=== PATIENT | male | born 1955 | race Hispanic/Latino ===

== ENCOUNTER 2019-02-17 18:29 | Inpatient (IN) | payer MEDICARE ==
--- NOTE | 2019-02-17 19:03 | Emergency Department Report ---
Blank Doc - Documentation Documentation: 63 y o male presents for fall at [facility], pt appears jaundiced, states he didnr want to come to ED poor historian
[2019-02-17 19:53] LABS: Basophils # (Auto) 0.1 K/mm3 (0.0-0.1); Basophils % (Auto) 0.7 % (0.0-1.8); Eosinophils % (Auto) 0.2 % (0.0-4.3); Hematocrit 32.5 % (35.5-45.6); Hemoglobin 11.6 gm/dl (11.8-15.2); Lymphocytes % (Auto) 6.4 % (13.4-35.0); Mean Corpuscular HGB Conc 36 % (32-34); Mean Corpuscular Volume 100 fl (84-94); Monocytes # (Auto) 0.9 K/mm3 (0.0-0.8); Monocytes % (Auto) 5.8 % (0.0-7.3); Platelet Count 295 K/mm3 (140-440); Red Blood Count 3.24 M/mm3 (3.65-5.03); Red Cell Distribution Width 14.3 % (13.2-15.2)
[2019-02-17 20:18] LABS: Alanine Aminotransferase 21 units/L (7-56); Albumin 2.5 g/dL (3.9-5); BUN/Creatinine Ratio 25; Bilirubin,Direct 4.1 mg/dL (0-0.2); Blood Urea Nitrogen 10 mg/dL (9-20); Calcium 8.3 mg/dL (8.4-10.2); Hemolysis Index 14
[2019-02-17] MEDS ORDERED: NACL 0.9% 1000 ML 1,000 ML IV ONE (21:14)
[2019-02-17] MEDS ORDERED: ROCEPHIN/NS 2 GM/100 ML 2 GM/100 ML BAG IV ONE (21:23)
--- NOTE | 2019-02-17 21:24 | Emergency Department Report ---
- General Chief complaint: Weakness Stated complaint: FALL Time Seen by Provider: 02/17/19 18:34 Source: patient Mode of arrival: Wheelchair Limitations: No Limitations - History of Present Illness Initial comments: 63-year-old male presents to the ED with generalized weakness, jaundice, not feeling well for the past 3 days. Patient lives in a longterm, and he states that his roommate has noticed that his skin color has changed. He states that a few years ago he had colon surgery at [place] but does not remember what was done. -: Gradual Location: generalized Severity: severe - Related Data Previous Rx's Medication Instructions Recorded Last Taken Type Ketorolac [Toradol] 10 mg PO Q6H PRN #10 tablet 06/07/18 Unknown Rx Allergies Allergy/AdvReac Type Severity Reaction Status Date / Time Sulfa (Sulfonamide Allergy Unknown Verified 06/07/18 19:07 Antibiotics) ED Review of Systems ROS: Stated complaint: FALL Other details as noted in HPI Comment: All other systems reviewed and negative Constitutional: no symptoms reported Cardiovascular: denies: palpitations Gastrointestinal: nausea, vomiting ED Past Medical Hx - Past Medical History Previous Medical History?: Yes Hx Hypertension: Yes Hx Psychiatric Treatment: Yes (alcohol abuse,last used over year, depression) Hx Asthma: Yes Additional medical history: Colon Ca - Surgical History Past Surgical History?: Yes Additional Surgical History: resection of Colon, 3hernia repairs - Social History Smoking Status: Current Every Day Smoker Substance Use Type: Alcohol - Medications Home Medications: Home Medications Medication Instructions Recorded Confirmed Last Taken Type Ketorolac [Toradol] 10 mg PO Q6H PRN #10 tablet 06/07/18 Unknown Rx ED Physical Exam - General Limitations: No Limitations, Language Barrier General appearance: lethargic - Eye Eye exam: Present: scleral icterus - ENT ENT exam: Present: normal exam, normal orophraynx - Neck Neck exam: Present: normal inspection - Respiratory Respiratory exam: Present: normal lung sounds bilaterally - Cardiovascular Cardiovascular Exam: Present: regular rate, normal rhythm - GI/Abdominal GI/Abdominal exam: Present: soft, normal bowel sounds - Extremities Exam Extremities exam: Present: normal inspection, full ROM - Back Exam Back exam: Present: normal inspection - Neurological Exam Neurological exam: Present: alert, oriented X3 ED Course Vital Signs 02/17/19 18:34 Temperature 98.0 F Pulse Rate 92 H Respiratory 18 Rate Blood Pressure 103/63 O2 Sat by Pulse 92 Oximetry ED Medical Decision Making - Lab Data Result diagrams: 02/17/19 19:40 02/17/19 19:40 Critical care attestation.: If time is entered above; I have spent that time in minutes in the direct care of this critically ill patient, excluding procedure time. ED Disposition Clinical Impression: Jaundice, hepatocellular Disposition: DC-01 TO HOME OR SELFCARE Is pt being admited?: Yes Does the pt Need Aspirin: No Condition: Stable
--- NOTE | 2019-02-17 22:15 | Cat Scan Report ---
PROCEDURE: CT abdomen and pelvis without contrast. TECHNIQUE: Computerized axial tomography of the abdomen and pelvis was performed without intravenous contrast. This study is performed without intravascular contrast material and its sensitivity for ab dominal and pelvic pathology, including neoplasms, inflammation, abscess, free fluid, thrombosis, art erial dissection and infarction, is reduced compared with a contrast enhanced study. CT DOSE LENGTH PRODUCT: 701.4 mGycm HISTORY: Jaundice. COMPARISONS: None. FINDINGS: There are multiple pulmonary nodules located in the lung bases. These are not calcified. One of the l argest nodules is in the right lower lobe measuring 1.9 cm. These findings are worrisome for metastat ic disease. Clinical correlation is recommended. There are no pleural effusions. The heart size is no rmal. There are some vague areas of inhomogeneous attenuation within the liver. There are some calcif ications in the left lobe. Metastatic disease is possible. Again clinical correlation is recommended. The gallbladder is present. There is no biliary dilatation. The pancreas and spleen are grossly norm al. The adrenal glands are not enlarged. There is probably a cyst in the upper pole of the right kidn ey. The abdominal aorta has a normal caliber. There is atherosclerotic calcification in the abdominal aorta and common iliac arteries. There is no retroperitoneal adenopathy. The unopacified gastrointes tinal tract is unremarkable. There is a moderate amount of ascites in the abdomen and pelvis. The fawn dder is distended. The seminal vesicles and prostate appear normal. The regional skeleton appears int act. There are old fractures of left ribs 7 and 8 and right rib 6. IMPRESSION: Multiple pulmonary nodules worrisome for metastatic disease. Abnormal appearing liver which may also have metastatic disease. Moderate amount of ascites. Atherosclerosis. This document is electronically signed by Eugene Velez MD., February 17 2019 10:13:48 PM ET
--- NOTE | 2019-02-17 23:13 | History and Physical Report ---
History of Present Illness Date of examination: 02/17/19 History of present illness: 63-year-old male with a history of colon cancer, depressioncomes to the emergency room for evaluation. Lives in a alf, his friend told him that his eyes were yellow and should get evaluated. Complains of generalized weakness Review of systems Constitutional: no weight loss, chills, fever Ears, eyes, nose, mouth and throat: no nasal congestion, no nasal discharge, no sinus pressure, no vision change, no red eye. Neck: No neck pain or rigidity. Cardiovascular: no palpitations, chest pain Respiratory: no cough, shortness of breath Gastrointestinal: no hematochezia, abdominal pain Genitourinary : no frequency , no hematuria Musculoskeletal: no joint swelling or muscle ache Integumentary: no rash, no pruritis Neurological: no parathesias, no focal weakness Endocrine: no cold or heat intolerance, no polyuria or polydipsia Hematologic/Lymphatic: no easy bruising, no easy bleeding, no gland swelling Allergic/Immunologic: no urticaria, no angioedema. PAST MEDICAL HISTORY:colon cancer, depression PAST SURGICAL HISTORY: Colon resection SOCIAL HISTORY:Drink 3 beers a day, drugs, smokes half pack a day FAMILY HISTORY: Hypertension Medications and Allergies Allergies Allergy/AdvReac Type Severity Reaction Status Date / Time Sulfa (Sulfonamide Allergy Unknown Verified 06/07/18 19:07 Antibiotics) Home Medications Medication Instructions Recorded Confirmed Last Taken Type Ketorolac [Toradol] 10 mg PO Q6H PRN #10 tablet 06/07/18 02/18/19 Unknown Rx Active Meds: Active Medications Sodium Chloride (Nacl 0.9% 1000 Ml) 1,000 mls @ 125 mls/hr IV ONCE ONE Stop: 02/18/19 05:13 Exam - Physical Exam Narrative exam: General Apperance: The patient lying in bed, breathing comfortable HEENT: Normocephalic, atraumatic. Pupils equally round and reactive to light, EOMI, +sclericterus, no JVD or thyromegaly or nodule. , no carotid bruit, mucous membranes moist, no exudate or erythema Heart: S1-S2, regular is rhythm Lungs: Clear to auscultation bilaterally, breathing comfortable Abdomen: Positive bowel sounds, soft, nontender, nondistended, no organomegaly Extremities: + edema no cyanosis clubbing Skin: Sacral decubitus, + extremities wounds , no rash, nodule, warm and dry Neuro: cranial nerves 2-12 intact, speech is fluent, motor/sensory intact - Constitutional Vitals: Temp Pulse Resp BP Pulse Ox 98.0 F 92 H 18 103/63 92 02/17/19 18:34 02/17/19 18:34 02/17/19 18:34 02/17/19 18:34 02/17/19 18:34 Results - Labs CBC & Chem 7: 02/22/19 06:40 02/24/19 19:52 Labs: Abnormal lab results 02/17/19 02/17/19 Range/Units 19:40 19:40 WBC 16.2 H (4.5-11.0) K/mm3 RBC 3.24 L (3.65-5.03) M/mm3 Hgb 11.6 L (11.8-15.2) gm/dl Hct 32.5 L (35.5-45.6) % MCV 100 H (84-94) fl MCH 36 H (28-32) pg MCHC 36 H (32-34) % Lymph % (Auto) 6.4 L (13.4-35.0) % Lymph # 1.0 L (1.2-5.4) K/mm3 [place] # 0.9 H (0.0-0.8) K/mm3 Seg Neutrophils % 86.9 H (40.0-70.0) % Seg Neutrophils # 14.1 H (1.8-7.7) K/mm3 Sodium 111 L* (137-145) mmol/L Chloride 71.2 L (98-107) mmol/L Creatinine 0.4 L (0.8-1.5) mg/dL Glucose 70 L (75-100) mg/dL Calcium 8.3 L (8.4-10.2) mg/dL Total Bilirubin 5.80 H (0.1-1.2) mg/dL Direct Bilirubin 4.1 H (0-0.2) mg/dL AST 54 H (5-40) units/L Alkaline Phosphatase 414 H (35-129) units/L Albumin 2.5 L (3.9-5) g/dL - Imaging and Cardiology CT scan - abdomen: report reviewed CT scan - pelvis: report reviewed Assessment and Plan Assessment Severe hyponatremia, rule out SIADH SIRS Metastatic colon cancer, liver and lungs Depression Plan Admit to medicine Fluid restriction, check serial chemistries, urine electrolytes consult renal, case discussed with Dr. Holland ngo,follow cultures, consult oncology Check CT head, DVT prophylaxis
[2019-02-17 23:26] LABS: Amorphous Crystals,Urine Few; Bilirubin,Urine SM (Negative); Blood,Urine SM (Negative); Color,Urine Amber (Yellow); Protein,Urine <15 mg/dL mg/dL (Negative)
[2019-02-17 23:32] LABS: Ictotest,Urine Positive (Negative)
[2019-02-17] MEDS ORDERED: NACL 0.9% 1000 ML 1,000 ML IV SCH (23:45)
[2019-02-17] MEDS ORDERED: NACL 0.9% 1000 ML 1,000 ML ONE (23:58)
[2019-02-18] LABS: BUN/Creatinine Ratio 28; Blood Urea Nitrogen 11 mg/dL (9-20); Calcium 8.1 mg/dL (8.4-10.2); Hemolysis Index 2
[2019-02-18 00:03] LABS: Creatinine,Urine 74.5 mg/dL (0.1-20.0)
[2019-02-18] MEDS ORDERED: SODIUM CHLORIDE FLUSH SYRINGE 10 ML IV PRN (00:16)
[2019-02-18] MEDS ORDERED: ZOFRAN IV PRN (00:16)
--- NOTE | 2019-02-18 01:34 | XRay Report ---
PROCEDURE: Chest. TECHNIQUE: AP and lateral chest radiographs were obtained. HISTORY: leukocytosis COMPARISONS: None. FINDINGS: The heart size is normal. There is moderate tortuosity of the thoracic aorta. The lungs are mildly hy perinflated. There are some vague nodular opacities located laterally in the right midlung. These are indeterminant but could represent metastatic disease. Further evaluation with a contrast enhanced CT scan of the chest is recommended. There may be a small very faint nodule in the left costophrenic an gle. The left lung is otherwise clear. There are no pleural effusions. There is a right-sided chest p ort. The thoracic spine is osteopenic. There are wedge compression deformities of 2 mid thoracic vert ebral bodies. IMPRESSION: COPD. Possible metastatic nodules. Further evaluation recommended. Osteoporosis. Deborah gautam fractures in the midthoracic spine. This document is electronically signed by Eugene Velez MD., February 18 2019 01:32:30 AM ET
[2019-02-18 02:59] LABS: BUN/Creatinine Ratio 25; Blood Urea Nitrogen 10 mg/dL (9-20); Hemolysis Index 0
[2019-02-18 07:08] LABS: BUN/Creatinine Ratio 25; Blood Urea Nitrogen 10 mg/dL (9-20); Calcium 7.7 mg/dL (8.4-10.2); Hemolysis Index 0
[2019-02-18] MEDS: SODIUM CHLORIDE FLUSH SYRINGE 10 ML IV SCH ×2 (09:51→21:26)
[2019-02-18] MEDS: LOVENOX SUB-Q SCH (09:51)
[2019-02-18] MEDS ORDERED: LOVENOX SUB-Q SCH (10:00)
[2019-02-18] MEDS ORDERED: ROCEPHIN/NS 1 GM/50 ML 1 GM/50 ML BAG IV SCH (10:00)
[2019-02-18 10:38] LABS: BUN/Creatinine Ratio 25; Blood Urea Nitrogen 10 mg/dL (9-20); Calcium 8.2 mg/dL (8.4-10.2); Hemolysis Index 0
--- NOTE | 2019-02-18 12:04 | Consultation ---
History of Present Illness - Reason for Consult Consult date: 02/18/19 hyponatremia - History of Present Illness the patient is a 63 year old male with h/o coln cancer presented to the ER yesterday due to worsening weakness and jaundice, in the ED he was found to have severe hyponatremia and CT was significant for metastatic disease of the lungs, on admission he was started on NS and Na level increased from 111 to 115 this AM, renal consult was requested for hyponatremia management Past History Past Medical History: other (colon cancer) Medications and Allergies Allergies Allergy/AdvReac Type Severity Reaction Status Date / Time Sulfa (Sulfonamide Allergy Unknown Verified 06/07/18 19:07 Antibiotics) Home Medications Medication Instructions Recorded Confirmed Last Taken Type Ketorolac [Toradol] 10 mg PO Q6H PRN #10 tablet 06/07/18 02/18/19 Unknown Rx Active Meds: Active Medications Acetaminophen (Tylenol) 650 mg PO Q4H PRN PRN Reason: Pain MILD(1-3)/Fever >100.5/POLANCO Enoxaparin Sodium (Lovenox) 40 mg SUB-Q QDAY@1000 [facility] Last Admin: 02/18/19 09:51 Dose: 40 mg Documented by: Furosemide (Lasix) 20 mg PO QDAY [facility] Ceftriaxone Sodium (Rocephin/Ns 1 Gm/50 Ml) 1 gm in 50 mls @ 100 mls/hr IV Q24HR [facility]; Protocol Last Admin: 02/18/19 09:51 Dose: 100 mls/hr Documented by: Ondansetron HCl (Zofran) 4 mg IV Q8H PRN PRN Reason: Nausea And Vomiting Sodium Chloride (Sodium Chloride Flush Syringe 10 Ml) 10 ml IV BID [facility] Last Admin: 02/18/19 09:51 Dose: 10 ml Documented by: Sodium Chloride (Sodium Chloride Flush Syringe 10 Ml) 10 ml IV PRN PRN PRN Reason: LINE FLUSH Sodium Chloride (Sodium Chloride) 1 gm PO TID [facility] Review of Systems All systems: negative (weakness, nausea) Exam - Vital Signs Vital signs: Vital Signs Temp Pulse Resp BP Pulse Ox 98.0 F 92 H 18 103/63 92 02/17/19 18:34 02/17/19 18:34 02/17/19 18:34 02/17/19 18:34 02/17/19 18:34 - General Appearance General appearance: well-developed, well-nourished EENT: ATNC, PERRL, mucous membranes moist Neck: Present: neck supple Respiratory: Clear to Ascultation Heart: regular, S1S2 Gastrointestinal: Present: normoactive bowel sounds, distended Integumentary: no rash, warm and dry Neurologic: no focal deficit, no asterixis, alert and oriented x3, other Musculoskeletal: Present: other (trace pitting edema in BLE) Psychiatric: mood/affect appropriate, cooperative Results - Lab Results 02/17/19 19:40 02/18/19 10:07 Most recent lab results Calcium 8.2 mg/dL (8.4-10.2) L 02/18/19 10:07 74.5 mg/dL (0.1-20.0) H 02/17/19 22:00 10 mmol/L 02/17/19 22:00 Assessment and Plan Severe hyponatremia, possible SIADH due to active malignancy with mets to the lungs and liver SIRS Metastatic colon cancer, liver and lungs Depression - Na Q4H with neurochecks, avoid Na correction more than 8 mmol/l in 24 hours - off NS, will start NaCl tab 1 grams TID with lasix 20 mg qday and fluid restriction 1000 cc/h - will check urine and serum osm, urine Cr and sodium - strict I&O - daily weight Gui Leal MD [phone]
--- NOTE | 2019-02-18 12:21 | Cat Scan Report ---
CT HEAD WITHOUT CONTRAST: HISTORY: Evaluate for metastases. TECHNIQUE: Sequential CT images without contrast. FINDINGS: Images obtained show bilateral prominence of the sulci and ventricles. There are no abnormal intra- or extra-axial blood or fluid collections. There are no focal masses or evidence of mass effect. The henry white matter differentiation appears within normal limits. Regions of periventricular decreased attenuation are consistent with microangiopathic ischemic disease. The posterior fossa structures including the fourth ventricle, cerebellum, and brainstem appear normal. IMPRESSION: Evidence of atrophy and microangiopathic ischemic disease. No acute intracranial process noted.
[2019-02-18] MEDS: LASIX PO SCH (12:39)
[2019-02-18 14:14] LABS: BUN/Creatinine Ratio 23; Blood Urea Nitrogen 9 mg/dL (9-20); Calcium 7.9 mg/dL (8.4-10.2); Hemolysis Index 9
[2019-02-18] MEDS: SODIUM CHLORIDE PO SCH ×2 (15:40→21:26)
--- NOTE | 2019-02-18 18:29 | Progress Note ---
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 Nephrology following Sodium chloride 1 g 3 times a day along with Lasix Fluid restriction --Metastatic colon cancer; Patient reports he had colon cancer many years ago Oncology evaluation --Metastatic lesions lungs/liver; Supportive care, management per oncology --SIRS : Supportive care, blood cultures positive for gram-positive clusters Empiric antibiotics, follow culture sensitivities --History of depression; denies suicidal thoughts or ideation Antidepression medications, psych evaluation if needed --DVT prophylaxis; SCDs -- Full CODE STATUS Monitor closely and adjust management as needed History Interval history: 63-year-old male patient with significant past medical history of colon cancer many years ago was admitted through emergency room with generalized weakness and yellowish discoloration of sclerae Initial evaluation patient was noted to have severe hyponatremia CT abdomen and pelvis: multiple pulmonary nodules worrisome for metastatic disease Abnormal liver possible metastatic lesions, moderate amount of ascites and atherosclerosis Patient looks chronically ill, cachectic, confused at times Unable to give proper history Not in acute distress Vital signs noted; Hospitalist Physical - Constitutional Vitals: Temp Pulse Resp BP Pulse Ox 97.9 F 73 18 104/70 96 02/18/19 15:49 02/18/19 15:49 02/18/19 15:49 02/18/19 15:49 02/18/19 15:49 General appearance: Present: mild distress, cachectic, disheveled - EENT Eyes: Present: PERRL, EOM intact, scleral icterus - Neck Neck: Present: supple, normal ROM - Respiratory Respiratory effort: normal Respiratory: bilateral: diminished, rales, negative: rhonchi, wheezing - Cardiovascular Rhythm: regular Heart Sounds: Present: S1 & S2 - Extremities Extremities: no ischemia, No edema - Abdominal General gastrointestinal: soft, non-tender, non-distended, normal bowel sounds - Integumentary Integumentary: Present: clear, warm - Psychiatric Psychiatric: appropriate mood/affect, cooperative - Neurologic Neurologic: CNII-XII intact, moves all extremities Results - Labs CBC & Chem 7: 02/19/19 05:20 02/19/19 08:06 Labs: Laboratory Last Values WBC 16.2 K/mm3 (4.5-11.0) H 02/17/19 19:40 RBC 3.24 M/mm3 (3.65-5.03) L 02/17/19 19:40 Hgb 11.6 gm/dl (11.8-15.2) L 02/17/19 19:40 Hct 32.5 % (35.5-45.6) L 02/17/19 19:40 MCV 100 fl (84-94) H 02/17/19 19:40 MCH 36 pg (28-32) H 02/17/19 19:40 MCHC 36 % (32-34) H 02/17/19 19:40 RDW 14.3 % (13.2-15.2) 02/17/19 19:40 Plt Count 295 K/mm3 (140-440) 02/17/19 19:40 Lymph % (Auto) 6.4 % (13.4-35.0) L 02/17/19 19:40 [place] % (Auto) 5.8 % (0.0-7.3) 02/17/19 19:40 Eos % (Auto) 0.2 % (0.0-4.3) 02/17/19 19:40 Baso % (Auto) 0.7 % (0.0-1.8) 02/17/19 19:40 Lymph # 1.0 K/mm3 (1.2-5.4) L 02/17/19 19:40 [place] # 0.9 K/mm3 (0.0-0.8) H 02/17/19 19:40 Eos # 0.0 K/mm3 (0.0-0.4) 02/17/19 19:40 Baso # 0.1 K/mm3 (0.0-0.1) 02/17/19 19:40 Seg Neutrophils % 86.9 % (40.0-70.0) H 02/17/19 19:40 Seg Neutrophils # 14.1 K/mm3 (1.8-7.7) H 02/17/19 19:40 Sodium 115 mmol/L (137-145) L* 02/18/19 15:24 Potassium 4.3 mmol/L (3.6-5.0) 02/18/19 13:26 Chloride 77.1 mmol/L (98-107) L 02/18/19 13:26 Carbon Dioxide 27 mmol/L (22-30) 02/18/19 13:26 15 mmol/L 02/18/19 13:26 BUN 9 mg/dL (9-20) 02/18/19 13:26 0.4 mg/dL (0.8-1.5) L 02/18/19 13:26 Estimated GFR > 60 ml/min 02/18/19 13:26 23 % 02/18/19 13:26 Glucose 110 mg/dL (75-100) H 02/18/19 13:26 245 Mosm/kg 02/18/19 13:26 Calcium 7.9 mg/dL (8.4-10.2) L 02/18/19 13:26 5.80 mg/dL (0.1-1.2) H 02/17/19 19:40 4.1 mg/dL (0-0.2) H 02/17/19 19:40 1.7 mg/dL 02/17/19 19:40 AST 54 units/L (5-40) H 02/17/19 19:40 ALT 21 units/L (7-56) 02/17/19 19:40 414 units/L (35-129) H 02/17/19 19:40 6.4 g/dL (6.3-8.2) 02/17/19 19:40 2.5 g/dL (3.9-5) L 02/17/19 19:40 0.6 % 02/17/19 19:40 31 units/L (13-60) 02/17/19 19:40 Melina (Yellow) 02/17/19 22:00 Clear (Clear) 02/17/19 22:00 6.0 (5.0-7.0) 02/17/19 22:00 Ur Specific [place] 1.012 (1.003-1.030) 02/17/19 22:00 <15 mg/dl mg/dL (Negative) 02/17/19 22:00 Neg mg/dL (Negative) 02/17/19 22:00 Tr mg/dL (Negative) 02/17/19 22:00 Sm (Negative) 02/17/19 22:00 Neg (Negative) 02/17/19 22:00 Sm (Negative) 02/17/19 22:00 Positive (Negative) 02/17/19 22:00 4.0 mg/dL (<2.0) 02/17/19 22:00 Ur Leukocyte Esterase Neg (Negative) 02/17/19 22:00 5.0 /HPF (0.0-6.0) 02/17/19 22:00 9.0 /HPF (0.0-6.0) 02/17/19 22:00 U Epithel Cells (Auto) < 1.0 /HPF (0-13.0) 02/17/19 22:00 Amorphous Crystals Few 02/17/19 22:00 330 Mosm/kg 02/17/19 22:00 74.5 mg/dL (0.1-20.0) H 02/17/19 22:00 10 mmol/L 02/17/19 22:00 Active Medications - Current Medications Current Medications: Generic Name Dose Route Start Last Admin Trade Name Freq PRN Reason Stop Dose Admin Acetaminophen 650 mg 02/18/19 00:16 Tylenol PO Q4H PRN Pain MILD(1-3)/Fever >100.5/POLANCO Enoxaparin Sodium 40 mg 02/18/19 10:00 02/18/19 09:51 Lovenox SUB-Q 40 mg QDAY@1000 [facility] Administration Furosemide 20 mg 02/18/19 12:00 02/18/19 12:39 Lasix PO 20 mg QDAY [facility] Administration Ceftriaxone Sodium 1 gm in 50 mls @ 100 mls/hr 02/18/19 10:00 02/18/19 09:51 Rocephin/Ns 1 Gm/50 Ml IV 100 mls/hr Q24HR [facility] Administration Protocol Ondansetron HCl 4 mg 02/18/19 00:16 Zofran IV Q8H PRN Nausea And Vomiting Sodium Chloride 10 ml 02/18/19 10:00 02/18/19 09:51 Sodium Chloride Flush Syringe 10 Ml IV 10 ml BID [facility] Administration Sodium Chloride 10 ml 02/18/19 00:16 Sodium Chloride Flush Syringe 10 Ml IV PRN PRN LINE FLUSH Sodium Chloride 1 gm 02/18/19 14:00 02/18/19 15:40 Sodium Chloride PO 1 gm TID [facility] Administration Nutrition/Malnutrition Assess - Dietary Evaluation Nutrition/Malnutrition Findings: Nutrition Notes Start: 02/18/19 15:10 Freq: Status: Active Protocol: Document 02/18/19 15:10 RM (Rec: 02/18/19 15:19 RM [id number]) Nutrition Notes Need for Assessment generated from: vending technician,MST Initial or Follow up Assessment Other Pertinent Diagnosis Sacral PU, Depression, SIRS, metastatic colon CA Current Diet Cardiac w/1.5 L fluid restriction Labs/Tests Reviewed Pertinent Medications Lasix Height 5 ft 7 in Weight 63.503 kg Usual Body Weight 68.18 kg [place] Body Weight (kg) 67.27 BMI 21.9 Subjective/Other Information Screened for skin risk and malnutrition. Sameer 14 points. Noted sign on wall stating 1.5 L fluid restriction. Pt and pt nurse in room at time of visit. 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 Stated that his appetite is okay now however nurse stated that pt is eating bites of meals here. Pt stated UBW is 150 lbs but could not recall how long ago he weighed that. Noted slight temporal wasting. 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 No Is Patient Ambulatory and/or Out of Bed No REE-([place]-St. Jeor-confined to bed) [phone] Calculation Used for Recommendations [place] Jeor Additional Notes Protein Needs: (1.2-1.5g/kg) Fluid Needs: 1.5 L Nutrition Intervention Change Diet Order: Continue current Add Supplement/Snack (indicate name/kcal Ensure Enlive Chocolate 1 /protein ) daily Provides kCal: 350 Provides Protein (gm) 20 Goal #1 Meet at least 75% of calorie and protein needs via PO and ONS intakes Anticipated Discharge Needs: Cardiac diet Follow-Up By: 02/22/19 Additional Comments Follow for PO and ONS intakes
--- NOTE | 2019-02-18 21:49 | Event Note ---
Date: 02/18/19 [id number]
[2019-02-18 23:15] LABS: BUN/Creatinine Ratio 23; Blood Urea Nitrogen 9 mg/dL (9-20); Calcium 7.8 mg/dL (8.4-10.2); Hemolysis Index 7
[2019-02-18] MEDS: MAXIPIME/NS 1 GM/100 ML 1 GM/100 ML BAG IV SCH (23:15)
[2019-02-19] MEDS: MAXIPIME/NS 1 GM/100 ML 1 GM/100 ML BAG IV SCH ×3 (05:16→21:18)
[2019-02-19 06:06] LABS: Basophils % (Auto) 0.4 % (0.0-1.8); Eosinophils # (Auto) 0.1 K/mm3 (0.0-0.4); Eosinophils % (Auto) 1.1 % (0.0-4.3); Hematocrit 31.2 % (35.5-45.6); Lymphocytes # (Auto) 0.8 K/mm3 (1.2-5.4); Lymphocytes % (Auto) 8.2 % (13.4-35.0); Mean Corpuscular HGB Conc 35 % (32-34); Mean Corpuscular Volume 102 fl (84-94); Monocytes # (Auto) 0.8 K/mm3 (0.0-0.8); Monocytes % (Auto) 7.9 % (0.0-7.3); Platelet Count 195 K/mm3 (140-440); Red Blood Count 3.05 M/mm3 (3.65-5.03); Red Cell Distribution Width 14.6 % (13.2-15.2)
[2019-02-19 06:36] LABS: BUN/Creatinine Ratio 18; Blood Urea Nitrogen 7 mg/dL (9-20); Calcium 7.9 mg/dL (8.4-10.2); Hemolysis Index 15
--- NOTE | 2019-02-19 08:13 | Hem/Onc Progress Note ---
Assessment and Plan 1. History of colon cancer with elevated bilirubin, likely liver and lung met. CEA. 2. IR consult for biopsy. 3. The patient has a Port-A-Cath, says got 2 chemo and then stopped - this was at [facility]. patient does not know the name of his oncologist. 4. History of ascites. 5. MCV elevated, likely secondary to alcohol usage. 6. The patient would need a biopsy. It is not clear if liver biopsy would help. We will do ultrasound abdomen and follow. Lung lesions IR consulted for BX - Patient Problems (1) Lesion of lung Current Visit: Yes Status: Acute Subjective Date of service: 02/19/19 Principal diagnosis: high bili - possible colon mets Interval history: no vomitings Objective - Exam Narrative Exam: pain none General appearance no acute distress Performance status - limited self care Eyes icterus ENT no thrush LNs cervical not palpable Neck no mass Respiratory Normal Breath sounds - CTA CVS S1 S2 + Extremities normal temperature General GI Soft non tender distended Rectal deferred Male - deferred Skin warm Musculoskeletal no weakness Neurologically AAOx3 - Constitutional Vitals: Last Vital Signs Temp 98.3 F 02/18/19 23:25 Pulse 79 02/19/19 06:00 Resp 18 02/18/19 23:25 BP 98/66 02/18/19 23:25 Pulse Ox 93 02/19/19 08:10 - Labs Lab Results: Laboratory Results - last 24 hr 02/18/19 02/18/19 02/18/19 10:07 13:26 13:26 WBC RBC Hgb Hct MCV MCH MCHC RDW Plt Count Lymph % (Auto) [place] % (Auto) Eos % (Auto) Baso % (Auto) Lymph # [place] # Eos # Baso # Seg Neutrophils % Seg Neutrophils # Sodium 115 L* 115 L* Potassium 4.2 4.3 Chloride 76.0 L 77.1 L Carbon Dioxide 27 27 Anion Gap 16 15 BUN 10 9 Creatinine 0.4 L 0.4 L Estimated GFR > 60 > 60 BUN/Creatinine Ratio 25 23 Glucose 118 H 110 H POC Glucose Osmolality 245 Calcium 8.2 L 7.9 L Urine Osmolality Urine Creatinine Urine Sodium 02/18/19 02/18/19 02/18/19 15:24 19:49 20:42 WBC RBC Hgb Hct MCV MCH MCHC RDW Plt Count Lymph % (Auto) [place] % (Auto) Eos % (Auto) Baso % (Auto) Lymph # [place] # Eos # Baso # Seg Neutrophils % Seg Neutrophils # Sodium 115 L* 115 L* Potassium Chloride Carbon Dioxide Anion Gap BUN Creatinine Estimated GFR BUN/Creatinine Ratio Glucose POC Glucose 125 H Osmolality Calcium Urine Osmolality Urine Creatinine Urine Sodium 02/18/19 02/18/19 02/19/19 22:32 Unknown 01:05 WBC RBC Hgb Hct MCV MCH MCHC RDW Plt Count Lymph % (Auto) [place] % (Auto) Eos % (Auto) Baso % (Auto) Lymph # [place] # Eos # Baso # Seg Neutrophils % Seg Neutrophils # Sodium 114 L* 117 L* Potassium 3.8 Chloride 75.9 L Carbon Dioxide 28 Anion Gap 14 BUN 9 Creatinine 0.4 L Estimated GFR > 60 BUN/Creatinine Ratio 23 Glucose 109 H POC Glucose Osmolality Calcium 7.8 L Urine Osmolality 428 Urine Creatinine 96.0 H Urine Sodium 10 02/19/19 02/19/19 05:20 05:20 WBC 10.0 RBC 3.05 L Hgb 11.0 L Hct 31.2 L MCV 102 H MCH 36 H MCHC 35 H RDW 14.6 Plt Count 195 Lymph % (Auto) 8.2 L [place] % (Auto) 7.9 H Eos % (Auto) 1.1 Baso % (Auto) 0.4 Lymph # 0.8 L [place] # 0.8 Eos # 0.1 Baso # 0.0 Seg Neutrophils % 82.4 H Seg Neutrophils # 8.2 H Sodium 118 L* Potassium 4.1 Chloride 81.4 L Carbon Dioxide 25 Anion Gap 16 BUN 7 L Creatinine 0.4 L Estimated GFR > 60 BUN/Creatinine Ratio 18 Glucose 100 POC Glucose Osmolality Calcium 7.9 L Urine Osmolality Urine Creatinine Urine Sodium Medications & Allergies - Medications Allergies/Adverse Reactions: Allergies Sulfa (Sulfonamide Antibiotics) Allergy (Verified 06/07/18 19:07) Unknown Home Medications: Home Medications Medication Instructions Recorded Confirmed Last Taken Type Ketorolac [Toradol] 10 mg PO Q6H PRN #10 tablet 06/07/18 02/18/19 Unknown Rx Active Medications: Generic Name Dose Route Start Last Admin Trade Name Freq PRN Reason Stop Dose Admin Acetaminophen 650 mg 02/18/19 00:16 Tylenol PO Q4H PRN Pain MILD(1-3)/Fever >100.5/POLANCO Enoxaparin Sodium 40 mg 02/18/19 10:00 02/18/19 09:51 Lovenox SUB-Q 40 mg QDAY@1000 [facility] Administration Furosemide 20 mg 02/18/19 12:00 02/18/19 12:39 Lasix PO 20 mg QDAY [facility] Administration Cefepime HCl 1 gm in 100 mls @ 200 mls/hr 02/19/19 00:00 02/19/19 05:16 Maxipime/Ns 1 Gm/100 Ml IV 200 mls/hr Q6HR [facility] Administration Protocol Ondansetron HCl 4 mg 02/18/19 00:16 Zofran IV Q8H PRN Nausea And Vomiting Sodium Chloride 10 ml 02/18/19 10:00 02/18/19 21:26 Sodium Chloride Flush Syringe 10 Ml IV 10 ml BID [facility] Administration Sodium Chloride 10 ml 02/18/19 00:16 Sodium Chloride Flush Syringe 10 Ml IV PRN PRN LINE FLUSH Sodium Chloride 1 gm 02/18/19 14:00 02/18/19 21:26 Sodium Chloride PO 1 gm TID [facility] Administration
[2019-02-19] MEDS: SODIUM CHLORIDE PO SCH ×3 (08:49→21:18)
[2019-02-19] MEDS: LOVENOX SUB-Q SCH (10:13)
[2019-02-19] MEDS: LASIX PO SCH (10:13)
[2019-02-19] MEDS: SODIUM CHLORIDE FLUSH SYRINGE 10 ML IV SCH ×2 (10:14→21:18)
--- NOTE | 2019-02-19 10:32 | Event Note ---
Date: 02/19/19 Reviewed chart for biopsy. Incomplete workup for biopsy. Patient requires complete imaging of the chest, abdomen and pelvis with contrast. Patient will also need an MRI of the liver with and without contrast, possibly with MRCP imaging. Patient will need a hepatitis panel, and AFP. Even after workup, biopsy may not be possible due to ascites surrounding the liver. Ascites is a contraindication for percutaneous biopsy due to risk of bleeding into the fluid without ability to tamponade.
--- NOTE | 2019-02-19 12:31 | Progress Note ---
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 Nephrology following Sodium chloride 1 g 3 times a day along with Lasix Fluid restriction --Metastatic colon cancer; Patient reports he had colon cancer many years ago Oncology evaluation --Metastatic lesions lungs/liver; Supportive care, management per oncology --SIRS : Supportive care, blood cultures positive for gram-positive clusters Empiric antibiotics, follow culture sensitivities --History of depression; denies suicidal thoughts or ideation Antidepression medications, psych evaluation if needed --DVT prophylaxis; SCDs -- Full CODE STATUS Monitor closely and adjust management as needed Plan of care discussed with the patient and his friend at the bedside History Interval history: Patient seen and examined medical records reviewed Patient feels better no new complaints Signs noted Alert awake and oriented 3 Not in acute distress Hospitalist Physical - Constitutional Vitals: Temp Pulse Resp BP Pulse Ox 98.3 F 79 18 98/66 93 02/18/19 23:25 02/19/19 06:00 02/18/19 23:25 02/18/19 23:25 02/19/19 08:10 General appearance: Present: mild distress, cachectic, disheveled - EENT Eyes: Present: PERRL, EOM intact - Neck Neck: Present: supple, normal ROM - Respiratory Respiratory effort: normal Respiratory: bilateral: diminished, negative: rales, rhonchi, wheezing - Cardiovascular Rhythm: regular Heart Sounds: Present: S1 & S2 - Extremities Extremities: no ischemia, No edema - Abdominal General gastrointestinal: soft, non-tender, non-distended, normal bowel sounds - Integumentary Integumentary: Present: clear, warm - Psychiatric Psychiatric: appropriate mood/affect, cooperative - Neurologic Neurologic: CNII-XII intact, moves all extremities Results - Labs CBC & Chem 7: 02/19/19 05:20 02/20/19 05:11 Labs: Laboratory Last Values WBC 10.0 K/mm3 (4.5-11.0) 02/19/19 05:20 RBC 3.05 M/mm3 (3.65-5.03) L 02/19/19 05:20 Hgb 11.0 gm/dl (11.8-15.2) L 02/19/19 05:20 Hct 31.2 % (35.5-45.6) L 02/19/19 05:20 MCV 102 fl (84-94) H 02/19/19 05:20 MCH 36 pg (28-32) H 02/19/19 05:20 MCHC 35 % (32-34) H 02/19/19 05:20 RDW 14.6 % (13.2-15.2) 02/19/19 05:20 Plt Count 195 K/mm3 (140-440) 02/19/19 05:20 Lymph % (Auto) 8.2 % (13.4-35.0) L 02/19/19 05:20 [place] % (Auto) 7.9 % (0.0-7.3) H 02/19/19 05:20 Eos % (Auto) 1.1 % (0.0-4.3) 02/19/19 05:20 Baso % (Auto) 0.4 % (0.0-1.8) 02/19/19 05:20 Lymph # 0.8 K/mm3 (1.2-5.4) L 02/19/19 05:20 [place] # 0.8 K/mm3 (0.0-0.8) 02/19/19 05:20 Eos # 0.1 K/mm3 (0.0-0.4) 02/19/19 05:20 Baso # 0.0 K/mm3 (0.0-0.1) 02/19/19 05:20 Seg Neutrophils % 82.4 % (40.0-70.0) H 02/19/19 05:20 Seg Neutrophils # 8.2 K/mm3 (1.8-7.7) H 02/19/19 05:20 Sodium 115 mmol/L (137-145) L* 02/19/19 08:06 Potassium 4.1 mmol/L (3.6-5.0) 02/19/19 05:20 Chloride 81.4 mmol/L (98-107) L 02/19/19 05:20 Carbon Dioxide 25 mmol/L (22-30) 02/19/19 05:20 16 mmol/L 02/19/19 05:20 BUN 7 mg/dL (9-20) L 02/19/19 05:20 0.4 mg/dL (0.8-1.5) L 02/19/19 05:20 Estimated GFR > 60 ml/min 02/19/19 05:20 18 % 02/19/19 05:20 Glucose 100 mg/dL (75-100) 02/19/19 05:20 POC Glucose 125 (70-105) H 02/18/19 20:42 245 Mosm/kg 02/18/19 13:26 Calcium 7.9 mg/dL (8.4-10.2) L 02/19/19 05:20 5.80 mg/dL (0.1-1.2) H 02/17/19 19:40 4.1 mg/dL (0-0.2) H 02/17/19 19:40 1.7 mg/dL 02/17/19 19:40 AST 54 units/L (5-40) H 02/17/19 19:40 ALT 21 units/L (7-56) 02/17/19 19:40 414 units/L (35-129) H 02/17/19 19:40 6.4 g/dL (6.3-8.2) 02/17/19 19:40 2.5 g/dL (3.9-5) L 02/17/19 19:40 0.6 % 02/17/19 19:40 31 units/L (13-60) 02/17/19 19:40 Melina (Yellow) 02/17/19 22:00 Clear (Clear) 02/17/19 22:00 6.0 (5.0-7.0) 02/17/19 22:00 Ur Specific [place] 1.012 (1.003-1.030) 02/17/19 22:00 <15 mg/dl mg/dL (Negative) 02/17/19 22:00 Neg mg/dL (Negative) 02/17/19 22:00 Tr mg/dL (Negative) 02/17/19 22:00 Sm (Negative) 02/17/19 22:00 Neg (Negative) 02/17/19 22:00 Sm (Negative) 02/17/19 22:00 Positive (Negative) 02/17/19 22:00 4.0 mg/dL (<2.0) 02/17/19 22:00 Ur Leukocyte Esterase Neg (Negative) 02/17/19 22:00 5.0 /HPF (0.0-6.0) 02/17/19 22:00 9.0 /HPF (0.0-6.0) 02/17/19 22:00 U Epithel Cells (Auto) < 1.0 /HPF (0-13.0) 02/17/19 22:00 Amorphous Crystals Few 02/17/19 22:00 428 Mosm/kg 02/18/19 Unknown 96.0 mg/dL (0.1-20.0) H 02/18/19 Unknown 10 mmol/L 02/18/19 Unknown Active Medications - Current Medications Current Medications: Generic Name Dose Route Start Last Admin Trade Name Freq PRN Reason Stop Dose Admin Acetaminophen 650 mg 02/18/19 00:16 Tylenol PO Q4H PRN Pain MILD(1-3)/Fever >100.5/POLANCO Enoxaparin Sodium 40 mg 02/18/19 10:00 02/19/19 10:13 Lovenox SUB-Q 40 mg QDAY@1000 [facility] Administration Furosemide 20 mg 02/18/19 12:00 02/19/19 10:13 Lasix PO 20 mg QDAY [facility] Administration Cefepime HCl 1 gm in 100 mls @ 200 mls/hr 02/19/19 14:00 Maxipime/Ns 1 Gm/100 Ml IV Q8HR [facility] Protocol Ondansetron HCl 4 mg 02/18/19 00:16 Zofran IV Q8H PRN Nausea And Vomiting Sodium Chloride 10 ml 02/18/19 10:00 02/19/19 10:14 Sodium Chloride Flush Syringe 10 Ml IV 10 ml BID [facility] Administration Sodium Chloride 10 ml 02/18/19 00:16 Sodium Chloride Flush Syringe 10 Ml IV PRN PRN LINE FLUSH Sodium Chloride 1 gm 02/18/19 14:00 02/19/19 08:49 Sodium Chloride PO 1 gm TID [facility] Administration Nutrition/Malnutrition Assess - Dietary Evaluation Nutrition/Malnutrition Findings: Nutrition Notes Start: 02/18/19 15:10 Freq: Status: Active Protocol: Document 02/18/19 15:10 RM (Rec: 02/18/19 15:19 RM [id number]) Nutrition Notes Need for Assessment generated from: youth services specialist,MST Initial or Follow up Assessment Other Pertinent Diagnosis Sacral PU, Depression, SIRS, metastatic colon CA Current Diet Cardiac w/1.5 L fluid restriction Labs/Tests Reviewed Pertinent Medications Lasix Height 5 ft 7 in Weight 63.503 kg Usual Body Weight 68.18 kg [place] Body Weight (kg) 67.27 BMI 21.9 Subjective/Other Information Screened for skin risk and malnutrition. Sameer 14 points. Noted sign on wall stating 1.5 L fluid restriction. Pt and pt nurse in room at time of visit. 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 Stated that his appetite is okay now however nurse stated that pt is eating bites of meals here. Pt stated UBW is 150 lbs but could not recall how long ago he weighed that. Noted slight temporal wasting. 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 No Is Patient Ambulatory and/or Out of Bed No REE-([facility]-confined to bed) 1348.963 Calculation Used for Recommendations [facility] Additional Notes Protein Needs: (1.2-1.5g/kg) Fluid Needs: 1.5 L Nutrition Intervention Change Diet Order: Continue current Add Supplement/Snack (indicate name/kcal Ensure Enlive Chocolate 1 /protein ) daily Provides kCal: 350 Provides Protein (gm) 20 Goal #1 Meet at least 75% of calorie and protein needs via PO and ONS intakes Anticipated Discharge Needs: Cardiac diet Follow-Up By: 02/22/19 Additional Comments Follow for PO and ONS intakes
--- NOTE | 2019-02-19 15:01 | Progress Note ---
Assessment and Plan Severe hyponatremia, possible SIADH due to active malignancy with mets to the lungs and liver - Serum sodium level was 118 at 1210 today, yesterday's serum sodium level was 115 - On admission (02/17/19), serum sodium level was 111 at 1940 - Checking serum sodium level Q4hrs for now with neurochecks, goal sodium correction < 8 mmol/l in 24 hours to minimize risk of ODS - On sodium chloride tablets 1 g TID - Continue lasix 20 mg po daily and fluid restriction of 1 liter per day - Will follow up next serial sodium checks, may need to make additional adjustments salt tablets and lasix - Strict I&O - Renal plan d/w Dr Thomas Metastatic Colon Cancer, liver, and lungs: - As per Oncology SIRS: - Follow cultures - On Abx Depression: - As per Primary Subjective Date of service: 02/19/19 Interval history: Pt seen in bed, states he feels ok, has some shortness of breath on exertion, no acute distress. No family at bedside Objective - Vital Signs Vital signs: Vital Signs - 12hr 02/19/19 02/19/19 06:00 08:10 Pulse Rate 79 O2 Sat by Pulse 93 Oximetry - General Appearance General appearance: well-developed EENT: ATNC Neck: no JVD Respiratory: Present: Decreased Breath Sounds Cardiology: regular, S1S2 Gastrointestinal: normoactive bowel sounds Integumentary: warm and dry Neurologic: other (awake, oriented to person, place, but not time, follows simple commands) Musculoskeletal: other (1+ edema to BLE) Psychiatric: cooperative - Lab 02/19/19 05:20 02/19/19 12:10 Most recent lab results Calcium 7.9 mg/dL (8.4-10.2) L 02/19/19 05:20 96.0 mg/dL (0.1-20.0) H 02/18/19 Unknown 10 mmol/L 02/18/19 Unknown Medications & Allergies - Medications Allergies/Adverse Reactions: Allergies Sulfa (Sulfonamide Antibiotics) Allergy (Verified 06/07/18 19:07) Unknown Home Medications: Home Medications Medication Instructions Recorded Confirmed Last Taken Type Ketorolac [Toradol] 10 mg PO Q6H PRN #10 tablet 06/07/18 02/18/19 Unknown Rx Active Medications: Generic Name Dose Route Start Last Admin Trade Name Freq PRN Reason Stop Dose Admin Acetaminophen 650 mg 02/18/19 00:16 Tylenol PO Q4H PRN Pain MILD(1-3)/Fever >100.5/POLANCO Enoxaparin Sodium 40 mg 02/18/19 10:00 02/19/19 10:13 Lovenox SUB-Q 40 mg QDAY@1000 [facility] Administration Furosemide 20 mg 02/18/19 12:00 02/19/19 10:13 Lasix PO 20 mg QDAY [facility] Administration Cefepime HCl 1 gm in 100 mls @ 200 mls/hr 02/19/19 14:00 Maxipime/Ns 1 Gm/100 Ml IV Q8HR [facility] Protocol Ondansetron HCl 4 mg 02/18/19 00:16 Zofran IV Q8H PRN Nausea And Vomiting Sodium Chloride 10 ml 02/18/19 10:00 02/19/19 10:14 Sodium Chloride Flush Syringe 10 Ml IV 10 ml BID [facility] Administration Sodium Chloride 10 ml 02/18/19 00:16 Sodium Chloride Flush Syringe 10 Ml IV PRN PRN LINE FLUSH Sodium Chloride 1 gm 02/18/19 14:00 02/19/19 08:49 Sodium Chloride PO 1 gm TID [facility] Administration
--- NOTE | 2019-02-19 19:42 | Consultation ---
HISTORY OF PRESENT ILLNESS: I saw the patient, a 63-year-old male in the medical floor. The patient has a history of colon cancer. The patient says he has had the surgery done a few years ago, but after surgery, he had 2 chemo and then did not follow up. The patient states he has not been following with the oncologist. The patient lives in a prison, has a history of depression, and also his friend told him that his eyes were yellow and he should get evaluated. He came to the hospital. During this admission, the patient underwent CT abdomen and pelvis, which showed lung nodules and abnormal appearing liver, which may be metastatic and moderate ascites. I have been asked to evaluate the patient for same. REVIEW OF SYSTEMS: No fever or chills. The patient says that his abdomen has been distending. ENT: No nasal congestion. No vision changes. No chest pain, no palpitation, no cough, no hemoptysis, no vomiting, no diarrhea, no hematuria. No focal weakness. No bruising. PAST MEDICAL HISTORY: Colon cancer, depression. PAST SURGICAL HISTORY: Colon surgery. SOCIAL HISTORY: History of beer usage present. Mention of smoking and drug usage present. FAMILY HISTORY: Hypertension. ALLERGIES: SULFA. MEDICATIONS: Lasix and Lovenox. PHYSICAL EXAMINATION: VITAL SIGNS: Temperature 98, pulse 90, respirations 18, BP 98/66. HEENT: No pallor, icterus present. NECK: No neck lymph nodes. HEART: S1, S2. Port present. LUNGS: Clear to auscultation. ABDOMEN: Soft, slightly distended. EXTREMITIES: No calf tenderness. NEUROLOGIC: Alert, awake. LABORATORY DATA: White cell 10, hemoglobin 11, MCV 102, platelets 195. Potassium 4.1, creatinine 0.4, bilirubin 5.8. RADIOLOGY: CT head, atrophy. CT abdomen and pelvis, lung nodules and liver abnormal appearing. ASSESSMENT AND PLAN: 1. History of colon cancer with elevated bilirubin, likely liver and lung mets. We have done CEA. 2. The patient would need biopsy. 3. The patient has a Port-A-Cath, s/p 2 chemo and then did not follow [facility]. The patient does not know the name of his oncologist. 4. History of ascites. 5. MCV elevated, likely secondary to alcohol usage. 6. The patient would need a biopsy. It is not clear if liver biopsy would help. We will do ultrasound abdomen and follow. JOB# [id number] VANESSA/SUYAPA VILLA
[2019-02-20] MEDS: MAXIPIME/NS 1 GM/100 ML 1 GM/100 ML BAG IV SCH ×3 (05:25→21:34)
[2019-02-20 06:00] LABS: BUN/Creatinine Ratio 23; Blood Urea Nitrogen 7 mg/dL (9-20); Calcium 8.1 mg/dL (8.4-10.2); Hemolysis Index 4
[2019-02-20] MEDS: SODIUM CHLORIDE PO SCH ×3 (08:35→21:35)
--- NOTE | 2019-02-20 08:58 | Progress Note ---
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 In the setting of metastatic lesions along and liver Patient's sodium levels gradually improving today 123 Continue current management, nephrology following Sodium chloride 1 g 3 times a day along with Lasix Fluid restriction --Metastatic colon cancer; Patient reports he had colon cancer many years ago Oncology evaluation --Metastatic lesions lungs/liver; possible MRCP Supportive care, management per oncology --SIRS : Supportive care, blood cultures positive for gram-positive clusters Empiric antibiotics, follow culture sensitivities --History of depression; denies suicidal thoughts or ideation Antidepression medications, psych evaluation if needed --DVT prophylaxis; SCDs -- Full CODE STATUS Monitor closely and adjust management as needed History Interval history: Patient seen and examined medical records reviewed Mild improvement in sodium levels, concerned about his biopsy Alert oriented 3 Vital signs noted Hospitalist Physical - Constitutional Vitals: Temp Pulse Resp BP Pulse Ox 97.8 F 74 16 104/71 94 02/20/19 07:30 02/20/19 07:30 02/20/19 07:30 02/20/19 07:30 02/20/19 07:30 General appearance: Present: mild distress, cachectic, disheveled - EENT Eyes: Present: PERRL, EOM intact - Neck Neck: Present: supple, normal ROM - Respiratory Respiratory effort: normal Respiratory: bilateral: diminished, rales, negative: rhonchi, wheezing - Cardiovascular Rhythm: regular Heart Sounds: Present: S1 & S2 - Extremities Extremities: no ischemia Extremity abnormal: edema - Abdominal General gastrointestinal: soft, non-tender, distended, normal bowel sounds, other (ascites) - Integumentary Integumentary: Present: clear, warm - Psychiatric Psychiatric: appropriate mood/affect, cooperative - Neurologic Neurologic: CNII-XII intact, moves all extremities Results - Labs CBC & Chem 7: 02/19/19 05:20 02/20/19 05:11 Labs: Laboratory Last Values WBC 10.0 K/mm3 (4.5-11.0) 02/19/19 05:20 RBC 3.05 M/mm3 (3.65-5.03) L 02/19/19 05:20 Hgb 11.0 gm/dl (11.8-15.2) L 02/19/19 05:20 Hct 31.2 % (35.5-45.6) L 02/19/19 05:20 MCV 102 fl (84-94) H 02/19/19 05:20 MCH 36 pg (28-32) H 02/19/19 05:20 MCHC 35 % (32-34) H 02/19/19 05:20 RDW 14.6 % (13.2-15.2) 02/19/19 05:20 Plt Count 195 K/mm3 (140-440) 02/19/19 05:20 Lymph % (Auto) 8.2 % (13.4-35.0) L 02/19/19 05:20 [place] % (Auto) 7.9 % (0.0-7.3) H 02/19/19 05:20 Eos % (Auto) 1.1 % (0.0-4.3) 02/19/19 05:20 Baso % (Auto) 0.4 % (0.0-1.8) 02/19/19 05:20 Lymph # 0.8 K/mm3 (1.2-5.4) L 02/19/19 05:20 [place] # 0.8 K/mm3 (0.0-0.8) 02/19/19 05:20 Eos # 0.1 K/mm3 (0.0-0.4) 02/19/19 05:20 Baso # 0.0 K/mm3 (0.0-0.1) 02/19/19 05:20 Seg Neutrophils % 82.4 % (40.0-70.0) H 02/19/19 05:20 Seg Neutrophils # 8.2 K/mm3 (1.8-7.7) H 02/19/19 05:20 Sodium 123 mmol/L (137-145) L 02/20/19 05:11 Potassium 4.1 mmol/L (3.6-5.0) 02/20/19 05:11 Chloride 83.5 mmol/L (98-107) L 02/20/19 05:11 Carbon Dioxide 32 mmol/L (22-30) H D 02/20/19 05:11 12 mmol/L 02/20/19 05:11 BUN 7 mg/dL (9-20) L 02/20/19 05:11 0.3 mg/dL (0.8-1.5) L 02/20/19 05:11 Estimated GFR > 60 ml/min 02/20/19 05:11 23 % 02/20/19 05:11 Glucose 86 mg/dL (75-100) 02/20/19 05:11 POC Glucose 125 (70-105) H 02/18/19 20:42 245 Mosm/kg 02/18/19 13:26 Calcium 8.1 mg/dL (8.4-10.2) L 02/20/19 05:11 5.80 mg/dL (0.1-1.2) H 02/17/19 19:40 4.1 mg/dL (0-0.2) H 02/17/19 19:40 1.7 mg/dL 02/17/19 19:40 AST 54 units/L (5-40) H 02/17/19 19:40 ALT 21 units/L (7-56) 02/17/19 19:40 414 units/L (35-129) H 02/17/19 19:40 6.4 g/dL (6.3-8.2) 02/17/19 19:40 2.5 g/dL (3.9-5) L 02/17/19 19:40 0.6 % 02/17/19 19:40 31 units/L (13-60) 02/17/19 19:40 [place] (Yellow) 02/17/19 22:00 Clear (Clear) 02/17/19 22:00 6.0 (5.0-7.0) 02/17/19 22:00 Ur Specific [place] 1.012 (1.003-1.030) 02/17/19 22:00 <15 mg/dl mg/dL (Negative) 02/17/19 22:00 Neg mg/dL (Negative) 02/17/19 22:00 Tr mg/dL (Negative) 02/17/19 22:00 Sm (Negative) 02/17/19 22:00 Neg (Negative) 02/17/19 22:00 Sm (Negative) 02/17/19 22:00 Positive (Negative) 02/17/19 22:00 4.0 mg/dL (<2.0) 02/17/19 22:00 Ur Leukocyte Esterase Neg (Negative) 02/17/19 22:00 5.0 /HPF (0.0-6.0) 02/17/19 22:00 9.0 /HPF (0.0-6.0) 02/17/19 22:00 U Epithel Cells (Auto) < 1.0 /HPF (0-13.0) 02/17/19 22:00 Amorphous Crystals Few 02/17/19 22:00 428 Mosm/kg 02/18/19 Unknown 96.0 mg/dL (0.1-20.0) H 02/18/19 Unknown 10 mmol/L 02/18/19 Unknown Active Medications - Current Medications Current Medications: Generic Name Dose Route Start Last Admin Trade Name Freq PRN Reason Stop Dose Admin Acetaminophen 650 mg 02/18/19 00:16 Tylenol PO Q4H PRN Pain MILD(1-3)/Fever >100.5/POLANCO Enoxaparin Sodium 40 mg 02/18/19 10:00 02/19/19 10:13 Lovenox SUB-Q 40 mg QDAY@1000 [facility] Administration Furosemide 20 mg 02/18/19 12:00 02/19/19 10:13 Lasix PO 20 mg QDAY [facility] Administration Cefepime HCl 1 gm in 100 mls @ 200 mls/hr 02/19/19 14:00 02/20/19 05:25 Maxipime/Ns 1 Gm/100 Ml IV 200 mls/hr Q8HR [facility] Administration Protocol Ondansetron HCl 4 mg 02/18/19 00:16 Zofran IV Q8H PRN Nausea And Vomiting Sodium Chloride 10 ml 02/18/19 10:00 02/19/19 21:18 Sodium Chloride Flush Syringe 10 Ml IV 10 ml BID [facility] Administration Sodium Chloride 10 ml 02/18/19 00:16 Sodium Chloride Flush Syringe 10 Ml IV PRN PRN LINE FLUSH Sodium Chloride 1 gm 02/18/19 14:00 02/20/19 08:35 Sodium Chloride PO 1 gm TID [facility] Administration Nutrition/Malnutrition Assess - Dietary Evaluation Nutrition/Malnutrition Findings: Nutrition Notes Start: 02/18/19 15:10 Freq: Status: Active Protocol: Document 02/18/19 15:10 RM (Rec: 02/18/19 15:19 RM [id number]) Nutrition Notes 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 Sameer 14 points. Noted sign on wall stating 1.5 L fluid restriction. Pt and pt nurse in room at time of visit. 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 Stated that his appetite is okay now however nurse stated that pt is eating bites of meals here. Pt stated UBW is 150 lbs but could not recall how long ago he weighed that. Noted slight temporal wasting. Percent of energy/protein needs met: 0%/0% Burn Absent Trauma Absent Minimum of two criteria Yes Energy Intake (non-severe) <75% Estimated Energy Requirement >7 days Muscle Mass Mild Depletion (non-severe) #1 Nutrition Diagnosis Malnutrition Etiology decreased appetite, colon CA As Evidenced by Signs and Symptoms pt statement that [employer]OR [employer] he did not eat X 1 1/2 weeks, temporal wasting Is patient on ventilator? No Is Patient Ambulatory and/or Out of Bed No REE-([facility]-confined to bed) [phone] Calculation Used for Recommendations [facility] Additional Notes Protein Needs: (1.2-1.5g/kg) Fluid Needs: 1.5 L Nutrition Intervention Change Diet Order: Continue current Add Supplement/Snack (indicate name/kcal Ensure Enlive Chocolate 1 /protein ) daily Provides kCal: 350 Provides Protein (gm) 20 Goal #1 Meet at least 75% of calorie and protein needs via PO and ONS intakes Anticipated Discharge Needs: Cardiac diet Follow-Up By: 02/22/19 Additional Comments Follow for PO and ONS intakes
[2019-02-20] MEDS: LOVENOX SUB-Q SCH (10:01)
[2019-02-20] MEDS: LASIX PO SCH (10:01)
[2019-02-20] MEDS: SODIUM CHLORIDE FLUSH SYRINGE 10 ML IV SCH ×2 (10:07→21:36)
--- NOTE | 2019-02-20 10:26 | Progress Note ---
Assessment and Plan Severe hyponatremia, possible SIADH due to active malignancy with mets to the lungs and liver - Serum sodium level improving slowly. - On admission (02/17/19), serum sodium level was 111 at 1940 - Checking serum sodium level Q4hrs for now with neurochecks, goal sodium correction < 8 mmol/l in 24 hours to minimize risk of ODS - On sodium chloride tablets 1 g TID - Continue lasix 20 mg po daily and fluid restriction of 1 liter per day - Will follow up next serial sodium checks, may need to make additional adjustments salt tablets and lasix - Strict I&O Metastatic Colon Cancer, liver, and lungs: - As per Oncology SIRS: - Follow cultures - On Abx Depression: - As per Primary Subjective Date of service: 02/20/19 Interval history: Making urine. Objective - Exam Narrative Exam: General appearance: well-developed EENT: ATNC Neck: no JVD Respiratory: Present: Decreased Breath Sounds Cardiology: regular, S1S2 Gastrointestinal: normoactive bowel sounds Integumentary: warm and dry Neurologic: other (awake, oriented to person, place, but not time, follows simple commands) Musculoskeletal: other (1+ edema to BLE) Psychiatric: cooperative - Vital Signs Vital signs: Vital Signs - 12hr 02/19/19 02/20/19 02/20/19 23:28 04:47 07:30 Temperature 98.0 F 98.0 F 97.8 F Pulse Rate 86 89 74 Respiratory 18 18 16 Rate Blood Pressure 97/58 93/68 104/71 O2 Sat by Pulse 95 90 94 Oximetry 02/20/19 10:00 Temperature Pulse Rate 82 Respiratory Rate Blood Pressure O2 Sat by Pulse Oximetry - Lab 02/19/19 05:20 02/20/19 05:11 Most recent lab results Calcium 8.1 mg/dL (8.4-10.2) L 02/20/19 05:11 96.0 mg/dL (0.1-20.0) H 02/18/19 Unknown 10 mmol/L 02/18/19 Unknown Medications & Allergies - Medications Allergies/Adverse Reactions: Allergies Sulfa (Sulfonamide Antibiotics) Allergy (Verified 06/07/18 19:07) Unknown Home Medications: Home Medications Medication Instructions Recorded Confirmed Last Taken Type Ketorolac [Toradol] 10 mg PO Q6H PRN #10 tablet 06/07/18 02/18/19 Unknown Rx Active Medications: Generic Name Dose Route Start Last Admin Trade Name Freq PRN Reason Stop Dose Admin Acetaminophen 650 mg 02/18/19 00:16 Tylenol PO Q4H PRN Pain MILD(1-3)/Fever >100.5/POLANCO Enoxaparin Sodium 40 mg 02/18/19 10:00 02/20/19 10:01 Lovenox SUB-Q 40 mg QDAY@1000 [facility] Administration Furosemide 20 mg 02/18/19 12:00 02/20/19 10:01 Lasix PO 20 mg QDAY [facility] Administration Cefepime HCl 1 gm in 100 mls @ 200 mls/hr 02/19/19 14:00 02/20/19 05:25 Maxipime/Ns 1 Gm/100 Ml IV 200 mls/hr Q8HR [facility] Administration Protocol Nicotine 21 mg 02/21/19 10:00 Habitrol TD QDAY [facility] Ondansetron HCl 4 mg 02/18/19 00:16 Zofran IV Q8H PRN Nausea And Vomiting Sodium Chloride 10 ml 02/18/19 10:00 02/20/19 10:07 Sodium Chloride Flush Syringe 10 Ml IV 10 ml BID [facility] Administration Sodium Chloride 10 ml 02/18/19 00:16 Sodium Chloride Flush Syringe 10 Ml IV PRN PRN LINE FLUSH Sodium Chloride 1 gm 02/18/19 14:00 02/20/19 08:35 Sodium Chloride PO 1 gm TID [facility] Administration
[2019-02-20] MEDS: HABITROL TD SCH (14:48)
[2019-02-21] MEDS: MAXIPIME/NS 1 GM/100 ML 1 GM/100 ML BAG IV SCH ×2 (05:40→15:17)
[2019-02-21] MEDS: TYLENOL PO PRN (07:53)
[2019-02-21 09:01] LABS: BUN/Creatinine Ratio 20; Blood Urea Nitrogen 6 mg/dL (9-20); Calcium 7.6 mg/dL (8.4-10.2); Hemolysis Index 1
[2019-02-21] MEDS: LASIX PO SCH (10:14)
[2019-02-21] MEDS: LOVENOX SUB-Q SCH (10:14)
[2019-02-21] MEDS: SODIUM CHLORIDE FLUSH SYRINGE 10 ML IV SCH ×2 (10:16→22:10)
[2019-02-21] MEDS: SODIUM CHLORIDE PO SCH ×5 (10:19→23:37)
[2019-02-21] MEDS: HABITROL TD SCH (10:19)
--- NOTE | 2019-02-21 10:22 | Progress Note ---
Assessment and Plan Severe hyponatremia, possible SIADH due to active malignancy with mets to the lungs and liver - Serum sodium level improving slowly. - On admission (02/17/19), serum sodium level was 111 at 1940 - Checking serum sodium level Q4hrs for now with neurochecks, goal sodium correction < 8 mmol/l in 24 hours to minimize risk of ODS - On sodium chloride tablets 1 g TID, will increase to QID. - Continue lasix 20 mg po daily and fluid restriction of 1 liter per day - Will follow up next serial sodium checks, may need to make additional adjustments salt tablets and lasix - Strict I&O Metastatic Colon Cancer, liver, and lungs: - As per Oncology SIRS: - Follow cultures - On Abx Depression: - As per Primary Subjective Date of service: 02/21/19 Principal diagnosis: high bili - possible colon mets Interval history: Making urine. Objective - Exam Narrative Exam: General appearance: well-developed EENT: ATNC Neck: no JVD Respiratory: Present: Decreased Breath Sounds Cardiology: regular, S1S2 Gastrointestinal: normoactive bowel sounds Integumentary: warm and dry Neurologic: confused Musculoskeletal: other (1+ edema to BLE) Psychiatric: confused - Vital Signs Vital signs: Vital Signs - 12hr 02/21/19 02/21/19 02/21/19 00:00 04:00 07:49 Temperature 98.3 F 97.6 F 97.3 F L Pulse Rate 86 71 84 Respiratory 18 18 20 Rate Blood Pressure 96/73 Blood Pressure 103/67 102/74 [Right] O2 Sat by Pulse 92 98 94 Oximetry - Lab 02/19/19 05:20 02/21/19 06:59 Most recent lab results Calcium 7.6 mg/dL (8.4-10.2) L 02/21/19 06:59 96.0 mg/dL (0.1-20.0) H 02/18/19 Unknown 10 mmol/L 02/18/19 Unknown Medications & Allergies - Medications Allergies/Adverse Reactions: Allergies Sulfa (Sulfonamide Antibiotics) Allergy (Verified 06/07/18 19:07) Unknown Home Medications: Home Medications Medication Instructions Recorded Confirmed Last Taken Type Ketorolac [Toradol] 10 mg PO Q6H PRN #10 tablet 06/07/18 02/18/19 Unknown Rx Active Medications: Generic Name Dose Route Start Last Admin Trade Name Freq PRN Reason Stop Dose Admin Acetaminophen 650 mg 02/18/19 00:16 02/21/19 07:53 Tylenol PO 650 mg Q4H PRN Administration Pain MILD(1-3)/Fever >100.5/POLANCO Enoxaparin Sodium 40 mg 02/18/19 10:00 02/21/19 10:14 Lovenox SUB-Q 40 mg QDAY@1000 [facility] Administration Furosemide 20 mg 02/18/19 12:00 02/21/19 10:14 Lasix PO 20 mg QDAY [facility] Administration Cefepime HCl 1 gm in 100 mls @ 200 mls/hr 02/19/19 14:00 02/21/19 05:40 Maxipime/Ns 1 Gm/100 Ml IV 200 mls/hr Q8HR [facility] Administration Protocol Nicotine 21 mg 02/20/19 14:00 02/21/19 10:19 Habitrol TD 21 mg QDAY [facility] Administration Ondansetron HCl 4 mg 02/18/19 00:16 Zofran IV Q8H PRN Nausea And Vomiting Sodium Chloride 10 ml 02/18/19 10:00 02/21/19 10:16 Sodium Chloride Flush Syringe 10 Ml IV 10 ml BID [facility] Administration Sodium Chloride 10 ml 02/18/19 00:16 02/21/19 07:56 Sodium Chloride Flush Syringe 10 Ml IV 10 ml PRN PRN Administration LINE FLUSH Sodium Chloride 1 gm 02/21/19 14:00 Sodium Chloride PO QID [facility]
--- NOTE | 2019-02-21 13:28 | Hem/Onc Progress Note ---
Assessment and Plan 1. History of colon cancer with elevated bilirubin, likely liver and lung met. CEA. 2. IR consult for biopsy. 3. The patient has a Port-A-Cath, says got 2 chemo and then stopped - this was at [place]. patient does not know the name of his oncologist. 4. History of ascites. 5. MCV elevated, likely secondary to alcohol usage. 6. The patient would need a biopsy. It is not clear if liver biopsy would help. ultrasound abdomen and follow. Lung lesions IR consulted for BX they want MRI abdo US abdo done - result pending ascites - paracentesis an option CT chest - as adv by IR - Patient Problems (1) Lesion of lung Current Visit: Yes Status: Acute Subjective Date of service: 02/21/19 Principal diagnosis: h/o colon can - high bili Interval history: abdo distension Objective - Exam Narrative Exam: pain none General appearance no acute distress Performance status - limited self care Eyes icterus ENT no thrush LNs cervical not palpable Neck no mass Respiratory Normal Breath sounds - CTA CVS S1 S2 + Extremities normal temperature General GI Soft non tender - distended Rectal deferred Male - deferred Skin warm Musculoskeletal no weakness Neurologically AAOx3 - Constitutional Vitals: Last Vital Signs Temp 97.8 F 02/21/19 11:11 Pulse 78 02/21/19 11:11 Resp 18 02/21/19 11:11 BP 99/68 02/21/19 11:11 Pulse Ox 100 02/21/19 12:45 - Labs Lab Results: Laboratory Results - last 24 hr 02/21/19 06:59 Sodium 123 L Potassium 3.7 Chloride 85.5 L Carbon Dioxide 28 Anion Gap 13 BUN 6 L Creatinine 0.3 L Estimated GFR > 60 BUN/Creatinine Ratio 20 Glucose 81 Calcium 7.6 L Medications & Allergies - Medications Allergies/Adverse Reactions: Allergies Sulfa (Sulfonamide Antibiotics) Allergy (Verified 06/07/18 19:07) Unknown Home Medications: Home Medications Medication Instructions Recorded Confirmed Last Taken Type Ketorolac [Toradol] 10 mg PO Q6H PRN #10 tablet 06/07/18 02/18/19 Unknown Rx Active Medications: Generic Name Dose Route Start Last Admin Trade Name Freq PRN Reason Stop Dose Admin Acetaminophen 650 mg 02/18/19 00:16 02/21/19 07:53 Tylenol PO 650 mg Q4H PRN Administration Pain MILD(1-3)/Fever >100.5/[place]AN[place] Enoxaparin Sodium 40 mg 02/18/19 10:00 02/21/19 10:14 Lovenox SUB-Q 40 mg QDAY@1000 [facility] Administration Furosemide 20 mg 02/18/19 12:00 02/21/19 10:14 Lasix PO 20 mg QDAY [facility] Administration Cefepime HCl 1 gm in 100 mls @ 200 mls/hr 02/19/19 14:00 02/21/19 05:40 Maxipime/Ns 1 Gm/100 Ml IV 200 mls/hr Q8HR [facility] Administration Protocol Nicotine 21 mg 02/20/19 14:00 02/21/19 10:19 Habitrol TD 21 mg QDAY [facility] Administration Ondansetron HCl 4 mg 02/18/19 00:16 Zofran IV Q8H PRN Nausea And Vomiting Sodium Chloride 10 ml 02/18/19 10:00 02/21/19 10:16 Sodium Chloride Flush Syringe 10 Ml IV 10 ml BID [facility] Administration Sodium Chloride 10 ml 02/18/19 00:16 02/21/19 07:56 Sodium Chloride Flush Syringe 10 Ml IV 10 ml PRN PRN Administration LINE FLUSH Sodium Chloride 1 gm 02/21/19 14:00 Sodium Chloride PO QID [facility]
[2019-02-21 14:20] LABS: BUN/Creatinine Ratio 23; Blood Urea Nitrogen 7 mg/dL (9-20); Calcium 7.6 mg/dL (8.4-10.2); Hemolysis Index 0
--- NOTE | 2019-02-21 15:56 | Progress Note ---
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 In the setting of metastatic lesions along and liver Patient's sodium levels gradually improving today 123 Continue current management, nephrology following Sodium chloride 1 g 3 times a day along with Lasix Fluid restriction --Metastatic colon cancer; Patient reports he had colon cancer many years ago Oncology evaluation,IR evaluated the patient for possible biopsy However ascites surrounding the liver contraindication for percutaneous biopsy due to risk of bleeding, Recommend additional testing, MRCP --Metastatic lesions lungs/liver; possible MRCP Supportive care, management per oncology --SIRS : Supportive care, blood cultures positive for gram-positive clusters Empiric antibiotics, follow culture sensitivities --History of depression; denies suicidal thoughts or ideation Antidepression medications, psych evaluation if needed --DVT prophylaxis; SCDs -- Full CODE STATUS Monitor closely and adjust management as needed History Interval history: Patient seen and examined. Medical records reviewed Clinically no change, awaiting liver biopsy Vital signs noted Hospitalist Physical - Constitutional Vitals: Temp Pulse Resp BP Pulse Ox 97.8 F 78 18 99/68 100 02/21/19 11:11 02/21/19 11:11 02/21/19 11:11 02/21/19 11:11 02/21/19 12:45 General appearance: Present: mild distress, cachectic, disheveled - EENT Eyes: Present: PERRL, EOM intact - Neck Neck: Present: supple, normal ROM - Respiratory Respiratory effort: normal Respiratory: bilateral: diminished, negative: rales, rhonchi, wheezing - Cardiovascular Rhythm: regular Heart Sounds: Present: S1 & S2 - Extremities Extremities: no ischemia, No edema - Abdominal General gastrointestinal: soft, non-tender, distended, normal bowel sounds - Integumentary Integumentary: Present: clear, warm - Psychiatric Psychiatric: appropriate mood/affect, cooperative - Neurologic Neurologic: CNII-XII intact, moves all extremities Results - Labs CBC & Chem 7: 02/19/19 05:20 02/21/19 13:30 Labs: Laboratory Last Values WBC 10.0 K/mm3 (4.5-11.0) 02/19/19 05:20 RBC 3.05 M/mm3 (3.65-5.03) L 02/19/19 05:20 Hgb 11.0 gm/dl (11.8-15.2) L 02/19/19 05:20 Hct 31.2 % (35.5-45.6) L 02/19/19 05:20 MCV 102 fl (84-94) H 02/19/19 05:20 MCH 36 pg (28-32) H 02/19/19 05:20 MCHC 35 % (32-34) H 02/19/19 05:20 RDW 14.6 % (13.2-15.2) 02/19/19 05:20 Plt Count 195 K/mm3 (140-440) 02/19/19 05:20 Lymph % (Auto) 8.2 % (13.4-35.0) L 02/19/19 05:20 [place] % (Auto) 7.9 % (0.0-7.3) H 02/19/19 05:20 Eos % (Auto) 1.1 % (0.0-4.3) 02/19/19 05:20 Baso % (Auto) 0.4 % (0.0-1.8) 02/19/19 05:20 Lymph # 0.8 K/mm3 (1.2-5.4) L 02/19/19 05:20 [place] # 0.8 K/mm3 (0.0-0.8) 02/19/19 05:20 Eos # 0.1 K/mm3 (0.0-0.4) 02/19/19 05:20 Baso # 0.0 K/mm3 (0.0-0.1) 02/19/19 05:20 Seg Neutrophils % 82.4 % (40.0-70.0) H 02/19/19 05:20 Seg Neutrophils # 8.2 K/mm3 (1.8-7.7) H 02/19/19 05:20 Sodium 121 mmol/L (137-145) L 02/21/19 13:30 Potassium 3.8 mmol/L (3.6-5.0) 02/21/19 13:30 Chloride 83.1 mmol/L (98-107) L 02/21/19 13:30 Carbon Dioxide 31 mmol/L (22-30) H 02/21/19 13:30 11 mmol/L 02/21/19 13:30 BUN 7 mg/dL (9-20) L 02/21/19 13:30 0.3 mg/dL (0.8-1.5) L 02/21/19 13:30 Estimated GFR > 60 ml/min 02/21/19 13:30 23 % 02/21/19 13:30 Glucose 129 mg/dL (75-100) H 02/21/19 13:30 POC Glucose 125 (70-105) H 02/18/19 20:42 245 Mosm/kg 02/18/19 13:26 Calcium 7.6 mg/dL (8.4-10.2) L 02/21/19 13:30 5.80 mg/dL (0.1-1.2) H 02/17/19 19:40 4.1 mg/dL (0-0.2) H 02/17/19 19:40 1.7 mg/dL 02/17/19 19:40 AST 54 units/L (5-40) H 02/17/19 19:40 ALT 21 units/L (7-56) 02/17/19 19:40 414 units/L (35-129) H 02/17/19 19:40 6.4 g/dL (6.3-8.2) 02/17/19 19:40 2.5 g/dL (3.9-5) L 02/17/19 19:40 0.6 % 02/17/19 19:40 31 units/L (13-60) 02/17/19 19:40 Melina (Yellow) 02/17/19 22:00 Clear (Clear) 02/17/19 22:00 6.0 (5.0-7.0) 02/17/19 22:00 Ur Specific [place] 1.012 (1.003-1.030) 02/17/19 22:00 <15 mg/dl mg/dL (Negative) 02/17/19 22:00 Neg mg/dL (Negative) 02/17/19 22:00 Tr mg/dL (Negative) 02/17/19 22:00 Sm (Negative) 02/17/19 22:00 Neg (Negative) 02/17/19 22:00 Sm (Negative) 02/17/19 22:00 Positive (Negative) 02/17/19 22:00 4.0 mg/dL (<2.0) 02/17/19 22:00 Ur Leukocyte Esterase Neg (Negative) 02/17/19 22:00 5.0 /HPF (0.0-6.0) 02/17/19 22:00 9.0 /HPF (0.0-6.0) 02/17/19 22:00 U Epithel Cells (Auto) < 1.0 /HPF (0-13.0) 02/17/19 22:00 Amorphous Crystals Few 02/17/19 22:00 428 Mosm/kg 02/18/19 Unknown 96.0 mg/dL (0.1-20.0) H 02/18/19 Unknown 10 mmol/L 02/18/19 Unknown Active Medications - Current Medications Current Medications: Generic Name Dose Route Start Last Admin Trade Name Freq PRN Reason Stop Dose Admin Acetaminophen 650 mg 02/18/19 00:16 02/21/19 07:53 Tylenol PO 650 mg Q4H PRN Administration Pain MILD(1-3)/Fever >100.5/POLANCO Enoxaparin Sodium 40 mg 02/18/19 10:00 02/21/19 10:14 Lovenox SUB-Q 40 mg QDAY@1000 [facility] Administration Furosemide 20 mg 02/18/19 12:00 02/21/19 10:14 Lasix PO 20 mg QDAY [facility] Administration Cefepime HCl 1 gm in 100 mls @ 200 mls/hr 02/19/19 14:00 02/21/19 15:17 Maxipime/Ns 1 Gm/100 Ml IV 200 mls/hr Q8HR [facility] Administration Protocol Nicotine 21 mg 02/20/19 14:00 02/21/19 10:19 Habitrol TD 21 mg QDAY [facility] Administration Ondansetron HCl 4 mg 02/18/19 00:16 Zofran IV Q8H PRN Nausea And Vomiting Sodium Chloride 10 ml 02/18/19 10:00 02/21/19 10:16 Sodium Chloride Flush Syringe 10 Ml IV 10 ml BID [facility] Administration Sodium Chloride 10 ml 02/18/19 00:16 02/21/19 07:56 Sodium Chloride Flush Syringe 10 Ml IV 10 ml PRN PRN Administration LINE FLUSH Sodium Chloride 1 gm 02/21/19 14:00 02/21/19 15:17 Sodium Chloride PO 1 gm QID [facility] Administration Nutrition/Malnutrition Assess - Dietary Evaluation Nutrition/Malnutrition Findings: Nutrition Notes Start: 02/18/19 15:10 Freq: Status: Active Protocol: Document 02/18/19 15:10 RM (Rec: 02/18/19 15:19 RM [id number]) Nutrition Notes 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 Sameer 14 points. Noted sign on wall stating 1.5 L fluid restriction. Pt and pt nurse in room at time of visit. Pt stated that RN RECOVERY his appetite was poor and that he did not eat X 1 1/2 weeks. Stated that his appetite is okay now however nurse stated that pt is eating bites of meals here. Pt stated UBW is 150 lbs but could not recall how long ago he weighed that. Noted slight temporal wasting. Percent of energy/protein needs met: 0%/0% Burn Absent Trauma Absent Minimum of two criteria Yes Energy Intake (non-severe) <75% Estimated Energy Requirement >7 days Muscle Mass Mild Depletion (non-severe) #1 Nutrition Diagnosis Malnutrition Etiology decreased appetite, colon CA As Evidenced by Signs and Symptoms pt statement that RN RECOVERY he did not eat X 1 1/2 weeks, temporal wasting Is patient on ventilator? No Is Patient Ambulatory and/or Out of Bed No REE-([facility]-confined to bed) [phone] Calculation Used for Recommendations [facility] Additional Notes Protein Needs: (1.2-1.5g/kg) Fluid Needs: 1.5 L Nutrition Intervention Change Diet Order: Continue current Add Supplement/Snack (indicate name/kcal Ensure Enlive Chocolate 1 /protein ) daily Provides kCal: 350 Provides Protein (gm) 20 Goal #1 Meet at least 75% of calorie and protein needs via PO and ONS intakes Anticipated Discharge Needs: Cardiac diet Follow-Up By: 02/22/19 Additional Comments Follow for PO and ONS intakes
--- NOTE | 2019-02-21 16:37 | Ultrasound Report ---
PROCEDURE: US ABDOMEN COMPLETE TECHNIQUE: Ultrasound abdomen HISTORY: liver mets? COMPARISONS: Correlated with CT of February 17, 2019 FINDINGS: There is moderate ascites present. Liver has coarsened echotexture with some nodularity present likel y reflecting underlying cirrhosis. There is a somewhat nodular appearance to the liver which may indicate diffuse metastatic disease how ever somewhat nonspecific in appearance. Common bile duct is 0.34 cm No shadowing echogenic foci are present within the lumen of the gallbladder. Gallbladder wall is thic kened 0.53 cm which could be secondary to evidence of ascites or hypoalbuminemia. Right kidney 10.8 x 3.9 x 5.5 cm with cortical thickness of 1.4 cm Left kidney is 11.7 x 5.5 x 5.4 cm cortical thickness of 1.5 cm No evidence for hydronephrosis bilaterally Findings borderline enlarged measuring 11.9 cm Visualized portions of the pancreas are unremarkable Proximal aorta 2.26 cm IMPRESSION: Findings likely reflecting underlying cirrhosis with ascites Heterogeneous somewhat nodular appearance within the liver. Metastatic disease cannot be excluded. Co nsider follow-up MRI with liver protocol to include intravenous contrast for further evaluation This document is electronically signed by Supa Alcocer MD., February 21 2019 04:34:43 PM ET
[2019-02-22] MEDS: MAXIPIME/NS 1 GM/100 ML 1 GM/100 ML BAG IV SCH ×4 (00:49→21:39)
--- NOTE | 2019-02-22 01:35 | Cat Scan Report ---
PROCEDURE: CT chest with contrast. TECHNIQUE: Computerized axial tomography of the chest was performed during the IV injection of iodin ated nonionic contrast. CT DOSE LENGTH PRODUCT: Not provided mGycm HISTORY: Lung and liver lesions, history of colon cancer. COMPARISONS: None. FINDINGS: The trachea and central bronchi appear normal. There are numerous small cystic changes in both lungs consistent with emphysema. There are also numerous bilateral pulmonary nodules of various sizes. 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 These nodules are not calcified and are worrisome for metastatic disease. There are no si gns of pneumonia. There are no pleural effusions. The thoracic aorta has a normal caliber without bell dence of dissection. The pulmonary arteries enhance normally. There is no evidence of pulmonary embol ism. There are a few small nonspecific mediastinal lymph nodes. The largest lymph node is located adj acent to the left side of the distal trachea measuring 1.5 cm x 1.0 cm in cross-section. The heart si ze is normal. The adrenal glands are not enlarged. There is ascites in the upper abdomen. There are n umerous focal areas of diminished attenuation in the liver consistent with metastatic disease. The th oracic skeleton appears intact. A right-sided chest port is noted. IMPRESSION: Numerous pulmonary and hepatic metastases. Emphysema. Abdominal ascites. This document is electronically signed by Eugene Velez MD., February 22 2019 01:33:33 AM ET
[2019-02-22 06:22] LABS: Alanine Aminotransferase 59 units/L (7-56); Albumin 2.2 g/dL (3.9-5); BUN/Creatinine Ratio 23; Blood Urea Nitrogen 7 mg/dL (9-20); Calcium 7.9 mg/dL (8.4-10.2); Hemolysis Index 0
[2019-02-22 07:39] LABS: Basophils # (Auto) 0.1 K/mm3 (0.0-0.1); Basophils % (Auto) 0.8 % (0.0-1.8); Eosinophils # (Auto) 0.1 K/mm3 (0.0-0.4); Eosinophils % (Auto) 1.5 % (0.0-4.3); Hematocrit 31.2 % (35.5-45.6); Hemoglobin 10.8 gm/dl (11.8-15.2); Lymphocytes # (Auto) 0.6 K/mm3 (1.2-5.4); Lymphocytes % (Auto) 6.7 % (13.4-35.0); Mean Corpuscular HGB Conc 35 % (32-34); Mean Corpuscular Volume 104 fl (84-94); Monocytes # (Auto) 1.1 K/mm3 (0.0-0.8); Monocytes % (Auto) 11.6 % (0.0-7.3); Platelet Count 162 K/mm3 (140-440); Red Cell Distribution Width 15.1 % (13.2-15.2)
--- NOTE | 2019-02-22 07:59 | Hem/Onc Progress Note ---
Assessment and Plan 1. History of colon cancer with elevated bilirubin, likely liver and lung met. CEA. 2. IR consult for biopsy. 3. The patient has a Port-A-Cath, says got 2 chemo and then stopped - this was at [facility]. patient does not know the name of his oncologist. 4. History of ascites. 5. MCV elevated, likely secondary to alcohol usage. 6. The patient would need a biopsy. It is not clear if liver biopsy would help. Lung lesions IR consulted for BX they want MRI abdo US abdo done - ? cirrhosis and ascites ascites - paracentesis an option CT chest - liver and lung mets high bili - CT says mets - US says cirrhosis - will await tissues diagnosis - Patient Problems (1) Lesion of lung Current Visit: Yes Status: Acute Subjective Date of service: 02/22/19 Principal diagnosis: liver and lung lesions Interval history: abdo distension Objective - Exam Narrative Exam: pain none General appearance no acute distress Performance status - limited self care Eyes icterus ENT no thrush LNs cervical not palpable Neck no mass Respiratory Normal Breath sounds - CTA CVS S1 S2 + Extremities normal temperature General GI Soft non tender - distended Rectal deferred Male - deferred Skin warm Musculoskeletal no weakness Neurologically AAOx3 - Constitutional Vitals: Last Vital Signs Temp 97.5 F L 02/22/19 03:28 Pulse 82 02/22/19 03:28 Resp 20 02/22/19 03:28 BP 94/68 02/22/19 03:28 Pulse Ox 99 02/22/19 03:28 - Labs Lab Results: Laboratory Results - last 24 hr 02/19/19 02/21/19 02/21/19 05:20 06:59 13:30 WBC RBC Hgb Hct MCV MCH MCHC RDW Plt Count Lymph % (Auto) [place] % (Auto) Eos % (Auto) Baso % (Auto) Lymph # [place] # Eos # Baso # Seg Neutrophils % Seg Neutrophils # Sodium 123 L 121 L Potassium 3.7 3.8 Chloride 85.5 L 83.1 L Carbon Dioxide 28 31 H Anion Gap 13 11 BUN 6 L 7 L Creatinine 0.3 L 0.3 L Estimated GFR > 60 > 60 BUN/Creatinine Ratio 20 23 Glucose 81 129 H Calcium 7.6 L 7.6 L Total Bilirubin AST ALT Alkaline Phosphatase Total Protein Albumin Albumin/Globulin Ratio Carcinoembryonic Ag 2331.7 H 02/22/19 02/22/19 05:27 06:40 WBC 9.5 RBC 3.00 L Hgb 10.8 L Hct 31.2 L MCV 104 H MCH 36 H MCHC 35 H RDW 15.1 Plt Count 162 Lymph % (Auto) 6.[address] [place] % (Auto) 11.6 H Eos % (Auto) 1.5 Baso % (Auto) 0.8 Lymph # 0.[address] [place] # 1.1 H Eos # 0.1 Baso # 0.1 Seg Neutrophils % 79.4 H Seg Neutrophils # 7.5 Sodium 123 L Potassium 3.8 Chloride 86.0 L Carbon Dioxide 30 Anion Gap 11 BUN 7 L Creatinine 0.3 L Estimated GFR > 60 BUN/Creatinine Ratio 23 Glucose 99 Calcium 7.9 L Total Bilirubin 3.70 H AST 128 H ALT 59 H Alkaline Phosphatase 391 H Total Protein 5.5 L Albumin 2.2 L Albumin/Globulin Ratio 0.7 Carcinoembryonic Ag Medications & Allergies - Medications Allergies/Adverse Reactions: Allergies Sulfa (Sulfonamide Antibiotics) Allergy (Verified 06/07/18 19:07) Unknown Home Medications: Home Medications Medication Instructions Recorded Confirmed Last Taken Type Ketorolac [Toradol] 10 mg PO Q6H PRN #10 tablet 06/07/18 02/18/19 Unknown Rx Active Medications: Generic Name Dose Route Start Last Admin Trade Name Freq PRN Reason Stop Dose Admin Acetaminophen 650 mg 02/18/19 00:16 02/21/19 07:53 Tylenol PO 650 mg Q4H PRN Administration Pain MILD(1-3)/Fever >100.5/POLANCO Enoxaparin Sodium 40 mg 02/18/19 10:00 02/21/19 10:14 Lovenox SUB-Q 40 mg QDAY@1000 [place] Administration Furosemide 20 mg 02/18/19 12:00 02/21/19 10:14 Lasix PO 20 mg QDAY [place] Administration Cefepime HCl 1 gm in 100 mls @ 200 mls/hr 02/19/19 14:00 02/22/19 06:54 Maxipime/Ns 1 Gm/100 Ml IV 200 mls/hr Q8HR [place] Administration Protocol Nicotine 21 mg 02/20/19 14:00 02/21/19 10:19 Habitrol TD 21 mg QDAY [place] Administration Ondansetron HCl 4 mg 02/18/19 00:16 Zofran IV Q8H PRN Nausea And Vomiting Sodium Chloride 10 ml 02/18/19 10:00 02/21/19 22:10 Sodium Chloride Flush Syringe 10 Ml IV 10 ml BID [place] Administration Sodium Chloride 10 ml 02/18/19 00:16 02/21/19 07:56 Sodium Chloride Flush Syringe 10 Ml IV 10 ml PRN PRN Administration LINE FLUSH Sodium Chloride 1 gm 02/21/19 14:00 02/21/19 23:37 Sodium Chloride PO 1 gm QID [facility]UM[place] Administration
[2019-02-22 08:01] LABS: Alanine Aminotransferase 58 units/L (7-56); BUN/Creatinine Ratio 23; Blood Urea Nitrogen 7 mg/dL (9-20); Calcium 7.5 mg/dL (8.4-10.2); Hemolysis Index 7
[2019-02-22] MEDS: HABITROL TD SCH (09:00)
[2019-02-22] MEDS: LASIX PO SCH ×2 (09:00→17:42)
[2019-02-22] MEDS: SODIUM CHLORIDE FLUSH SYRINGE 10 ML IV SCH ×2 (09:02→21:39)
[2019-02-22] MEDS: LOVENOX SUB-Q SCH (09:02)
[2019-02-22] MEDS: SODIUM CHLORIDE PO SCH ×4 (09:04→21:38)
--- NOTE | 2019-02-22 10:18 | Progress Note ---
Assessment and Plan Severe hyponatremia, possible SIADH due to active malignancy with mets to the lungs and liver - Checking serum sodium level Q4hrs for now with neurochecks, goal sodium correction < 8 mmol/l in 24 hours to minimize risk of ODS - will increase sodium chloride to 2 gram TQID and lasix to 20 mg BID - Continue fluid restriction of 1 liter per day - Will follow up next serial sodium checks, may need to make additional adjustments salt tablets and lasix - Strict I&O Metastatic Colon Cancer, liver, and lungs: - As per Oncology SIRS: - Follow cultures - On Abx Depression: - As per Primary Subjective Date of service: 02/22/19 Principal diagnosis: liver and lung lesions Interval history: cont to feel weak Objective - Vital Signs Vital signs: Vital Signs - 12hr 02/22/19 02/22/19 02/22/19 03:28 08:18 08:51 Temperature 97.5 F L 97.7 F Pulse Rate 82 80 Pulse Rate [ From Monitor] Respiratory 20 18 Rate Blood Pressure 94/68 100/71 O2 Sat by Pulse 99 100 100 Oximetry 02/22/19 09:00 Temperature Pulse Rate Pulse Rate [ 82 From Monitor] Respiratory 18 Rate Blood Pressure O2 Sat by Pulse 100 Oximetry - General Appearance General appearance: well-developed, cachectic EENT: ATNC, mucous membranes moist Neck: no JVD, no carotid bruit Respiratory: Present: Clear to Ascultation. Absent: Rales, Ronchi Cardiology: regular, S1S2 Gastrointestinal: distended Integumentary: no rash, warm and dry Neurologic: no focal deficit, no asterixis Musculoskeletal: other (trace pitting edema in BLE) Psychiatric: cooperative - Lab 02/22/19 06:40 02/22/19 06:40 Most recent lab results Calcium 7.5 mg/dL (8.4-10.2) L 02/22/19 06:40 96.0 mg/dL (0.1-20.0) H 02/18/19 Unknown 10 mmol/L 02/18/19 Unknown Medications & Allergies - Medications Allergies/Adverse Reactions: Allergies Sulfa (Sulfonamide Antibiotics) Allergy (Verified 06/07/18 19:07) Unknown Home Medications: Home Medications Medication Instructions Recorded Confirmed Last Taken Type Ketorolac [Toradol] 10 mg PO Q6H PRN #10 tablet 06/07/18 02/18/19 Unknown Rx Active Medications: Generic Name Dose Route Start Last Admin Trade Name Freq PRN Reason Stop Dose Admin Acetaminophen 650 mg 02/18/19 00:16 02/21/19 07:53 Tylenol PO 650 mg Q4H PRN Administration Pain MILD(1-3)/Fever >100.5/POLANCO Enoxaparin Sodium 40 mg 02/18/19 10:00 02/22/19 09:02 Lovenox SUB-Q Not Given QDAY@1000 [place] Furosemide 20 mg 02/18/19 12:00 02/22/19 09:00 Lasix PO 20 mg QDAY [facility] Administration Cefepime HCl 1 gm in 100 mls @ 200 mls/hr 02/19/19 14:00 02/22/19 06:54 Maxipime/Ns 1 Gm/100 Ml IV 200 mls/hr Q8HR [facility] Administration Protocol Nicotine 21 mg 02/20/19 14:00 02/22/19 09:00 Habitrol TD 21 mg QDAY [facility] Administration Ondansetron HCl 4 mg 02/18/19 00:16 Zofran IV Q8H PRN Nausea And Vomiting Sodium Chloride 10 ml 02/18/19 10:00 02/22/19 09:02 Sodium Chloride Flush Syringe 10 Ml IV 10 ml BID [facility] Administration Sodium Chloride 10 ml 02/18/19 00:16 02/21/19 07:56 Sodium Chloride Flush Syringe 10 Ml IV 10 ml PRN PRN Administration LINE FLUSH Sodium Chloride 1 gm 02/21/19 14:00 02/22/19 09:04 Sodium Chloride PO 1 gm QID [facility] Administration
[2019-02-22 11:22] LABS: INR 1.14 (0.87-1.13)
--- NOTE | 2019-02-22 12:11 | Magnetic Resonance Report ---
MRI abdomen with and without contrast HISTORY: high bili - dr skaggs advised MR jessio. TECHNIQUE: 20 mL of MultiHance was given intravenously. COMPARISON: CT abdomen/pelvis from 02/17/2019 FINDINGS: There is considerable motion artifact. There are pulmonary nodules the largest is seen in the right lower lobe measuring 1.8 cm. No pleural effusion. Degenerative changes are present in the spine with a rounded enhancing bone lesion at T11 w hich is best seen on the postcontrast series. ABDOMEN: Abdomen is cirrhotic in configuration and there are sequelae of portal venous hypertension i ncluding varices and moderate volume ascites. There are multiple hepatic lesions suggesting metastati c disease. No significant intrahepatic or extrahepatic biliary ductal dilatation is present. The kidneys, pancreas, and visualized GI tract appear unremarkable. There is mild left adrenal thicke shelia. IMPRESSION: Cirrhotic configuration of the liver with multiple hepatic lesions, pulmonary nodules, a nd a bone lesion all suggestive of metastatic disease. There is also sequelae of portal venous hypert ension including moderate volume ascites and varices. Signer Name: Mart Baltazar MD Signed: 02/22/2019 12:07 PM Workstation Name: [id number]
--- NOTE | 2019-02-22 14:35 | Progress Note ---
Assessment and Plan Assessment and plan: 63-year-old male patient with significant past medical history of colon cancer many years ago was admitted through emergency room with generalized weakness and yellowish discoloration of sclerae, Initial evaluation patient was noted to have severe hyponatremia CT abdomen and pelvis: multiple pulmonary nodules worrisome for metastatic disease Abnormal liver possible metastatic lesions, moderate amount of ascites and atherosclerosis; CT head without contrast; atrophy and microangiopathic ischemic disease no acute abnormality noted Abdominal ultrasound; findings reflecting underlying cirrhosis with ascites Nodular appearance with the liver, Metastatic disease cannot be excluded Assessment and plan: --Severe hyponatremia; mild improvement 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 Patient's sodium levels gradually improving Continue current management, nephrology following --Metastatic colon cancer; Patient reports he had colon cancer many years ago Oncology ,IR following --Ascites: Ultrasound-guided abdominal paracentesis, fluid sent for analysis --Metastatic lesions lungs/liver; Supportive care, management per oncology --Sepsis:blood cultures positive for gram-positive clusters Empiric antibiotics, follow culture sensitivities, ID if needed -- Severe malnutrition: Present on admission nutrition supplements,supportive care --History of depression; denies suicidal thoughts or ideation Antidepression medications, psych evaluation if needed --DVT prophylaxis; SCDs -- Full CODE STATUS Follow-up peritoneal fluid analysis Plan of care is reviewed with the patient and his nurse Monitor closely and adjust management as needed History Interval history: Patient seen and evaluated this morning medical records reviewed No overnight events reported by nursing staff Scheduled for ultrasound-guided paracentesis today Patient feels clinically better, complains of mild shortness of Vital signs reviewed Hospitalist Physical - Constitutional Vitals: Temp Pulse Resp BP Pulse Ox 97.7 F 82 18 100/71 100 02/22/19 08:18 02/22/19 09:00 02/22/19 09:00 02/22/19 08:18 02/22/19 09:00 General appearance: Present: mild distress, cachectic, disheveled - EENT Eyes: Present: PERRL, EOM intact - Neck Neck: Present: supple, normal ROM - Respiratory Respiratory effort: normal - Cardiovascular Rhythm: regular Heart Sounds: Present: S1 & S2 - Extremities Extremities: no ischemia, No edema - Abdominal General gastrointestinal: soft, non-tender, non-distended, normal bowel sounds - Integumentary Integumentary: Present: clear, warm - Psychiatric Psychiatric: appropriate mood/affect, cooperative - Neurologic Neurologic: CNII-XII intact, moves all extremities Results - Labs CBC & Chem 7: 02/22/19 06:40 02/22/19 06:40 Labs: Laboratory Last Values WBC 9.5 K/mm3 (4.5-11.0) 02/22/19 06:40 RBC 3.00 M/mm3 (3.65-5.03) L 02/22/19 06:40 Hgb 10.8 gm/dl (11.8-15.2) L 02/22/19 06:40 Hct 31.2 % (35.5-45.6) L 02/22/19 06:40 MCV 104 fl (84-94) H 02/22/19 06:40 MCH 36 pg (28-32) H 02/22/19 06:40 MCHC 35 % (32-34) H 02/22/19 06:40 RDW 15.1 % (13.2-15.2) 02/22/19 06:40 Plt Count 162 K/mm3 (140-440) 02/22/19 06:40 Lymph % (Auto) 6.7 % (13.4-35.0) L 02/22/19 06:40 [place] % (Auto) 11.6 % (0.0-7.3) H 02/22/19 06:40 Eos % (Auto) 1.5 % (0.0-4.3) 02/22/19 06:40 Baso % (Auto) 0.8 % (0.0-1.8) 02/22/19 06:40 Lymph # 0.6 K/mm3 (1.2-5.4) L 02/22/19 06:40 [place] # 1.1 K/mm3 (0.0-0.8) H 02/22/19 06:40 Eos # 0.1 K/mm3 (0.0-0.4) 02/22/19 06:40 Baso # 0.1 K/mm3 (0.0-0.1) 02/22/19 06:40 Seg Neutrophils % 79.4 % (40.0-70.0) H 02/22/19 06:40 Seg Neutrophils # 7.5 K/mm3 (1.8-7.7) 02/22/19 06:40 PT 14.3 Sec. (12.2-14.9) 02/22/19 10:31 INR 1.14 (0.87-1.13) H 02/22/19 10:31 Sodium 122 mmol/L (137-145) L 02/22/19 06:40 Potassium 4.1 mmol/L (3.6-5.0) 02/22/19 06:40 Chloride 86.9 mmol/L (98-107) L 02/22/19 06:40 Carbon Dioxide 27 mmol/L (22-30) 02/22/19 06:40 12 mmol/L 02/22/19 06:40 BUN 7 mg/dL (9-20) L 02/22/19 06:40 0.3 mg/dL (0.8-1.5) L 02/22/19 06:40 Estimated GFR > 60 ml/min 02/22/19 06:40 23 % 02/22/19 06:40 Glucose 87 mg/dL (75-100) 02/22/19 06:40 POC Glucose 125 (70-105) H 02/18/19 20:42 245 Mosm/kg 02/18/19 13:26 Calcium 7.5 mg/dL (8.4-10.2) L 02/22/19 06:40 3.70 mg/dL (0.1-1.2) H 02/22/19 06:40 4.1 mg/dL (0-0.2) H 02/17/19 19:40 1.7 mg/dL 02/17/19 19:40 AST 124 units/L (5-40) H 02/22/19 06:40 ALT 58 units/L (7-56) H 02/22/19 06:40 375 units/L (35-129) H 02/22/19 06:40 5.6 g/dL (6.3-8.2) L 02/22/19 06:40 2.0 g/dL (3.9-5) L 02/22/19 06:40 0.6 % 02/22/19 06:40 31 units/L (13-60) 02/17/19 19:40 Carcinoembryonic Ag 2331.7 ng/mL (0.0-2.4) H 02/19/19 05:20 Melina (Yellow) 02/17/19 22:00 Clear (Clear) 02/17/19 22:00 6.0 (5.0-7.0) 02/17/19 22:00 Ur Specific [place] 1.012 (1.003-1.030) 02/17/19 22:00 <15 mg/dl mg/dL (Negative) 02/17/19 22:00 Neg mg/dL (Negative) 02/17/19 22:00 Tr mg/dL (Negative) 02/17/19 22:00 Sm (Negative) 02/17/19 22:00 Neg (Negative) 02/17/19 22:00 Sm (Negative) 02/17/19 22:00 Positive (Negative) 02/17/19 22:00 4.0 mg/dL (<2.0) 02/17/19 22:00 Ur Leukocyte Esterase Neg (Negative) 02/17/19 22:00 5.0 /HPF (0.0-6.0) 02/17/19 22:00 9.0 /HPF (0.0-6.0) 02/17/19 22:00 U Epithel Cells (Auto) < 1.0 /HPF (0-13.0) 02/17/19 22:00 Amorphous Crystals Few 02/17/19 22:00 428 Mosm/kg 02/18/19 Unknown 96.0 mg/dL (0.1-20.0) H 02/18/19 Unknown 10 mmol/L 02/18/19 Unknown Active Medications - Current Medications Current Medications: Generic Name Dose Route Start Last Admin Trade Name Nadia PRN Reason Stop Dose Admin Acetaminophen 650 mg 02/18/19 00:16 02/21/19 07:53 Tylenol PO 650 mg Q4H PRN Administration Pain MILD(1-3)/Fever >100.5/POLANCO Enoxaparin Sodium 40 mg 02/18/19 10:00 02/22/19 09:02 Lovenox SUB-Q Not Given QDAY@1000 [place] Furosemide 20 mg 02/22/19 18:00 Lasix PO 0600,1800 [facility] Cefepime HCl 1 gm in 100 mls @ 200 mls/hr 02/19/19 14:00 02/22/19 13:04 Maxipime/Ns 1 Gm/100 Ml IV 200 mls/hr Q8HR [facility] Administration Protocol Nicotine 21 mg 02/20/19 14:00 02/22/19 09:00 Habitrol TD 21 mg QDAY [place] Administration Ondansetron HCl 4 mg 02/18/19 00:16 Zofran IV Q8H PRN Nausea And Vomiting Sodium Chloride 10 ml 02/18/19 10:00 02/22/19 09:02 Sodium Chloride Flush Syringe 10 Ml IV 10 ml BID [facility] Administration Sodium Chloride 10 ml 02/18/19 00:16 02/21/19 07:56 Sodium Chloride Flush Syringe 10 Ml IV 10 ml PRN PRN Administration LINE FLUSH Sodium Chloride 2 gm 02/22/19 14:00 02/22/19 13:04 Sodium Chloride PO 2 gm QID [facility] Administration Nutrition/Malnutrition Assess - Dietary Evaluation Nutrition/Malnutrition Findings: Nutrition Notes Start: 02/18/19 15:10 Freq: Status: Active Protocol: Document 02/22/19 12:39 OH (Rec: 02/22/19 12:43 OH [id number]) Nutrition Notes Initial or Follow up Reassessment Other Pertinent Diagnosis Sacral PU, Depression, SIRS, metastatic colon CA Current Diet NPO Labs/Tests Reviewed Pertinent Medications Reviewed Height 5 ft 7 in Weight 65.3 kg [place] Body Weight (kg) 67.27 BMI 22.5 Weight change and time frame Wt noted to be upward trending . Will monitor. Subjective/Other Information F/u. Pt. lying in bed awaiting to have a procedure completed . Pt. reports he hasn't had anything to eat. No supplementation at home but is open to trying Chocolate protein supplement. Pt. requesting cookie or something sweet be added to tray. Percent of energy/protein needs met: 0/0% Current % PO Negligible Is patient on ventilator? No Is Patient Ambulatory and/or Out of Bed No REE-([facility]-confined to bed) 9820.308 Additional Notes Protein Needs: (1.2-1.5g/kg) Fluid Needs: 1.5 L Nutrition Intervention Add Supplement/Snack (indicate name/kcal Ensure Enlive Chocolate 1 /protein ) daily Provides kCal: 350 Provides Protein (gm) 20 Goal #1 Meet at least 75% of calorie and protein needs via PO and ONS intakes Anticipated Discharge Needs: Cardiac diet Follow-Up By: 02/24/19 Additional Comments Follow for PO and ONS intakes
--- NOTE | 2019-02-22 14:39 | Procedure Note ---
Date of procedure: 02/22/19 Pre-op diagnosis: ascites Post-op diagnosis: same Procedure: US paracentesis Findings: moderate ascites Anesthesia: local Surgeon: BULMARO UMANA Estimated blood loss: none Pathology: list (120cc) Specimen disposition: to lab Condition: stable Disposition: floor
[2019-02-22 19:14] LABS: Total Cells Counted 100 /mm3
[2019-02-23 05:41] LABS: BUN/Creatinine Ratio 20; Blood Urea Nitrogen 8 mg/dL (9-20); Calcium 7.5 mg/dL (8.4-10.2); Hemolysis Index 2
[2019-02-23] MEDS: MAXIPIME/NS 1 GM/100 ML 1 GM/100 ML BAG IV SCH ×3 (06:39→21:43)
[2019-02-23] MEDS: LASIX PO SCH ×2 (06:39→17:41)
--- NOTE | 2019-02-23 08:20 | Hem/Onc Progress Note ---
Assessment and Plan 1. History of colon cancer with elevated bilirubin, likely liver and lung met. CEA. 2. IR consult for biopsy. 3. The patient has a Port-A-Cath, says got 2 chemo and then stopped - this was at [place]. patient does not know the name of his oncologist. 4. History of ascites. 5. MCV elevated, likely secondary to alcohol usage. 6. The patient would need a biopsy. It is not clear if liver biopsy would help. Lung lesions IR consulted for BX US abdo done - ? cirrhosis and ascites ascites - s/p paracentesis CT chest - liver and lung mets high bili - CT says mets - US says cirrhosis - will await tissues diagnosis MRI - cirrhosis and mets is it possible that mets and cirrhotic changes are present? CEA 2300 - bx will help ? wait for ascites path?? d/w dr Anderson - Patient Problems (1) Lesion of lung Current Visit: Yes Status: Acute Subjective Date of service: 02/23/19 Principal diagnosis: h/o colon ca - liver and lung lesions Interval history: s/p paracentesis Objective - Exam Narrative Exam: pain none General appearance no acute distress Performance status - limited self care Eyes icterus ENT no thrush LNs cervical not palpable Neck no mass Respiratory Normal Breath sounds - CTA CVS S1 S2 + Extremities normal temperature General GI Soft non tender - distended Rectal deferred Male - deferred Skin warm Musculoskeletal no weakness Neurologically AAOx3 - Constitutional Vitals: Last Vital Signs Temp 98.3 F 02/23/19 07:24 Pulse 85 02/23/19 07:24 Resp 20 02/23/19 07:24 BP 101/60 02/23/19 07:24 Pulse Ox 98 02/23/19 07:43 - Labs Lab Results: Laboratory Results - last 24 hr 02/22/19 02/22/19 02/23/19 10:31 15:15 04:52 PT 14.3 INR 1.14 H Sodium 123 L Potassium 4.3 Chloride 87.2 L Carbon Dioxide 27 Anion Gap 13 BUN 8 L Creatinine 0.4 L Estimated GFR > 60 BUN/Creatinine Ratio 20 Glucose 106 H Calcium 7.5 L Fluid Type Ascitic Fluid Color Yellow Fluid Appearance Clear Fluid WBC 24 Fluid RBC 11 Fluid Seg Neutrophils 5.0 Fluid Lymphocytes 84.0 Fluid Reactive Lymphs 0 Fluid Monocytes 10.0 Fluid Eosinophils 1.0 Fluid Basophils 0 Medications & Allergies - Medications Allergies/Adverse Reactions: Allergies Sulfa (Sulfonamide Antibiotics) Allergy (Verified 06/07/18 19:07) Unknown Home Medications: Home Medications Medication Instructions Recorded Confirmed Last Taken Type Ketorolac [Toradol] 10 mg PO Q6H PRN #10 tablet 06/07/18 02/18/19 Unknown Rx Active Medications: Generic Name Dose Route Start Last Admin Trade Name Freq PRN Reason Stop Dose Admin Acetaminophen 650 mg 02/18/19 00:16 02/21/19 07:53 Tylenol PO 650 mg Q4H PRN Administration Pain MILD(1-3)/Fever >100.5/POLANCO Enoxaparin Sodium 40 mg 02/18/19 10:00 02/22/19 09:02 Lovenox SUB-Q Not Given QDAY@1000 [place] Furosemide 20 mg 02/22/19 18:00 02/23/19 06:39 Lasix PO 20 mg 0600,1800 [place] Administration Cefepime HCl 1 gm in 100 mls @ 200 mls/hr 02/19/19 14:00 02/23/19 06:39 Maxipime/Ns 1 Gm/100 Ml IV 200 mls/hr Q8HR [place] Administration Protocol Nicotine 21 mg 02/20/19 14:00 02/22/19 09:00 Habitrol TD 21 mg QDAY [place] Administration Ondansetron HCl 4 mg 02/18/19 00:16 Zofran IV Q8H PRN Nausea And Vomiting Sodium Chloride 10 ml 02/18/19 10:00 02/22/19 21:39 Sodium Chloride Flush Syringe 10 Ml IV 10 ml BID [place] Administration Sodium Chloride 10 ml 02/18/19 00:16 02/21/19 07:56 Sodium Chloride Flush Syringe 10 Ml IV 10 ml PRN PRN Administration LINE FLUSH Sodium Chloride 2 gm 02/22/19 14:00 02/22/19 21:38 Sodium Chloride PO 2 gm QID [place] Administration
--- NOTE | 2019-02-23 08:26 | Progress Note ---
Assessment and Plan Severe hyponatremia, possible SIADH due to active malignancy with mets to the lungs and liver - Most recent serum sodium level was 123 today, yesterday's serum sodium level was 122-123 - On admission (02/17/19), serum sodium level was 111 at 1940 - Checking serum sodium level Q4hrs for now with neurochecks, goal sodium correction < 8 mmol/L in 24 hours to minimize risk of ODS - On sodium chloride tablets 2 g po QID, lasix 20 mg po BID, and fluid restriction of 1 liter per day - Will follow up serial sodium checks and make additional adjustments as needed - Strict I&O - Renal plan d/w Dr Thomas Metastatic Colon Cancer, liver, and lungs: - As per Oncology SIRS: - Follow cultures - On Abx Depression: - As per Primary Subjective Date of service: 02/23/19 Principal diagnosis: liver and lung lesions Interval history: Pt seen in the chair eating breakfast, no specific complaints voiced. No family at bedside Objective - Vital Signs Vital signs: Vital Signs - 12hr 02/23/19 02/23/19 02/23/19 02:08 07:24 07:43 Temperature 98.6 F 98.3 F Pulse Rate 92 H 85 Respiratory 20 20 Rate Blood Pressure 93/66 101/60 O2 Sat by Pulse 97 99 98 Oximetry - General Appearance General appearance: other (awake) EENT: ATNC Neck: no JVD Respiratory: Present: Decreased Breath Sounds Cardiology: regular, S1S2 Gastrointestinal: normoactive bowel sounds, no tenderness Integumentary: warm and dry Neurologic: alert and oriented x3 Musculoskeletal: other (trace edema to BLE) Psychiatric: mood/affect appropriate, cooperative - Lab 02/22/19 06:40 02/23/19 04:52 Most recent lab results Calcium 7.5 mg/dL (8.4-10.2) L 02/23/19 04:52 96.0 mg/dL (0.1-20.0) H 02/18/19 Unknown 10 mmol/L 02/18/19 Unknown Medications & Allergies - Medications Allergies/Adverse Reactions: Allergies Sulfa (Sulfonamide Antibiotics) Allergy (Verified 06/07/18 19:07) Unknown Home Medications: Home Medications Medication Instructions Recorded Confirmed Last Taken Type Ketorolac [Toradol] 10 mg PO Q6H PRN #10 tablet 06/07/18 02/18/19 Unknown Rx Active Medications: Generic Name Dose Route Start Last Admin Trade Name Freq PRN Reason Stop Dose Admin Acetaminophen 650 mg 02/18/19 00:16 02/21/19 07:53 Tylenol PO 650 mg Q4H PRN Administration Pain MILD(1-3)/Fever >100.5/POLANCO Enoxaparin Sodium 40 mg 02/18/19 10:00 02/22/19 09:02 Lovenox SUB-Q Not Given QDAY@1000 [facility] Furosemide 20 mg 02/22/19 18:00 02/23/19 06:39 Lasix PO 20 mg 0600,1800 [facility] Administration Cefepime HCl 1 gm in 100 mls @ 200 mls/hr 02/19/19 14:00 02/23/19 06:39 Maxipime/Ns 1 Gm/100 Ml IV 200 mls/hr Q8HR [facility] Administration Protocol Nicotine 21 mg 02/20/19 14:00 02/22/19 09:00 Habitrol TD 21 mg QDAY [place] Administration Ondansetron HCl 4 mg 02/18/19 00:16 Zofran IV Q8H PRN Nausea And Vomiting Sodium Chloride 10 ml 02/18/19 10:00 02/22/19 21:39 Sodium Chloride Flush Syringe 10 Ml IV 10 ml BID [facility] Administration Sodium Chloride 10 ml 02/18/19 00:16 02/21/19 07:56 Sodium Chloride Flush Syringe 10 Ml IV 10 ml PRN PRN Administration LINE FLUSH Sodium Chloride 2 gm 02/22/19 14:00 02/22/19 21:38 Sodium Chloride PO 2 gm QID [facility] Administration
[2019-02-23] MEDS: HABITROL TD SCH (09:00)
[2019-02-23] MEDS: SODIUM CHLORIDE PO SCH ×4 (09:00→23:40)
[2019-02-23] MEDS: LOVENOX SUB-Q SCH (09:00)
[2019-02-23] MEDS: SODIUM CHLORIDE FLUSH SYRINGE 10 ML IV SCH ×2 (09:01→21:44)
--- NOTE | 2019-02-23 09:57 | Progress Note ---
Assessment and Plan Assessment and plan: 63-year-old male patient with significant past medical history of colon cancer many years ago was admitted through emergency room with generalized weakness and yellowish discoloration of sclerae, Initial evaluation patient was noted to have severe hyponatremia CT abdomen and pelvis: multiple pulmonary nodules worrisome for metastatic disease Abnormal liver possible metastatic lesions, moderate amount of ascites and atherosclerosis; CT head without contrast; atrophy and microangiopathic ischemic disease no acute abnormality noted Abdominal ultrasound; findings reflecting underlying cirrhosis with ascites Nodular appearance with the liver, Metastatic disease cannot be excluded Assessment and plan: --Hyponatremia;secondary to SIADH, mild improvement, nephrology following --Metastatic colon cancer; H/O colon cancer many years ago Oncology ,IR following --Ascites: Ultrasound-guided abdominal paracentesis, f/u Fluid analysis --Metastatic lesions lungs/liver; May need biopsy ,management per oncology --Sepsis:blood cultures positive for gram-positive clusters Empiric antibiotics, follow culture sensitivities, ID if needed -- Severe malnutrition: Present on admission nutrition supplements,supportive care --History of depression; denies suicidal thoughts or ideation Antidepression medications, psych evaluation if needed --DVT prophylaxis; SCDs -- Full CODE STATUS Follow-up peritoneal fluid analysis Plan of care is reviewed with the patient and his nurse Monitor closely and adjust management as needed History Interval history: Patient Seen and examined medical records reviewed Patient feels better no new complaints underwent ultrasound-guided abdominal paracentesis yesterday Fluid analysis pending Vital signs noted Hospitalist Physical - Constitutional Vitals: Temp Pulse Resp BP Pulse Ox 98.3 F 85 20 101/60 98 02/23/19 07:24 02/23/19 07:24 02/23/19 07:24 02/23/19 07:24 02/23/19 07:43 General appearance: Present: no acute distress, cachectic, disheveled - EENT Eyes: Present: PERRL, EOM intact - Neck Neck: Present: supple, normal ROM - Respiratory Respiratory effort: normal Respiratory: bilateral: diminished, negative: rales, rhonchi, wheezing - Cardiovascular Rhythm: regular Heart Sounds: Present: S1 & S2 - Extremities Extremities: no ischemia Extremity abnormal: edema - Abdominal General gastrointestinal: soft, non-tender, distended, normal bowel sounds, other (ascites ) - Integumentary Integumentary: Present: clear, warm - Psychiatric Psychiatric: appropriate mood/affect, cooperative - Neurologic Neurologic: CNII-XII intact, moves all extremities Results - Labs CBC & Chem 7: 02/22/19 06:40 02/23/19 04:52 Labs: Laboratory Last Values WBC 9.5 K/mm3 (4.5-11.0) 02/22/19 06:40 RBC 3.00 M/mm3 (3.65-5.03) L 02/22/19 06:40 Hgb 10.8 gm/dl (11.8-15.2) L 02/22/19 06:40 Hct 31.2 % (35.5-45.6) L 02/22/19 06:40 MCV 104 fl (84-94) H 02/22/19 06:40 MCH 36 pg (28-32) H 02/22/19 06:40 MCHC 35 % (32-34) H 02/22/19 06:40 RDW 15.1 % (13.2-15.2) 02/22/19 06:40 Plt Count 162 K/mm3 (140-440) 02/22/19 06:40 Lymph % (Auto) 6.7 % (13.4-35.0) L 02/22/19 06:40 [place] % (Auto) 11.6 % (0.0-7.3) H 02/22/19 06:40 Eos % (Auto) 1.5 % (0.0-4.3) 02/22/19 06:40 Baso % (Auto) 0.8 % (0.0-1.8) 02/22/19 06:40 Lymph # 0.6 K/mm3 (1.2-5.4) L 02/22/19 06:40 [place] # 1.1 K/mm3 (0.0-0.8) H 02/22/19 06:40 Eos # 0.1 K/mm3 (0.0-0.4) 02/22/19 06:40 Baso # 0.1 K/mm3 (0.0-0.1) 02/22/19 06:40 Seg Neutrophils % 79.4 % (40.0-70.0) H 02/22/19 06:40 Seg Neutrophils # 7.5 K/mm3 (1.8-7.7) 02/22/19 06:40 PT 14.3 Sec. (12.2-14.9) 02/22/19 10:31 INR 1.14 (0.87-1.13) H 02/22/19 10:31 Sodium 123 mmol/L (137-145) L 02/23/19 04:52 Potassium 4.3 mmol/L (3.6-5.0) 02/23/19 04:52 Chloride 87.2 mmol/L (98-107) L 02/23/19 04:52 Carbon Dioxide 27 mmol/L (22-30) 02/23/19 04:52 13 mmol/L 02/23/19 04:52 BUN 8 mg/dL (9-20) L 02/23/19 04:52 0.4 mg/dL (0.8-1.5) L 02/23/19 04:52 Estimated GFR > 60 ml/min 02/23/19 04:52 20 % 02/23/19 04:52 Glucose 106 mg/dL (75-100) H 02/23/19 04:52 POC Glucose 125 (70-105) H 02/18/19 20:42 245 Mosm/kg 02/18/19 13:26 Calcium 7.5 mg/dL (8.4-10.2) L 02/23/19 04:52 3.70 mg/dL (0.1-1.2) H 02/22/19 06:40 4.1 mg/dL (0-0.2) H 02/17/19 19:40 1.7 mg/dL 02/17/19 19:40 AST 124 units/L (5-40) H 02/22/19 06:40 ALT 58 units/L (7-56) H 02/22/19 06:40 375 units/L (35-129) H 02/22/19 06:40 5.6 g/dL (6.3-8.2) L 02/22/19 06:40 2.0 g/dL (3.9-5) L 02/22/19 06:40 0.6 % 02/22/19 06:40 31 units/L (13-60) 02/17/19 19:40 Carcinoembryonic Ag 2331.7 ng/mL (0.0-2.4) H 02/19/19 05:20 Melina (Yellow) 02/17/19 22:00 Clear (Clear) 02/17/19 22:00 6.0 (5.0-7.0) 02/17/19 22:00 Ur Specific [place] 1.012 (1.003-1.030) 02/17/19 22:00 <15 mg/dl mg/dL (Negative) 02/17/19 22:00 Neg mg/dL (Negative) 02/17/19 22:00 Tr mg/dL (Negative) 02/17/19 22:00 Sm (Negative) 02/17/19 22:00 Neg (Negative) 02/17/19 22:00 Sm (Negative) 02/17/19 22:00 Positive (Negative) 02/17/19 22:00 4.0 mg/dL (<2.0) 02/17/19 22:00 Ur Leukocyte Esterase Neg (Negative) 02/17/19 22:00 5.0 /HPF (0.0-6.0) 02/17/19 22:00 9.0 /HPF (0.0-6.0) 02/17/19 22:00 U Epithel Cells (Auto) < 1.0 /HPF (0-13.0) 02/17/19 22:00 Amorphous Crystals Few 02/17/19 22:00 428 Mosm/kg 02/18/19 Unknown 96.0 mg/dL (0.1-20.0) H 02/18/19 Unknown 10 mmol/L 02/18/19 Unknown Fluid Type Ascitic 02/22/19 15:15 Fluid Color Yellow 02/22/19 15:15 Fluid Appearance Clear 02/22/19 15:15 Fluid WBC 24 /mm3 02/22/19 15:15 Fluid RBC 11 /mm3 02/22/19 15:15 Fluid Seg Neutrophils 5.0 % 02/22/19 15:15 Fluid Lymphocytes 84.0 % 02/22/19 15:15 Fluid Reactive Lymphs 0 % 02/22/19 15:15 Fluid Monocytes 10.0 % 02/22/19 15:15 Fluid Eosinophils 1.0 % 02/22/19 15:15 Fluid Basophils 0 % 02/22/19 15:15 Active Medications - Current Medications Current Medications: Generic Name Dose Route Start Last Admin Trade Name Freq PRN Reason Stop Dose Admin Acetaminophen 650 mg 02/18/19 00:16 02/21/19 07:53 Tylenol PO 650 mg Q4H PRN Administration Pain MILD(1-3)/Fever >100.5/POLANCO Enoxaparin Sodium 40 mg 02/18/19 10:00 02/23/19 09:00 Lovenox SUB-Q 40 mg QDAY@1000 [facility] Administration Furosemide 20 mg 02/22/19 18:00 02/23/19 06:39 Lasix PO 20 mg 0600,1800 [facility] Administration Cefepime HCl 1 gm in 100 mls @ 200 mls/hr 02/19/19 14:00 02/23/19 06:39 Maxipime/Ns 1 Gm/100 Ml IV 200 mls/hr Q8HR [facility] Administration Protocol Nicotine 21 mg 02/20/19 14:00 02/23/19 09:00 Habitrol TD 21 mg QDAY [facility] Administration Ondansetron HCl 4 mg 02/18/19 00:16 Zofran IV Q8H PRN Nausea And Vomiting Sodium Chloride 10 ml 02/18/19 10:00 02/23/19 09:01 Sodium Chloride Flush Syringe 10 Ml IV 10 ml BID [facility] Administration Sodium Chloride 10 ml 02/18/19 00:16 02/21/19 07:56 Sodium Chloride Flush Syringe 10 Ml IV 10 ml PRN PRN Administration LINE FLUSH Sodium Chloride 2 gm 02/22/19 14:00 02/23/19 09:00 Sodium Chloride PO 2 gm QID [facility] Administration Nutrition/Malnutrition Assess - Dietary Evaluation Nutrition/Malnutrition Findings: Nutrition Notes Start: 02/18/19 15:10 Freq: Status: Active Protocol: Document 02/22/19 12:39 [place] (Rec: 02/22/19 12:43 OH [id number]) Nutrition Notes Initial or Follow up Reassessment Other Pertinent Diagnosis Sacral PU, Depression, SIRS, metastatic colon CA Current Diet NPO Labs/Tests Reviewed Pertinent Medications Reviewed Height 5 ft 7 in Weight 65.3 kg [place] Body Weight (kg) 67.27 BMI 22.5 Weight change and time frame Wt noted to be upward trending . Will monitor. Subjective/Other Information F/u. Pt. lying in bed awaiting to have a procedure completed . Pt. reports he hasn't had anything to eat. No supplementation at home but is open to trying Chocolate protein supplement. Pt. requesting cookie or something sweet be added to tray. Percent of energy/protein needs met: 0/0% Current % PO Negligible Is patient on ventilator? No Is Patient Ambulatory and/or Out of Bed No REE-([facility]-confined to bed) [phone] Additional Notes Protein Needs: (1.2-1.5g/kg) Fluid Needs: 1.5 L Nutrition Intervention Add Supplement/Snack (indicate name/kcal Ensure Enlive Chocolate 1 /protein ) daily Provides kCal: 350 Provides Protein (gm) 20 Goal #1 Meet at least 75% of calorie and protein needs via PO and ONS intakes Anticipated Discharge Needs: Cardiac diet Follow-Up By: 02/24/19 Additional Comments Follow for PO and ONS intakes
--- NOTE | 2019-02-23 14:45 | Ultrasound Report ---
ULTRASOUND PARACENTESIS HISTORY: Ascites. DESCRIPTION OF PROCEDURE: Informed consent was obtained. Sterile technique was utilized. 1% lidocaine for skin anesthesia. Using ultrasound guidance, a 5 [place] centesis needle was advanced into the rig ht peritoneal space. There was spontaneous return of clear yellow fluid. 3.5 L of fluid was aspirated . 120 cc of fluid was sent to the lab for analysis. No complications. IMPRESSION: Successful ultrasound-guided paracentesis. Signer Name: Jasen Kong Jr, MD Signed: 02/22/2019 3:24 PM Workstation Name: [id number]
[2019-02-23] MEDS ORDERED: VISINE-A OU PRN (23:28)
[2019-02-24] MEDS: MAXIPIME/NS 1 GM/100 ML 1 GM/100 ML BAG IV SCH (05:03)
[2019-02-24] MEDS: LASIX PO SCH ×2 (05:03→18:00)
[2019-02-24 05:56] LABS: BUN/Creatinine Ratio 30; Blood Urea Nitrogen 9 mg/dL (9-20); Calcium 7.8 mg/dL (8.4-10.2); Hemolysis Index 7
--- NOTE | 2019-02-24 07:48 | Progress Note ---
Assessment and Plan Assessment and plan: 63-year-old male patient with significant past medical history of colon cancer many years ago was admitted through emergency room with generalized weakness and yellowish discoloration of sclerae, Initial evaluation patient was noted to have severe hyponatremia CT abdomen and pelvis: multiple pulmonary nodules worrisome for metastatic disease Abnormal liver possible metastatic lesions, moderate amount of ascites and atherosclerosis; CT head without contrast; atrophy and microangiopathic ischemic disease no acute abnormality noted Abdominal ultrasound; findings reflecting underlying cirrhosis with ascites Nodular appearance with the liver, Metastatic disease cannot be excluded MRI Abdomen; 02/22/2019; Cirrhotic configuration of the liver with multiple hepatic lesions Pulmonary nodules and bone lesions suggestive of metastatic disease Sequelae of portal venous hypertension including moderate volume ascites and varices Assessment and plan: --Hyponatremia;secondary to SIADH, mild improvement, nephrology following --Metastatic colon cancer; H/O colon cancer many years ago Oncology ,IR following --Ascites: Ultrasound guided abdominal paracentesis, f/u Fluid analysis negative so far --Metastatic lesions lungs/liver; May need biopsy ,management per oncology CT-guided biopsy With posterior approach and Friday. Dr. Naik --Sepsis:blood cultures positive for gram-positive clusters Empiric antibiotics, follow culture sensitivities, ID if needed -- Severe malnutrition: Present on admission nutrition supplements,supportive care --History of depression; denies suicidal thoughts or ideation Antidepression medications, psych evaluation if needed --DVT prophylaxis; SCDs -- Full CODE STATUS Follow-up peritoneal fluid analysis Plan of care is reviewed with the patient and his nurse Monitor closely and adjust management as needed History Interval history: Sincerely and examined medical records reviewed No new events reported Vital signs. Hospitalist Physical - Constitutional Vitals: Temp Pulse Resp BP Pulse Ox 98.3 F 87 18 82/54 92 02/24/19 02:35 02/24/19 02:35 02/24/19 02:35 02/24/19 02:35 02/24/19 02:35 General appearance: Present: no acute distress, cachectic, disheveled - EENT Eyes: Present: PERRL, EOM intact - Neck Neck: Present: supple, normal ROM - Respiratory Respiratory effort: normal Respiratory: bilateral: diminished, negative: rales, rhonchi, wheezing - Cardiovascular Rhythm: regular Heart Sounds: Present: S1 & S2 - Extremities Extremities: no ischemia, No edema - Abdominal General gastrointestinal: soft, non-tender, non-distended, normal bowel sounds - Integumentary Integumentary: Present: clear, warm - Psychiatric Psychiatric: appropriate mood/affect - Neurologic Neurologic: CNII-XII intact, moves all extremities Results - Labs CBC & Chem 7: 02/22/19 06:40 02/24/19 04:36 Labs: Laboratory Last Values WBC 9.5 K/mm3 (4.5-11.0) 02/22/19 06:40 RBC 3.00 M/mm3 (3.65-5.03) L 02/22/19 06:40 Hgb 10.8 gm/dl (11.8-15.2) L 02/22/19 06:40 Hct 31.2 % (35.5-45.6) L 02/22/19 06:40 MCV 104 fl (84-94) H 02/22/19 06:40 MCH 36 pg (28-32) H 02/22/19 06:40 MCHC 35 % (32-34) H 02/22/19 06:40 RDW 15.1 % (13.2-15.2) 02/22/19 06:40 Plt Count 162 K/mm3 (140-440) 02/22/19 06:40 Lymph % (Auto) 6.7 % (13.4-35.0) L 02/22/19 06:40 [place] % (Auto) 11.6 % (0.0-7.3) H 02/22/19 06:40 Eos % (Auto) 1.5 % (0.0-4.3) 02/22/19 06:40 Baso % (Auto) 0.8 % (0.0-1.8) 02/22/19 06:40 Lymph # 0.6 K/mm3 (1.2-5.4) L 02/22/19 06:40 [place] # 1.1 K/mm3 (0.0-0.8) H 02/22/19 06:40 Eos # 0.1 K/mm3 (0.0-0.4) 02/22/19 06:40 Baso # 0.1 K/mm3 (0.0-0.1) 02/22/19 06:40 Seg Neutrophils % 79.4 % (40.0-70.0) H 02/22/19 06:40 Seg Neutrophils # 7.5 K/mm3 (1.8-7.7) 02/22/19 06:40 PT 14.3 Sec. (12.2-14.9) 02/22/19 10:31 INR 1.14 (0.87-1.13) H 02/22/19 10:31 Sodium 125 mmol/L (137-145) L 02/24/19 04:36 Potassium 3.7 mmol/L (3.6-5.0) 02/24/19 04:36 Chloride 89.4 mmol/L (98-107) L 02/24/19 04:36 Carbon Dioxide 25 mmol/L (22-30) 02/24/19 04:36 14 mmol/L 02/24/19 04:36 BUN 9 mg/dL (9-20) 02/24/19 04:36 0.3 mg/dL (0.8-1.5) L 02/24/19 04:36 Estimated GFR > 60 ml/min 02/24/19 04:36 30 % 02/24/19 04:36 Glucose 142 mg/dL (75-100) H 02/24/19 04:36 POC Glucose 125 (70-105) H 02/18/19 20:42 245 Mosm/kg 02/18/19 13:26 Calcium 7.8 mg/dL (8.4-10.2) L 02/24/19 04:36 3.70 mg/dL (0.1-1.2) H 02/22/19 06:40 4.1 mg/dL (0-0.2) H 02/17/19 19:40 1.7 mg/dL 02/17/19 19:40 AST 124 units/L (5-40) H 02/22/19 06:40 ALT 58 units/L (7-56) H 02/22/19 06:40 375 units/L (35-129) H 02/22/19 06:40 5.6 g/dL (6.3-8.2) L 02/22/19 06:40 2.0 g/dL (3.9-5) L 02/22/19 06:40 0.6 % 02/22/19 06:40 31 units/L (13-60) 02/17/19 19:40 Carcinoembryonic Ag 2331.7 ng/mL (0.0-2.4) H 02/19/19 05:20 1015 U/mL (<34) H 02/22/19 05:27 Melina (Yellow) 02/17/19 22:00 Clear (Clear) 02/17/19 22:00 6.0 (5.0-7.0) 02/17/19 22:00 Ur Specific Rib[place] 1.012 (1.003-1.030) 02/17/19 22:00 <15 mg/dl mg/dL (Negative) 02/17/19 22:00 Neg mg/dL (Negative) 02/17/19 22:00 Tr mg/dL (Negative) 02/17/19 22:00 Sm (Negative) 02/17/19 22:00 Neg (Negative) 02/17/19 22:00 Sm (Negative) 02/17/19 22:00 Positive (Negative) 02/17/19 22:00 4.0 mg/dL (<2.0) 02/17/19 22:00 Ur Leukocyte Esterase Neg (Negative) 02/17/19 22:00 5.0 /HPF (0.0-6.0) 02/17/19 22:00 9.0 /HPF (0.0-6.0) 02/17/19 22:00 U Epithel Cells (Auto) < 1.0 /HPF (0-13.0) 02/17/19 22:00 Amorphous Crystals Few 02/17/19 22:00 428 Mosm/kg 02/18/19 Unknown 96.0 mg/dL (0.1-20.0) H 02/18/19 Unknown 10 mmol/L 02/18/19 Unknown Fluid Type Ascitic 02/22/19 15:15 Fluid Color Yellow 02/22/19 15:15 Fluid Appearance Clear 02/22/19 15:15 Fluid WBC 24 /mm3 02/22/19 15:15 Fluid RBC 11 /mm3 02/22/19 15:15 Fluid Seg Neutrophils 5.0 % 02/22/19 15:15 Fluid Lymphocytes 84.0 % 02/22/19 15:15 Fluid Reactive Lymphs 0 % 02/22/19 15:15 Fluid Monocytes 10.0 % 02/22/19 15:15 Fluid Eosinophils 1.0 % 02/22/19 15:15 Fluid Basophils 0 % 02/22/19 15:15 Active Medications - Current Medications Current Medications: Generic Name Dose Route Start Last Admin Trade Name Freq PRN Reason Stop Dose Admin Acetaminophen 650 mg 02/18/19 00:16 02/21/19 07:53 Tylenol PO 650 mg Q4H PRN Administration Pain MILD(1-3)/Fever >100.5/POLANCO Enoxaparin Sodium 40 mg 02/18/19 10:00 02/23/19 09:00 Lovenox SUB-Q 40 mg QDAY@1000 [facility] Administration Furosemide 20 mg 02/22/19 18:00 02/24/19 05:03 Lasix PO 20 mg 0600,1800 [facility] Administration Naphazoline HCl/Pheniramine Maleate 2 drops 02/23/19 23:28 Visine-A OU Q6H PRN Dry Eye(s) Nicotine 21 mg 02/20/19 14:00 02/23/19 09:00 Habitrol TD 21 mg QDAY [facility] Administration Ondansetron HCl 4 mg 02/18/19 00:16 Zofran IV Q8H PRN Nausea And Vomiting Sodium Chloride 10 ml 02/18/19 10:00 02/23/19 21:44 Sodium Chloride Flush Syringe 10 Ml IV 10 ml BID [facility] Administration Sodium Chloride 10 ml 02/18/19 00:16 02/21/19 07:56 Sodium Chloride Flush Syringe 10 Ml IV 10 ml PRN PRN Administration LINE FLUSH Sodium Chloride 2 gm 02/22/19 14:00 02/23/19 23:40 Sodium Chloride PO Not Given QID [facility] Nutrition/Malnutrition Assess - Dietary Evaluation Nutrition/Malnutrition Findings: Nutrition Notes Start: 02/18/19 15:10 Freq: Status: Active Protocol: Document 02/22/19 12:39 OH (Rec: 02/22/19 12:43 OH [id number]) Nutrition Notes Initial or Follow up Reassessment Other Pertinent Diagnosis Sacral PU, Depression, SIRS, metastatic colon CA Current Diet NPO Labs/Tests Reviewed Pertinent Medications Reviewed Height 5 ft 7 in Weight 65.3 kg [place] Body Weight (kg) 67.27 BMI 22.5 Weight change and time frame Wt noted to be upward trending . Will monitor. Subjective/Other Information F/u. Pt. lying in bed awaiting to have a procedure completed . Pt. reports he hasn't had anything to eat. No supplementation at home but is open to trying Chocolate protein supplement. Pt. requesting cookie or something sweet be added to tray. Percent of energy/protein needs met: 0/0% Current % PO Negligible Is patient on ventilator? No Is Patient Ambulatory and/or Out of Bed No REE-([facility]-confined to bed) [phone] Additional Notes Protein Needs: (1.2-1.5g/kg) Fluid Needs: 1.5 L Nutrition Intervention Add Supplement/Snack (indicate name/kcal Ensure Enlive Chocolate 1 /protein ) daily Provides kCal: 350 Provides Protein (gm) 20 Goal #1 Meet at least 75% of calorie and protein needs via PO and ONS intakes Anticipated Discharge Needs: Cardiac diet Follow-Up By: 02/24/19 Additional Comments Follow for PO and ONS intakes
--- NOTE | 2019-02-24 08:25 | Hem/Onc Progress Note ---
Assessment and Plan 1. History of colon cancer with elevated bilirubin, likely liver and lung met. CEA. 2. IR consult for biopsy. 3. The patient has a Port-A-Cath, says got 2 chemo and then stopped - this was at [facility]. patient does not know the name of his oncologist. 4. History of ascites. 5. MCV elevated, likely secondary to alcohol usage. 6. The patient would need a biopsy. It is not clear if liver biopsy would help. Lung lesions IR consulted for BX US abdo done - ? cirrhosis and ascites ascites - s/p paracentesis CT chest - liver and lung mets high bili - CT says mets - US says cirrhosis - will await tissues diagnosis MRI - cirrhosis and mets is it possible that mets and cirrhotic changes are present? CEA 0 - bx will help ? wait for ascites path?? d/w dr Anderson left message for IR reg ? possible - Patient Problems (1) Lesion of lung Current Visit: Yes Status: Acute Subjective Date of service: 02/24/19 Principal diagnosis: liver and lung lesion Interval history: abdo distension Objective - Exam Narrative Exam: pain none General appearance no acute distress Performance status - limited self care Eyes icterus ENT no thrush LNs cervical not palpable Neck no mass Respiratory Normal Breath sounds - CTA CVS S1 S2 + Extremities normal temperature General GI Soft non tender - distended Rectal deferred Male - deferred Skin warm Musculoskeletal no weakness Neurologically AAOx3 - Constitutional Vitals: Last Vital Signs Temp 98.3 F 02/24/19 02:35 Pulse 87 02/24/19 02:35 Resp 18 02/24/19 02:35 BP 82/54 02/24/19 02:35 Pulse Ox 92 02/24/19 02:35 - Labs Lab Results: Laboratory Results - last 24 hr 02/22/19 02/24/19 05:27 04:36 Sodium 125 L Potassium 3.7 Chloride 89.4 L Carbon Dioxide 25 Anion Gap 14 BUN 9 Creatinine 0.3 L Estimated GFR > 60 BUN/Creatinine Ratio 30 Glucose 142 H Calcium 7.8 L CA 19-9 Antigen 1015 H Medications & Allergies - Medications Allergies/Adverse Reactions: Allergies Sulfa (Sulfonamide Antibiotics) Allergy (Verified 06/07/18 19:07) Unknown Home Medications: Home Medications Medication Instructions Recorded Confirmed Last Taken Type Ketorolac [Toradol] 10 mg PO Q6H PRN #10 tablet 06/07/18 02/18/19 Unknown Rx Active Medications: Generic Name Dose Route Start Last Admin Trade Name Freq PRN Reason Stop Dose Admin Acetaminophen 650 mg 02/18/19 00:16 02/21/19 07:53 Tylenol PO 650 mg Q4H PRN Administration Pain MILD(1-3)/Fever >100.5/POLANCO Enoxaparin Sodium 40 mg 02/18/19 10:00 02/23/19 09:00 Lovenox SUB-Q 40 mg QDAY@1000 [facility] Administration Furosemide 20 mg 02/22/19 18:00 02/24/19 05:03 Lasix PO 20 mg 0600,1800 [facility] Administration Naphazoline HCl/Pheniramine Maleate 2 drops 02/23/19 23:28 Visine-A OU Q6H PRN Dry Eye(s) Nicotine 21 mg 02/20/19 14:00 02/23/19 09:00 Habitrol TD 21 mg QDAY [facility] Administration Ondansetron HCl 4 mg 02/18/19 00:16 Zofran IV Q8H PRN Nausea And Vomiting Sodium Chloride 10 ml 02/18/19 10:00 02/23/19 21:44 Sodium Chloride Flush Syringe 10 Ml IV 10 ml BID [facility] Administration Sodium Chloride 10 ml 02/18/19 00:16 02/21/19 07:56 Sodium Chloride Flush Syringe 10 Ml IV 10 ml PRN PRN Administration LINE FLUSH Sodium Chloride 2 gm 02/22/19 14:00 02/23/19 23:40 Sodium Chloride PO Not Given QID [facility]
[2019-02-24] MEDS: HABITROL TD SCH (09:03)
[2019-02-24] MEDS: SODIUM CHLORIDE PO SCH ×5 (09:05→22:17)
[2019-02-24] MEDS: LOVENOX SUB-Q SCH (09:05)
[2019-02-24] MEDS: SODIUM CHLORIDE FLUSH SYRINGE 10 ML IV SCH ×2 (09:05→22:21)
--- NOTE | 2019-02-24 13:59 | Progress Note ---
Assessment and Plan The patient's liver may be amenable to percutaneous biopsy from a posterior approach to allow transit of the needle through some portion of relatively unaffected liver. This will be scheduled for Friday as CT techs will not be available tomorrow. Subjective Date of service: 02/24/19 Principal diagnosis: h/o colon ca - liver and lung lesions Interval history: Patient with a history of colon cancer proximally 20 years ago. He states that at that time he was "cured" he has a port that he has had for [address] scan of the chest and abdomen and pelvis were reviewed. The patient has multiple centimeter sized lesions in his chest consistent with metastatic disease. Additionally, there is diffuse involvement of the liver suggestive of metastatic disease. He also has periaortic enlarged lymph nodes. The patient has a small amount of ascites as well. Objective - Constitutional Vitals: Vital Signs - 12hr 02/24/19 02/24/19 02/24/19 02:35 07:21 09:13 Temperature 98.3 F 97.7 F Pulse Rate 87 84 Pulse Rate [ From Monitor] Respiratory 18 18 Rate Blood Pressure 82/54 104/67 O2 Sat by Pulse 92 98 97 Oximetry 02/24/19 09:17 Temperature Pulse Rate Pulse Rate [ 87 From Monitor] Respiratory 18 Rate Blood Pressure O2 Sat by Pulse 98 Oximetry General appearance: Present: no acute distress - EENT Eyes: EOM intact ENT: hearing intact - Neck Neck: supple, normal ROM - Respiratory Respiratory effort: normal - Breasts Breasts: deferred - Gastrointestinal General gastrointestinal: Present: deferred Rectal Exam: deferred - Genitourinary Male genitourinary: deferred - Psychiatric Psychiatric: appropriate mood/affect, cooperative - Labs CBC & Chem 7: 02/22/19 06:40 02/24/19 04:36 Labs: Abnormal lab results 02/22/19 02/24/19 Range/Units 05:27 04:36 Sodium 125 L (137-145) mmol/L Chloride 89.4 L (98-107) mmol/L Creatinine 0.3 L (0.8-1.5) mg/dL Glucose 142 H (75-100) mg/dL Calcium 7.8 L (8.4-10.2) mg/dL CA 19-9 Antigen 1015 H (<34) U/mL Medications & Allergies - Medications Allergies/Adverse Reactions: Allergies Sulfa (Sulfonamide Antibiotics) Allergy (Verified 06/07/18 19:07) Unknown Home Medications: Home Medications Medication Instructions Recorded Confirmed Last Taken Type Ketorolac [Toradol] 10 mg PO Q6H PRN #10 tablet 06/07/18 02/18/19 Unknown Rx Active Medications: Generic Name Dose Route Start Last Admin Trade Name Freq PRN Reason Stop Dose Admin Acetaminophen 650 mg 02/18/19 00:16 02/21/19 07:53 Tylenol PO 650 mg Q4H PRN Administration Pain MILD(1-3)/Fever >100.5/POLANCO Enoxaparin Sodium 40 mg 02/18/19 10:00 02/24/19 09:05 Lovenox SUB-Q 40 mg QDAY@1000 [facility] Administration Furosemide 20 mg 02/22/19 18:00 02/24/19 05:03 Lasix PO 20 mg 0600,1800 [facility] Administration Naphazoline HCl/Pheniramine Maleate 2 drops 02/23/19 23:28 Visine-A OU Q6H PRN Dry Eye(s) Nicotine 21 mg 02/20/19 14:00 02/24/19 09:03 Habitrol TD 21 mg QDAY [facility] Administration Ondansetron HCl 4 mg 02/18/19 00:16 Zofran IV Q8H PRN Nausea And Vomiting Sodium Chloride 10 ml 02/18/19 10:00 02/24/19 09:05 Sodium Chloride Flush Syringe 10 Ml IV 10 ml BID [facility] Administration Sodium Chloride 10 ml 02/18/19 00:16 02/21/19 07:56 Sodium Chloride Flush Syringe 10 Ml IV 10 ml PRN PRN Administration LINE FLUSH Sodium Chloride 2 gm 02/22/19 14:00 02/24/19 13:54 Sodium Chloride PO Not Given QID [facility]
--- NOTE | 2019-02-24 14:03 | Consultation ---
History of Present Illness - Reason for Consult Consult date: 02/24/19 Sepsis Requesting physician: JAVAN PORRAS - History of Present Illness This patient is a 63-year-old man with a past medical history of colon cancer and depression that presents to the ED on 02/17/19 with generalized weakness,and jaundice for the past 3 days. On On admission WBC 16.2, Creatinine 0.3, NA 121, Temperature 98,0, HR 92, BP 103/63. U/A negative. Abdomen /Pelvis CT showed multiple pulmonary nodules worrisome for metastatic disease. Abnormal appearing liver which may also have metastatic disease. Chest xray showed possible metastatic nodules. Blood cultures CoNS and Diptheroids. Peritoneal fluid culture no growth. Review of Systems: General: no fever, chills, nightsweats, unintentional weight change,, + change in appetite Cutaneous: no rash, pruritus Head: no headaches or injury Eyes, no changes in vision, eye pain, double vision Ears: no ear pain, ear discharge, ringing or hearing loss Nose: no nose bleeding, stuffiness Mouth & throat: no bleeding gums, no horseness, no dental problems, or swollen glands Neck: no pain, node enlargement/lumps, tyroid enlargement or tenderness Respiratory: no cough, + wheezing, no sputum, hemoptysis, pleuritic chest pain Cardiovascular: no chest pain, leg edema, cyanosis, RODRIGUEZ, orthopnea Musculoskeletal: no decreased joint motion, bone or joint pain, joint swelling, muscle aches Gastrointestinal: no nausea, vomiting, hematemesis, diarrhea, constipation, + ascites Genitourinary/Reproductive: no frequent urination, no dysuria, hematuria, incontinence Neurogical: Generalized weakness, no seizures, no headaches, no paresthesias, no loss of speech or vision; no memory loss, no vertigo, no tremors, no numbness Psychiatric: stable mood; no excessive anxiety, sadness or moodiness Past History Past Medical History: other (colon cancer) Medications and Allergies Allergies Allergy/AdvReac Type Severity Reaction Status Date / Time Sulfa (Sulfonamide Allergy Unknown Verified 06/07/18 19:07 Antibiotics) Home Medications Medication Instructions Recorded Confirmed Last Taken Type Ketorolac [Toradol] 10 mg PO Q6H PRN #10 tablet 06/07/18 02/18/19 Unknown Rx Active Meds: Active Medications Acetaminophen (Tylenol) 650 mg PO Q4H PRN PRN Reason: Pain MILD(1-3)/Fever >100.5/POLANCO Last Admin: 02/21/19 07:53 Dose: 650 mg Documented by: Enoxaparin Sodium (Lovenox) 40 mg SUB-Q QDAY@1000 [facility] Last Admin: 02/24/19 09:05 Dose: 40 mg Documented by: Furosemide (Lasix) 20 mg PO 0600,1800 [facility] Last Admin: 02/24/19 05:03 Dose: 20 mg Documented by: Naphazoline HCl/Pheniramine Maleate (Visine-A) 2 drops OU Q6H PRN PRN Reason: Dry Eye(s) Nicotine (Habitrol) 21 mg TD QDAY [facility] Last Admin: 02/24/19 09:03 Dose: 21 mg Documented by: Ondansetron HCl (Zofran) 4 mg IV Q8H PRN PRN Reason: Nausea And Vomiting Sodium Chloride (Sodium Chloride Flush Syringe 10 Ml) 10 ml IV BID [facility] Last Admin: 02/24/19 09:05 Dose: 10 ml Documented by: Sodium Chloride (Sodium Chloride Flush Syringe 10 Ml) 10 ml IV PRN PRN PRN Reason: LINE FLUSH Last Admin: 02/21/19 07:56 Dose: 10 ml Documented by: Sodium Chloride (Sodium Chloride) 2 gm PO QID [facility] Last Admin: 02/24/19 13:54 Dose: Not Given Documented by: Physical Examination - Physical Exam Narrative exam: Constitutional: Alert, cooperative. No acute distress Head, Ears, Nose: Normocephalic, atraumatic. External ears, nose normal Eyes: + icterus. No ptosis. Neck: Supple, no meningeal signs Oral: dentition poor, no thrush Cardiovascular: S1, S2 normal. Respiratory: Good air entry, bilateral wheezing GI: slightly taunt, +Ascites Musculoskeletal: No pedal edema, no cyanosis. Skin: No rash .. +scabs with ecchymosis bilateral arms Hem/Lymphatic: No palpable cervical or supraclavicular nodes. No lymphangitis Psych: Mood ok. Affect normal Neurological: Awake, alert, oriented. - Constitutional Vitals: Vital Signs Temp Pulse Resp BP Pulse Ox 97.7 F 87 18 104/67 98 02/24/19 07:21 02/24/19 09:17 02/24/19 09:17 02/24/19 07:21 02/24/19 09:17 Temperature -Last 24 Hours Temperature 97.7 F Temperature 98.3 F Temperature 98.3 F Results - Labs CBC & Chem 7: 02/22/19 06:40 02/24/19 04:36 Labs: Abnormal lab results 02/22/19 02/24/19 Range/Units 05:27 04:36 Sodium 125 L (137-145) mmol/L Chloride 89.4 L (98-107) mmol/L Creatinine 0.3 L (0.8-1.5) mg/dL Glucose 142 H (75-100) mg/dL Calcium 7.8 L (8.4-10.2) mg/dL CA 19-9 Antigen 1015 H (<34) U/mL - Imaging and Cardiology Chest x-ray: report reviewed (possible metastatic nodules) CT scan - abdomen: report reviewed (multiple pulmonary nodules worrisome for metatastatic diisease. Abnormal appearing liver which may also have metatastatic disease) CT scan - chest: report reviewed (Numerous pulmonary and hepatic metastases. Emphysema. Abdominal ascites) CT Scan - head: report reviewed (Evidence of atrophy and microangiopathic ischemic disease. No acute intracranial process noted. ) US - abdomen: report reviewed ( Findings likely reflecting underlying cirrhosis with ascites .Heterogeneous somewhat nodular appearance within the liver. Metastatic disease cannot be excluded. ) MRI - abdomen: report reviewed ( Cirrhotic configuration of the liver with multiple hepatic lesions, pulmonary nodules, and a bone lesion all suggestive of metastatic disease. There is also sequelae of portal venous hypertension including moderate volume ascites and varices) Assessment and Plan Cultures: 02/17/19 Blood : Coag negative staph, Diptheroids 02/18/19 MRSA: negative 02/18/19 Blood: no growth to date 02/22/19 Peritoneal fluid: no growth A/P: 63-year-old man with a past medical history of colon cancer and depresseion th at presents to the ED on 02/17/19 with generalized weakness,and jaudice for the past 3 days. Admitted with: 1. Leukocytosis: on admission. Eitology multifactorial. Blood cultures grew CoNS/Dipheroid. No fever. U/A negative. 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 Metatastic colon cancer. metastatic lesion s lungs. 2.. CoNS/Dipheroids Baacteremia: 3 out of 4 bottles. Likely a contaminant. Repeat cultures show no growth. No antibiotic therapy needed. 3. Metastatic Colon Cancer: Patient reports he had colon cancer many years ago. IR evaluated the patient for possible biopsy , however ascites surrounding the liver contraindication for percutaneous biopsy due to risk of bleeding, Recommend additional testing, MRCP. Oncology following 4. Metastaic lesions lungs/Liver: CT abdomen and pelvis: multiple pulmonary nodules worrisome for metastatic disease. Abnormal liver possible metastatic lesions, moderate amount of ascites and atherosclerosis; Possible MRCP. Oncology following. Recommendations: -monitor off antibiotics [facility] M: [phone] O:[phone]
--- NOTE | 2019-02-24 14:05 | Progress Note ---
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 - Most recent serum sodium level was 125 today, yesterday's serum sodium level was 123 - On admission (02/17/19), serum sodium level was 111 at 1940 - Checking serum sodium level Q6hrs, goal sodium correction < 8 mmol/L in 24 hours to minimize risk of ODS - On sodium chloride tablets 2 g po QID, lasix 20 mg po BID, and fluid restriction of 1 liter per day - Will follow up serial sodium checks and make additional adjustments as needed - Strict I&O - Renal plan d/w Dr Thomas Metastatic Colon Cancer, liver, and lungs: - As per Oncology - IR on board, planning on liver biopsy on Friday02/26/19 Leukocytosis: SIRS: - ID on board, f/u recs Depression: - As per Primary Subjective Principal diagnosis: h/o colon ca - liver and lung lesions Interval history: Pt seen in bed, states has a little shortness of breath from working with PT, but feels ok overall. No family at bedside Objective - Vital Signs Vital signs: Vital Signs - 12hr 02/24/19 02/24/19 02/24/19 02:35 07:21 09:13 Temperature 98.3 F 97.7 F Pulse Rate 87 84 Pulse Rate [ From Monitor] Respiratory 18 18 Rate Blood Pressure 82/54 104/67 O2 Sat by Pulse 92 98 97 Oximetry 02/24/19 09:17 Temperature Pulse Rate Pulse Rate [ 87 From Monitor] Respiratory 18 Rate Blood Pressure O2 Sat by Pulse 98 Oximetry - General Appearance General appearance: other (awake) EENT: ATNC Neck: no JVD Respiratory: Present: Decreased Breath Sounds Cardiology: regular, S1S2 Gastrointestinal: normoactive bowel sounds (round), no tenderness Integumentary: other (bruising to both upper extremities) Neurologic: alert and oriented x3 Musculoskeletal: other (no edema to BLE) Psychiatric: cooperative - Lab 02/22/19 06:40 02/24/19 04:36 Most recent lab results Calcium 7.8 mg/dL (8.4-10.2) L 02/24/19 04:36 96.0 mg/dL (0.1-20.0) H 02/18/19 Unknown 10 mmol/L 02/18/19 Unknown Medications & Allergies - Medications Allergies/Adverse Reactions: Allergies Sulfa (Sulfonamide Antibiotics) Allergy (Verified 06/07/18 19:07) Unknown Home Medications: Home Medications Medication Instructions Recorded Confirmed Last Taken Type Ketorolac [Toradol] 10 mg PO Q6H PRN #10 tablet 06/07/18 02/18/19 Unknown Rx Active Medications: Generic Name Dose Route Start Last Admin Trade Name Freq PRN Reason Stop Dose Admin Acetaminophen 650 mg 02/18/19 00:16 02/21/19 07:53 Tylenol PO 650 mg Q4H PRN Administration Pain MILD(1-3)/Fever >100.5/POLANCO Enoxaparin Sodium 40 mg 02/18/19 10:00 02/24/19 09:05 Lovenox SUB-Q 40 mg QDAY@1000 [facility] Administration Furosemide 20 mg 02/22/19 18:00 02/24/19 05:03 Lasix PO 20 mg 0600,1800 [facility] Administration Naphazoline HCl/Pheniramine Maleate 2 drops 02/23/19 23:28 Visine-A OU Q6H PRN Dry Eye(s) Nicotine 21 mg 02/20/19 14:00 02/24/19 09:03 Habitrol TD 21 mg QDAY [facility] Administration Ondansetron HCl 4 mg 02/18/19 00:16 Zofran IV Q8H PRN Nausea And Vomiting Sodium Chloride 10 ml 02/18/19 10:00 02/24/19 09:05 Sodium Chloride Flush Syringe 10 Ml IV 10 ml BID [facility] Administration Sodium Chloride 10 ml 02/18/19 00:16 02/21/19 07:56 Sodium Chloride Flush Syringe 10 Ml IV 10 ml PRN PRN Administration LINE FLUSH Sodium Chloride 2 gm 02/22/19 14:00 02/24/19 13:54 Sodium Chloride PO Not Given QID [facility]
[2019-02-25 05:20] LABS: BUN/Creatinine Ratio 30; Blood Urea Nitrogen 9 mg/dL (9-20); Calcium 7.7 mg/dL (8.4-10.2); Hemolysis Index 0
[2019-02-25] MEDS: LASIX PO SCH ×2 (06:20→17:52)
--- NOTE | 2019-02-25 08:51 | Progress Note ---
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 - Na is slowly improving - On admission (02/17/19), serum sodium level was 111 at 1940 - goal sodium correction < 8 mmol/L in 24 hours to minimize risk of ODS - On sodium chloride tablets 2 g po QID, lasix 20 mg po BID, and fluid restr iction of 1 liter per day - Strict I&O Metastatic Colon Cancer, liver, and lungs: - As per Oncology - IR on board, planning on liver biopsy on Friday02/26/19 Leukocytosis: SIRS: - ID on board, f/u recs Depression: - As per Primary Subjective Date of service: 02/25/19 Principal diagnosis: liver and lung lesion Interval history: denies acute symptoms Objective - Vital Signs Vital signs: Vital Signs - 12hr 02/24/19 02/24/19 02/25/19 20:58 22:00 01:48 Temperature 98.0 F 98.6 F Pulse Rate 57 L 62 Pulse Rate [ 57 L From Monitor] Respiratory 20 18 16 Rate Blood Pressure 100/60 97/59 O2 Sat by Pulse 94 94 96 Oximetry - General Appearance General appearance: well-developed, well-nourished EENT: ATNC, PERRL, mucous membranes moist Neck: no JVD, no carotid bruit Respiratory: Present: Clear to Ascultation. Absent: Rales, Ronchi Cardiology: regular Gastrointestinal: normoactive bowel sounds, distended Integumentary: warm and dry Neurologic: no focal deficit, no asterixis, alert and oriented x3 Musculoskeletal: other (trace pitting edema in BLE) Psychiatric: mood/affect appropriate, cooperative - Lab 02/22/19 06:40 02/25/19 04:14 Most recent lab results Calcium 7.7 mg/dL (8.4-10.2) L 02/25/19 04:14 96.0 mg/dL (0.1-20.0) H 02/18/19 Unknown 10 mmol/L 02/18/19 Unknown Medications & Allergies - Medications Allergies/Adverse Reactions: Allergies Sulfa (Sulfonamide Antibiotics) Allergy (Verified 06/07/18 19:07) Unknown Home Medications: Home Medications Medication Instructions Recorded Confirmed Last Taken Type Ketorolac [Toradol] 10 mg PO Q6H PRN #10 tablet 06/07/18 02/18/19 Unknown Rx Active Medications: Generic Name Dose Route Start Last Admin Trade Name Freq PRN Reason Stop Dose Admin Acetaminophen 650 mg 02/18/19 00:16 02/21/19 07:53 Tylenol PO 650 mg Q4H PRN Administration Pain MILD(1-3)/Fever >100.5/[place]AN[place] Enoxaparin Sodium 40 mg 02/18/19 10:00 02/24/19 09:05 Lovenox SUB-Q 40 mg QDAY@1000 [facility] Administration Furosemide 20 mg 02/22/19 18:00 02/25/19 06:20 Lasix PO 20 mg 0600,1800 [facility] Administration Naphazoline HCl/Pheniramine Maleate 2 drops 02/23/19 23:28 Visine-A OU Q6H PRN Dry Eye(s) Nicotine 21 mg 02/20/19 14:00 02/24/19 09:03 Habitrol TD 21 mg QDAY [facility] Administration Ondansetron HCl 4 mg 02/18/19 00:16 Zofran IV Q8H PRN Nausea And Vomiting Sodium Chloride 10 ml 02/18/19 10:00 02/24/19 22:21 Sodium Chloride Flush Syringe 10 Ml IV 10 ml BID [facility] Administration Sodium Chloride 10 ml 02/18/19 00:16 02/21/19 07:56 Sodium Chloride Flush Syringe 10 Ml IV 10 ml PRN PRN Administration LINE FLUSH Sodium Chloride 2 gm 02/22/19 14:00 02/24/19 22:17 Sodium Chloride PO 2 gm QID [facility] Administration
[2019-02-25] MEDS: HABITROL TD SCH (09:59)
[2019-02-25] MEDS: LOVENOX SUB-Q SCH (10:01)
[2019-02-25] MEDS: SODIUM CHLORIDE PO SCH ×4 (10:02→22:16)
[2019-02-25] MEDS: SODIUM CHLORIDE FLUSH SYRINGE 10 ML IV SCH ×2 (10:03→22:17)
--- NOTE | 2019-02-25 12:05 | Progress Note ---
Assessment and Plan Cultures: 02/17/19 Blood : Coag negative staph, Diptheroids 02/18/19 MRSA: negative 02/18/19 Blood: no growth to date 02/22/19 Peritoneal fluid: no growth A/P: 63-year-old man with a past medical history of colon cancer and depresseion that presents to the ED on 02/17/19 with generalized weakness,and jaudice for the past 3 days. Admitted with: 1. Leukocytosis: on admission. Eitology multifactorial. Now resolved, probably malignancy related. Blood cultures grew CoNS/Dipheroid. No fever. U/A negative. 2.. CoNS/Dipheroids bacteremia: 3 out of 4 bottles. Likely skin contaminants. Repeat cultures show no growth. No antibiotic therapy needed. 3. Metastatic Cancer: Patient reports he had colon cancer many years ago. Metastaic lesions lungs/Liver: CT abdomen and pelvis: multiple pulmonary nodules worrisome for metastatic disease. Abnormal liver possible metastatic lesions, moderate amount of ascites and atherosclerosis. IR and Oncology following. Recommendations: -monitor off antibiotics Will sign off. Please call with questions. Norberto Champion MD, FACP [facility] ([facility] C: [phone] O: [phone] F: [phone] Subjective Date of service: 02/25/19 Principal diagnosis: liver and lung lesion Interval history: Denies any complaints. Had a bowel movement. Abdomen is distended. No fever. Objective - Exam Narrative Exam: Constitutional: Alert, cooperative. No acute distress Head, Ears, Nose: Normocephalic, atraumatic. External ears, nose normal Eyes: + icterus. No ptosis. Neck: Supple, no meningeal signs Oral: dentition poor, no thrush Cardiovascular: S1, S2 normal. Respiratory: Good air entry, bilateral wheezing GI: distended, +Ascites. bowel sounds + Musculoskeletal: No pedal edema, no cyanosis. Skin: No rash. +scabs with ecchymoses bilateral arms Hem/Lymphatic: No palpable cervical or supraclavicular nodes. No lymphangitis Psych: Mood ok. Affect normal Neurological: Awake, alert, oriented. - Constitutional Vitals: Vital Signs Temp Pulse Resp BP Pulse Ox 98.6 F 62 16 97/59 96 02/25/19 01:48 02/25/19 01:48 02/25/19 01:48 02/25/19 01:48 02/25/19 01:48 Temperature -Last 24 Hours Temperature 98.6 F Temperature 98.0 F Temperature 98.1 F - Labs CBC & Chem 7: 02/22/19 06:40 02/25/19 04:14 Labs: Abnormal lab results 02/24/19 02/25/19 02/25/19 Range/Units 19:52 00:26 04:14 Sodium 125 L 124 L 126 L (137-145) mmol/L Chloride 90.2 L (98-107) mmol/L Creatinine 0.3 L (0.8-1.5) mg/dL Calcium 7.7 L (8.4-10.2) mg/dL
--- NOTE | 2019-02-25 13:09 | Progress Note ---
Assessment and Plan Assessment and plan: 63-year-old male patient with significant past medical history of colon cancer many years ago was admitted through emergency room with generalized weakness and yellowish discoloration of sclerae, Initial evaluation patient was noted to have severe hyponatremia CT abdomen and pelvis: multiple pulmonary nodules worrisome for metastatic disease Abnormal liver possible metastatic lesions, moderate amount of ascites and atherosclerosis; CT head without contrast; atrophy and microangiopathic ischemic disease no acute abnormality noted Abdominal ultrasound; findings reflecting underlying cirrhosis with ascites Nodular appearance with the liver, Metastatic disease cannot be excluded MRI Abdomen; 02/22/2019; Cirrhotic configuration of the liver with multiple hepatic lesions Pulmonary nodules and bone lesions suggestive of metastatic disease Sequelae of portal venous hypertension including moderate volume ascites and varices Assessment and plan: --Hyponatremia;secondary to SIADH, mild improvement, nephrology following --Metastatic colon cancer; H/O colon cancer many years ago Oncology ,IR following --Ascites: Ultrasound guided abdominal paracentesis, f/u Fluid analysis negative so far --Metastatic lesions lungs/liver; May need biopsy ,management per oncology CT-guided biopsy With posterior approach and Friday Dr. Naik --Sepsis:blood cultures positive for gram-positive clusters Empiric antibiotics, follow culture sensitivities, ID if needed -- Severe malnutrition: Present on admission nutrition supplements,supportive care --History of depression; denies suicidal thoughts or ideation Antidepression medications, psych evaluation if needed --DVT prophylaxis; SCDs -- Full CODE STATUS Peritoneal Fluid analysis negative for SBP Plan of care is reviewed with the patient and his nurse Monitor closely and adjust management as needed Disposition; positive CT-guided biopsy of the liver lesion tomorrow History Interval history: Patient seen and examined medical records reviewed Complaints of inability to sleep in the night on some sleeping medication Denies any abdominal pain nausea vomiting or diarrhea Tolerating oral nutrition Vital signs reviewed Hospitalist Physical - Constitutional Vitals: Temp Pulse Resp BP Pulse Ox 98.6 F 62 16 97/59 96 02/25/19 01:48 02/25/19 01:48 02/25/19 01:48 02/25/19 01:48 02/25/19 01:48 General appearance: Present: no acute distress, cachectic, disheveled - EENT Eyes: Present: PERRL, EOM intact - Neck Neck: Present: supple, normal ROM - Respiratory Respiratory effort: normal Respiratory: bilateral: diminished, rales, negative: rhonchi, wheezing - Cardiovascular Rhythm: regular Heart Sounds: Present: S1 & S2 - Extremities Extremities: no ischemia, pulses intact - Abdominal General gastrointestinal: soft, non-tender, distended, normal bowel sounds - Integumentary Integumentary: Present: clear, warm - Psychiatric Psychiatric: appropriate mood/affect, cooperative - Neurologic Neurologic: CNII-XII intact, moves all extremities Results - Labs CBC & Chem 7: 02/22/19 06:40 02/25/19 04:14 Labs: Laboratory Last Values WBC 9.5 K/mm3 (4.5-11.0) 02/22/19 06:40 RBC 3.00 M/mm3 (3.65-5.03) L 02/22/19 06:40 Hgb 10.8 gm/dl (11.8-15.2) L 02/22/19 06:40 Hct 31.2 % (35.5-45.6) L 02/22/19 06:40 MCV 104 fl (84-94) H 02/22/19 06:40 MCH 36 pg (28-32) H 02/22/19 06:40 MCHC 35 % (32-34) H 02/22/19 06:40 RDW 15.1 % (13.2-15.2) 02/22/19 06:40 Plt Count 162 K/mm3 (140-440) 02/22/19 06:40 Lymph % (Auto) 6.7 % (13.4-35.0) L 02/22/19 06:40 [place] % (Auto) 11.6 % (0.0-7.3) H 02/22/19 06:40 Eos % (Auto) 1.5 % (0.0-4.3) 02/22/19 06:40 Baso % (Auto) 0.8 % (0.0-1.8) 02/22/19 06:40 Lymph # 0.6 K/mm3 (1.2-5.4) L 02/22/19 06:40 [place] # 1.1 K/mm3 (0.0-0.8) H 02/22/19 06:40 Eos # 0.1 K/mm3 (0.0-0.4) 02/22/19 06:40 Baso # 0.1 K/mm3 (0.0-0.1) 02/22/19 06:40 Seg Neutrophils % 79.4 % (40.0-70.0) H 02/22/19 06:40 Seg Neutrophils # 7.5 K/mm3 (1.8-7.7) 02/22/19 06:40 PT 14.3 Sec. (12.2-14.9) 02/22/19 10:31 INR 1.14 (0.87-1.13) H 02/22/19 10:31 Sodium 126 mmol/L (137-145) L 02/25/19 04:14 Potassium 3.7 mmol/L (3.6-5.0) 02/25/19 04:14 Chloride 90.2 mmol/L (98-107) L 02/25/19 04:14 Carbon Dioxide 27 mmol/L (22-30) 02/25/19 04:14 13 mmol/L 02/25/19 04:14 BUN 9 mg/dL (9-20) 02/25/19 04:14 0.3 mg/dL (0.8-1.5) L 02/25/19 04:14 Estimated GFR > 60 ml/min 02/25/19 04:14 30 % 02/25/19 04:14 Glucose 89 mg/dL (75-100) 02/25/19 04:14 POC Glucose 125 (70-105) H 02/18/19 20:42 245 Mosm/kg 02/18/19 13:26 Calcium 7.7 mg/dL (8.4-10.2) L 02/25/19 04:14 3.70 mg/dL (0.1-1.2) H 02/22/19 06:40 4.1 mg/dL (0-0.2) H 02/17/19 19:40 1.7 mg/dL 02/17/19 19:40 AST 124 units/L (5-40) H 02/22/19 06:40 ALT 58 units/L (7-56) H 02/22/19 06:40 375 units/L (35-129) H 02/22/19 06:40 5.6 g/dL (6.3-8.2) L 02/22/19 06:40 2.0 g/dL (3.9-5) L 02/22/19 06:40 0.6 % 02/22/19 06:40 31 units/L (13-60) 02/17/19 19:40 Carcinoembryonic Ag 2331.7 ng/mL (0.0-2.4) H 02/19/19 05:20 1015 U/mL (<34) H 02/22/19 05:27 Melina (Yellow) 02/17/19 22:00 Clear (Clear) 02/17/19 22:00 6.0 (5.0-7.0) 02/17/19 22:00 Ur Specific [place] 1.012 (1.003-1.030) 02/17/19 22:00 <15 mg/dl mg/dL (Negative) 02/17/19 22:00 Neg mg/dL (Negative) 02/17/19 22:00 Tr mg/dL (Negative) 02/17/19 22:00 Sm (Negative) 02/17/19 22:00 Neg (Negative) 02/17/19 22:00 Sm (Negative) 02/17/19 22:00 Positive (Negative) 02/17/19 22:00 4.0 mg/dL (<2.0) 02/17/19 22:00 Ur Leukocyte Esterase Neg (Negative) 02/17/19 22:00 5.0 /HPF (0.0-6.0) 02/17/19 22:00 9.0 /HPF (0.0-6.0) 02/17/19 22:00 U Epithel Cells (Auto) < 1.0 /HPF (0-13.0) 02/17/19 22:00 Amorphous Crystals Few 02/17/19 22:00 428 Mosm/kg 02/18/19 Unknown 96.0 mg/dL (0.1-20.0) H 02/18/19 Unknown 10 mmol/L 02/18/19 Unknown Fluid Type Ascitic 02/22/19 15:15 Fluid Color Yellow 02/22/19 15:15 Fluid Appearance Clear 02/22/19 15:15 Fluid WBC 24 /mm3 02/22/19 15:15 Fluid RBC 11 /mm3 02/22/19 15:15 Fluid Seg Neutrophils 5.0 % 02/22/19 15:15 Fluid Lymphocytes 84.0 % 02/22/19 15:15 Fluid Reactive Lymphs 0 % 02/22/19 15:15 Fluid Monocytes 10.0 % 02/22/19 15:15 Fluid Eosinophils 1.0 % 02/22/19 15:15 Fluid Basophils 0 % 02/22/19 15:15 Active Medications - Current Medications Current Medications: Generic Name Dose Route Start Last Admin Trade Name Freq PRN Reason Stop Dose Admin Acetaminophen 650 mg 02/18/19 00:16 02/21/19 07:53 Tylenol PO 650 mg Q4H PRN Administration Pain MILD(1-3)/Fever >100.5/POLANCO Enoxaparin Sodium 40 mg 02/18/19 10:00 02/25/19 10:01 Lovenox SUB-Q 40 mg QDAY@1000 [facility] Administration Furosemide 20 mg 02/22/19 18:00 02/25/19 06:20 Lasix PO 20 mg 0600,1800 [facility] Administration Naphazoline HCl/Pheniramine Maleate 2 drops 02/23/19 23:28 Visine-A OU Q6H PRN Dry Eye(s) Nicotine 21 mg 02/20/19 14:00 02/25/19 09:59 Habitrol TD 21 mg QDAY [facility] Administration Ondansetron HCl 4 mg 02/18/19 00:16 Zofran IV Q8H PRN Nausea And Vomiting Sodium Chloride 10 ml 02/18/19 10:00 02/25/19 10:03 Sodium Chloride Flush Syringe 10 Ml IV 10 ml BID [facility] Administration Sodium Chloride 10 ml 02/18/19 00:16 02/21/19 07:56 Sodium Chloride Flush Syringe 10 Ml IV 10 ml PRN PRN Administration LINE FLUSH Sodium Chloride 2 gm 02/22/19 14:00 02/25/19 10:02 Sodium Chloride PO 2 gm QID [facility] Administration Zolpidem Tartrate 5 mg 02/25/19 12:56 Ambien PO QHS PRN Sleep Nutrition/Malnutrition Assess - Dietary Evaluation Nutrition/Malnutrition Findings: Nutrition Notes Start: 02/18/19 15:10 Freq: Status: Active Protocol: Document 02/24/19 17:35 RM (Rec: 02/24/19 17:43 RM [email or web address]) Nutrition Notes Initial or Follow up Reassessment Other Pertinent Diagnosis Sacral PU, Depression, SIRS, metastatic colon CA Current Diet Mech soft w/chopped meat Labs/Tests Reviewed Pertinent Medications Lasix Height 5 ft 7 in Weight 61.9 kg [place] Body Weight (kg) 67.27 BMI 21.4 Subjective/Other Information Pt stated that he eats 25% of his meals. Stated that he has always eaten small amounts and that he also is reluctant to eat d/t having difficulty being able to ambulate to bathroom. Pt stated that once he is allowed to walk in the halls he think he can build up his stamina. [employer] Operator explained that eating will build up stamina as well. Pt also stated that he drank the Ensure Enlive previously. Percent of energy/protein needs met: 33%/34% Burn Absent Trauma Absent #1 Nutrition Diagnosis Malnutrition Diagnosis Progress(for reassessment Continues documentation) Is patient on ventilator? No Is Patient Ambulatory and/or Out of Bed No REE-(Animas-St. Jeor-confined to bed) 9054.55 Calculation Used for Recommendations Animas-St Jeor Additional Notes Protein Needs: 74-93g (1.2-1. 5g/kg) Fluid Needs: 1.5 L Nutrition Intervention [facility] Add Supplement/Snack (indicate name/kcal Was not carried over with diet /protein ) change. Add back Ensure Enlive Chocolate 1 daily Provides kCal: 350 Provides Protein (gm) 20 Goal #1 Meet at least 75% of calorie and protein needs via PO and ONS intakes Anticipated Discharge Needs: Cardiac diet Follow-Up By: 03/01/19 Additional Comments Follow for PO and ONS intakes
[2019-02-25] MEDS: AMBIEN PO PRN (22:17)
[2019-02-26] MEDS: LASIX PO SCH ×2 (05:11→17:11)
--- NOTE | 2019-02-26 07:59 | Hem/Onc Progress Note ---
Assessment and Plan 1. History of colon cancer pt says diagnosed many yr ago, (? 20 yrs ago) with elevated bilirubin, likely liver and lung met. CEA high. 2. IR consulted for biopsy. 3. The patient has a Port-A-Cath, says got 2 chemo and then stopped - this was at [place]. patient does not know the name of his oncologist. 4. History of ascites. 5. MCV elevated, likely secondary to alcohol usage. 6. The patient would need a biopsy. Lung lesions liver lesions IR consulted for BX US abdo done - ? cirrhosis and ascites ascites - s/p paracentesis - path - neg for neoplasia high bili - CT says mets - US says cirrhosis - will await tissues diagnosis MRI - cirrhosis and mets is it possible that both mets and cirrhotic changes are present? CEA 2300 - bx will help - Patient Problems (1) Lesion of lung Current Visit: Yes Status: Acute Subjective Date of service: 02/26/19 Principal diagnosis: liver- lung lesion Interval history: due bx Objective - Exam Narrative Exam: pain none General appearance no acute distress Performance status - limited self care Eyes icterus ENT no thrush LNs cervical not palpable Neck no mass Respiratory Normal Breath sounds - CTA CVS S1 S2 + Extremities normal temperature General GI Soft non tender - distended Rectal deferred Male - deferred Skin warm Musculoskeletal no weakness Neurologically AAOx3 - Constitutional Vitals: Last Vital Signs Temp 98.2 F 02/26/19 03:06 Pulse 87 02/26/19 03:06 Resp 14 02/26/19 03:06 BP 88/57 02/26/19 03:06 Pulse Ox 94 02/26/19 03:06 - Labs Lab Results: Laboratory Results - last 24 hr 02/25/19 02/25/19 02/26/19 14:27 17:13 00:41 Sodium 124 L 125 L 125 L 02/26/19 06:02 Sodium 127 L Medications & Allergies - Medications Allergies/Adverse Reactions: Allergies Sulfa (Sulfonamide Antibiotics) Allergy (Verified 06/07/18 19:07) Unknown Home Medications: Home Medications Medication Instructions Recorded Confirmed Last Taken Type Ketorolac [Toradol] 10 mg PO Q6H PRN #10 tablet 06/07/18 02/18/19 Unknown Rx Active Medications: Generic Name Dose Route Start Last Admin Trade Name Freq PRN Reason Stop Dose Admin Acetaminophen 650 mg 02/18/19 00:16 02/21/19 07:53 Tylenol PO 650 mg Q4H PRN Administration Pain MILD(1-3)/Fever >100.5/[place]AN[place] Enoxaparin Sodium 40 mg 02/18/19 10:00 02/25/19 10:01 Lovenox SUB-Q 40 mg QDAY@1000 [facility] Administration Furosemide 20 mg 02/22/19 18:00 02/26/19 05:11 Lasix PO Not Given 0600,1800 [facility] Naphazoline HCl/Pheniramine Maleate 2 drops 02/23/19 23:28 Visine-A OU Q6H PRN Dry Eye(s) Nicotine 21 mg 02/20/19 14:00 02/25/19 09:59 Habitrol TD 21 mg QDAY [facility] Administration Ondansetron HCl 4 mg 02/18/19 00:16 Zofran IV Q8H PRN Nausea And Vomiting Sodium Chloride 10 ml 02/18/19 10:00 02/25/19 22:17 Sodium Chloride Flush Syringe 10 Ml IV 10 ml BID [facility] Administration Sodium Chloride 10 ml 02/18/19 00:16 02/21/19 07:56 Sodium Chloride Flush Syringe 10 Ml IV 10 ml PRN PRN Administration LINE FLUSH Sodium Chloride 2 gm 02/22/19 14:00 02/25/19 22:16 Sodium Chloride PO 2 gm QID [facility] Administration Zolpidem Tartrate 5 mg 02/25/19 12:56 02/25/19 22:17 Ambien PO 5 mg QHS PRN Administration Sleep
--- NOTE | 2019-02-26 09:09 | Progress Note ---
Assessment and Plan Cultures: 02/17/19 Blood : Coag negative staph, Diptheroids 02/18/19 MRSA: negative 02/18/19 Blood: no growth to date 02/22/19 Peritoneal fluid: no growth A/P: 63-year-old man with a past medical history of colon cancer and depresseion that presents to the ED on 02/17/19 with generalized weakness,and jaudice for the past 3 days. Admitted with: 1. Leukocytosis: on admission, now resolved. . Eitology multifactorial. Blood cultures grew CoNS/Dipheroid. No fever. U/A negative. 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 Metatastic colon cancer. metastatic lesions lungs. 2.. CoNS/Dipheroids Baacteremia: 3 out of 4 bottles. Positive cultures reflective of skin contaminants. Repeat cultures show no growth. No antibiotic therapy needed. 3. Metastatic Colon Cancer: Patient reports he had colon cancer many years ago. IR evaluated the patient for possible biopsy , however ascites surrounding the liver contraindication for percutaneous biopsy due to risk of bleeding, Recommend additional testing, MRCP. Oncology following 4. Metastaic lesions lungs/Liver: CT abdomen and pelvis: multiple pulmonary nodules worrisome for metastatic disease. Abnormal liver possible metastatic lesions, moderate amount of ascites and atherosclerosis; Possible MRCP. Oncology following. Recommendations: -monitor off antibiotics -ID is signing off [facility] M: [phone] O:[phone] Subjective Date of service: 02/26/19 Principal diagnosis: liver and lung lesion Interval history: Patient seen and examined. Sitting up in the chair. Reports increased abdominal pain and generalized weakness. +agitation. No fevers. Objective - Exam Narrative Exam: Constitutional: Alert, cooperative. Agitated Head, Ears, Nose: Normocephalic, atraumatic. External ears, nose normal Eyes: + icterus. No ptosis. Neck: Supple, no meningeal signs Oral: dentition poor, no thrush Cardiovascular: S1, S2 normal. Respiratory: Good air entry, bilateral wheezing GI: slightly taunt, +Ascites Musculoskeletal: No pedal edema, no cyanosis. Skin: No rash .. +scabs with ecchymosis bilateral arms Hem/Lymphatic: No palpable cervical or supraclavicular nodes. No lymphangitis Psych: Mood ok. Affect normal Neurological: Awake, alert, oriented. - Constitutional Vitals: Vital Signs Temp Pulse Resp BP Pulse Ox 98.2 F 77 20 99/63 94 02/26/19 07:41 02/26/19 07:41 02/26/19 07:41 02/26/19 07:41 02/26/19 07:41 Temperature -Last 24 Hours Temperature 98.2 F Temperature 98.2 F Temperature 98.7 F Temperature 98.7 F - Labs CBC & Chem 7: 02/22/19 06:40 02/26/19 06:02 Labs: Abnormal lab results 02/25/19 02/25/19 02/26/19 Range/Units 14:27 17:13 00:41 Sodium 124 L 125 L 125 L (137-145) mmol/L 02/26/19 Range/Units 06:02 Sodium 127 L (137-145) mmol/L
[2019-02-26] MEDS: HABITROL TD SCH (09:13)
[2019-02-26] MEDS: LOVENOX SUB-Q SCH (09:13)
[2019-02-26] MEDS: SODIUM CHLORIDE FLUSH SYRINGE 10 ML IV SCH ×2 (09:14→22:03)
[2019-02-26] MEDS ORDERED: SUBLIMAZE ONE (09:49)
[2019-02-26] MEDS ORDERED: VERSED IV ONE ×2 (09:49→10:00)
[2019-02-26] MEDS ORDERED: SUBLIMAZE IV ONE (10:00)
--- NOTE | 2019-02-26 10:13 | Progress Note ---
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 - Na is slowly improving, 127 this AM - On admission (02/17/19), serum sodium level was 111 at 1940 - goal sodium correction < 8 mmol/L in 24 hours to minimize risk of ODS - On sodium chloride tablets 2 g po QID, lasix 20 mg po BID, and fluid restriction of 1 liter per day - Strict I&O Metastatic Colon Cancer, liver, and lungs: - As per Oncology - IR on board, planning on liver biopsy on today Leukocytosis: SIRS: - ID on board, f/u recs Depression: - As per Primary Subjective Date of service: 02/26/19 Principal diagnosis: liver and lung lesion Interval history: patient was in radiology for liver biopsy Objective - Vital Signs Vital signs: Vital Signs - 12hr 02/26/19 02/26/19 03:06 07:41 Temperature 98.2 F 98.2 F Pulse Rate 87 77 Respiratory 14 20 Rate Blood Pressure 88/57 99/63 O2 Sat by Pulse 94 94 Oximetry - Lab 02/22/19 06:40 02/26/19 06:02 Most recent lab results Calcium 7.7 mg/dL (8.4-10.2) L 02/25/19 04:14 96.0 mg/dL (0.1-20.0) H 02/18/19 Unknown 10 mmol/L 02/18/19 Unknown Medications & Allergies - Medications Allergies/Adverse Reactions: Allergies Sulfa (Sulfonamide Antibiotics) Allergy (Verified 06/07/18 19:07) Unknown Home Medications: Home Medications Medication Instructions Recorded Confirmed Last Taken Type Ketorolac [Toradol] 10 mg PO Q6H PRN #10 tablet 06/07/18 02/18/19 Unknown Rx Active Medications: Generic Name Dose Route Start Last Admin Trade Name Freq PRN Reason Stop Dose Admin Acetaminophen 650 mg 02/18/19 00:16 02/21/19 07:53 Tylenol PO 650 mg Q4H PRN Administration Pain MILD(1-3)/Fever >100.5/POLANCO Enoxaparin Sodium 40 mg 02/18/19 10:00 02/26/19 09:13 Lovenox SUB-Q 40 mg QDAY@1000 [facility] Administration Furosemide 20 mg 02/22/19 18:00 02/26/19 05:11 Lasix PO Not Given 0600,1800 [facility] Naphazoline HCl/Pheniramine Maleate 2 drops 02/23/19 23:28 Visine-A OU Q6H PRN Dry Eye(s) Nicotine 21 mg 02/20/19 14:00 02/26/19 09:13 Habitrol TD 21 mg QDAY [facility] Administration Ondansetron HCl 4 mg 02/18/19 00:16 Zofran IV Q8H PRN Nausea And Vomiting Sodium Chloride 10 ml 02/18/19 10:00 02/26/19 09:14 Sodium Chloride Flush Syringe 10 Ml IV 10 ml BID [facility] Administration Sodium Chloride 10 ml 02/18/19 00:16 02/21/19 07:56 Sodium Chloride Flush Syringe 10 Ml IV 10 ml PRN PRN Administration LINE FLUSH Sodium Chloride 2 gm 02/22/19 14:00 02/25/19 22:16 Sodium Chloride PO 2 gm QID [facility] Administration Zolpidem Tartrate 5 mg 02/25/19 12:56 02/25/19 22:17 Ambien PO 5 mg QHS PRN Administration Sleep
--- NOTE | 2019-02-26 10:54 | Event Note ---
Date: 02/26/19 Patient was brought down stairs and placed in the CT scanner in anticipation of percutaneous biopsy. Despite being placed in a decubitus position to allow fluid to flow to a dependent position, the patient still has too much fluid around the liver to allow percutaneous biopsy. If the patient has not yet been seen by GI, would recommend consult in GI for possible colonoscopy.
[2019-02-26] MEDS: SODIUM CHLORIDE PO SCH ×4 (11:22→22:03)
--- NOTE | 2019-02-26 14:26 | Progress Note ---
Assessment and Plan Assessment and plan: 63-year-old male patient with significant past medical history of colon cancer many years ago was admitted through emergency room with generalized weakness and yellowish discoloration of sclerae, Initial evaluation patient was noted to have severe hyponatremia Assessment and plan: --Metastatic lesions lungs/liver; May need biopsy ,management per oncology CT-guided biopsy was scheduled but could not be done due to Ascitic fluid on the, Dr. Heena Hough recommended GI consult For possible colonoscopy --Hyponatremia;secondary to SIADH, Sodium level is 127 nephrology following --Metastatic colon cancer; H/O colon cancer many years ago Oncology ,IR following --Ascites: Ultrasound guided abdominal paracentesis, f/u Fluid analysis negative so far --Sepsis:blood cultures positive for gram-positive clusters Empiric antibiotics, follow culture sensitivities, ID if needed -- Severe malnutrition: Present on admission nutrition supplements,supportive care --History of depression; denies suicidal thoughts or ideation Antidepression medications, psych evaluation if needed --DVT prophylaxis; SCDs -- Full CODE STATUS Peritoneal Fluid analysis negative for SBP Plan of care is reviewed with the patient and his nurse Monitor closely and adjust management as needed Disposition; follow consultation recommendations History Interval history: Patient seen and examined medical records reviewed Patient was initially scheduled for a liver biopsy Unable to perform due to fluid/ascites surrounding the liver Patient has no new complaints Vital signs noted Hospitalist Physical - Constitutional Vitals: Temp Pulse Resp BP Pulse Ox 97.9 F 87 20 91/65 97 02/26/19 13:58 02/26/19 13:58 02/26/19 13:58 02/26/19 13:58 02/26/19 13:58 General appearance: Present: no acute distress, cachectic, disheveled - EENT Eyes: Present: PERRL, EOM intact - Neck Neck: Present: supple, normal ROM - Respiratory Respiratory effort: normal Respiratory: bilateral: diminished, negative: rales, rhonchi, wheezing - Cardiovascular Rhythm: regular Heart Sounds: Present: S1 & S2 - Extremities Extremities: no ischemia Extremity abnormal: edema Peripheral Pulses: within normal limits - Abdominal General gastrointestinal: soft, non-tender, non-distended, normal bowel sounds - Integumentary Integumentary: Present: clear, warm - Psychiatric Psychiatric: appropriate mood/affect, cooperative - Neurologic Neurologic: CNII-XII intact, moves all extremities Results - Labs CBC & Chem 7: 02/22/19 06:40 02/26/19 12:37 Labs: Laboratory Last Values WBC 9.5 K/mm3 (4.5-11.0) 02/22/19 06:40 RBC 3.00 M/mm3 (3.65-5.03) L 02/22/19 06:40 Hgb 10.8 gm/dl (11.8-15.2) L 02/22/19 06:40 Hct 31.2 % (35.5-45.6) L 02/22/19 06:40 MCV 104 fl (84-94) H 02/22/19 06:40 MCH 36 pg (28-32) H 02/22/19 06:40 MCHC 35 % (32-34) H 02/22/19 06:40 RDW 15.1 % (13.2-15.2) 02/22/19 06:40 Plt Count 162 K/mm3 (140-440) 02/22/19 06:40 Lymph % (Auto) 6.7 % (13.4-35.0) L 02/22/19 06:40 Thomas % (Auto) 11.6 % (0.0-7.3) H 02/22/19 06:40 Eos % (Auto) 1.5 % (0.0-4.3) 02/22/19 06:40 Baso % (Auto) 0.8 % (0.0-1.8) 02/22/19 06:40 Lymph # 0.6 K/mm3 (1.2-5.4) L 02/22/19 06:40 Thomas # 1.1 K/mm3 (0.0-0.8) H 02/22/19 06:40 Eos # 0.1 K/mm3 (0.0-0.4) 02/22/19 06:40 Baso # 0.1 K/mm3 (0.0-0.1) 02/22/19 06:40 Seg Neutrophils % 79.4 % (40.0-70.0) H 02/22/19 06:40 Seg Neutrophils # 7.5 K/mm3 (1.8-7.7) 02/22/19 06:40 PT 14.3 Sec. (12.2-14.9) 02/22/19 10:31 INR 1.14 (0.87-1.13) H 02/22/19 10:31 Sodium 127 mmol/L (137-145) L 02/26/19 12:37 Potassium 3.7 mmol/L (3.6-5.0) 02/25/19 04:14 Chloride 90.2 mmol/L (98-107) L 02/25/19 04:14 Carbon Dioxide 27 mmol/L (22-30) 02/25/19 04:14 13 mmol/L 02/25/19 04:14 BUN 9 mg/dL (9-20) 02/25/19 04:14 0.3 mg/dL (0.8-1.5) L 02/25/19 04:14 Estimated GFR > 60 ml/min 02/25/19 04:14 30 % 02/25/19 04:14 Glucose 89 mg/dL (75-100) 02/25/19 04:14 POC Glucose 125 (70-105) H 02/18/19 20:42 245 Mosm/kg 02/18/19 13:26 Calcium 7.7 mg/dL (8.4-10.2) L 02/25/19 04:14 3.70 mg/dL (0.1-1.2) H 02/22/19 06:40 4.1 mg/dL (0-0.2) H 02/17/19 19:40 1.7 mg/dL 02/17/19 19:40 AST 124 units/L (5-40) H 02/22/19 06:40 ALT 58 units/L (7-56) H 02/22/19 06:40 375 units/L (35-129) H 02/22/19 06:40 5.6 g/dL (6.3-8.2) L 02/22/19 06:40 2.0 g/dL (3.9-5) L 02/22/19 06:40 0.6 % 02/22/19 06:40 31 units/L (13-60) 02/17/19 19:40 Carcinoembryonic Ag 2331.7 ng/mL (0.0-2.4) H 02/19/19 05:20 1015 U/mL (<34) H 02/22/19 05:27 Melina (Yellow) 02/17/19 22:00 Clear (Clear) 02/17/19 22:00 6.0 (5.0-7.0) 02/17/19 22:00 Ur Specific [place] 1.012 (1.003-1.030) 02/17/19 22:00 <15 mg/dl mg/dL (Negative) 02/17/19 22:00 Neg mg/dL (Negative) 02/17/19 22:00 Tr mg/dL (Negative) 02/17/19 22:00 Sm (Negative) 02/17/19 22:00 Neg (Negative) 02/17/19 22:00 Sm (Negative) 02/17/19 22:00 Positive (Negative) 02/17/19 22:00 4.0 mg/dL (<2.0) 02/17/19 22:00 Ur Leukocyte Esterase Neg (Negative) 02/17/19 22:00 5.0 /HPF (0.0-6.0) 02/17/19 22:00 9.0 /HPF (0.0-6.0) 02/17/19 22:00 U Epithel Cells (Auto) < 1.0 /HPF (0-13.0) 02/17/19 22:00 Amorphous Crystals Few 02/17/19 22:00 428 Mosm/kg 02/18/19 Unknown 96.0 mg/dL (0.1-20.0) H 02/18/19 Unknown 10 mmol/L 02/18/19 Unknown Fluid Type Ascitic 02/22/19 15:15 Fluid Color Yellow 02/22/19 15:15 Fluid Appearance Clear 02/22/19 15:15 Fluid WBC 24 /mm3 02/22/19 15:15 Fluid RBC 11 /mm3 02/22/19 15:15 Fluid Seg Neutrophils 5.0 % 02/22/19 15:15 Fluid Lymphocytes 84.0 % 02/22/19 15:15 Fluid Reactive Lymphs 0 % 02/22/19 15:15 Fluid Monocytes 10.0 % 02/22/19 15:15 Fluid Eosinophils 1.0 % 02/22/19 15:15 Fluid Basophils 0 % 02/22/19 15:15 Active Medications - Current Medications Current Medications: Generic Name Dose Route Start Last Admin Trade Name Freq PRN Reason Stop Dose Admin Acetaminophen 650 mg 02/18/19 00:16 02/21/19 07:53 Tylenol PO 650 mg Q4H PRN Administration Pain MILD(1-3)/Fever >100.5/POLANCO Enoxaparin Sodium 40 mg 02/18/19 10:00 02/26/19 09:13 Lovenox SUB-Q 40 mg QDAY@1000 [facility] Administration Furosemide 20 mg 02/22/19 18:00 02/26/19 05:11 Lasix PO Not Given 0600,1800 [facility] Naphazoline HCl/Pheniramine Maleate 2 drops 02/23/19 23:28 Visine-A OU Q6H PRN Dry Eye(s) Nicotine 21 mg 02/20/19 14:00 02/26/19 09:13 Habitrol TD 21 mg QDAY [facility] Administration Ondansetron HCl 4 mg 02/18/19 00:16 Zofran IV Q8H PRN Nausea And Vomiting Sodium Chloride 10 ml 02/18/19 10:00 02/26/19 09:14 Sodium Chloride Flush Syringe 10 Ml IV 10 ml BID [facility] Administration Sodium Chloride 10 ml 02/18/19 00:16 02/21/19 07:56 Sodium Chloride Flush Syringe 10 Ml IV 10 ml PRN PRN Administration LINE FLUSH Sodium Chloride 2 gm 02/22/19 14:00 02/26/19 14:14 Sodium Chloride PO 2 gm QID [facility] Administration Zolpidem Tartrate 5 mg 02/25/19 12:56 02/25/19 22:17 Ambien PO 5 mg QHS PRN Administration Sleep Nutrition/Malnutrition Assess - Dietary Evaluation Nutrition/Malnutrition Findings: Nutrition Notes Start: 02/18/19 15:10 Freq: Status: Active Protocol: Document 02/24/19 17:35 RM (Rec: 02/24/19 17:43 RM [id number]) Nutrition Notes Initial or Follow up Reassessment Other Pertinent Diagnosis Sacral PU, Depression, SIRS, metastatic colon CA Current Diet Mech soft w/chopped meat Labs/Tests Reviewed Pertinent Medications Lasix Height 5 ft 7 in Weight 61.9 kg [place] Body Weight (kg) 67.27 BMI 21.4 Subjective/Other Information Pt stated that he eats 25% of his meals. Stated that he has always eaten small amounts and that he also is reluctant to eat d/t having difficulty being able to ambulate to bathroom. Pt stated that once he is allowed to walk in the halls he think he can build up his stamina. Wax Molder explained that eating will build up stamina as well. Pt also stated that he drank the Ensure Enlive previously. Percent of energy/protein needs met: 33%/34% Burn Absent Trauma Absent #1 Nutrition Diagnosis Malnutrition Diagnosis Progress(for reassessment Continues documentation) Is patient on ventilator? No Is Patient Ambulatory and/or Out of Bed No REE-([place]ge-. Jeor-confined to bed) 1646.556 Calculation Used for Recommendations [facility] Additional Notes Protein Needs: 74-93g (1.2-1. 5g/kg) Fluid Needs: 1.5 L Nutrition Intervention Change Diet Order: Mech soft, Cardiac w/chopped meats Add Supplement/Snack (indicate name/kcal Was not carried over with diet /protein ) change. Add back Ensure Enlive Chocolate 1 daily Provides kCal: 350 Provides Protein (gm) 20 Goal #1 Meet at least 75% of calorie and protein needs via PO and ONS intakes Anticipated Discharge Needs: Cardiac diet Follow-Up By: 03/01/19 Additional Comments Follow for PO and ONS intakes
[2019-02-27 01:15] LABS: Amylase,Body Fluid 12; LDH,Body Fluid 27
[2019-02-27] MEDS: LASIX PO SCH ×2 (06:09→18:54)
[2019-02-27 06:23] LABS: BUN/Creatinine Ratio 37; Blood Urea Nitrogen 11 mg/dL (9-20); Calcium 7.9 mg/dL (8.4-10.2); Hemolysis Index 0
--- NOTE | 2019-02-27 07:10 | Hem/Onc Progress Note ---
Assessment and Plan 1. History of colon cancer pt says diagnosed many yr ago, (? 20 yrs ago) with elevated bilirubin, likely liver and lung met. CEA high. 2. IR consulted for biopsy. 3. The patient has a Port-A-Cath, says got 2 chemo and then stopped - this was at [facility]. patient does not know the name of his oncologist. 4. History of ascites. 5. MCV elevated, likely secondary to alcohol usage. 6. The patient would need a biopsy. Lung lesions liver lesions IR consulted for BX US abdo done - ? cirrhosis and ascites ascites - s/p paracentesis - path - neg for neoplasia high bili - CT says mets - US says cirrhosis - will await tissues diagnosis MRI - cirrhosis and mets is it possible that both mets and cirrhotic changes are present? CEA 2300 - bx will help as per IR - bx not done as ascites - GI consult advised. - Patient Problems (1) Lesion of lung Current Visit: Yes Status: Acute Subjective Date of service: 02/27/19 Principal diagnosis: elevated CEA Interval history: bx - not done due to ascites - GI adv Objective - Exam Narrative Exam: pain none General appearance no acute distress Performance status - limited self care Eyes icterus ENT no thrush LNs cervical not palpable Neck no mass Respiratory Normal Breath sounds - CTA CVS S1 S2 + Extremities normal temperature General GI Soft non tender - distended Rectal deferred Male - deferred Skin warm Musculoskeletal no weakness Neurologically AAOx3 - Constitutional Vitals: Last Vital Signs Temp 97.9 F 02/27/19 02:03 Pulse 77 02/27/19 06:09 Resp 18 02/27/19 06:09 BP 93/57 02/27/19 06:09 Pulse Ox 99 02/27/19 06:09 - Labs Lab Results: Laboratory Results - last 24 hr 02/22/19 02/26/19 02/26/19 15:15 12:37 17:54 Sodium 127 L 128 L Potassium Chloride Carbon Dioxide Anion Gap BUN Creatinine Estimated GFR BUN/Creatinine Ratio Glucose Calcium Fluid Glucose 83 H Fluid Albumin 0.4 Fluid LDH 27 Fluid Amylase 12 02/27/19 04:33 Sodium 127 L Potassium 3.7 Chloride 91.7 L Carbon Dioxide 28 Anion Gap 11 BUN 11 Creatinine 0.3 L Estimated GFR > 60 BUN/Creatinine Ratio 37 Glucose 112 H Calcium 7.9 L Fluid Glucose Fluid Albumin Fluid LDH Fluid Amylase Medications & Allergies - Medications Allergies/Adverse Reactions: Allergies Sulfa (Sulfonamide Antibiotics) Allergy (Verified 06/07/18 19:07) Unknown Home Medications: Home Medications Medication Instructions Recorded Confirmed Last Taken Type Ketorolac [Toradol] 10 mg PO Q6H PRN #10 tablet 06/07/18 02/18/19 Unknown Rx Active Medications: Generic Name Dose Route Start Last Admin Trade Name Freq PRN Reason Stop Dose Admin Acetaminophen 650 mg 02/18/19 00:16 02/21/19 07:53 Tylenol PO 650 mg Q4H PRN Administration Pain MILD(1-3)/Fever >100.5/POLANCO Enoxaparin Sodium 40 mg 02/18/19 10:00 02/26/19 09:13 Lovenox SUB-Q 40 mg QDAY@1000 [facility] Administration Furosemide 20 mg 02/22/19 18:00 02/27/19 06:09 Lasix PO 20 mg 0600,1800 [facility] Administration Naphazoline HCl/Pheniramine Maleate 2 drops 02/23/19 23:28 Visine-A OU Q6H PRN Dry Eye(s) Nicotine 21 mg 02/20/19 14:00 02/26/19 09:13 Habitrol TD 21 mg QDAY [facility] Administration Ondansetron HCl 4 mg 02/18/19 00:16 Zofran IV Q8H PRN Nausea And Vomiting Sodium Chloride 10 ml 02/18/19 10:00 02/26/19 22:03 Sodium Chloride Flush Syringe 10 Ml IV 10 ml BID [facility] Administration Sodium Chloride 10 ml 02/18/19 00:16 02/21/19 07:56 Sodium Chloride Flush Syringe 10 Ml IV 10 ml PRN PRN Administration LINE FLUSH Sodium Chloride 2 gm 02/22/19 14:00 02/26/19 22:03 Sodium Chloride PO 2 gm QID [facility] Administration Zolpidem Tartrate 5 mg 02/25/19 12:56 02/25/19 22:17 Ambien PO 5 mg QHS PRN Administration Sleep
[2019-02-27] MEDS: HABITROL TD SCH (10:22)
[2019-02-27] MEDS: SODIUM CHLORIDE FLUSH SYRINGE 10 ML IV SCH ×2 (10:23→22:55)
[2019-02-27] MEDS: LOVENOX SUB-Q SCH (10:23)
[2019-02-27] MEDS: SODIUM CHLORIDE PO SCH ×4 (10:36→22:55)
--- NOTE | 2019-02-27 10:42 | Gastroenterology Consultation ---
History of Present Illness - Reason for Consult Consult date: 02/27/19 history of colon cancer Requesting physician: JAVAN PORRAS - History of Present Illness The patient is a 63 yo male with reported history of colon cancer presenting with jaundice. Pt reports being diagnosed with colon cancer ~20 years ago at [facility]. He had partial colon resection and received a couple rounds of chemotherapy but did not continue with treatment. He has not had follow-up since that time. he has had recent onset jaundice (sclera) and progressive weight loss over the past several months. CT scan on admission showed multiple liver and lung lesions. He has occasional scant hematochezia but otherwise denies significant bleeding or bowel habit chances. No surveillance colonoscopy since colon cancer diagnosis. Imaging also shows signs of cirrhosis and ascites; pt with past h/o alcohol abuse but reports he has been abstinent for a few years. No known prior h/o liver disease per pt. Past History Past Medical History: other (colon cancer) Past Surgical History: Other (partial colon resection) Social history: smoking, alcohol abuse Family history: no significant family history Medications and Allergies Allergies Allergy/AdvReac Type Severity Reaction Status Date / Time Sulfa (Sulfonamide Allergy Unknown Verified 06/07/18 19:07 Antibiotics) Home Medications Medication Instructions Recorded Confirmed Last Taken Type Ketorolac [Toradol] 10 mg PO Q6H PRN #10 tablet 06/07/18 02/18/19 Unknown Rx Active Meds: Active Medications Acetaminophen (Tylenol) 650 mg PO Q4H PRN PRN Reason: Pain MILD(1-3)/Fever >100.5/POLANCO Last Admin: 02/21/19 07:53 Dose: 650 mg Documented by: Enoxaparin Sodium (Lovenox) 40 mg SUB-Q QDAY@1000 [facility] Last Admin: 02/27/19 10:23 Dose: 40 mg Documented by: Furosemide (Lasix) 20 mg PO 0600,1800 [facility] Last Admin: 02/27/19 06:09 Dose: 20 mg Documented by: Naphazoline HCl/Pheniramine Maleate (Visine-A) 2 drops OU Q6H PRN PRN Reason: Dry Eye(s) Nicotine (Habitrol) 21 mg TD QDAY [facility] Last Admin: 02/27/19 10:22 Dose: 21 mg Documented by: Ondansetron HCl (Zofran) 4 mg IV Q8H PRN PRN Reason: Nausea And Vomiting Sodium Chloride (Sodium Chloride Flush Syringe 10 Ml) 10 ml IV BID [facility] Last Admin: 02/27/19 10:23 Dose: 10 ml Documented by: Sodium Chloride (Sodium Chloride Flush Syringe 10 Ml) 10 ml IV PRN PRN PRN Reason: LINE FLUSH Last Admin: 02/21/19 07:56 Dose: 10 ml Documented by: Sodium Chloride (Sodium Chloride) 2 gm PO QID [facility] Last Admin: 02/27/19 10:36 Dose: 2 gm Documented by: Zolpidem Tartrate (Ambien) 5 mg PO QHS PRN PRN Reason: Sleep Last Admin: 02/25/19 22:17 Dose: 5 mg Documented by: Reviewed and updated patient's home and current medications Review of Systems - Review of Systems All systems: negative (per HPI) Exam - Constitutional Vital Signs: Temp Pulse Resp BP Pulse Ox 97.9 F 75 17 93/62 98 02/27/19 02:03 02/27/19 07:34 02/27/19 07:34 02/27/19 07:34 02/27/19 07:34 General appearance: no acute distress, disheveled - EENT Eyes: PERRL, scleral icterus ENT: hearing intact - Neck Neck: supple, normal ROM - Respiratory Respiratory effort: normal Respiratory: bilateral: CTA - Cardiovascular Rhythm: regular Heart Sounds: Present: S1 & S2 Extremities: No edema, Full ROM - Gastrointestinal General gastrointestinal: Present: soft, non-tender, distended (mild distention), other (+ surgical scar) - Integumentary Integumentary: Present: jaundice - Neurologic Neurological: alert and oriented x3 - Psychiatric Psychiatric: appropriate mood/affect - Labs CBC & Chem 7: 02/22/19 06:40 02/27/19 04:33 Lab Results: Laboratory Results - last 24 hr 02/22/19 02/26/19 02/26/19 15:15 12:37 17:54 Sodium 127 L 128 L Potassium Chloride Carbon Dioxide Anion Gap BUN Creatinine Estimated GFR BUN/Creatinine Ratio Glucose Calcium Fluid Glucose 83 H Fluid Albumin 0.4 Fluid LDH 27 Fluid Amylase 12 02/27/19 04:33 Sodium 127 L Potassium 3.7 Chloride 91.7 L Carbon Dioxide 28 Anion Gap 11 BUN 11 Creatinine 0.3 L Estimated GFR > 60 BUN/Creatinine Ratio 37 Glucose 112 H Calcium 7.9 L Fluid Glucose Fluid Albumin Fluid LDH Fluid Amylase - Imaging CT Scan: report reviewed Assessment and Plan 1. Metastatic neoplasm - unclear primary but possibly colon given history without follow-up/surveillance since diagnosis ~20 years ago. Liver lesion not amenable to biopsy by IR due to ascites 2. Jaundice/elevated liver enzymes 3. Cirrhosis - ? from past alcohol abuse +/- cholestasis from suspected metastatic neoplasm 4. Hyponatremia -will plan for colonoscopy on Friday to allow for further correction of hyponatremia prior to anesthesia; okay for clears this and will plan for prep tomorrow evening
--- NOTE | 2019-02-27 12:21 | Progress Note ---
Assessment and Plan Assessment and plan: 63-year-old male patient with significant past medical history of colon cancer many years ago was admitted through emergency room with generalized weakness and yellowish discoloration of sclerae, Initial evaluation patient was noted to have severe hyponatremia Assessment and plan: --Patient's CEA is 2331.7 GI evaluated the patient, possible colonoscopy on 03/01/2019 As colon cancer evaluation --Metastatic lesions lungs/liver; May need biopsy ,management per oncology CT-guided biopsy was scheduled but could not be done due to Ascitic fluid on the, Dr. Heena Hough recommended GI consult For possible colonoscopy --Hyponatremia;secondary to SIADH, Na 127 nephrology following --Remote History of colon cancer, Oncology following --Ascites: Ultrasound guided abdominal paracentesis, f/u Fluid analysis negative so far --Sepsis:blood cultures positive for gram-positive clusters ID evaluated, contamination, monitored off antibiotics -- Severe malnutrition: Present on admission nutrition supplements,supportive care --History of depression; denies suicidal thoughts or ideation Antidepression medications, psych evaluation if needed --DVT prophylaxis; SCDs -- Full CODE STATUS Peritoneal Fluid analysis negative for SBP Monitor closely and adjust management as needed Disposition; follow consultation recommendations History Interval history: Patient seen and examined medical records reviewed No new complaints GI evaluation recommendations noted and appreciated Possible colonoscopy on Friday Patient alert awake oriented comfortable Vital signs reviewed Hospitalist Physical - Constitutional Vitals: Temp Pulse Resp BP Pulse Ox 97.9 F 75 17 93/62 98 02/27/19 02:03 02/27/19 07:34 02/27/19 07:34 02/27/19 07:34 02/27/19 07:34 General appearance: Present: no acute distress, cachectic, disheveled - EENT Eyes: Present: PERRL, EOM intact - Neck Neck: Present: supple, normal ROM - Respiratory Respiratory effort: normal Respiratory: bilateral: diminished, negative: rales, rhonchi, wheezing - Cardiovascular Rhythm: regular Heart Sounds: Present: S1 & S2 - Extremities Extremities: no ischemia, No edema - Abdominal General gastrointestinal: soft, non-tender, distended, normal bowel sounds - Integumentary Integumentary: Present: clear, warm - Psychiatric Psychiatric: appropriate mood/affect, cooperative - Neurologic Neurologic: CNII-XII intact, moves all extremities Results - Labs CBC & Chem 7: 02/22/19 06:40 02/27/19 04:33 Labs: Laboratory Last Values WBC 9.5 K/mm3 (4.5-11.0) 02/22/19 06:40 RBC 3.00 M/mm3 (3.65-5.03) L 02/22/19 06:40 Hgb 10.8 gm/dl (11.8-15.2) L 02/22/19 06:40 Hct 31.2 % (35.5-45.6) L 02/22/19 06:40 MCV 104 fl (84-94) H 02/22/19 06:40 MCH 36 pg (28-32) H 02/22/19 06:40 MCHC 35 % (32-34) H 02/22/19 06:40 RDW 15.1 % (13.2-15.2) 02/22/19 06:40 Plt Count 162 K/mm3 (140-440) 02/22/19 06:40 Lymph % (Auto) 6.7 % (13.4-35.0) L 02/22/19 06:40 [place] % (Auto) 11.6 % (0.0-7.3) H 02/22/19 06:40 Eos % (Auto) 1.5 % (0.0-4.3) 02/22/19 06:40 Baso % (Auto) 0.8 % (0.0-1.8) 02/22/19 06:40 Lymph # 0.6 K/mm3 (1.2-5.4) L 02/22/19 06:40 [place] # 1.1 K/mm3 (0.0-0.8) H 02/22/19 06:40 Eos # 0.1 K/mm3 (0.0-0.4) 02/22/19 06:40 Baso # 0.1 K/mm3 (0.0-0.1) 02/22/19 06:40 Seg Neutrophils % 79.4 % (40.0-70.0) H 02/22/19 06:40 Seg Neutrophils # 7.5 K/mm3 (1.8-7.7) 02/22/19 06:40 PT 14.3 Sec. (12.2-14.9) 02/22/19 10:31 INR 1.14 (0.87-1.13) H 02/22/19 10:31 Sodium 127 mmol/L (137-145) L 02/27/19 04:33 Potassium 3.7 mmol/L (3.6-5.0) 02/27/19 04:33 Chloride 91.7 mmol/L (98-107) L 02/27/19 04:33 Carbon Dioxide 28 mmol/L (22-30) 02/27/19 04:33 11 mmol/L 02/27/19 04:33 BUN 11 mg/dL (9-20) 02/27/19 04:33 0.3 mg/dL (0.8-1.5) L 02/27/19 04:33 Estimated GFR > 60 ml/min 02/27/19 04:33 37 % 02/27/19 04:33 Glucose 112 mg/dL (75-100) H 02/27/19 04:33 POC Glucose 125 (70-105) H 02/18/19 20:42 245 Mosm/kg 02/18/19 13:26 Calcium 7.9 mg/dL (8.4-10.2) L 02/27/19 04:33 3.70 mg/dL (0.1-1.2) H 02/22/19 06:40 4.1 mg/dL (0-0.2) H 02/17/19 19:40 1.7 mg/dL 02/17/19 19:40 AST 124 units/L (5-40) H 02/22/19 06:40 ALT 58 units/L (7-56) H 02/22/19 06:40 375 units/L (35-129) H 02/22/19 06:40 5.6 g/dL (6.3-8.2) L 02/22/19 06:40 2.0 g/dL (3.9-5) L 02/22/19 06:40 0.6 % 02/22/19 06:40 31 units/L (13-60) 02/17/19 19:40 Carcinoembryonic Ag 2331.7 ng/mL (0.0-2.4) H 02/19/19 05:20 1015 U/mL (<34) H 02/22/19 05:27 Melina (Yellow) 02/17/19 22:00 Clear (Clear) 02/17/19 22:00 6.0 (5.0-7.0) 02/17/19 22:00 Ur Specific [place] 1.012 (1.003-1.030) 02/17/19 22:00 <15 mg/dl mg/dL (Negative) 02/17/19 22:00 Neg mg/dL (Negative) 02/17/19 22:00 Tr mg/dL (Negative) 02/17/19 22:00 Sm (Negative) 02/17/19 22:00 Neg (Negative) 02/17/19 22:00 Sm (Negative) 02/17/19 22:00 Positive (Negative) 02/17/19 22:00 4.0 mg/dL (<2.0) 02/17/19 22:00 Ur Leukocyte Esterase Neg (Negative) 02/17/19 22:00 5.0 /HPF (0.0-6.0) 02/17/19 22:00 9.0 /HPF (0.0-6.0) 02/17/19 22:00 U Epithel Cells (Auto) < 1.0 /HPF (0-13.0) 02/17/19 22:00 Amorphous Crystals Few 02/17/19 22:00 428 Mosm/kg 02/18/19 Unknown 96.0 mg/dL (0.1-20.0) H 02/18/19 Unknown 10 mmol/L 02/18/19 Unknown Fluid Type Ascitic 02/22/19 15:15 Fluid Color Yellow 02/22/19 15:15 Fluid Appearance Clear 02/22/19 15:15 Fluid WBC 24 /mm3 02/22/19 15:15 Fluid RBC 11 /mm3 02/22/19 15:15 Fluid Seg Neutrophils 5.0 % 02/22/19 15:15 Fluid Lymphocytes 84.0 % 02/22/19 15:15 Fluid Reactive Lymphs 0 % 02/22/19 15:15 Fluid Monocytes 10.0 % 02/22/19 15:15 Fluid Eosinophils 1.0 % 02/22/19 15:15 Fluid Basophils 0 % 02/22/19 15:15 Fluid Glucose 83 mg/dL (40-70) H 02/22/19 15:15 Fluid Albumin 0.4 g/dL 02/22/19 15:15 Fluid LDH 27 02/22/19 15:15 Fluid Amylase 12 02/22/19 15:15 Active Medications - Current Medications Current Medications: Generic Name Dose Route Start Last Admin Trade Name Freq PRN Reason Stop Dose Admin Acetaminophen 650 mg 02/18/19 00:16 02/21/19 07:53 Tylenol PO 650 mg Q4H PRN Administration Pain MILD(1-3)/Fever >100.5/POLANCO Enoxaparin Sodium 40 mg 02/18/19 10:00 02/27/19 10:23 Lovenox SUB-Q 40 mg QDAY@1000 [place] Administration Furosemide 20 mg 02/22/19 18:00 02/27/19 06:09 Lasix PO 20 mg 0600,1800 [place] Administration Naphazoline HCl/Pheniramine Maleate 2 drops 02/23/19 23:28 Visine-A OU Q6H PRN Dry Eye(s) Nicotine 21 mg 02/20/19 14:00 02/27/19 10:22 Habitrol TD 21 mg QDAY [place] Administration Ondansetron HCl 4 mg 02/18/19 00:16 Zofran IV Q8H PRN Nausea And Vomiting Sodium Chloride 10 ml 02/18/19 10:00 02/27/19 10:23 Sodium Chloride Flush Syringe 10 Ml IV 10 ml BID [facility] Administration Sodium Chloride 10 ml 02/18/19 00:16 02/21/19 07:56 Sodium Chloride Flush Syringe 10 Ml IV 10 ml PRN PRN Administration LINE FLUSH Sodium Chloride 2 gm 02/22/19 14:00 02/27/19 10:36 Sodium Chloride PO 2 gm QID [facility] Administration Zolpidem Tartrate 5 mg 02/25/19 12:56 02/25/19 22:17 Ambien PO 5 mg QHS PRN Administration Sleep Nutrition/Malnutrition Assess - Dietary Evaluation Nutrition/Malnutrition Findings: Nutrition Notes Start: 02/18/19 15:10 Freq: Status: Active Protocol: Document 02/24/19 17:35 RM (Rec: 02/24/19 17:43 RM [id number]) Nutrition Notes Initial or Follow up Reassessment Other Pertinent Diagnosis Sacral PU, Depression, SIRS, metastatic colon CA Current Diet Mech soft w/chopped meat Labs/Tests Reviewed Pertinent Medications Lasix Height 5 ft 7 in Weight 61.9 kg [place] Body Weight (kg) 67.27 BMI 21.4 Subjective/Other Information Pt stated that he eats 25% of his meals. Stated that he has always eaten small amounts and that he also is reluctant to eat d/t having difficulty being able to ambulate to bathroom. Pt stated that once he is allowed to walk in the halls he think he can build up his stamina. [employer] explained that eating will build up stamina as well. Pt also stated that he drank the Ensure Enlive previously. Percent of energy/protein needs met: 33%/34% Burn Absent Trauma Absent #1 Nutrition Diagnosis Malnutrition Diagnosis Progress(for reassessment Continues documentation) Is patient on ventilator? No Is Patient Ambulatory and/or Out of Bed No REE-([facility]-confined to bed) 8923.221 [facility] Additional Notes Protein Needs: 74-93g (1.2-1. 5g/kg) Fluid Needs: 1.5 L Nutrition Intervention Change Diet Order: Mech soft, Cardiac w/chopped meats Add Supplement/Snack (indicate name/kcal Was not carried over with diet /protein ) change. Add back Ensure Enlive Chocolate 1 daily Provides kCal: 350 Provides Protein (gm) 20 Goal #1 Meet at least 75% of calorie and protein needs via PO and ONS intakes Anticipated Discharge Needs: Cardiac diet Follow-Up By: 03/01/19 Additional Comments Follow for PO and ONS intakes
[2019-02-28 05:45] LABS: BUN/Creatinine Ratio 30; Blood Urea Nitrogen 9 mg/dL (9-20); Hemolysis Index 0
--- NOTE | 2019-02-28 05:54 | Hem/Onc Progress Note ---
Assessment and Plan 1. History of colon cancer pt says diagnosed many yr ago, (? 20 yrs ago) with elevated bilirubin, likely liver and lung met. CEA high. 2. IR consulted for biopsy. 3. The patient has a Port-A-Cath, says got 2 chemo and then stopped - this was at [facility]. patient does not know the name of his oncologist. 4. History of ascites. 5. MCV elevated, likely secondary to alcohol usage. 6. The patient would need a biopsy. Lung lesions liver lesions IR consulted for BX US abdo done - ? cirrhosis and ascites ascites - s/p paracentesis - path - neg for neoplasia high bili - CT says mets - US says cirrhosis - will await tissues diagnosis MRI - cirrhosis and mets is it possible that both mets and cirrhotic changes are present? CEA 2300 - bx will help as per IR - bx not done as ascites - GI consult advised. CA 19-9 also elevated 1000s - Patient Problems (1) Lesion of lung Current Visit: Yes Status: Acute Subjective Date of service: 02/28/19 Principal diagnosis: high tumor markers Interval history: abdo distension Objective - Exam Narrative Exam: pain none General appearance no acute distress Performance status - limited self care Eyes icterus ENT no thrush LNs cervical not palpable Neck no mass Respiratory Normal Breath sounds - CTA CVS S1 S2 + Extremities normal temperature General GI Soft non tender - distended Rectal deferred Male - deferred Skin warm Musculoskeletal no weakness Neurologically AAOx3 - Constitutional Vitals: Last Vital Signs Temp 97.4 F L 02/28/19 03:48 Pulse 83 02/28/19 03:48 Resp 16 02/28/19 03:48 BP 103/68 02/28/19 03:48 Pulse Ox 93 02/28/19 03:48 - Labs Lab Results: Laboratory Results - last 24 hr 02/27/19 02/28/19 04:33 04:45 Sodium 127 L 129 L Potassium 3.7 4.0 Chloride 91.7 L 93.6 L Carbon Dioxide 28 27 Anion Gap 11 12 BUN 11 9 Creatinine 0.3 L 0.3 L Estimated GFR > 60 > 60 BUN/Creatinine Ratio 37 30 Glucose 112 H 91 Calcium 7.9 L 8.0 L Medications & Allergies - Medications Allergies/Adverse Reactions: Allergies Sulfa (Sulfonamide Antibiotics) Allergy (Verified 06/07/18 19:07) Unknown Home Medications: Home Medications Medication Instructions Recorded Confirmed Last Taken Type Ketorolac [Toradol] 10 mg PO Q6H PRN #10 tablet 06/07/18 02/18/19 Unknown Rx Active Medications: Generic Name Dose Route Start Last Admin Trade Name Freq PRN Reason Stop Dose Admin Acetaminophen 650 mg 02/18/19 00:16 02/21/19 07:53 Tylenol PO 650 mg Q4H PRN Administration Pain MILD(1-3)/Fever >100.5/POLANCO Enoxaparin Sodium 40 mg 02/18/19 10:00 02/27/19 10:23 Lovenox SUB-Q 40 mg QDAY@1000 [place] Administration Furosemide 20 mg 02/22/19 18:00 02/27/19 18:54 Lasix PO 20 mg 0600,1800 [place] Administration Naphazoline HCl/Pheniramine Maleate 2 drops 02/23/19 23:28 Visine-A OU Q6H PRN Dry Eye(s) Nicotine 21 mg 02/20/19 14:00 02/27/19 10:22 Habitrol TD 21 mg QDAY [place] Administration Ondansetron HCl 4 mg 02/18/19 00:16 Zofran IV Q8H PRN Nausea And Vomiting Sodium Chloride 10 ml 02/18/19 10:00 02/27/19 22:55 Sodium Chloride Flush Syringe 10 Ml IV 10 ml BID [place] Administration Sodium Chloride 10 ml 02/18/19 00:16 02/21/19 07:56 Sodium Chloride Flush Syringe 10 Ml IV 10 ml PRN PRN Administration LINE FLUSH Sodium Chloride 2 gm 02/22/19 14:00 02/27/19 22:55 Sodium Chloride PO 2 gm QID [place] Administration Zolpidem Tartrate 5 mg 02/25/19 12:56 02/25/19 22:17 Ambien PO 5 mg QHS PRN Administration Sleep
[2019-02-28] MEDS: LASIX PO SCH ×2 (05:59→17:49)
--- NOTE | 2019-02-28 08:25 | Progress Note ---
Assessment and Plan Assessment and plan: 63-year-old male patient with significant past medical history of colon cancer many years ago was admitted through emergency room with generalized weakness and yellowish discoloration of sclerae, Initial evaluation patient was noted to have severe hyponatremia Assessment and plan: --Elevated CEA 2331.7 GI evaluated the patient, possible colonoscopy on 03/01/2019 to r/o Colon cancer --Metastatic lesions lungs/liver; CT-guided biopsy could not be done because of ascites included on the liver Colonoscopy tomorrow --Hyponatremia;secondary to SIADH, Na 127-129 nephrology following --Remote History of colon cancer, Oncology following --Ascites: Ultrasound guided abdominal paracentesis, Urinalysis negative for SBP --Sepsis:blood cultures positive for coag negative staph and diphtheroids ID evaluated, contamination, monitor off antibiotics -- Severe malnutrition: Present on admission nutrition supplements,supportive care --History of depression; denies suicidal thoughts or ideation Antidepression medications, psych evaluation if needed --DVT prophylaxis; SCDs -- Full CODE STATUS Monitor closely and adjust management as needed Disposition;colonoscopy tomorrow follow consultation recommendations History Interval history: Patient seen and examined medical records reviewed Patient feels better no new complaints Vital signs reviewed Scheduled for colonoscopy tomorrow Hospitalist Physical - Constitutional Vitals: Temp Pulse Resp BP Pulse Ox 97.5 F L 77 18 100/65 94 02/28/19 07:23 02/28/19 07:23 02/28/19 07:23 02/28/19 07:23 02/28/19 07:23 General appearance: Present: no acute distress, cachectic, disheveled - EENT Eyes: Present: PERRL, EOM intact - Neck Neck: Present: supple, normal ROM - Respiratory Respiratory effort: normal Respiratory: bilateral: diminished, negative: rales, rhonchi, wheezing - Cardiovascular Rhythm: regular Heart Sounds: Present: S1 & S2 - Extremities Extremities: no ischemia, No edema - Abdominal General gastrointestinal: soft, non-distended, distended, normal bowel sounds - Integumentary Integumentary: Present: clear, warm - Psychiatric Psychiatric: appropriate mood/affect, cooperative - Neurologic Neurologic: moves all extremities Results - Labs CBC & Chem 7: 02/22/19 06:40 02/28/19 04:45 Labs: Laboratory Last Values WBC 9.5 K/mm3 (4.5-11.0) 02/22/19 06:40 RBC 3.00 M/mm3 (3.65-5.03) L 02/22/19 06:40 Hgb 10.8 gm/dl (11.8-15.2) L 02/22/19 06:40 Hct 31.2 % (35.5-45.6) L 02/22/19 06:40 MCV 104 fl (84-94) H 02/22/19 06:40 MCH 36 pg (28-32) H 02/22/19 06:40 MCHC 35 % (32-34) H 02/22/19 06:40 RDW 15.1 % (13.2-15.2) 02/22/19 06:40 Plt Count 162 K/mm3 (140-440) 02/22/19 06:40 Lymph % (Auto) 6.7 % (13.4-35.0) L 02/22/19 06:40 [place] % (Auto) 11.6 % (0.0-7.3) H 02/22/19 06:40 Eos % (Auto) 1.5 % (0.0-4.3) 02/22/19 06:40 Baso % (Auto) 0.8 % (0.0-1.8) 02/22/19 06:40 Lymph # 0.6 K/mm3 (1.2-5.4) L 02/22/19 06:40 [place] # 1.1 K/mm3 (0.0-0.8) H 02/22/19 06:40 Eos # 0.1 K/mm3 (0.0-0.4) 02/22/19 06:40 Baso # 0.1 K/mm3 (0.0-0.1) 02/22/19 06:40 Seg Neutrophils % 79.4 % (40.0-70.0) H 02/22/19 06:40 Seg Neutrophils # 7.5 K/mm3 (1.8-7.7) 02/22/19 06:40 PT 14.3 Sec. (12.2-14.9) 02/22/19 10:31 INR 1.14 (0.87-1.13) H 02/22/19 10:31 Sodium 129 mmol/L (137-145) L 02/28/19 04:45 Potassium 4.0 mmol/L (3.6-5.0) 02/28/19 04:45 Chloride 93.6 mmol/L (98-107) L 02/28/19 04:45 Carbon Dioxide 27 mmol/L (22-30) 02/28/19 04:45 12 mmol/L 02/28/19 04:45 BUN 9 mg/dL (9-20) 02/28/19 04:45 0.3 mg/dL (0.8-1.5) L 02/28/19 04:45 Estimated GFR > 60 ml/min 02/28/19 04:45 30 % 02/28/19 04:45 Glucose 91 mg/dL (75-100) 02/28/19 04:45 POC Glucose 125 (70-105) H 02/18/19 20:42 245 Mosm/kg 02/18/19 13:26 Calcium 8.0 mg/dL (8.4-10.2) L 02/28/19 04:45 3.70 mg/dL (0.1-1.2) H 02/22/19 06:40 4.1 mg/dL (0-0.2) H 02/17/19 19:40 1.7 mg/dL 02/17/19 19:40 AST 124 units/L (5-40) H 02/22/19 06:40 ALT 58 units/L (7-56) H 02/22/19 06:40 375 units/L (35-129) H 02/22/19 06:40 5.6 g/dL (6.3-8.2) L 02/22/19 06:40 2.0 g/dL (3.9-5) L 02/22/19 06:40 0.6 % 02/22/19 06:40 31 units/L (13-60) 02/17/19 19:40 Carcinoembryonic Ag 2331.7 ng/mL (0.0-2.4) H 02/19/19 05:20 1015 U/mL (<34) H 02/22/19 05:27 Melina (Yellow) 02/17/19 22:00 Clear (Clear) 02/17/19 22:00 6.0 (5.0-7.0) 02/17/19 22:00 Ur Specific [place] 1.012 (1.003-1.030) 02/17/19 22:00 <15 mg/dl mg/dL (Negative) 02/17/19 22:00 Neg mg/dL (Negative) 02/17/19 22:00 Tr mg/dL (Negative) 02/17/19 22:00 Sm (Negative) 02/17/19 22:00 Neg (Negative) 02/17/19 22:00 Sm (Negative) 02/17/19 22:00 Positive (Negative) 02/17/19 22:00 4.0 mg/dL (<2.0) 02/17/19 22:00 Ur Leukocyte Esterase Neg (Negative) 02/17/19 22:00 5.0 /HPF (0.0-6.0) 02/17/19 22:00 9.0 /HPF (0.0-6.0) 02/17/19 22:00 U Epithel Cells (Auto) < 1.0 /HPF (0-13.0) 02/17/19 22:00 Amorphous Crystals Few 02/17/19 22:00 428 Mosm/kg 02/18/19 Unknown 96.0 mg/dL (0.1-20.0) H 02/18/19 Unknown 10 mmol/L 02/18/19 Unknown Fluid Type Ascitic 02/22/19 15:15 Fluid Color Yellow 02/22/19 15:15 Fluid Appearance Clear 02/22/19 15:15 Fluid WBC 24 /mm3 02/22/19 15:15 Fluid RBC 11 /mm3 02/22/19 15:15 Fluid Seg Neutrophils 5.0 % 02/22/19 15:15 Fluid Lymphocytes 84.0 % 02/22/19 15:15 Fluid Reactive Lymphs 0 % 02/22/19 15:15 Fluid Monocytes 10.0 % 02/22/19 15:15 Fluid Eosinophils 1.0 % 02/22/19 15:15 Fluid Basophils 0 % 02/22/19 15:15 Fluid Glucose 83 mg/dL (40-70) H 02/22/19 15:15 Fluid Albumin 0.4 g/dL 02/22/19 15:15 Fluid LDH 27 02/22/19 15:15 Fluid Amylase 12 02/22/19 15:15 Active Medications - Current Medications Current Medications: Generic Name Dose Route Start Last Admin Trade Name Freq PRN Reason Stop Dose Admin Acetaminophen 650 mg 02/18/19 00:16 02/21/19 07:53 Tylenol PO 650 mg Q4H PRN Administration Pain MILD(1-3)/Fever >100.5/POLANCO Enoxaparin Sodium 40 mg 02/18/19 10:00 02/27/19 10:23 Lovenox SUB-Q 40 mg QDAY@1000 [facility] Administration Furosemide 20 mg 02/22/19 18:00 02/28/19 05:59 Lasix PO 20 mg 0600,1800 [facility] Administration Naphazoline HCl/Pheniramine Maleate 2 drops 02/23/19 23:28 Visine-A OU Q6H PRN Dry Eye(s) Nicotine 21 mg 02/20/19 14:00 02/27/19 10:22 Habitrol TD 21 mg QDAY [facility] Administration Ondansetron HCl 4 mg 02/18/19 00:16 Zofran IV Q8H PRN Nausea And Vomiting Sodium Chloride 10 ml 02/18/19 10:00 02/27/19 22:55 Sodium Chloride Flush Syringe 10 Ml IV 10 ml BID [facility] Administration Sodium Chloride 10 ml 02/18/19 00:16 02/21/19 07:56 Sodium Chloride Flush Syringe 10 Ml IV 10 ml PRN PRN Administration LINE FLUSH Sodium Chloride 2 gm 02/22/19 14:00 02/27/19 22:55 Sodium Chloride PO 2 gm QID [place] Administration Zolpidem Tartrate 5 mg 02/25/19 12:56 02/25/19 22:17 Ambien PO 5 mg QHS PRN Administration Sleep Nutrition/Malnutrition Assess - Dietary Evaluation Nutrition/Malnutrition Findings: Nutrition Notes Start: 02/18/19 15:10 Freq: Status: Active Protocol: Document 02/24/19 17:35 RM (Rec: 02/24/19 17:43 RM [id number]) Nutrition Notes Initial or Follow up Reassessment Other Pertinent Diagnosis Sacral PU, Depression, SIRS, metastatic colon CA Current Diet Mech soft w/chopped meat Labs/Tests Reviewed Pertinent Medications Lasix Height 5 ft 7 in Weight 61.9 kg [place] Body Weight (kg) 67.27 BMI 21.4 Subjective/Other Information Pt stated that he eats 25% of his meals. Stated that he has always eaten small amounts and that he also is reluctant to eat d/t having difficulty being able to ambulate to bathroom. Pt stated that once he is allowed to walk in the halls he think he can build up his stamina. [employer] explained that eating will build up stamina as well. Pt also stated that he drank the Ensure Enlive previously. Percent of energy/protein needs met: 33%/34% Burn Absent Trauma Absent #1 Nutrition Diagnosis Malnutrition Diagnosis Progress(for reassessment Continues documentation) Is patient on ventilator? No Is Patient Ambulatory and/or Out of Bed No REE-([place] [facility]-confined to bed) [phone] Calculation Used for Recommendations [place] Additional Notes Protein Needs: 74-93g (1.2-1. 5g/kg) Fluid Needs: 1.5 L Nutrition Intervention Change Diet Order: Mech soft, Cardiac w/chopped meats Add Supplement/Snack (indicate name/kcal Was not carried over with diet /protein ) change. Add back Ensure Enlive Chocolate 1 daily Provides kCal: 350 Provides Protein (gm) 20 Goal #1 Meet at least 75% of calorie and protein needs via PO and ONS intakes Anticipated Discharge Needs: Cardiac diet Follow-Up By: 03/01/19 Additional Comments Follow for PO and ONS intakes
--- NOTE | 2019-02-28 09:00 | Progress Note ---
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 - Na cont to improve - will d/c Na tabs - cont asix 20 mg po BID, and fluid restriction of 1 liter per day - Strict I&O Metastatic Colon Cancer, liver, and lungs: - As per Oncology - IR on board, s/p liver biopsy Leukocytosis: SIRS: - ID on board, f/u recs Depression: - As per Primary Subjective Date of service: 02/28/19 Principal diagnosis: elevated CEA Interval history: denies acute issues Objective - Vital Signs Vital signs: Vital Signs - 12hr 02/27/19 02/28/19 02/28/19 23:30 03:48 07:23 Temperature 99.3 F 97.4 F L 97.5 F L Pulse Rate 68 83 77 Respiratory 16 16 18 Rate Blood Pressure 100/64 103/68 100/65 O2 Sat by Pulse 100 93 94 Oximetry - General Appearance General appearance: well-developed, well-nourished, appears stated age EENT: ATNC, PERRL, mucous membranes moist Neck: no JVD, no carotid bruit Respiratory: Present: Clear to Ascultation Cardiology: regular, S1S2 Gastrointestinal: normoactive bowel sounds Integumentary: no rash, warm and dry Neurologic: no focal deficit, no asterixis, alert and oriented x3 Musculoskeletal: other (1+ pitting edema in BLE) Psychiatric: mood/affect appropriate, cooperative - Lab 02/22/19 06:40 02/28/19 04:45 Most recent lab results Calcium 8.0 mg/dL (8.4-10.2) L 02/28/19 04:45 96.0 mg/dL (0.1-20.0) H 02/18/19 Unknown 10 mmol/L 02/18/19 Unknown Medications & Allergies - Medications Allergies/Adverse Reactions: Allergies Sulfa (Sulfonamide Antibiotics) Allergy (Verified 06/07/18 19:07) Unknown Home Medications: Home Medications Medication Instructions Recorded Confirmed Last Taken Type Ketorolac [Toradol] 10 mg PO Q6H PRN #10 tablet 06/07/18 02/18/19 Unknown Rx Active Medications: Generic Name Dose Route Start Last Admin Trade Name Freq PRN Reason Stop Dose Admin Acetaminophen 650 mg 02/18/19 00:16 02/21/19 07:53 Tylenol PO 650 mg Q4H PRN Administration Pain MILD(1-3)/Fever >100.5/[place]ANCO Enoxaparin Sodium 40 mg 02/18/19 10:00 02/27/19 10:23 Lovenox SUB-Q 40 mg QDAY@1000 [place] Administration Furosemide 20 mg 02/22/19 18:00 02/28/19 05:59 Lasix PO 20 mg 0600,1800 [place] Administration Naphazoline HCl/Pheniramine Maleate 2 drops 02/23/19 23:28 Visine-A OU Q6H PRN Dry Eye(s) Nicotine 21 mg 02/20/19 14:00 02/27/19 10:22 Habitrol TD 21 mg QDAY [facility] Administration Ondansetron HCl 4 mg 02/18/19 00:16 Zofran IV Q8H PRN Nausea And Vomiting Sodium Chloride 10 ml 02/18/19 10:00 02/27/19 22:55 Sodium Chloride Flush Syringe 10 Ml IV 10 ml BID [place] Administration Sodium Chloride 10 ml 02/18/19 00:16 02/21/19 07:56 Sodium Chloride Flush Syringe 10 Ml IV 10 ml PRN PRN Administration LINE FLUSH Zolpidem Tartrate 5 mg 02/25/19 12:56 02/25/19 22:17 Ambien PO 5 mg QHS PRN Administration Sleep
[2019-02-28] MEDS: LOVENOX SUB-Q SCH (10:06)
[2019-02-28] MEDS: HABITROL TD SCH (10:06)
[2019-02-28] MEDS: SODIUM CHLORIDE FLUSH SYRINGE 10 ML IV SCH ×2 (10:12→23:00)
[2019-02-28] MEDS ORDERED: DULCOLAX PO ONE ×2 (14:00→18:00)
--- NOTE | 2019-02-28 14:22 | Gastroenterology Progress Note ---
Assessment and Plan 1. Metastatic neoplasm - unclear primary but possibly colon given history without follow-up/surveillance since diagnosis ~20 years ago. Liver lesion not amenable to biopsy by IR due to ascites -will plan for colonoscopy tomorrow 2. Jaundice/elevated liver enzymes 3. Cirrhosis - ? from past alcohol abuse +/- cholestasis from suspected me tastatic neoplasm 4. Hyponatremia - improving -plan for colonoscopy tomorrow; prep orders placed. clears today and NPO at midnight Subjective Date of service: 02/28/19 Principal diagnosis: high tumor markers Interval history: pt seen and examined; no new gi complaints. tolerating po. no gi bleeding Objective - Exam Narrative Exam: Gen: NAD, jaundiced CV: RRR Lungs: CTAB Abd: + ascites, nt, +bs - Constitutional Vitals: Temp Pulse Resp BP Pulse Ox 97.5 F L 72 18 100/65 94 02/28/19 07:23 02/28/19 10:00 02/28/19 07:23 02/28/19 07:23 02/28/19 07:23 - Labs CBC & Chem 7: 02/22/19 06:40 02/28/19 04:45 Labs: Laboratory Results - last 24 hr 02/28/19 04:45 Sodium 129 L Potassium 4.0 Chloride 93.6 L Carbon Dioxide 27 Anion Gap 12 BUN 9 Creatinine 0.3 L Estimated GFR > 60 BUN/Creatinine Ratio 30 Glucose 91 Calcium 8.0 L
[2019-02-28] MEDS ORDERED: GOLYTELY PO ONE (15:00)
[2019-02-28] MEDS: TYLENOL PO PRN (20:32)
[2019-02-28] MEDS: AMBIEN PO PRN (23:00)
[2019-03-01 05:38] LABS: BUN/Creatinine Ratio 23; Blood Urea Nitrogen 9 mg/dL (9-20); Calcium 7.8 mg/dL (8.4-10.2); Hemolysis Index 0
[2019-03-01] MEDS: LASIX PO SCH ×2 (06:09→18:03)
--- NOTE | 2019-03-01 07:07 | Hem/Onc Progress Note ---
Assessment and Plan 1. History of colon cancer pt says diagnosed many yr ago, (? 20 yrs ago) with elevated bilirubin, likely liver and lung met. CEA high. 2. IR consulted for biopsy. 3. The patient has a Port-A-Cath, says got 2 chemo and then stopped - this was at [place]. patient does not know the name of his oncologist. 4. History of ascites. 5. MCV elevated, likely secondary to alcohol usage. 6. The patient would need a biopsy. Lung lesions liver lesions IR consulted for BX US abdo done - ? cirrhosis and ascites ascites - s/p paracentesis - path - neg for neoplasia high bili - CT says mets - US says cirrhosis - will await tissues diagnosis MRI - cirrhosis and mets is it possible that both mets and cirrhotic changes are present? CEA 2300 - bx will help as per IR - bx not done as ascites - GI consulted CA 19-9 also elevated 1000s GI procedure today - Patient Problems (1) Lesion of lung Current Visit: Yes Status: Acute Subjective Date of service: 03/01/19 Principal diagnosis: high tumor markers - liver lesions Interval history: due GI eval - drinking golytely Objective - Exam Narrative Exam: pain none General appearance no acute distress Performance status - limited self care Eyes icterus ENT no thrush LNs cervical not palpable Neck no mass Respiratory Normal Breath sounds - CTA CVS S1 S2 + Extremities normal temperature General GI Soft non tender - distended Rectal deferred Male - deferred Skin warm Musculoskeletal no weakness Neurologically AAOx3 - Constitutional Vitals: Last Vital Signs Temp 98.7 F 03/01/19 02:43 Pulse 84 03/01/19 02:08 Resp 20 03/01/19 02:43 BP 102/62 03/01/19 02:43 Pulse Ox 96 03/01/19 02:08 - Labs Lab Results: Laboratory Results - last 24 hr 03/01/19 04:46 Sodium 126 L Potassium 3.8 Chloride 89.9 L Carbon Dioxide 28 Anion Gap 12 BUN 9 Creatinine 0.4 L Estimated GFR > 60 BUN/Creatinine Ratio 23 Glucose 86 Calcium 7.8 L Medications & Allergies - Medications Allergies/Adverse Reactions: Allergies Sulfa (Sulfonamide Antibiotics) Allergy (Verified 06/07/18 19:07) Unknown Home Medications: Home Medications Medication Instructions Recorded Confirmed Last Taken Type Ketorolac [Toradol] 10 mg PO Q6H PRN #10 tablet 06/07/18 02/18/19 Unknown Rx Active Medications: Generic Name Dose Route Start Last Admin Trade Name Nadia PRN Reason Stop Dose Admin Acetaminophen 650 mg 02/18/19 00:16 02/28/19 20:32 Tylenol PO 650 mg Q4H PRN Administration Pain MILD(1-3)/Fever >100.5/POLANCO Enoxaparin Sodium 40 mg 02/18/19 10:00 02/28/19 10:06 Lovenox SUB-Q 40 mg QDAY@1000 [facility] Administration Furosemide 20 mg 02/22/19 18:00 03/01/19 06:09 Lasix PO 20 mg 0600,1800 [facility] Administration Naphazoline HCl/Pheniramine Maleate 2 drops 02/23/19 23:28 Visine-A OU Q6H PRN Dry Eye(s) Nicotine 21 mg 02/20/19 14:00 02/28/19 10:06 Habitrol TD 21 mg QDAY [facility] Administration Ondansetron HCl 4 mg 02/18/19 00:16 02/28/19 20:32 Zofran IV 4 mg Q8H PRN Administration Nausea And Vomiting Sodium Chloride 10 ml 02/18/19 10:00 02/28/19 23:00 Sodium Chloride Flush Syringe 10 Ml IV 10 ml BID [facility] Administration Sodium Chloride 10 ml 02/18/19 00:16 02/21/19 07:56 Sodium Chloride Flush Syringe 10 Ml IV 10 ml PRN PRN Administration LINE FLUSH Zolpidem Tartrate 5 mg 02/25/19 12:56 02/28/19 23:00 Ambien PO 5 mg QHS PRN Administration Sleep
--- NOTE | 2019-03-01 07:28 | Progress Note ---
Assessment and Plan Assessment and plan: Brief History: 63-year-old male patient with significant past medical history of colon cancer m any years ago was admitted through emergency room with generalized weakness and yellowish discoloration of sclerae, CT abdomen and pelvis, CT chest findings consistent with metastatic lesions in the liver and lung with ascites, Patient underwent abdominal paracentesis, fluid analysis negative for SBP, evaluated by hematology oncology. CT guided biopsy Could not be done due to sorrunding ascitic fluid around the Liver. 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, sodium level slightly improved, nephrology following Assessment and plan: --Elevated CEA 2331.7 GI evaluated the patient, for colonoscopy today, to r/o Colon cancer Patient has remote history of colon cancer[20 years ago] --Metastatic lesions lungs/liver; CT-guided biopsy of the liver could not be done by IR because of ascites around the liver s/p colonoscopy --Ascites: Ultrasound guided abdominal paracentesis, Analysis negative for SBP,neg for neoplasia --Bacteremia ;blood cultures positive for coag negative staph and diphtheroids ID evaluated, contamination, sepsis ruled out -- Severe malnutrition: Present on admission nutrition supplements,supportive care --History of depression; denies suicidal thoughts or ideation Antidepression medications, --Hyponatremia;secondary to SIADH, Na 127-129 nephrology following --DVT prophylaxis; SCDs -- Full CODE STATUS Monitor closely and adjust management as needed Disposition; follow-up rpt colonoscopy in 2 days . Oncology recommend tissue biopsy History Interval history: Patient Seen and examined ,patient's chart reviewed Patient is scheduled for colonoscopy today to r/o Colon cancer Patient feels better no new complaints Vital signs noted Hospitalist Physical - Constitutional Vitals: Temp Pulse Resp BP Pulse Ox 98.7 F 84 20 102/62 96 03/01/19 02:43 03/01/19 02:08 03/01/19 02:43 03/01/19 02:43 03/01/19 02:08 General appearance: Present: no acute distress, cachectic, disheveled - EENT Eyes: Present: PERRL, EOM intact - Neck Neck: Present: supple, normal ROM - Respiratory Respiratory effort: normal Respiratory: bilateral: diminished, negative: rales, rhonchi, wheezing - Cardiovascular Rhythm: regular Heart Sounds: Present: S1 & S2 - Extremities Extremities: no ischemia Extremity abnormal: edema - Abdominal General gastrointestinal: soft, non-tender, distended, normal bowel sounds, other (ascites) - Integumentary Integumentary: Present: clear, warm - Psychiatric Psychiatric: appropriate mood/affect, cooperative - Neurologic Neurologic: CNII-XII intact, moves all extremities Results - Labs CBC & Chem 7: 02/22/19 06:40 03/01/19 04:46 Labs: Laboratory Last Values WBC 9.5 K/mm3 (4.5-11.0) 02/22/19 06:40 RBC 3.00 M/mm3 (3.65-5.03) L 02/22/19 06:40 Hgb 10.8 gm/dl (11.8-15.2) L 02/22/19 06:40 Hct 31.2 % (35.5-45.6) L 02/22/19 06:40 MCV 104 fl (84-94) H 02/22/19 06:40 MCH 36 pg (28-32) H 02/22/19 06:40 MCHC 35 % (32-34) H 02/22/19 06:40 RDW 15.1 % (13.2-15.2) 02/22/19 06:40 Plt Count 162 K/mm3 (140-440) 02/22/19 06:40 Lymph % (Auto) 6.7 % (13.4-35.0) L 02/22/19 06:40 [place] % (Auto) 11.6 % (0.0-7.3) H 02/22/19 06:40 Eos % (Auto) 1.5 % (0.0-4.3) 02/22/19 06:40 Baso % (Auto) 0.8 % (0.0-1.8) 02/22/19 06:40 Lymph # 0.6 K/mm3 (1.2-5.4) L 02/22/19 06:40 [place] # 1.1 K/mm3 (0.0-0.8) H 02/22/19 06:40 Eos # 0.1 K/mm3 (0.0-0.4) 02/22/19 06:40 Baso # 0.1 K/mm3 (0.0-0.1) 02/22/19 06:40 Seg Neutrophils % 79.4 % (40.0-70.0) H 02/22/19 06:40 Seg Neutrophils # 7.5 K/mm3 (1.8-7.7) 02/22/19 06:40 PT 14.3 Sec. (12.2-14.9) 02/22/19 10:31 INR 1.14 (0.87-1.13) H 02/22/19 10:31 Sodium 126 mmol/L (137-145) L 03/01/19 04:46 Potassium 3.8 mmol/L (3.6-5.0) 03/01/19 04:46 Chloride 89.9 mmol/L (98-107) L 03/01/19 04:46 Carbon Dioxide 28 mmol/L (22-30) 03/01/19 04:46 12 mmol/L 03/01/19 04:46 BUN 9 mg/dL (9-20) 03/01/19 04:46 0.4 mg/dL (0.8-1.5) L 03/01/19 04:46 Estimated GFR > 60 ml/min 03/01/19 04:46 23 % 03/01/19 04:46 Glucose 86 mg/dL (75-100) 03/01/19 04:46 POC Glucose 125 (70-105) H 02/18/19 20:42 245 Mosm/kg 02/18/19 13:26 Calcium 7.8 mg/dL (8.4-10.2) L 03/01/19 04:46 3.70 mg/dL (0.1-1.2) H 02/22/19 06:40 4.1 mg/dL (0-0.2) H 02/17/19 19:40 1.7 mg/dL 02/17/19 19:40 AST 124 units/L (5-40) H 02/22/19 06:40 ALT 58 units/L (7-56) H 02/22/19 06:40 375 units/L (35-129) H 02/22/19 06:40 5.6 g/dL (6.3-8.2) L 02/22/19 06:40 2.0 g/dL (3.9-5) L 02/22/19 06:40 0.6 % 02/22/19 06:40 31 units/L (13-60) 02/17/19 19:40 Carcinoembryonic Ag 2331.7 ng/mL (0.0-2.4) H 02/19/19 05:20 1015 U/mL (<34) H 02/22/19 05:27 Melina (Yellow) 02/17/19 22:00 Clear (Clear) 02/17/19 22:00 6.0 (5.0-7.0) 02/17/19 22:00 Ur Specific [place] 1.012 (1.003-1.030) 02/17/19 22:00 <15 mg/dl mg/dL (Negative) 02/17/19 22:00 Neg mg/dL (Negative) 02/17/19 22:00 Tr mg/dL (Negative) 02/17/19 22:00 Sm (Negative) 02/17/19 22:00 Neg (Negative) 02/17/19 22:00 Sm (Negative) 02/17/19 22:00 Positive (Negative) 02/17/19 22:00 4.0 mg/dL (<2.0) 02/17/19 22:00 Ur Leukocyte Esterase Neg (Negative) 02/17/19 22:00 5.0 /HPF (0.0-6.0) 02/17/19 22:00 9.0 /HPF (0.0-6.0) 02/17/19 22:00 U Epithel Cells (Auto) < 1.0 /HPF (0-13.0) 02/17/19 22:00 Amorphous Crystals Few 02/17/19 22:00 428 Mosm/kg 02/18/19 Unknown 96.0 mg/dL (0.1-20.0) H 02/18/19 Unknown 10 mmol/L 02/18/19 Unknown Fluid Type Ascitic 02/22/19 15:15 Fluid Color Yellow 02/22/19 15:15 Fluid Appearance Clear 02/22/19 15:15 Fluid WBC 24 /mm3 02/22/19 15:15 Fluid RBC 11 /mm3 02/22/19 15:15 Fluid Seg Neutrophils 5.0 % 02/22/19 15:15 Fluid Lymphocytes 84.0 % 02/22/19 15:15 Fluid Reactive Lymphs 0 % 02/22/19 15:15 Fluid Monocytes 10.0 % 02/22/19 15:15 Fluid Eosinophils 1.0 % 02/22/19 15:15 Fluid Basophils 0 % 02/22/19 15:15 Fluid Glucose 83 mg/dL (40-70) H 02/22/19 15:15 Fluid Albumin 0.4 g/dL 02/22/19 15:15 Fluid LDH 27 02/22/19 15:15 Fluid Amylase 12 02/22/19 15:15 Active Medications - Current Medications Current Medications: Generic Name Dose Route Start Last Admin Trade Name Freq PRN Reason Stop Dose Admin Acetaminophen 650 mg 02/18/19 00:16 02/28/19 20:32 Tylenol PO 650 mg Q4H PRN Administration Pain MILD(1-3)/Fever >100.5/POLANCO Enoxaparin Sodium 40 mg 02/18/19 10:00 02/28/19 10:06 Lovenox SUB-Q 40 mg QDAY@1000 [facility] Administration Furosemide 20 mg 02/22/19 18:00 03/01/19 06:09 Lasix PO 20 mg 0600,1800 [facility] Administration Naphazoline HCl/Pheniramine Maleate 2 drops 02/23/19 23:28 Visine-A OU Q6H PRN Dry Eye(s) Nicotine 21 mg 02/20/19 14:00 02/28/19 10:06 Habitrol TD 21 mg QDAY [facility] Administration Ondansetron HCl 4 mg 02/18/19 00:16 02/28/19 20:32 Zofran IV 4 mg Q8H PRN Administration Nausea And Vomiting Sodium Chloride 10 ml 02/18/19 10:00 02/28/19 23:00 Sodium Chloride Flush Syringe 10 Ml IV 10 ml BID [facility] Administration Sodium Chloride 10 ml 02/18/19 00:16 02/21/19 07:56 Sodium Chloride Flush Syringe 10 Ml IV 10 ml PRN PRN Administration LINE FLUSH Zolpidem Tartrate 5 mg 02/25/19 12:56 02/28/19 23:00 Ambien PO 5 mg QHS PRN Administration Sleep Nutrition/Malnutrition Assess - Dietary Evaluation Nutrition/Malnutrition Findings: Nutrition Notes Start: 02/18/19 15:10 Freq: Status: Active Protocol: Document 02/24/19 17:35 RM (Rec: 02/24/19 17:43 RM [id number]) Nutrition Notes Initial or Follow up Reassessment Other Pertinent Diagnosis Sacral PU, Depression, SIRS, metastatic colon CA Current Diet Mech soft w/chopped meat Labs/Tests Reviewed Pertinent Medications Lasix Height 5 ft 7 in Weight 61.9 kg [place] Body Weight (kg) 67.27 BMI 21.4 Subjective/Other Information Pt stated that he eats 25% of his meals. Stated that he has always eaten small amounts and that he also is reluctant to eat d/t having difficulty being able to ambulate to bathroom. Pt stated that once he is allowed to walk in the halls he think he can build up his stamina. Director Of [employer] explained that eating will build up stamina as well. Pt also stated that he drank the Ensure Enlive previously. Percent of energy/protein needs met: 33%/34% Burn Absent Trauma Absent #1 Nutrition Diagnosis Malnutrition Diagnosis Progress(for reassessment Continues documentation) Is patient on ventilator? No Is Patient Ambulatory and/or Out of Bed No REE-([place]-St. Jeor-confined to bed) 1646.556 Calculation Used for Recommendations [place] Jeor Additional Notes Protein Needs: 74-93g (1.2-1. 5g/kg) Fluid Needs: 1.5 L Nutrition Intervention Change Diet Order: Mech soft, Cardiac w/chopped meats Add Supplement/Snack (indicate name/kcal Was not carried over with diet /protein ) change. Add back Ensure Enlive Chocolate 1 daily Provides kCal: 350 Provides Protein (gm) 20 Goal #1 Meet at least 75% of calorie and protein needs via PO and ONS intakes Anticipated Discharge Needs: Cardiac diet Follow-Up By: 03/01/19 Additional Comments Follow for PO and ONS intakes
[2019-03-01] MEDS: LOVENOX SUB-Q SCH (08:59)
[2019-03-01] MEDS ORDERED: NACL 0.9% 1000 ML 1,000 ML IV SCH (09:00)
[2019-03-01] MEDS: SODIUM CHLORIDE FLUSH SYRINGE 10 ML IV SCH ×2 (09:00→21:03)
[2019-03-01] MEDS: HABITROL TD SCH (09:00)
[2019-03-01] MEDS ORDERED: PROVENTIL IH PRN (11:00)
[2019-03-01] MEDS ORDERED: WATER FOR IRRIG STERILE IR ONE (11:19)
[2019-03-01] MEDS ORDERED: WATER FOR IRRIG STERILE ONE (11:19)
--- NOTE | 2019-03-01 11:25 | Anesthesia Day of Surgery ---
Anesthesia Day of Surgery - Day of Surgery Patient Examined: Yes Patient H&P Reviewed: Yes Patient is NPO: Yes Tre's Test: N/A
[2019-03-01] MEDS ORDERED: DIPRIVAN 10 MG/ML IV ONE (11:28)
--- NOTE | 2019-03-01 11:38 | Progress Note ---
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 - N adropped to 126 from 129 yesterday, will cont to hold salt tabs for now - cont asix 20 mg po BID, and fluid restriction of 1 liter per day - Strict I&O Metastatic Colon Cancer, liver, and lungs: - As per Oncology - IR on board, s/p liver biopsy Leukocytosis: SIRS: - ID on board, f/u recs Depression: - As per Primary Subjective Date of service: 03/01/19 Principal diagnosis: high tumor markers Interval history: patient went to endoscopy this AM Objective - Vital Signs Vital signs: Vital Signs - 12hr 03/01/19 03/01/19 03/01/19 02:08 02:43 08:02 Temperature 98.7 F 97.7 F Pulse Rate 84 82 Pulse Rate [ From Monitor] Respiratory 20 18 Rate Blood Pressure 90/66 Blood Pressure 102/62 [Right] O2 Sat by Pulse 96 93 Oximetry 03/01/19 03/01/19 03/01/19 10:00 10:33 10:42 Temperature 97.8 F 97.8 F Pulse Rate 86 86 Pulse Rate [ 82 From Monitor] Respiratory 18 16 16 Rate Blood Pressure 91/64 91/64 Blood Pressure [Right] O2 Sat by Pulse 93 93 93 Oximetry - Lab 02/22/19 06:40 03/01/19 04:46 Most recent lab results Calcium 7.8 mg/dL (8.4-10.2) L 03/01/19 04:46 96.0 mg/dL (0.1-20.0) H 02/18/19 Unknown 10 mmol/L 02/18/19 Unknown Medications & Allergies - Medications Allergies/Adverse Reactions: Allergies Sulfa (Sulfonamide Antibiotics) Allergy (Verified 06/07/18 19:07) Unknown Home Medications: Home Medications Medication Instructions Recorded Confirmed Last Taken Type Ketorolac [Toradol] 10 mg PO Q6H PRN #10 tablet 06/07/18 02/18/19 Unknown Rx Active Medications: Generic Name Dose Route Start Last Admin Trade Name Freq PRN Reason Stop Dose Admin Acetaminophen 650 mg 02/18/19 00:16 02/28/19 20:32 Tylenol PO 650 mg Q4H PRN Administration Pain MILD(1-3)/Fever >100.5/POLANCO Albuterol 2.5 mg 07/08/19 11:00 03/01/19 11:00 Proventil IH 2.5 mg PREOP PRN Administration Wheezing Enoxaparin Sodium 40 mg 02/18/19 10:00 03/01/19 08:59 Lovenox SUB-Q 40 mg QDAY@1000 [facility] Administration Furosemide 20 mg 02/22/19 18:00 03/01/19 06:09 Lasix PO 20 mg 0600,1800 [facility] Administration Sodium Chloride 1,000 mls @ 50 mls/hr 03/01/19 09:00 03/01/19 10:46 Nacl 0.9% 1000 Ml IV 50 mls/hr DIRECT [facility] Administration Naphazoline HCl/Pheniramine Maleate 2 drops 02/23/19 23:28 Visine-A OU Q6H PRN Dry Eye(s) Nicotine 21 mg 02/20/19 14:00 03/01/19 09:00 Habitrol TD Not Given QDAY [facility] Ondansetron HCl 4 mg 02/18/19 00:16 02/28/19 20:32 Zofran IV 4 mg Q8H PRN Administration Nausea And Vomiting Sodium Chloride 10 ml 02/18/19 10:00 03/01/19 09:00 Sodium Chloride Flush Syringe 10 Ml IV 10 ml BID [facility] Administration Sodium Chloride 10 ml 02/18/19 00:16 02/21/19 07:56 Sodium Chloride Flush Syringe 10 Ml IV 10 ml PRN PRN Administration LINE FLUSH Zolpidem Tartrate 5 mg 02/25/19 12:56 02/28/19 23:00 Ambien PO 5 mg QHS PRN Administration Sleep
--- NOTE | 2019-03-01 11:49 | Operative Report ---
Operative Report Operative Report: Colonoscopy Procedure Note with Biopsy Date of procedure: 03/01/2019 Endoscopist: Christiano Young Pre-op diagnosis: Personal history of colon cancer, metastatic neoplasm of unclear primary Post-op diagnosis: Poor prep, multiple polyps throughout the colon. No obvious cancer, largest polyps were biopsied. Anesthesia: MAC Complications: No immediate complications Estimated blood loss: minimal Procedure: After consent was obtained, the patient was placed in the left lateral decubitus position. The olympus colonoscope was inserted into the patient's rectum under direct vision, and advanced to the cecum without difficulty. The patient tolerated the procedure well. The views of the mucosa were poor. The quality of prep was poor. The patient's vital signs were monitored continuously throughout the procedure. Findings: There were multiple polyps throughout the colon (small to ~2 cm in size); The prep was poor throughout the colon however, so detailed exam was limited due to quality of prep. The largest polyps (cecum and transverse colon) were biopsied. However, these did appeared to be adenomatous and not malignant (although can not definitely rule out malignancy) Impression: 1. Multiple polyps throughout the colon. Largest polyps were biopsied as above. Not removed due to poor prep and risks of complications 2. No obvious large mass was seen to suggest primary colon cancer although views were limited due to prep. Recommendations: -follow up pathology -follow up tumor markers/AFP -rule out other etiologies for metastatic neoplasm -consider repeat colonoscopy in 1-2 days if no other source is identified or other lesions are not amenable to biopsy
--- NOTE | 2019-03-01 11:59 | Anesthesia Consultation ---
Anesthesia Consult and Med Hx - Airway ROM Head & Neck: Adequate Mental/Hyoid Distance: Adequate Mallampati Class: Class I Intubation Access Assessment: Good - Pulmonary Exam CTA: No - Cardiac Exam Cardiac Exam: RRR - Pre-Operative Health Status ASA Pre-Surgery Classification: ASA4 Proposed Anesthetic Plan: General, MAC - Pulmonary Hx Asthma: Yes COPD: Yes Hx Pneumonia: No - Cardiovascular System Hx Hypertension: Yes - Endocrine Hx End Stage Renal Disease: No Hx Liver Disease: Yes - Other Systems Hx Alcohol Use: Yes
--- NOTE | 2019-03-01 12:02 | Post Anesthesia Evaluation ---
- Post Anesthesia Evaluation Patient Participated: Yes Airway Patent: Yes Stable Respiratory Function: Yes Nausea/Vomiting: No Temp > 96.8F: Yes Pain Manageable: Yes Adequeate Hydration: Yes Anesthesia Complications: No Block Receding Appropriately: Not Applicable Patient on Ventilator: No
[2019-03-01] MEDS: TYLENOL PO PRN (21:02)
[2019-03-01] MEDS: AMBIEN PO PRN (21:02)
[2019-03-02 05:29] LABS: Basophils # (Auto) 0.1 K/mm3 (0.0-0.1); Eosinophils # (Auto) 0.1 K/mm3 (0.0-0.4); Eosinophils % (Auto) 1.3 % (0.0-4.3); Hemoglobin 10.2 gm/dl (11.8-15.2); Lymphocytes # (Auto) 0.9 K/mm3 (1.2-5.4); Lymphocytes % (Auto) 8.7 % (13.4-35.0); Mean Corpuscular HGB Conc 35 % (32-34); Mean Corpuscular Volume 104 fl (84-94); Monocytes # (Auto) 0.8 K/mm3 (0.0-0.8); Monocytes % (Auto) 8.3 % (0.0-7.3); Platelet Count 172 K/mm3 (140-440); Red Cell Distribution Width 15.3 % (13.2-15.2)
[2019-03-02] MEDS: TYLENOL PO PRN ×3 (05:43→20:07)
[2019-03-02 05:55] LABS: BUN/Creatinine Ratio 23; Blood Urea Nitrogen 9 mg/dL (9-20); Calcium 7.7 mg/dL (8.4-10.2); Hemolysis Index 5
[2019-03-02] MEDS: LASIX PO SCH ×2 (05:56→17:57)
[2019-03-02 05:59] LABS: Albumin 1.7 g/dL (3.9-5); Bilirubin,Direct 2.8 mg/dL (0-0.2)
--- NOTE | 2019-03-02 07:39 | Hem/Onc Progress Note ---
Assessment and Plan 1. History of colon cancer pt says diagnosed many yr ago, (? 20 yrs ago) with elevated bilirubin, likely liver and lung met. CEA high. 2. IR consulted for biopsy. 3. The patient has a Port-A-Cath, says got 2 chemo and then stopped - this was at [place]. patient does not know the name of his oncologist. 4. History of ascites. 5. MCV elevated, likely secondary to alcohol usage. 6. The patient would need a biopsy. Lung lesions liver lesions IR consulted for BX US abdo done - ? cirrhosis and ascites ascites - s/p paracentesis - path - neg for neoplasia high bili - CT says mets - US says cirrhosis - will await tissues diagnosis MRI - cirrhosis and mets is it possible that both mets and cirrhotic changes are present? CEA 2300 - bx will help as per IR - bx not done as ascites - GI consulted CA 19-9 also elevated 1000s GI colonoscopy done at this time we don not have diagnosis pt has liver and lung lesions - high tumor markers pt has been in the hospital for a few days, There was a discussion if these can be done as OP. If we have been unsuccessful in doing bx after so many days as IP, it is clear that OP attempt to do same will be less successful OP follow up an option once tissues diagnosis or if pt decides not to pursue same I am off for a few days and the team know about same - Patient Problems (1) Lesion of lung Current Visit: Yes Status: Acute Subjective Date of service: 03/02/19 Principal diagnosis: high tumor markers - liver lesion Interval history: had colonoscopy - abdo distension Objective - Exam Narrative Exam: pain none General appearance no acute distress Performance status - limited self care Eyes icterus ENT no thrush LNs cervical not palpable Neck no mass Respiratory Normal Breath sounds - CTA CVS S1 S2 + Extremities normal temperature General GI Soft non tender - distended Rectal deferred Male - deferred Skin warm Musculoskeletal no weakness Neurologically AAOx3 - Constitutional Vitals: Last Vital Signs Temp 97.8 F 03/02/19 02:09 Pulse 81 03/02/19 02:09 Resp 20 03/02/19 05:43 BP 96/61 03/02/19 02:09 Pulse Ox 92 03/02/19 02:09 - Labs Lab Results: Laboratory Results - last 24 hr 03/02/19 03/02/1919 05:11 05:11 05:11 WBC 9.9 RBC 2.80 L Hgb 10.2 L Hct 29.0 L MCV 104 H MCH 37 H MCHC 35 H RDW 15.3 H Plt Count 172 Lymph % (Auto) 8.7 L [place] % (Auto) 8.3 H Eos % (Auto) 1.3 Baso % (Auto) 1.0 Lymph # 0.9 L [place] # 0.8 Eos # 0.1 Baso # 0.1 Seg Neutrophils % 80.7 H Seg Neutrophils # 8.0 H Sodium 127 L Potassium 3.9 Chloride 90.5 L Carbon Dioxide 27 Anion Gap 13 BUN 9 Creatinine 0.4 L Estimated GFR > 60 BUN/Creatinine Ratio 23 Glucose 94 Calcium 7.7 L Total Bilirubin 3.90 H Direct Bilirubin 2.8 H Indirect Bilirubin 1.1 AST 55 H ALT 28 Alkaline Phosphatase 363 H Total Protein 5.4 L Albumin 1.7 L Albumin/Globulin Ratio 0.5 Medications & Allergies - Medications Allergies/Adverse Reactions: Allergies Sulfa (Sulfonamide Antibiotics) Allergy (Verified 06/07/18 19:07) Unknown Home Medications: Home Medications Medication Instructions Recorded Confirmed Last Taken Type Ketorolac [Toradol] 10 mg PO Q6H PRN #10 tablet 06/07/18 02/18/19 Unknown Rx Active Medications: Generic Name Dose Route Start Last Admin Trade Name Freq PRN Reason Stop Dose Admin Acetaminophen 650 mg 02/18/19 00:16 03/02/19 05:43 Tylenol PO 650 mg Q4H PRN Administration Pain MILD(1-3)/Fever >100.5/POLANCO Albuterol 2.5 mg 03/01/19 11:00 03/01/19 11:00 Proventil IH 2.5 mg PREOP PRN Administration Wheezing Enoxaparin Sodium 40 mg 02/18/19 10:00 03/01/19 08:59 Lovenox SUB-Q 40 mg QDAY@1000 [place] Administration Furosemide 20 mg 02/22/19 18:00 03/02/19 05:56 Lasix PO 20 mg 0600,1800 [facility] Administration Naphazoline HCl/Pheniramine Maleate 2 drops 02/23/19 23:28 Visine-A OU Q6H PRN Dry Eye(s) Nicotine 21 mg 02/20/19 14:00 03/01/19 09:00 Habitrol TD Not Given QDAY [facility] Ondansetron HCl 4 mg 02/18/19 00:16 02/28/19 20:32 Zofran IV 4 mg Q8H PRN Administration Nausea And Vomiting Sodium Chloride 10 ml 02/18/19 10:00 03/01/19 21:03 Sodium Chloride Flush Syringe 10 Ml IV 10 ml BID [place] Administration Sodium Chloride 10 ml 02/18/19 00:16 02/21/19 07:56 Sodium Chloride Flush Syringe 10 Ml IV 10 ml PRN PRN Administration LINE FLUSH Zolpidem Tartrate 5 mg 02/25/19 12:56 03/01/19 21:02 Ambien PO 5 mg QHS PRN Administration Sleep
--- NOTE | 2019-03-02 09:18 | Progress Note ---
Assessment and Plan Assessment and plan: Brief History: 63-year-old male patient with significant past medical history of colon cancer m any years ago was admitted through emergency room with generalized weakness and yellowish discoloration of sclerae, CT abdomen and pelvis, CT chest findings consistent with metastatic lesions in the liver and lung with ascites, Patient underwent abdominal paracentesis, fluid analysis negative for SBP, evaluated by hematology oncology. CT guided biopsy Could not be done due to sorrunding ascitic fluid around the Liver. 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 No obvious cancer, largest polyps were biopsied.initially considered Rpt colonoscopy in 2 days GI series patient does not need a repeat colonoscopy --Metastatic lesions lungs/liver; CT-guided biopsy of the liver and abdominal paracentesis Patient nothing by mouth midnight Discussed with IR Dr. Naik about CT/ultrasound guided liver biop Possible liver lesion biopsy and abdominal paracentesis tomorrow Nothing by mouth midnight --Ascites: Ultrasound guided abdominal paracentesis, Analysis negative for SBP,neg for neoplasia --Bacteremia ;blood cultures positive for coag negative staph and diphtheroids ID evaluated, contamination, sepsis ruled out -- Severe malnutrition: Present on admission nutrition supplements,supportive care --History of depression; denies suicidal thoughts or ideation Antidepression medications, --Hyponatremia;secondary to SIADH, Na 127-129 nephrology following --DVT prophylaxis; SCDs -- Full CODE STATUS Monitor closely and adjust management as needed Disposition; follow-up CT-guided biopsy of the liver lesion and abdominal paracentesis tomorrow History Interval history: Patient seen and examined Patient feels that complaints of mild shortness of breath and abdominal distention Vital signs reviewed Alert awake oriented 3 not in acute distress Hospitalist Physical - Constitutional Vitals: Temp Pulse Resp BP Pulse Ox 98.4 F 74 20 95/63 91 03/02/19 07:38 03/02/19 07:38 03/02/19 07:38 03/02/19 07:38 03/02/19 07:38 General appearance: Present: no acute distress, cachectic, disheveled - EENT Eyes: Present: PERRL, EOM intact - Neck Neck: Present: supple, normal ROM - Respiratory Respiratory effort: normal Respiratory: bilateral: diminished, negative: rales, rhonchi, wheezing - Cardiovascular Rhythm: regular Heart Sounds: Present: S1 & S2 - Extremities Extremities: no ischemia, No edema - Abdominal General gastrointestinal: soft, non-tender, non-distended, normal bowel sounds - Integumentary Integumentary: Present: clear, warm - Psychiatric Psychiatric: appropriate mood/affect, cooperative - Neurologic Neurologic: CNII-XII intact, moves all extremities Results - Labs CBC & Chem 7: 03/02/19 05:11 03/02/19 05:11 Labs: Laboratory Last Values WBC 9.9 K/mm3 (4.5-11.0) 03/02/19 05:11 RBC 2.80 M/mm3 (3.65-5.03) L 03/02/19 05:11 Hgb 10.2 gm/dl (11.8-15.2) L 03/02/19 05:11 Hct 29.0 % (35.5-45.6) L 03/02/19 05:11 MCV 104 fl (84-94) H 03/02/19 05:11 MCH 37 pg (28-32) H 03/02/19 05:11 MCHC 35 % (32-34) H 03/02/19 05:11 RDW 15.3 % (13.2-15.2) H 03/02/19 05:11 Plt Count 172 K/mm3 (140-440) 03/02/19 05:11 Lymph % (Auto) 8.7 % (13.4-35.0) L 03/02/19 05:11 [place] % (Auto) 8.3 % (0.0-7.3) H 03/02/19 05:11 Eos % (Auto) 1.3 % (0.0-4.3) 03/02/19 05:11 Baso % (Auto) 1.0 % (0.0-1.8) 03/02/19 05:11 Lymph # 0.9 K/mm3 (1.2-5.4) L 03/02/19 05:11 [place] # 0.8 K/mm3 (0.0-0.8) 03/02/19 05:11 Eos # 0.1 K/mm3 (0.0-0.4) 03/02/19 05:11 Baso # 0.1 K/mm3 (0.0-0.1) 03/02/19 05:11 Seg Neutrophils % 80.7 % (40.0-70.0) H 03/02/19 05:11 Seg Neutrophils # 8.0 K/mm3 (1.8-7.7) H 03/02/19 05:11 PT 14.3 Sec. (12.2-14.9) 02/22/19 10:31 INR 1.14 (0.87-1.13) H 02/22/19 10:31 Sodium 127 mmol/L (137-145) L 03/02/19 05:11 Potassium 3.9 mmol/L (3.6-5.0) 03/02/19 05:11 Chloride 90.5 mmol/L (98-107) L 03/02/19 05:11 Carbon Dioxide 27 mmol/L (22-30) 03/02/19 05:11 13 mmol/L 03/02/19 05:11 BUN 9 mg/dL (9-20) 03/02/19 05:11 0.4 mg/dL (0.8-1.5) L 03/02/19 05:11 Estimated GFR > 60 ml/min 03/02/19 05:11 23 % 03/02/19 05:11 Glucose 94 mg/dL (75-100) 03/02/19 05:11 POC Glucose 125 (70-105) H 02/18/19 20:42 245 Mosm/kg 02/18/19 13:26 Calcium 7.7 mg/dL (8.4-10.2) L 03/02/19 05:11 3.90 mg/dL (0.1-1.2) H 03/02/19 05:11 2.8 mg/dL (0-0.2) H 03/02/19 05:11 1.1 mg/dL 03/02/19 05:11 AST 55 units/L (5-40) H 03/02/19 05:11 ALT 28 units/L (7-56) 03/02/19 05:11 363 units/L (35-129) H 03/02/19 05:11 5.4 g/dL (6.3-8.2) L 03/02/19 05:11 1.7 g/dL (3.9-5) L 03/02/19 05:11 0.5 % 03/02/19 05:11 31 units/L (13-60) 02/17/19 19:40 Carcinoembryonic Ag 2331.7 ng/mL (0.0-2.4) H 02/19/19 05:20 1015 U/mL (<34) H 02/22/19 05:27 Melina (Yellow) 02/17/19 22:00 Clear (Clear) 02/17/19 22:00 6.0 (5.0-7.0) 02/17/19 22:00 Ur Specific [place] 1.012 (1.003-1.030) 02/17/19 22:00 <15 mg/dl mg/dL (Negative) 02/17/19 22:00 Neg mg/dL (Negative) 02/17/19 22:00 Tr mg/dL (Negative) 02/17/19 22:00 Sm (Negative) 02/17/19 22:00 Neg (Negative) 02/17/19 22:00 Sm (Negative) 02/17/19 22:00 Positive (Negative) 02/17/19 22:00 4.0 mg/dL (<2.0) 02/17/19 22:00 Ur Leukocyte Esterase Neg (Negative) 02/17/19 22:00 5.0 /HPF (0.0-6.0) 02/17/19 22:00 9.0 /HPF (0.0-6.0) 02/17/19 22:00 U Epithel Cells (Auto) < 1.0 /HPF (0-13.0) 02/17/19 22:00 Amorphous Crystals Few 02/17/19 22:00 428 Mosm/kg 02/18/19 Unknown 96.0 mg/dL (0.1-20.0) H 02/18/19 Unknown 10 mmol/L 02/18/19 Unknown Fluid Type Ascitic 02/22/19 15:15 Fluid Color Yellow 02/22/19 15:15 Fluid Appearance Clear 02/22/19 15:15 Fluid WBC 24 /mm3 02/22/19 15:15 Fluid RBC 11 /mm3 02/22/19 15:15 Fluid Seg Neutrophils 5.0 % 02/22/19 15:15 Fluid Lymphocytes 84.0 % 02/22/19 15:15 Fluid Reactive Lymphs 0 % 02/22/19 15:15 Fluid Monocytes 10.0 % 02/22/19 15:15 Fluid Eosinophils 1.0 % 02/22/19 15:15 Fluid Basophils 0 % 02/22/19 15:15 Fluid Glucose 83 mg/dL (40-70) H 02/22/19 15:15 Fluid Albumin 0.4 g/dL 02/22/19 15:15 Fluid LDH 27 02/22/19 15:15 Fluid Amylase 12 02/22/19 15:15 Active Medications - Current Medications Current Medications: Generic Name Dose Route Start Last Admin Trade Name Freq PRN Reason Stop Dose Admin Acetaminophen 650 mg 02/18/19 00:16 03/02/19 05:43 Tylenol PO 650 mg Q4H PRN Administration Pain MILD(1-3)/Fever >100.5/POLANCO Albuterol 2.5 mg 03/01/19 11:00 03/01/19 11:00 Proventil IH 2.5 mg PREOP PRN Administration Wheezing Enoxaparin Sodium 40 mg 02/18/19 10:00 03/01/19 08:59 Lovenox SUB-Q 40 mg QDAY@1000 COLUMBA Administration Furosemide 20 mg 02/22/19 18:00 03/02/19 05:56 Lasix PO 20 mg 0600,1800 [place] Administration Naphazoline HCl/Pheniramine Maleate 2 drops 02/23/19 23:28 Visine-A OU Q6H PRN Dry Eye(s) Nicotine 21 mg 02/20/19 14:00 03/01/19 09:00 Habitrol TD Not Given QDAY [place]BA Ondansetron HCl 4 mg 02/18/19 00:16 02/28/19 20:32 Zofran IV 4 mg Q8H PRN Administration Nausea And Vomiting Sodium Chloride 10 ml 02/18/19 10:00 03/01/19 21:03 Sodium Chloride Flush Syringe 10 Ml IV 10 ml BID COLUMBA Administration Sodium Chloride 10 ml 02/18/19 00:16 02/21/19 07:56 Sodium Chloride Flush Syringe 10 Ml IV 10 ml PRN PRN Administration LINE FLUSH Zolpidem Tartrate 5 mg 02/25/19 12:56 03/01/19 21:02 Ambien PO 5 mg QHS PRN Administration Sleep Nutrition/Malnutrition Assess - Dietary Evaluation Nutrition/Malnutrition Findings: Nutrition Notes Start: 02/18/19 15:10 Freq: Status: Active Protocol: Document 03/01/19 14:13 RM (Rec: 03/01/19 14:21 RM [id number]) Nutrition Notes Initial or Follow up Reassessment Other Pertinent Diagnosis Sacral PU, Depression, SIRS, metastatic colon CA, Ascites Current Diet Cardiac w/chopped Labs/Tests Reviewed Pertinent Medications Lasix Height 5 ft 7 in Weight 65.7 kg [place] Body Weight (kg) 67.27 BMI 22.6 Subjective/Other Information NPO in place earlier today for possible colonoscopy. Cardiac w/chopped diet ordered later toda. Pt not in room at time of visit. Recorded PO intake 72% X 3 days.Tech and nurse unsure whether pt has been drinking Ensure Enlive. Percent of energy/protein needs met: 91%/97% Burn Absent Trauma Absent #1 Nutrition Diagnosis Malnutrition Diagnosis Progress(for reassessment Continues documentation) Is patient on ventilator? No Is Patient Ambulatory and/or Out of Bed No REE-([place]. Jeor-confined to bed) 1692.108 Calculation Used for Recommendations [place] or Additional Notes Protein Needs: 74-93g (1.2-1. 5g/kg) Fluid Needs: 1.5 L Nutrition Intervention Change Diet Order: Continue curreent Add Supplement/Snack (indicate name/kcal Resume Ensure Enlive Chocolate /protein ) 1 daily Provides kCal: 350 Provides Protein (gm) 20 Goal #1 Continue to meet at least 75% of calorie and protein needs via PO and ONS intakes Anticipated Discharge Needs: Cardiac diet Follow-Up By: 03/03/19 Additional Comments Follow forPO and ONS intakes
[2019-03-02] MEDS: LOVENOX SUB-Q SCH (09:28)
[2019-03-02] MEDS: HABITROL TD SCH (09:28)
[2019-03-02] MEDS: SODIUM CHLORIDE FLUSH SYRINGE 10 ML IV SCH ×2 (09:29→21:07)
--- NOTE | 2019-03-02 10:37 | Gastroenterology Progress Note ---
<SAQIB MAHAJAN - Last Filed: 03/02/19 10:38> Assessment and Plan 1. Metastatic neoplasm - unclear primary but possibly colon given history without follow-up/surveillance since diagnosis ~20 years ago. Liver lesion not amenable to biopsy by IR due to ascites -CEA 2300, CA 19-9 also elevated 1000s -AFP pending -s/p paracentesis- path neg for neoplasia -s/p colonoscopy yesterday that showed: 1. Multiple polyps throughout the colon. Largest polyps were biopsied as above. Not removed due to poor prep and risks of complications 2. No obvious large mass was seen to suggest primary colon cancer although views were limited due to prep. -no plan to repeat colonoscopy at this time unless recommended by oncology -will follow path and defer further workup to rule out other etiologies for metastatic neoplasm per oncology 2. Jaundice/elevated liver enzymes 3. Cirrhosis - ? from past alcohol abuse +/- cholestasis from suspected metastatic neoplasm -continue diuretics -low sodium diet -acute hepatitis panel 4. Hyponatremia - improving Subjective Date of service: 03/02/19 Principal diagnosis: high tumor markers - liver lesions Interval history: No acute distress or new GI complaints. Tolerating PO. Objective - Constitutional Vitals: Temp Pulse Resp BP Pulse Ox 98.4 F 74 20 95/63 91 03/02/19 07:38 03/02/19 07:38 03/02/19 07:38 03/02/19 07:38 03/02/19 07:38 General appearance: no acute distress - Respiratory Respiratory effort: normal - Cardiovascular Rhythm: regular - Gastrointestinal General gastrointestinal: Present: soft, non-tender, distended (ascites), normal bowel sounds - Neurologic Neurological: alert and oriented x3 - Labs CBC & Chem 7: 03/02/19 05:11 03/02/19 05:11 Labs: Laboratory Results - last 24 hr 03/02/19 03/02/19 03/02/19 05:11 05:11 05:11 WBC 9.9 RBC 2.80 L Hgb 10.2 L Hct 29.0 L MCV 104 H MCH 37 H MCHC 35 H RDW 15.3 H Plt Count 172 Lymph % (Auto) 8.7 L [place] % (Auto) 8.3 H Eos % (Auto) 1.3 Baso % (Auto) 1.0 Lymph # 0.9 L [place] # 0.8 Eos # 0.1 Baso # 0.1 Seg Neutrophils % 80.7 H Seg Neutrophils # 8.0 H Sodium 127 L Potassium 3.9 Chloride 90.5 L Carbon Dioxide 27 Anion Gap 13 BUN 9 Creatinine 0.4 L Estimated GFR > 60 BUN/Creatinine Ratio 23 Glucose 94 Calcium 7.7 L Total Bilirubin 3.90 H Direct Bilirubin 2.8 H Indirect Bilirubin 1.1 AST 55 H ALT 28 Alkaline Phosphatase 363 H Total Protein 5.4 L Albumin 1.7 L Albumin/Globulin Ratio 0.5 <KEVIN BOWEN - Last Filed: 03/02/19 13:47> Assessment and Plan patient seen and examined. Agree with note above. Objective - Constitutional Vitals: Temp Pulse Resp BP Pulse Ox 97.8 F 80 18 99/69 96 03/02/19 13:29 03/02/19 13:29 03/02/19 13:29 03/02/19 13:29 03/02/19 13:29 - Labs CBC & Chem 7: 03/02/19 05:11 03/02/19 05:11 Labs: Laboratory Results - last 24 hr 03/02/19 03/02/19 03/02/19 05:11 05:11 05:11 WBC 9.9 RBC 2.80 L Hgb 10.2 L Hct 29.0 L MCV 104 H MCH 37 H MCHC 35 H RDW 15.3 H Plt Count 172 Lymph % (Auto) 8.7 L [place] % (Auto) 8.3 H Eos % (Auto) 1.3 Baso % (Auto) 1.0 Lymph # 0.9 L [place] # 0.8 Eos # 0.1 Baso # 0.1 Seg Neutrophils % 80.7 H Seg Neutrophils # 8.0 H Sodium 127 L Potassium 3.9 Chloride 90.5 L Carbon Dioxide 27 Anion Gap 13 BUN 9 Creatinine 0.4 L Estimated GFR > 60 BUN/Creatinine Ratio 23 Glucose 94 Calcium 7.7 L Total Bilirubin 3.90 H Direct Bilirubin 2.8 H Indirect Bilirubin 1.1 AST 55 H ALT 28 Alkaline Phosphatase 363 H Total Protein 5.4 L Albumin 1.7 L Albumin/Globulin Ratio 0.5
[2019-03-02] MEDS ORDERED: LASIX IV SCH (12:50)
--- NOTE | 2019-03-02 12:52 | Progress Note ---
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 - Na cont to fluctuate, overall stable - cont asix 20 mg po BID, and fluid restriction of 1 liter per day, will give extra lasix dose 40 gm IV today for worsening swelling - Strict I&O Metastatic Colon Cancer, liver, and lungs: - As per Oncology - IR on board, s/p liver biopsy Leukocytosis: SIRS: - ID on board, f/u recs Depression: - As per Primary Subjective Date of service: 03/02/19 Principal diagnosis: high tumor markers - liver lesions Interval history: wondering when he can go home Objective - Vital Signs Vital signs: Vital Signs - 12hr 03/02/19 03/02/19 03/02/19 02:09 05:43 07:38 Temperature 97.8 F 98.4 F Pulse Rate 81 74 Pulse Rate [ From Monitor] Respiratory 18 20 20 Rate Blood Pressure 96/61 95/63 O2 Sat by Pulse 92 91 Oximetry 03/02/19 10:00 Temperature Pulse Rate Pulse Rate [ 74 From Monitor] Respiratory Rate Blood Pressure O2 Sat by Pulse 92 Oximetry - General Appearance General appearance: well-developed, well-nourished EENT: ATNC, PERRL Neck: no JVD, no carotid bruit Respiratory: Present: Clear to Ascultation Cardiology: regular, S1S2 Gastrointestinal: normoactive bowel sounds, no tenderness, no distended Integumentary: no rash, warm and dry Neurologic: no focal deficit, no asterixis, alert and oriented x3 Musculoskeletal: other (1-2+ pitting edema in BLE) Psychiatric: mood/affect appropriate, cooperative - Lab 03/02/19 05:11 03/02/19 05:11 Most recent lab results Calcium 7.7 mg/dL (8.4-10.2) L 03/02/19 05:11 96.0 mg/dL (0.1-20.0) H 02/18/19 Unknown 10 mmol/L 02/18/19 Unknown Medications & Allergies - Medications Allergies/Adverse Reactions: Allergies Sulfa (Sulfonamide Antibiotics) Allergy (Verified 06/07/18 19:07) Unknown Home Medications: Home Medications Medication Instructions Recorded Confirmed Last Taken Type Ketorolac [Toradol] 10 mg PO Q6H PRN #10 tablet 06/07/18 02/18/19 Unknown Rx Active Medications: Generic Name Dose Route Start Last Admin Trade Name Nadia PRN Reason Stop Dose Admin Acetaminophen 650 mg 02/18/19 00:16 03/02/19 05:43 Tylenol PO 650 mg Q4H PRN Administration Pain MILD(1-3)/Fever >100.5/POLANCO Albuterol 2.5 mg 03/01/19 11:00 03/01/19 11:00 Proventil IH 2.5 mg PREOP PRN Administration Wheezing Enoxaparin Sodium 40 mg 02/18/19 10:00 03/02/19 09:28 Lovenox SUB-Q 40 mg QDAY@1000 [place] Administration Furosemide 20 mg 02/22/19 18:00 03/02/19 05:56 Lasix PO 20 mg 0600,1800 [place] Administration Naphazoline HCl/Pheniramine Maleate 2 drops 02/23/19 23:28 Visine-A OU Q6H PRN Dry Eye(s) Nicotine 21 mg 02/20/19 14:00 03/02/19 09:28 Habitrol TD Not Given QDAY [place] Ondansetron HCl 4 mg 02/18/19 00:16 02/28/19 20:32 Zofran IV 4 mg Q8H PRN Administration Nausea And Vomiting Sodium Chloride 10 ml 02/18/19 10:00 03/02/19 09:29 Sodium Chloride Flush Syringe 10 Ml IV 10 ml BID [place] Administration Sodium Chloride 10 ml 02/18/19 00:16 02/21/19 07:56 Sodium Chloride Flush Syringe 10 Ml IV 10 ml PRN PRN Administration LINE FLUSH Zolpidem Tartrate 5 mg 02/25/19 12:56 03/01/19 21:02 Ambien PO 5 mg QHS PRN Administration Sleep
--- NOTE | 2019-03-02 15:47 | Cat Scan Report ---
CT ABDOMEN AND PELVIS WITH CONTRAST HISTORY: assess biopsy targets after paracentesis. Multiple liver masses. Ascites. COMPARISON: MR abdomen with and without contrast dated 02/22/2019. TECHNIQUE: Axial CT images were obtained through the abdomen and pelvis after 100 cc of Omnipaque 300 intravenously. Sagittal and coronal reformatted images. All CT scans at this location are performed using CT dose reduction for ALARA by means of automated exposure control. FINDINGS: CT ABDOMEN: Lung Bases: There are multiple small pulmonary nodules at the lung bases measuring up to 1.5 cm. Smal l bilateral pleural effusions, right greater than left. Normal heart size. Liver: The liver is normal size. Numerous hypodense liver masses are identified throughout the right and left hepatic lobes. The masses range from less than 1 cm to 4 cm in diameter. Some of the masses contain calcifications. The liver is slightly nodular in appearance which could represent cirrhotic c hanges. The portal venous system and hepatic veins are patent. The IVC is patent. Biliary: No significant abnormality. Spleen: No significant abnormality. Unenlarged. Pancreas: No significant abnormality. Adrenals: No significant abnormality. Kidneys: No significant abnormality. Lymphatics: Mildly enlarged left periaortic lymph nodes measuring up to 2 cm are identified near the level of the left renal artery. Mildly enlarged lymph nodes are also suspected in the rakesh hepatis a nd celiac axis. No additional adenopathy is appreciated Vasculature: Mild diffuse calcifications. No evidence for aneurysm, stenosis or occlusion. Bowel/Peritoneum: The bowel loops are displaced centrally secondary to large ascites. There is no bell dence for bowel obstruction or focal inflammation. No obvious GI mass without oral contrast. CT PELVIS: : No significant abnormality. Osseous Structures: The bony structures are demineralized with diffuse degenerative change. No suspic ious bony lesion is identified. Healing right anterior rib fractures are identified in the lower righ t chest. Additional Findings: None IMPRESSION: Multiple liver masses as described. There is suggestion of mild cirrhosis of the liver. This could re present multifocal hepatocellular carcinoma or metastatic lesions. I suspect these represent metastat ic lesions although the primary neoplasm is not clearly demonstrated. Mildly enlarged retroperitoneal, rakesh hepatis and celiac axis lymph nodes. Large ascites. Multiple pulmonary nodules at the lung bases. Small bilateral pleural effusions. Right lower rib fractures, healing. Signer Name: Jasen Kong Jr, MD Signed: 03/02/2019 3:43 PM Workstation Name: [id number]
[2019-03-02] MEDS: AMBIEN PO PRN (21:06)
[2019-03-03 04:41] LABS: Basophils # (Auto) 0.1 K/mm3 (0.0-0.1); Basophils % (Auto) 0.8 % (0.0-1.8); Eosinophils # (Auto) 0.1 K/mm3 (0.0-0.4); Eosinophils % (Auto) 1.2 % (0.0-4.3); Hematocrit 31.4 % (35.5-45.6); Hemoglobin 10.9 gm/dl (11.8-15.2); Lymphocytes # (Auto) 0.8 K/mm3 (1.2-5.4); Lymphocytes % (Auto) 7.3 % (13.4-35.0); Mean Corpuscular HGB Conc 35 % (32-34); Mean Corpuscular Volume 104 fl (84-94); Monocytes # (Auto) 0.9 K/mm3 (0.0-0.8); Monocytes % (Auto) 8.6 % (0.0-7.3); Platelet Count 175 K/mm3 (140-440); Red Blood Count 3.02 M/mm3 (3.65-5.03); Red Cell Distribution Width 15.7 % (13.2-15.2)
[2019-03-03 04:56] LABS: BUN/Creatinine Ratio 20; Blood Urea Nitrogen 10 mg/dL (9-20); Calcium 7.9 mg/dL (8.4-10.2); Hemolysis Index 0
[2019-03-03 04:59] LABS: Hepatitis B Surface Antigen Non-Reactive (Negative); Hepatitis C Virus Antibody Reactive (NonReactive)
--- NOTE | 2019-03-03 08:22 | Progress Note ---
Assessment and Plan Assessment and plan: Brief History: 63-year-old male patient with significant past medical history of colon cancer m any years ago was admitted through emergency room with generalized weakness and yellowish discoloration of sclerae, CT abdomen and pelvis, CT chest findings consistent with metastatic lesions in the liver and lung with ascites, Patient underwent abdominal paracentesis, fluid analysis negative for SBP, evaluated by hematology oncology. CT guided biopsy Could not be done due to sorrunding ascitic fluid around the Liver. Evaluated by GI, had colonoscopy s/p ppolyp biopsy Pt also has hyponatremia secondary to SIADH, sodium level slightly improved, nephrology following. Today patient underwent CT-guided abdominal paracentesis and removal of 4.5 L. Peritoneal fluid sent for analysis, as well as CT-guided needle biopsy Patient tolerated, however complains of generalized weakness and dizziness Vital Signs stable Assessment and plan: --Metastatic lesions lungs/liver; s/p CT-guided biopsy of the liver and abdominal paracentesis[ 4.5 lt] today Follow-up histopathology biopsy, fluid analysis f/u Oncology upon DC --Elevated CEA 2331.7 s/p colonoscopy:Poor prep, multiple polyps throughout the colon. No obvious cancer, largest polyps were biopsied.f/u GI upon discharge --Ascites: Ultrasound guided abdominal paracentesis, negative for SBP,neg for neoplasia,s/p paracentesis again today --Bacteremia ;blood cultures positive for coag negative staph and diphtheroids ID evaluated, contamination, sepsis ruled out -- Severe malnutrition: Present on admission nutrition supplements,supportive care --History of depression; denies suicidal thoughts or ideation Antidepression medications, --Hyponatremia;secondary to SIADH, Mild improvement nephrology following --DVT prophylaxis; SCDs -- Full CODE STATUS Monitor closely and adjust management as needed Plan of care reviewed with the patient and his nurse Disposition; Possible discharge home tomorrow if stable Follow-up with PMD/GI/oncology/nephrology History Interval history: Patient seen and examined, medical records reviewed Underwent paracentesis and removal of 4.5 L of peritoneal fluid, sent for polly sis Patient also had CT-guided biopsy of liver lesion Tolerated the procedure well however patient complains of some dizziness Generalized weakness Denies chest pain or shortness of breath Vital signs reviewed, stable Hospitalist Physical - Constitutional Vitals: Temp Pulse Resp BP Pulse Ox 97.9 F 80 18 96/68 93 03/03/19 02:22 03/03/19 02:22 03/03/19 02:22 03/03/19 07:26 03/03/19 02:22 General appearance: Present: no acute distress, cachectic, disheveled - EENT Eyes: Present: PERRL, EOM intact - Neck Neck: Present: supple, normal ROM - Respiratory Respiratory effort: normal Respiratory: bilateral: diminished, negative: rales, rhonchi, wheezing - Cardiovascular Rhythm: regular Heart Sounds: Present: S1 & S2 - Extremities Extremities: no ischemia, No edema - Abdominal General gastrointestinal: soft, non-tender, distended, normal bowel sounds - Integumentary Integumentary: Present: clear, warm - Psychiatric Psychiatric: appropriate mood/affect, cooperative - Neurologic Neurologic: moves all extremities Results - Labs CBC & Chem 7: 03/03/19 04:08 03/03/19 04:08 Labs: Laboratory Last Values WBC 10.4 K/mm3 (4.5-11.0) 03/03/19 04:08 RBC 3.02 M/mm3 (3.65-5.03) L 03/03/19 04:08 Hgb 10.9 gm/dl (11.8-15.2) L 03/03/19 04:08 Hct 31.4 % (35.5-45.6) L 03/03/19 04:08 MCV 104 fl (84-94) H 03/03/19 04:08 MCH 36 pg (28-32) H 03/03/19 04:08 MCHC 35 % (32-34) H 03/03/19 04:08 RDW 15.7 % (13.2-15.2) H 03/03/19 04:08 Plt Count 175 K/mm3 (140-440) 03/03/19 04:08 Lymph % (Auto) 7.3 % (13.4-35.0) L 03/03/19 04:08 Saline % (Auto) 8.6 % (0.0-7.3) H 03/03/19 04:08 Eos % (Auto) 1.2 % (0.0-4.3) 03/03/19 04:08 Baso % (Auto) 0.8 % (0.0-1.8) 03/03/19 04:08 Lymph # 0.8 K/mm3 (1.2-5.4) L 03/03/19 04:08 Saline # 0.9 K/mm3 (0.0-0.8) H 03/03/19 04:08 Eos # 0.1 K/mm3 (0.0-0.4) 03/03/19 04:08 Baso # 0.1 K/mm3 (0.0-0.1) 03/03/19 04:08 Seg Neutrophils % 82.1 % (40.0-70.0) H 03/03/19 04:08 Seg Neutrophils # 8.6 K/mm3 (1.8-7.7) H 03/03/19 04:08 PT 14.3 Sec. (12.2-14.9) 02/22/19 10:31 INR 1.14 (0.87-1.13) H 02/22/19 10:31 Sodium 127 mmol/L (137-145) L 03/03/19 04:08 Potassium 3.5 mmol/L (3.6-5.0) L 03/03/19 04:08 Chloride 89.9 mmol/L (98-107) L 03/03/19 04:08 Carbon Dioxide 30 mmol/L (22-30) 03/03/19 04:08 11 mmol/L 03/03/19 04:08 BUN 10 mg/dL (9-20) 03/03/19 04:08 0.5 mg/dL (0.8-1.5) L 03/03/19 04:08 Estimated GFR > 60 ml/min 03/03/19 04:08 20 % 03/03/19 04:08 Glucose 91 mg/dL (75-100) 03/03/19 04:08 POC Glucose 125 (70-105) H 02/18/19 20:42 245 Mosm/kg 02/18/19 13:26 Calcium 7.9 mg/dL (8.4-10.2) L 03/03/19 04:08 3.90 mg/dL (0.1-1.2) H 03/02/19 05:11 2.8 mg/dL (0-0.2) H 03/02/19 05:11 1.1 mg/dL 03/02/19 05:11 AST 55 units/L (5-40) H 03/02/19 05:11 ALT 28 units/L (7-56) 03/02/19 05:11 363 units/L (35-129) H 03/02/19 05:11 5.4 g/dL (6.3-8.2) L 03/02/19 05:11 1.7 g/dL (3.9-5) L 03/02/19 05:11 0.5 % 03/02/19 05:11 31 units/L (13-60) 02/17/19 19:40 Tumor Marker AFP See scanned result 02/22/19 05:27 Carcinoembryonic Ag 2331.7 ng/mL (0.0-2.4) H 02/19/19 05:20 1015 U/mL (<34) H 02/22/19 05:27 Melina (Yellow) 02/17/19 22:00 Clear (Clear) 02/17/19 22:00 6.0 (5.0-7.0) 02/17/19 22:00 Ur Specific [place] 1.012 (1.003-1.030) 02/17/19 22:00 <15 mg/dl mg/dL (Negative) 02/17/19 22:00 Neg mg/dL (Negative) 02/17/19 22:00 Tr mg/dL (Negative) 02/17/19 22:00 Sm (Negative) 02/17/19 22:00 Neg (Negative) 02/17/19 22:00 Sm (Negative) 02/17/19 22:00 Positive (Negative) 02/17/19 22:00 4.0 mg/dL (<2.0) 02/17/19 22:00 Ur Leukocyte Esterase Neg (Negative) 02/17/19 22:00 5.0 /HPF (0.0-6.0) 02/17/19 22:00 9.0 /HPF (0.0-6.0) 02/17/19 22:00 U Epithel Cells (Auto) < 1.0 /HPF (0-13.0) 02/17/19 22:00 Amorphous Crystals Few 02/17/19 22:00 428 Mosm/kg 02/18/19 Unknown 96.0 mg/dL (0.1-20.0) H 02/18/19 Unknown 10 mmol/L 02/18/19 Unknown Fluid Type Ascitic 02/22/19 15:15 Fluid Color Yellow 02/22/19 15:15 Fluid Appearance Clear 02/22/19 15:15 Fluid WBC 24 /mm3 02/22/19 15:15 Fluid RBC 11 /mm3 02/22/19 15:15 Fluid Seg Neutrophils 5.0 % 02/22/19 15:15 Fluid Lymphocytes 84.0 % 02/22/19 15:15 Fluid Reactive Lymphs 0 % 02/22/19 15:15 Fluid Monocytes 10.0 % 02/22/19 15:15 Fluid Eosinophils 1.0 % 02/22/19 15:15 Fluid Basophils 0 % 02/22/19 15:15 Fluid Glucose 83 mg/dL (40-70) H 02/22/19 15:15 Fluid Albumin 0.4 g/dL 02/22/19 15:15 Fluid LDH 27 02/22/19 15:15 Fluid Amylase 12 02/22/19 15:15 Hepatitis A IgM Ab Non-reactive (NonReactive) 03/03/19 04:08 Hep Bs Antigen Non-reactive (Negative) 03/03/19 04:08 Hep B Core IgM Ab Reactive (NonReactive) A 03/03/19 04:08 Reactive (NonReactive) A 03/03/19 04:08 Active Medications - Current Medications Current Medications: Generic Name Dose Route Start Last Admin Trade Name Freq PRN Reason Stop Dose Admin Acetaminophen 650 mg 02/18/19 00:16 03/02/19 20:07 Tylenol PO 650 mg Q4H PRN Administration Pain MILD(1-3)/Fever >100.5/POLANCO Albuterol 2.5 mg 03/01/19 11:00 03/01/19 11:00 Proventil IH 2.5 mg PREOP PRN Administration Wheezing Enoxaparin Sodium 40 mg 02/18/19 10:00 03/02/19 09:28 Lovenox SUB-Q 40 mg QDAY@1000 [place] Administration Furosemide 20 mg 02/22/19 18:00 03/02/19 17:57 Lasix PO 20 mg 0600,1800 [facility] Administration Naphazoline HCl/Pheniramine Maleate 2 drops 02/23/19 23:28 Visine-A OU Q6H PRN Dry Eye(s) Nicotine 21 mg 02/20/19 14:00 03/02/19 09:28 Habitrol TD Not Given QDAY [facility] Ondansetron HCl 4 mg 02/18/19 00:16 02/28/19 20:32 Zofran IV 4 mg Q8H PRN Administration Nausea And Vomiting Sodium Chloride 10 ml 02/18/19 10:00 03/02/19 21:07 Sodium Chloride Flush Syringe 10 Ml IV 10 ml BID [place] Administration Sodium Chloride 10 ml 02/18/19 00:16 02/21/19 07:56 Sodium Chloride Flush Syringe 10 Ml IV 10 ml PRN PRN Administration LINE FLUSH Zolpidem Tartrate 5 mg 02/25/19 12:56 03/02/19 21:06 Ambien PO 5 mg QHS PRN Administration Sleep Nutrition/Malnutrition Assess - Dietary Evaluation Nutrition/Malnutrition Findings: Nutrition Notes Start: 02/18/19 15:10 Freq: Status: Active Protocol: Document 03/01/19 14:13 RM (Rec: 03/01/19 14:21 RM [id number]) Nutrition Notes Initial or Follow up Reassessment Other Pertinent Diagnosis Sacral PU, Depression, SIRS, metastatic colon CA, Ascites Current Diet Cardiac w/chopped Labs/Tests Reviewed Pertinent Medications Lasix Height 5 ft 7 in Weight 65.7 kg [place] Body Weight (kg) 67.27 BMI 22.6 Subjective/Other Information NPO in place earlier today for possible colonoscopy. Cardiac w/chopped diet ordered later toda. Pt not in room at time of visit. Recorded PO intake 72% X 3 days.Tech and nurse unsure whether pt has been drinking Ensure Enlive. Percent of energy/protein needs met: 91%/97% Burn Absent Trauma Absent #1 Nutrition Diagnosis Malnutrition Diagnosis Progress(for reassessment Continues documentation) Is patient on ventilator? No Is Patient Ambulatory and/or Out of Bed No REE-([facility]-confined to bed) 5142.108 Calculation Used for Recommendations [facility] Additional Notes Protein Needs: 74-93g (1.2-1. 5g/kg) Fluid Needs: 1.5 L Nutrition Intervention Change Diet Order: Continue curreent Add Supplement/Snack (indicate name/kcal Resume Ensure Enlive Chocolate /protein ) 1 daily Provides kCal: 350 Provides Protein (gm) 20 Goal #1 Continue to meet at least 75% of calorie and protein needs via PO and ONS intakes Anticipated Discharge Needs: Cardiac diet Follow-Up By: 03/03/19 Additional Comments Follow forPO and ONS intakes
[2019-03-03] MEDS ORDERED: SUBLIMAZE IV NR (08:33)
[2019-03-03] MEDS ORDERED: VERSED IV NR (08:33)
[2019-03-03] MEDS ORDERED: SUBLIMAZE ONE (08:50)
[2019-03-03] MEDS ORDERED: VERSED IV ONE (08:50)
[2019-03-03] MEDS: LOVENOX SUB-Q SCH (09:02)
[2019-03-03] MEDS: LASIX PO SCH ×2 (09:02→17:15)
[2019-03-03] MEDS: HABITROL TD SCH (09:02)
[2019-03-03] MEDS: SODIUM CHLORIDE FLUSH SYRINGE 10 ML IV SCH ×2 (09:03→21:42)
[2019-03-03] MEDS ORDERED: GELFOAM 12 X 7 TP ONE (09:49)
--- NOTE | 2019-03-03 10:31 | Gastroenterology Progress Note ---
<SAQIB MAHAJAN - Last Filed: 03/03/19 10:27> Assessment and Plan 1. Metastatic neoplasm - unclear primary but possibly colon given history without follow-up/surveillance since diagnosis ~20 years ago. -CEA 2300, CA 19-9 also elevated 1000s -AFP pending -s/p paracentesis- path neg for neoplasia -s/p colonoscopy yesterday that showed: 1. Multiple polyps throughout the colon. Largest polyps were biopsied as above. Not removed due to poor prep and risks of complications 2. No obvious large mass was seen to suggest primary colon cancer although views were limited due to prep. -bx result negative for malignancy -no plan to repeat colonoscopy at this time unless recommended by oncology -patient pending a repeat paracentesis with possible liver bx today by IR -further management per oncology 2. Jaundice/elevated liver enzymes 3. Cirrhosis - ? from past alcohol abuse +/- cholestasis from suspected metastatic neoplasm -continue diuretics -low sodium diet -hepatitis C antibody and hep B core IgM Ab positive (LFTs not indicative of acute infection, false positive?)- will order further serologies such as HCV RNA/genotype and HBV DNA/Be antigen/antibody -hepatic panel and INR in am 4. Hyponatremia - improving Possible liver lesion biopsy and abdominal paracentesis tomorrow Subjective Date of service: 03/03/19 Principal diagnosis: high tumor markers - liver lesions Interval history: No acute distress. Objective - Constitutional Vitals: Temp Pulse Resp BP Pulse Ox 97.9 F 81 17 97/62 96 03/03/19 02:22 03/03/19 10:25 03/03/19 10:25 03/03/19 10:25 03/03/19 10:25 General appearance: no acute distress - Respiratory Respiratory effort: normal - Cardiovascular Rhythm: regular - Gastrointestinal General gastrointestinal: Present: soft, non-tender, non-distended, normal bowel sounds - Labs CBC & Chem 7: 03/03/19 04:08 03/03/19 04:08 Labs: Laboratory Results - last 24 hr 02/22/19 03/03/19 03/03/19 05:27 04:08 04:08 WBC RBC Hgb Hct MCV MCH MCHC RDW Plt Count Lymph % (Auto) [place] % (Auto) Eos % (Auto) Baso % (Auto) Lymph # [place] # Eos # Baso # Seg Neutrophils % Seg Neutrophils # Sodium 127 L Potassium 3.5 L Chloride 89.9 L Carbon Dioxide 30 Anion Gap 11 BUN 10 Creatinine 0.5 L Estimated GFR > 60 BUN/Creatinine Ratio 20 Glucose 91 Calcium 7.9 L Tumor Marker AFP See scanned result Hepatitis A IgM Ab Non-reactive Hep Bs Antigen Non-reactive Hep B Core IgM Ab Reactive A Hepatitis C Antibody Reactive A 03/03/19 04:08 WBC 10.4 RBC 3.02 L Hgb 10.9 L Hct 31.4 L MCV 104 H MCH 36 H MCHC 35 H RDW 15.7 H Plt Count 175 Lymph % (Auto) 7.3 L [place] % (Auto) 8.6 H Eos % (Auto) 1.2 Baso % (Auto) 0.8 Lymph # 0.8 L [place] # 0.9 H Eos # 0.1 Baso # 0.1 Seg Neutrophils % 82.1 H Seg Neutrophils # 8.6 H Sodium Potassium Chloride Carbon Dioxide Anion Gap BUN Creatinine Estimated GFR BUN/Creatinine Ratio Glucose Calcium Tumor Marker AFP Hepatitis A IgM Ab Hep Bs Antigen Hep B Core IgM Ab Hepatitis C Antibody <KEVIN BOWEN - Last Filed: 03/03/19 12:09> Assessment and Plan Patient seen and examined; agree with note above. paracentesis and liver biopsy planned for today. will f/u results. check further hep b/c serologies Objective - Constitutional Vitals: Temp Pulse Resp BP Pulse Ox 97.9 F 81 17 97/62 96 03/03/19 02:22 03/03/19 10:25 03/03/19 10:25 03/03/19 10:25 03/03/19 10:25 - Labs CBC & Chem 7: 03/03/19 04:08 03/03/19 04:08 Labs: Laboratory Results - last 24 hr 02/22/19 03/03/19 03/03/19 05:27 04:08 04:08 WBC RBC Hgb Hct MCV MCH MCHC RDW Plt Count Lymph % (Auto) [place] % (Auto) Eos % (Auto) Baso % (Auto) Lymph # [place] # Eos # Baso # Seg Neutrophils % Seg Neutrophils # Sodium 127 L Potassium 3.5 L Chloride 89.9 L Carbon Dioxide 30 Anion Gap 11 BUN 10 Creatinine 0.5 L Estimated GFR > 60 BUN/Creatinine Ratio 20 Glucose 91 Calcium 7.9 L Tumor Marker AFP See scanned result Hepatitis A IgM Ab Non-reactive Hep Bs Antigen Non-reactive Hep B Core IgM Ab Reactive A Hepatitis C Antibody Reactive A 03/03/19 04:08 WBC 10.4 RBC 3.02 L Hgb 10.9 L Hct 31.4 L MCV 104 H MCH 36 H MCHC 35 H RDW 15.7 H Plt Count 175 Lymph % (Auto) 7.3 L [place] % (Auto) 8.6 H Eos % (Auto) 1.2 Baso % (Auto) 0.8 Lymph # 0.8 L [place] # 0.9 H Eos # 0.1 Baso # 0.1 Seg Neutrophils % 82.1 H Seg Neutrophils # 8.6 H Sodium Potassium Chloride Carbon Dioxide Anion Gap BUN Creatinine Estimated GFR BUN/Creatinine Ratio Glucose Calcium Tumor Marker AFP Hepatitis A IgM Ab Hep Bs Antigen Hep B Core IgM Ab Hepatitis C Antibody
--- NOTE | 2019-03-03 11:50 | Cat Scan Report ---
Exam: CT-guided paracentesis, CT-guided liver biopsy Clinical indication: Patient with a distant history of colon cancer. Now presenting with diffuse hepatic metastatic disease and pulmonary nodules. Date: 03/03/2019 Procedure: Following an explanation of the risks, benefits and alternatives; written informed consent was obtained. The patient was brought to the CT suite and placed in supine position on the examination table. Initial sieve maker images of the abdomen were performed which demonstrated a moderate amount of ascites. Given the planned biopsy on the right, an appropriate access site was chosen for paracentesis on the left. The patient's left lower quadrant was prepped and draped in the usual sterile fashion. 1% lidocaine was used for anesthesia. Using intermittent CT guidance, an 8 [place] pigtail catheter was advanced into the ascitic fluid using the Seldinger technique. The catheter was deployed off the trocar into the ascitic fluid. There is prompt return of clear yellow ascitic fluid. The catheter was placed to intermittent wall suction and a total of 4.5 L of clear yellow ascitic fluid was aspirated. The catheter was then securely fastened to the skin surface and capped. The patient was then placed in prone position. Human Resource Manager images of the patient's back and flank were obtained. Following the induction of sedation, a 10 cm 16-gauge trocar needle was advanced from posterior lateral approach and directed through the right lobe of liver anteriorly. The needle was placed to just proximal to several areas of hypoattenuation on prior contrasted scan. The trocar was removed and 2 core biopsies obtained. Pathology was in attendance and the samples were determined to be adequate for pathologic analysis. The needle was withdrawn and Gelfoam injected liberally throughout the track. Post biopsy imaging demonstrated no pneumothorax or perihepatic fluid suggestive of bleeding. The needle was removed entirely and hemostasis achieved on the skin surface using manual compression. A sterile dressing was applied. The patient was then returned to supine position and the pigtail catheter removed. Hemostasis was achieved using manual compression. The patient tolerated both procedures well. There were no immediate post procedure complications. Sedation was not utilized for the paracentesis, conscious sedation was utilized for the CT-guided liver biopsy under the guidance of radiologic nursing. Continuous cardiopulmonary monitoring was utilized throughout the entire procedure. Impression: 1) CT-guided paracentesis with 4.5 L of clear yellow ascitic fluid aspirated. 2) CT-guided liver biopsy with 2 core samples obtained. Samples were determined to be adequate for pathologic analysis.
--- NOTE | 2019-03-03 12:27 | Progress Note ---
Assessment and Plan Hyponatremia, suspect SIADH due to active malignancy with mets to the lungs and liver - Sodium level today is 127, stable - On Lasix 20 mg po BID - KCL 10 meq po x 1 today - Fluid restriction of 1 liter per day - Strict I&O monitoring - Serial sodium levels every 4 hours Metastatic Colon Cancer, liver, and lungs: - As per Oncology - IR on board, s/p liver biopsy Leukocytosis: SIRS: - ID signed off Depression: - As per Primary Subjective Date of service: 03/03/19 Principal diagnosis: high tumor markers - liver lesion Interval history: Patient seen lying in bed. Was sleeping but easily aroused. No family at bedside. Objective - Vital Signs Vital signs: Vital Signs - 12hr 03/03/19 03/03/19 03/03/19 02:22 07:26 09:09 Temperature 97.9 F Pulse Rate 80 Pulse Rate [ 80 Intra-Procedure ] Pulse Rate [ Post-Procedure] Respiratory 18 Rate Respiratory 18 Rate [Intra- Procedure] Respiratory Rate [Post- Procedure] Blood Pressure 107/68 96/68 Blood Pressure 95/70 [Intra- Procedure] Blood Pressure [Post-Procedure ] O2 Sat by Pulse 93 Oximetry O2 Sat by Pulse 98 Oximetry [ Intra-Procedure ] O2 Sat by Pulse Oximetry [Post -Procedure] 03/03/19 03/03/19 03/03/19 09:22 09:26 09:31 Temperature Pulse Rate Pulse Rate [ 90 88 89 Intra-Procedure ] Pulse Rate [ Post-Procedure] Respiratory Rate Respiratory 19 22 14 Rate [Intra- Procedure] Respiratory Rate [Post- Procedure] Blood Pressure Blood Pressure 106/63 99/67 102/73 [Intra- Procedure] Blood Pressure [Post-Procedure ] O2 Sat by Pulse Oximetry O2 Sat by Pulse 99 98 98 Oximetry [ Intra-Procedure ] O2 Sat by Pulse Oximetry [Post -Procedure] 03/03/19 03/03/19 03/03/19 09:36 09:41 09:46 Temperature Pulse Rate Pulse Rate [ 101 H 84 78 Intra-Procedure ] Pulse Rate [ Post-Procedure] Respiratory Rate Respiratory 15 16 20 Rate [Intra- Procedure] Respiratory Rate [Post- Procedure] Blood Pressure Blood Pressure 102/64 112/64 109/70 [Intra- Procedure] Blood Pressure [Post-Procedure ] O2 Sat by Pulse Oximetry O2 Sat by Pulse 99 98 97 Oximetry [ Intra-Procedure ] O2 Sat by Pulse Oximetry [Post -Procedure] 03/03/19 03/03/19 03/03/19 09:51 09:56 10:01 Temperature Pulse Rate Pulse Rate [ 70 75 77 Intra-Procedure ] Pulse Rate [ Post-Procedure] Respiratory Rate Respiratory 16 16 16 Rate [Intra- Procedure] Respiratory Rate [Post- Procedure] Blood Pressure Blood Pressure 107/67 107/59 92/62 [Intra- Procedure] Blood Pressure [Post-Procedure ] O2 Sat by Pulse Oximetry O2 Sat by Pulse 97 97 97 Oximetry [ Intra-Procedure ] O2 Sat by Pulse Oximetry [Post -Procedure] 03/03/19 03/03/19 03/03/19 10:06 10:11 10:16 Temperature Pulse Rate Pulse Rate [ 75 77 75 Intra-Procedure ] Pulse Rate [ Post-Procedure] Respiratory Rate Respiratory 14 16 16 Rate [Intra- Procedure] Respiratory Rate [Post- Procedure] Blood Pressure Blood Pressure 101/65 95/58 96/60 [Intra- Procedure] Blood Pressure [Post-Procedure ] O2 Sat by Pulse Oximetry O2 Sat by Pulse 96 94 94 Oximetry [ Intra-Procedure ] O2 Sat by Pulse Oximetry [Post -Procedure] 03/03/19 10:25 Temperature Pulse Rate Pulse Rate [ Intra-Procedure ] Pulse Rate [ 81 Post-Procedure] Respiratory Rate Respiratory Rate [Intra- Procedure] Respiratory 17 Rate [Post- Procedure] Blood Pressure Blood Pressure [Intra- Procedure] Blood Pressure 97/62 [Post-Procedure ] O2 Sat by Pulse Oximetry O2 Sat by Pulse Oximetry [ Intra-Procedure ] O2 Sat by Pulse 96 Oximetry [Post -Procedure] - General Appearance General appearance: well-developed, appears stated age, fatigue EENT: ATNC, PERRL, hearing intact, vision intact Neck: no JVD, supple Respiratory: Present: Decreased Breath Sounds Cardiology: regular, S1S2 Gastrointestinal: normoactive bowel sounds Integumentary: warm and dry Neurologic: alert and oriented x3 Musculoskeletal: deferred, other (No edema) Psychiatric: mood/affect appropriate - Lab 03/03/19 04:08 03/03/19 04:08 Most recent lab results Calcium 7.9 mg/dL (8.4-10.2) L 03/03/19 04:08 96.0 mg/dL (0.1-20.0) H 02/18/19 Unknown 10 mmol/L 02/18/19 Unknown Medications & Allergies - Medications Allergies/Adverse Reactions: Allergies Sulfa (Sulfonamide Antibiotics) Allergy (Verified 06/07/18 19:07) Unknown Home Medications: Home Medications Medication Instructions Recorded Confirmed Last Taken Type Ketorolac [Toradol] 10 mg PO Q6H PRN #10 tablet 06/07/18 02/18/19 Unknown Rx Active Medications: Generic Name Dose Route Start Last Admin Trade Name Freq PRN Reason Stop Dose Admin Acetaminophen 650 mg 02/18/19 00:16 03/02/19 20:07 Tylenol PO 650 mg Q4H PRN Administration Pain MILD(1-3)/Fever >100.5/[place]AN[place] Albuterol 2.5 mg 03/01/19 11:00 03/01/19 11:00 Proventil IH 2.5 mg PREOP PRN Administration Wheezing Enoxaparin Sodium 40 mg 02/18/19 10:00 03/03/19 09:02 Lovenox SUB-Q Not Given QDAY@1000 [facility] Fentanyl 100 mcg 03/03/19 08:33 03/03/19 09:30 Sublimaze IV 03/03/19 16:00 50 mcg ONCE NR Administration Furosemide 20 mg 02/22/19 18:00 03/03/19 09:02 Lasix PO Not Given 0600,1800 [facility] Midazolam HCl 5 mg 03/03/19 08:33 03/03/19 09:30 Versed IV 03/03/19 13:00 2 mg ONCE NR Administration Naphazoline HCl/Pheniramine Maleate 2 drops 02/23/19 23:28 Visine-A OU Q6H PRN Dry Eye(s) Nicotine 21 mg 02/20/19 14:00 03/03/19 09:02 Habitrol TD Not Given QDAY [facility] Ondansetron HCl 4 mg 02/18/19 00:16 02/28/19 20:32 Zofran IV 4 mg Q8H PRN Administration Nausea And Vomiting Sodium Chloride 10 ml 02/18/19 10:00 03/03/19 09:03 Sodium Chloride Flush Syringe 10 Ml IV Not Given BID [place] Sodium Chloride 10 ml 02/18/19 00:16 02/21/19 07:56 Sodium Chloride Flush Syringe 10 Ml IV 10 ml PRN PRN Administration LINE FLUSH Zolpidem Tartrate 5 mg 02/25/19 12:56 03/02/19 21:06 Ambien PO 5 mg QHS PRN Administration Sleep
[2019-03-03] MEDS: TYLENOL PO PRN (15:27)
[2019-03-03] MEDS ORDERED: K-DUR PO ONE (17:18)
[2019-03-03] MEDS: AMBIEN PO PRN (21:41)
[2019-03-04 04:51] LABS: Basophils # (Auto) 0.1 K/mm3 (0.0-0.1); Basophils % (Auto) 0.9 % (0.0-1.8); Eosinophils # (Auto) 0.1 K/mm3 (0.0-0.4); Eosinophils % (Auto) 0.9 % (0.0-4.3); Hematocrit 30.8 % (35.5-45.6); Hemoglobin 10.7 gm/dl (11.8-15.2); Lymphocytes # (Auto) 0.7 K/mm3 (1.2-5.4); Lymphocytes % (Auto) 5.8 % (13.4-35.0); Mean Corpuscular HGB Conc 35 % (32-34); Mean Corpuscular Volume 103 fl (84-94); Monocytes # (Auto) 1.1 K/mm3 (0.0-0.8); Monocytes % (Auto) 9.2 % (0.0-7.3); Platelet Count 185 K/mm3 (140-440); Red Blood Count 2.99 M/mm3 (3.65-5.03)
[2019-03-04 04:56] LABS: INR 1.09 (0.87-1.13)
[2019-03-04 05:16] LABS: BUN/Creatinine Ratio 22; Blood Urea Nitrogen 11 mg/dL (9-20); Calcium 7.8 mg/dL (8.4-10.2); Hemolysis Index 0
[2019-03-04 05:19] LABS: Albumin 1.9 g/dL (3.9-5); Bilirubin,Direct 2.4 mg/dL (0-0.2)
[2019-03-04] MEDS: LASIX PO SCH ×2 (06:08→17:20)
[2019-03-04] MEDS: LOVENOX SUB-Q SCH (09:17)
[2019-03-04] MEDS: HABITROL TD SCH (09:17)
[2019-03-04] MEDS: SODIUM CHLORIDE FLUSH SYRINGE 10 ML IV SCH ×2 (09:18→21:11)
--- NOTE | 2019-03-04 10:34 | Gastroenterology Progress Note ---
<SAQIB MAHAJAN - Last Filed: 03/04/19 10:34> Assessment and Plan 1. Metastatic neoplasm - unclear primary but possibly colon given history without follow-up/surveillance since diagnosis ~20 years ago. -CEA 2300, CA 19-9 also elevated 1000s -AFP pending -s/p paracentesis- path neg for neoplasia -s/p colonoscopy that showed: 1. Multiple polyps throughout the colon. Largest polyps were biopsied as above. Not removed due to poor prep and risks of complications 2. No obvious large mass was seen to suggest primary colon cancer although views were limited due to prep. -bx result negative for malignancy -no plan to repeat colonoscopy at this time unless recommended by oncology -s/p paracentesis with liver bx yesterday by IR- path pending -further management per oncology 2. Jaundice/elevated liver enzymes 3. Cirrhosis - ? from past alcohol abuse +/- cholestasis from suspected metastatic neoplasm -LFTs-T.gabino 3.30, AST 109, ALT 40, Alk phos 429 -plt and INR WNL -continue diuretics -low sodium diet -hepatitis C antibody and hep B core IgM Ab positive (LFTs not indicative of acute infection, false positive?)- further hep B/C serologies pending- f/u results in clinic -continue supportive care -patient will need to f/u in clinic upon discharge for further management -will sign off, please call if needed 4. Hyponatremia - improving Subjective Date of service: 03/04/19 Principal diagnosis: colon ca? Interval history: No acute distress. Objective - Constitutional Vitals: Temp Pulse Resp BP Pulse Ox 98.2 F 91 H 20 97/60 94 03/04/19 07:42 03/04/19 07:42 03/04/19 07:42 03/04/19 07:42 03/04/19 07:42 General appearance: no acute distress - Respiratory Respiratory effort: normal - Cardiovascular Rhythm: regular - Gastrointestinal General gastrointestinal: Present: soft, non-tender, distended (ascites), normal bowel sounds - Neurologic Neurological: alert and oriented x3 - Labs CBC & Chem 7: 03/04/19 04:11 03/04/19 04:11 Labs: Laboratory Results - last 24 hr 03/04/19 03/04/19 03/04/19 04:11 04:11 04:11 WBC RBC Hgb Hct MCV MCH MCHC RDW Plt Count Lymph % (Auto) Crisp % (Auto) Eos % (Auto) Baso % (Auto) Lymph # Crisp # Eos # Baso # Seg Neutrophils % Seg Neutrophils # PT 13.8 INR 1.09 Sodium 128 L Potassium 4.2 Chloride 90.6 L Carbon Dioxide 28 Anion Gap 14 BUN 11 Creatinine 0.5 L Estimated GFR > 60 BUN/Creatinine Ratio 22 Glucose 122 H Calcium 7.8 L Total Bilirubin 3.30 H Direct Bilirubin 2.4 H Indirect Bilirubin 0.9 AST 109 H ALT 40 Alkaline Phosphatase 429 H Total Protein 5.5 L Albumin 1.9 L Albumin/Globulin Ratio 0.5 03/04/19 04:11 WBC 12.4 H RBC 2.99 L Hgb 10.7 L Hct 30.8 L MCV 103 H MCH 36 H MCHC 35 H RDW 16.0 H Plt Count 185 Lymph % (Auto) 5.8 L Crisp % (Auto) 9.2 H Eos % (Auto) 0.9 Baso % (Auto) 0.9 Lymph # 0.7 L Crisp # 1.1 H Eos # 0.1 Baso # 0.1 Seg Neutrophils % 83.2 H Seg Neutrophils # 10.4 H PT INR Sodium Potassium Chloride Carbon Dioxide Anion Gap BUN Creatinine Estimated GFR BUN/Creatinine Ratio Glucose Calcium Total Bilirubin Direct Bilirubin Indirect Bilirubin AST ALT Alkaline Phosphatase Total Protein Albumin Albumin/Globulin Ratio <KEVIN BOWEN - Last Filed: 03/04/19 19:12> Assessment and Plan Pt seen and examined. Agree with note above. Further management of metastatic neoplasm per oncology. F/u in GI clinic for hep b/c cirrhosis (depending on diagnosis and treatment options for malignancy). No further inpt gi recommendations at this time; will s/o, please call as needed. Objective - Constitutional Vitals: Temp Pulse Resp BP Pulse Ox 98.4 F 106 H 20 104/63 95 03/04/19 13:11 03/04/19 13:11 03/04/19 13:11 03/04/19 13:11 03/04/19 13:11 - Labs CBC & Chem 7: 03/04/19 04:11 03/04/19 04:11 Labs: Laboratory Results - last 24 hr 03/04/19 03/04/19 03/04/19 04:11 04:11 04:11 WBC RBC Hgb Hct MCV MCH MCHC RDW Plt Count Lymph % (Auto) Crisp % (Auto) Eos % (Auto) Baso % (Auto) Lymph # Crisp # Eos # Baso # Seg Neutrophils % Seg Neutrophils # PT 13.8 INR 1.09 Sodium 128 L Potassium 4.2 Chloride 90.6 L Carbon Dioxide 28 Anion Gap 14 BUN 11 Creatinine 0.5 L Estimated GFR > 60 BUN/Creatinine Ratio 22 Glucose 122 H Calcium 7.8 L Total Bilirubin 3.30 H Direct Bilirubin 2.4 H Indirect Bilirubin 0.9 AST 109 H ALT 40 Alkaline Phosphatase 429 H Ammonia Total Protein 5.5 L Albumin 1.9 L Albumin/Globulin Ratio 0.5 03/04/19 03/04/19 04:11 14:37 WBC 12.4 H RBC 2.99 L Hgb 10.7 L Hct 30.8 L MCV 103 H MCH 36 H MCHC 35 H RDW 16.0 H Plt Count 185 Lymph % (Auto) 5.8 L Crisp % (Auto) 9.2 H Eos % (Auto) 0.9 Baso % (Auto) 0.9 Lymph # 0.7 L Crisp # 1.1 H Eos # 0.1 Baso # 0.1 Seg Neutrophils % 83.2 H Seg Neutrophils # 10.4 H PT INR Sodium Potassium Chloride Carbon Dioxide Anion Gap BUN Creatinine Estimated GFR BUN/Creatinine Ratio Glucose Calcium Total Bilirubin Direct Bilirubin Indirect Bilirubin AST ALT Alkaline Phosphatase Ammonia 82.0 H Total Protein Albumin Albumin/Globulin Ratio
[2019-03-04] MEDS: CEPHULAC PO PRN (11:45)
--- NOTE | 2019-03-04 12:03 | Progress Note ---
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 Interval history: feels tired, requesting to go home Objective - Vital Signs Vital signs: Vital Signs - 12hr 03/04/19 03/04/19 03/04/19 02:23 02:26 07:36 Temperature 98.3 F Pulse Rate 90 Respiratory 20 Rate Blood Pressure Blood Pressure 90/60 [Right] O2 Sat by Pulse 92 94 Oximetry 03/04/19 07:42 Temperature 98.2 F Pulse Rate 91 H Respiratory 20 Rate Blood Pressure 97/60 Blood Pressure [Right] O2 Sat by Pulse 94 Oximetry - General Appearance General appearance: well-developed, cachectic EENT: ATNC, PERRL, mucous membranes dry Neck: no JVD, no carotid bruit Respiratory: Present: Clear to Ascultation. Absent: Rales, Ronchi Cardiology: regular, S1S2 Gastrointestinal: normoactive bowel sounds Integumentary: no rash, warm and dry Neurologic: no focal deficit, no asterixis, alert and oriented x3 Musculoskeletal: other (1-2 + pitting edema in BLE) Psychiatric: mood/affect appropriate, cooperative - Lab 03/04/19 04:11 03/04/19 04:11 Most recent lab results Calcium 7.8 mg/dL (8.4-10.2) L 03/04/19 04:11 96.0 mg/dL (0.1-20.0) H 02/18/19 Unknown 10 mmol/L 02/18/19 Unknown Medications & Allergies - Medications Allergies/Adverse Reactions: Allergies Sulfa (Sulfonamide Antibiotics) Allergy (Verified 06/07/18 19:07) Unknown Home Medications: Home Medications Medication Instructions Recorded Confirmed Last Taken Type Ketorolac [Toradol] 10 mg PO Q6H PRN #10 tablet 06/07/18 02/18/19 Unknown Rx Active Medications: Generic Name Dose Route Start Last Admin Trade Name Freq PRN Reason Stop Dose Admin Acetaminophen 650 mg 02/18/19 00:16 03/03/19 15:27 Tylenol PO 650 mg Q4H PRN Administration Pain MILD(1-3)/Fever >100.5/POLANCO Enoxaparin Sodium 40 mg 02/18/19 10:00 03/04/19 09:17 Lovenox SUB-Q 40 mg QDAY@1000 [place] Administration Furosemide 20 mg 02/22/19 18:00 03/04/19 06:08 Lasix PO 20 mg 0600,1800 [place] Administration Lactulose 20 gm 03/04/19 10:43 03/04/19 11:45 Cephulac PO 20 gm QDAY PRN Administration Constipation Naphazoline HCl/Pheniramine Maleate 2 drops 02/23/19 23:28 Visine-A OU Q6H PRN Dry Eye(s) Nicotine 21 mg 02/20/19 14:00 03/04/19 09:17 Habitrol TD 21 mg QDAY [place] Administration Ondansetron HCl 4 mg 02/18/19 00:16 02/28/19 20:32 Zofran IV 4 mg Q8H PRN Administration Nausea And Vomiting Sodium Chloride 10 ml 02/18/19 10:00 03/04/19 09:18 Sodium Chloride Flush Syringe 10 Ml IV 10 ml BID COLUMBA Administration Sodium Chloride 10 ml 02/18/19 00:16 02/21/19 07:56 Sodium Chloride Flush Syringe 10 Ml IV 10 ml PRN PRN Administration LINE FLUSH Zolpidem Tartrate 5 mg 02/25/19 12:56 03/03/19 21:41 Ambien PO 5 mg QHS PRN Administration Sleep
--- NOTE | 2019-03-04 14:07 | Progress Note ---
Assessment and Plan Assessment and plan: 63-year-old male patient with significant past medical history of colon cancer many years ago was admitted through emergency room with generalized weakness and yellowish discoloration of sclerae, CT abdomen and pelvis, CT chest findings consistent with metastatic lesions in the liver and lung with ascites, Patient underwent abdominal paracentesis, fluid analysis negative for SBP, evaluated by hematology oncology. CT guided biopsy Could not be done due to sorrunding ascitic fluid around the Liver. Evaluated by GI, had colonoscopy s/p ppolyp biopsy Pt also has hyponatremia secondary to SIADH, sod ium level slightly improved, nephrology following. Today patient underwent CT-guided abdominal paracentesis and removal of 4.5 L. Peritoneal fluid sent for analysis, as well as CT-guided needle biopsy Patient tolerated, however complains of generalized weakness and dizziness Vital Signs stable Assessment and plan: --Metastatic lesions lungs/liver; s/p CT-guided biopsy of the liver and , Pathology: Metastatic adenocarcinoma favor colorectal primary abdominal paracentesis[ 4.5 lt] 03/03/19 Follow-up histopathology biopsy, fluid analysis Will discuss with GI about endoscopy to evaluate gastric if any lesion. f/u Oncology upon DC --Elevated CEA 2331.7 s/p colonoscopy:Poor prep, multiple polyps throughout the colon. largest polyps were biopsied.f/u GI upon discharge --Ascites: Ultrasound guided abdominal paracentesis, negative for SBP,neg for neoplasia,s/p paracentesis again today --Bacteremia ;blood cultures positive for coag negative staph and diphtheroids ID evaluated, contamination, sepsis ruled out -- Severe malnutrition: Present on admission nutrition supplements,supportive care --History of depression; denies suicidal thoughts or ideation Antidepression medications, --Hyponatremia;secondary to SIADH, Mild improvement nephrology following --DVT prophylaxis; SCDs -- Full CODE STATUS Monitor closely and adjust management as needed Plan of care reviewed with the patient and his nurse Disposition; Possible discharge home tomorrow if stable CM discussing with [facility] outside machinist helper about follow up of pathology report. Follow-up with PMD/GI/oncology/nephrology History Interval history: Patient seen and examined, very lathergic but reports some improvement. no BM in the past 2-3 days. Hospitalist Physical - Physical exam Narrative exam: General appearance: Present: mild distress, cachectic, disheveled - EENT Eyes: Present: PERRL, EOM intact - Neck Neck: Present: supple, normal ROM - Respiratory Respiratory effort: normal Respiratory: bilateral: diminished, negative: rales, rhonchi, wheezing - Cardiovascular Rhythm: regular Heart Sounds: Present: S1 & S2 - Extremities Extremities: no ischemia, No edema - Abdominal General gastrointestinal: soft, non-tender, distended with positive fluid shift, normal bowel sounds - Integumentary Integumentary: Present: clear, warm - Psychiatric Psychiatric: appropriate mood/affect, cooperative - Neurologic Neurologic: moves all extremities - Constitutional Vitals: Temp Pulse Resp BP Pulse Ox 98.2 F 91 H 20 97/60 94 03/04/19 07:42 03/04/19 07:42 03/04/19 07:42 03/04/19 07:42 03/04/19 07:42 General appearance: Present: no acute distress, cachectic, disheveled Results - Labs CBC & Chem 7: 03/05/19 05:08 03/05/19 05:08 Labs: Laboratory Last Values WBC 12.4 K/mm3 (4.5-11.0) H 03/04/19 04:11 RBC 2.99 M/mm3 (3.65-5.03) L 03/04/19 04:11 Hgb 10.7 gm/dl (11.8-15.2) L 03/04/19 04:11 Hct 30.8 % (35.5-45.6) L 03/04/19 04:11 MCV 103 fl (84-94) H 03/04/19 04:11 MCH 36 pg (28-32) H 03/04/19 04:11 MCHC 35 % (32-34) H 03/04/19 04:11 RDW 16.0 % (13.2-15.2) H 03/04/19 04:11 Plt Count 185 K/mm3 (140-440) 03/04/19 04:11 Lymph % (Auto) 5.8 % (13.4-35.0) L 03/04/19 04:11 Kidder % (Auto) 9.2 % (0.0-7.3) H 03/04/19 04:11 Eos % (Auto) 0.9 % (0.0-4.3) 03/04/19 04:11 Baso % (Auto) 0.9 % (0.0-1.8) 03/04/19 04:11 Lymph # 0.7 K/mm3 (1.2-5.4) L 03/04/19 04:11 Kidder # 1.1 K/mm3 (0.0-0.8) H 03/04/19 04:11 Eos # 0.1 K/mm3 (0.0-0.4) 03/04/19 04:11 Baso # 0.1 K/mm3 (0.0-0.1) 03/04/19 04:11 Seg Neutrophils % 83.2 % (40.0-70.0) H 03/04/19 04:11 Seg Neutrophils # 10.4 K/mm3 (1.8-7.7) H 03/04/19 04:11 PT 13.8 Sec. (12.2-14.9) 03/04/19 04:11 INR 1.09 (0.87-1.13) 03/04/19 04:11 Sodium 128 mmol/L (137-145) L 03/04/19 04:11 Potassium 4.2 mmol/L (3.6-5.0) 03/04/19 04:11 Chloride 90.6 mmol/L (98-107) L 03/04/19 04:11 Carbon Dioxide 28 mmol/L (22-30) 03/04/19 04:11 14 mmol/L 03/04/19 04:11 BUN 11 mg/dL (9-20) 03/04/19 04:11 0.5 mg/dL (0.8-1.5) L 03/04/19 04:11 Estimated GFR > 60 ml/min 03/04/19 04:11 22 % 03/04/19 04:11 Glucose 122 mg/dL (75-100) H 03/04/19 04:11 POC Glucose 125 (70-105) H 02/18/19 20:42 245 Mosm/kg 02/18/19 13:26 Calcium 7.8 mg/dL (8.4-10.2) L 03/04/19 04:11 3.30 mg/dL (0.1-1.2) H 03/04/19 04:11 2.4 mg/dL (0-0.2) H 03/04/19 04:11 0.9 mg/dL 03/04/19 04:11 AST 109 units/L (5-40) H 03/04/19 04:11 ALT 40 units/L (7-56) 03/04/19 04:11 429 units/L (35-129) H 03/04/19 04:11 5.5 g/dL (6.3-8.2) L 03/04/19 04:11 1.9 g/dL (3.9-5) L 03/04/19 04:11 0.5 % 03/04/19 04:11 31 units/L (13-60) 02/17/19 19:40 Tumor Marker AFP See scanned result 02/22/19 05:27 Carcinoembryonic Ag 2331.7 ng/mL (0.0-2.4) H 02/19/19 05:20 1015 U/mL (<34) H 02/22/19 05:27 Melina (Yellow) 02/17/19 22:00 Clear (Clear) 02/17/19 22:00 6.0 (5.0-7.0) 02/17/19 22:00 Ur Specific [place] 1.012 (1.003-1.030) 02/17/19 22:00 <15 mg/dl mg/dL (Negative) 02/17/19 22:00 Neg mg/dL (Negative) 02/17/19 22:00 Tr mg/dL (Negative) 02/17/19 22:00 Sm (Negative) 02/17/19 22:00 Neg (Negative) 02/17/19 22:00 Sm (Negative) 02/17/19 22:00 Positive (Negative) 02/17/19 22:00 4.0 mg/dL (<2.0) 02/17/19 22:00 Ur Leukocyte Esterase Neg (Negative) 02/17/19 22:00 5.0 /HPF (0.0-6.0) 02/17/19 22:00 9.0 /HPF (0.0-6.0) 02/17/19 22:00 U Epithel Cells (Auto) < 1.0 /HPF (0-13.0) 02/17/19 22:00 Amorphous Crystals Few 02/17/19 22:00 428 Mosm/kg 02/18/19 Unknown 96.0 mg/dL (0.1-20.0) H 02/18/19 Unknown 10 mmol/L 02/18/19 Unknown Fluid Type Ascitic 02/22/19 15:15 Fluid Color Yellow 02/22/19 15:15 Fluid Appearance Clear 02/22/19 15:15 Fluid WBC 24 /mm3 02/22/19 15:15 Fluid RBC 11 /mm3 02/22/19 15:15 Fluid Seg Neutrophils 5.0 % 02/22/19 15:15 Fluid Lymphocytes 84.0 % 02/22/19 15:15 Fluid Reactive Lymphs 0 % 02/22/19 15:15 Fluid Monocytes 10.0 % 02/22/19 15:15 Fluid Eosinophils 1.0 % 02/22/19 15:15 Fluid Basophils 0 % 02/22/19 15:15 Fluid Glucose 83 mg/dL (40-70) H 02/22/19 15:15 Fluid Albumin 0.4 g/dL 02/22/19 15:15 Fluid LDH 27 02/22/19 15:15 Fluid Amylase 12 02/22/19 15:15 Hepatitis A IgM Ab Non-reactive (NonReactive) 03/03/19 04:08 Hep Bs Antigen Non-reactive (Negative) 03/03/19 04:08 Hep B Core IgM Ab Reactive (NonReactive) A 03/03/19 04:08 Reactive (NonReactive) A 03/03/19 04:08 Active Medications - Current Medications Current Medications: Generic Name Dose Route Start Last Admin Trade Name Freq PRN Reason Stop Dose Admin Acetaminophen 650 mg 02/18/19 00:16 03/03/19 15:27 Tylenol PO 650 mg Q4H PRN Administration Pain MILD(1-3)/Fever >100.5/POLANCO Enoxaparin Sodium 40 mg 02/18/19 10:00 03/04/19 09:17 Lovenox SUB-Q 40 mg QDAY@1000 [place] Administration Furosemide 20 mg 02/22/19 18:00 03/04/19 06:08 Lasix PO 20 mg 0600,1800 [place] Administration Lactulose 20 gm 03/04/19 10:43 03/04/19 11:45 Cephulac PO 20 gm QDAY PRN Administration Constipation Naphazoline HCl/Pheniramine Maleate 2 drops 02/23/19 23:28 Visine-A OU Q6H PRN Dry Eye(s) Nicotine 21 mg 02/20/19 14:00 03/04/19 09:17 Habitrol TD 21 mg QDAY [place] Administration Ondansetron HCl 4 mg 02/18/19 00:16 02/28/19 20:32 Zofran IV 4 mg Q8H PRN Administration Nausea And Vomiting Sodium Chloride 10 ml 02/18/19 10:00 03/04/19 09:18 Sodium Chloride Flush Syringe 10 Ml IV 10 ml BID [place]UM[place] Administration Sodium Chloride 10 ml 02/18/19 00:16 02/21/19 07:56 Sodium Chloride Flush Syringe 10 Ml IV 10 ml PRN PRN Administration LINE FLUSH Zolpidem Tartrate 5 mg 02/25/19 12:56 03/03/19 21:41 Ambien PO 5 mg QHS PRN Administration Sleep Nutrition/Malnutrition Assess - Dietary Evaluation Nutrition/Malnutrition Findings: Nutrition Notes Start: 02/18/19 15:10 Freq: Status: Active Protocol: Document 03/03/19 14:56 RM (Rec: 03/03/19 15:07 RM [id number]) Nutrition Notes Initial or Follow up Reassessment Other Pertinent Diagnosis Sacral PU, Depression, SIRS, metastatic colon CA, Ascites Current Diet Cardiac w/chopped Labs/Tests Reviewed Pertinent Medications Reviewed Height 5 ft 7 in Weight 69.6 kg Leroy Body Weight (kg) 67.27 BMI 24.0 Weight change and time frame Wt increase noted. Likely d/t ascites. Subjective/Other Information NPO for paracentesis in place earlier today. Cardiac diet ordered later today. Pt stated that prior to NPO he ate 1/3 of his meals and drank the Ensure Enlive. Pt requested to increased Ensure Enlive to TID. Percent of energy/protein needs met: 40%/37% Burn Absent Trauma Absent #1 Nutrition Diagnosis Malnutrition Diagnosis Progress(for reassessment Continues documentation) Is patient on ventilator? No Is Patient Ambulatory and/or Out of Bed No REE-([place]-St. Jeor-confined to bed) 4888.966 Calculation Used for Recommendations [place]-St or Additional Notes Protein Needs: 74-93g (1.2-1. 5g/kg) Fluid Needs: 1.5 L Nutrition Intervention Change Diet Order: Continue curreent Add Supplement/Snack (indicate name/kcal Resume Ensure Enlive Chocolate /protein ) TID Provides kCal: 1,050 Provides Protein (gm) 60 Goal #1 Meet at least 75% of calorie and protein needs via PO and ONS intakes Anticipated Discharge Needs: Cardiac diet Follow-Up By: 03/08/19 Additional Comments Follow for PO and ONS intakes
[2019-03-04] MEDS: TYLENOL PO PRN (19:22)
[2019-03-04] MEDS: AMBIEN PO PRN (21:10)
[2019-03-05] MEDS: LASIX PO SCH ×2 (05:13→18:34)
[2019-03-05] MEDS: CEPHULAC PO PRN (05:13)
[2019-03-05 05:30] LABS: Basophils # (Auto) 0.1 K/mm3 (0.0-0.1); Basophils % (Auto) 1.2 % (0.0-1.8); Eosinophils # (Auto) 0.2 K/mm3 (0.0-0.4); Eosinophils % (Auto) 1.4 % (0.0-4.3); Hematocrit 30.1 % (35.5-45.6); Hemoglobin 10.5 gm/dl (11.8-15.2); Lymphocytes # (Auto) 0.8 K/mm3 (1.2-5.4); Lymphocytes % (Auto) 6.6 % (13.4-35.0); Mean Corpuscular HGB Conc 35 % (32-34); Mean Corpuscular Volume 103 fl (84-94); Monocytes # (Auto) 1.3 K/mm3 (0.0-0.8); Monocytes % (Auto) 10.5 % (0.0-7.3); Platelet Count 149 K/mm3 (140-440); Red Blood Count 2.92 M/mm3 (3.65-5.03)
[2019-03-05 05:53] LABS: BUN/Creatinine Ratio 24; Blood Urea Nitrogen 12 mg/dL (9-20); Calcium 7.9 mg/dL (8.4-10.2); Hemolysis Index 3
[2019-03-05 06:02] LABS: Alanine Aminotransferase 47 units/L (7-56); Albumin 1.6 g/dL (3.9-5); BUN/Creatinine Ratio 24; Blood Urea Nitrogen 12 mg/dL (9-20); Calcium 7.8 mg/dL (8.4-10.2); Hemolysis Index 0
--- NOTE | 2019-03-05 08:11 | Progress Note ---
Assessment and Plan Assessment and plan: 63-year-old male patient with significant past medical history of colon cancer many years ago was admitted through emergency room with generalized weakness and yellowish discoloration of sclerae, CT abdomen and pelvis, CT chest findings consistent with metastatic lesions in the liver and lung with ascites, Patient underwent abdominal paracentesis, fluid analysis negative for SBP, evaluated by hematology oncology. CT guided biopsy Could not be done due to sorrunding ascitic fluid around the Liver. Evaluated by GI, had colonoscopy s/p ppolyp biopsy Pt also has hyponatremia secondary to SIADH, sod ium level slightly improved, nephrology following. Today patient underwent CT-guided abdominal paracentesis and removal of 4.5 L. Peritoneal fluid sent for analysis, as well as CT-guided needle biopsy Patient tolerated, however complains of generalized weakness and dizziness Vital Signs stable Assessment and plan: --Metastatic lesions lungs/liver; s/p CT-guided biopsy of the liver and , Pathology: Metastatic adenocarcinoma favor colorectal primary Discussed with GI. "Pathology from liver biopsy returned adenocarcinoma, favored colorectal primary but gastric on ddx. will plan for EGD today. if Negative, will need repeat colonoscopy (last procedure with poor prep and multiple polyps but would need to be repeated given poor prep and if EGD negative)" abdominal paracentesis[ 4.5 lt] 03/03/19 Follow-up histopathology biopsy, fluid analysis Will discuss with GI about endoscopy to evaluate gastric if any lesion. f/u Oncology upon DC --Elevated CEA 2331.7 s/p colonoscopy:Poor prep, multiple polyps throughout the colon. largest polyps were biopsied.f/u GI upon discharge --Ascites: Ultrasound guided abdominal paracentesis, negative for SBP,neg for neoplasia,s/p paracentesis again today --Bacteremia ;blood cultures positive for coag negative staph and diphtheroids ID evaluated, contamination, sepsis ruled out -- Severe Protein calorie malnutrition: Present on admission nutrition supplements,supportive care --History of depression; denies suicidal thoughts or ideation Antidepression medications, --Hyponatremia;secondary to SIADH, stable Mild improvement nephrology following --DVT prophylaxis; SCDs -- Full CODE STATUS Monitor closely and adjust management as needed Plan of care reviewed with the patient and his nurse Poor prognosis Following discussion with surgery and Hematology, GI will determin if Hospice should be considered, considering patients clinical status. Disposition; Possible discharge home tomorrow if stable CM discussing with [facility] entertainment reporter about follow up of pathology report. Follow-up with PMD/GI/oncology/nephrology History Interval history: Patient seen and examined, remains lathergic but reports some improvement. no BM in the past 2-3 days. Hospitalist Physical - Physical exam Narrative exam: General appearance: Present: mild distress, cachectic, disheveled - EENT Eyes: Present: PERRL, EOM intact - Neck Neck: Present: supple, normal ROM - Respiratory Respiratory effort: normal Respiratory: bilateral: diminished, negative: rales, rhonchi, wheezing - Cardiovascular Rhythm: regular Heart Sounds: Present: S1 & S2 - Extremities Extremities: no ischemia, No edema - Abdominal General gastrointestinal: soft, non-tender, distended with positive fluid shift, normal bowel sounds - Integumentary Integumentary: Present: clear, warm - Psychiatric Psychiatric: appropriate mood/affect, cooperative - Neurologic Neurologic: moves all extremities - Constitutional Vitals: Temp Pulse Resp BP Pulse Ox 98.2 F 92 H 20 88/52 97 03/05/19 07:35 03/05/19 07:35 03/05/19 07:35 03/05/19 07:35 03/05/19 07:35 General appearance: Present: no acute distress, cachectic, disheveled Results - Labs CBC & Chem 7: 03/05/19 05:08 03/05/19 05:08 Labs: Laboratory Last Values WBC 11.9 K/mm3 (4.5-11.0) H 03/05/19 05:08 RBC 2.92 M/mm3 (3.65-5.03) L 03/05/19 05:08 Hgb 10.5 gm/dl (11.8-15.2) L 03/05/19 05:08 Hct 30.1 % (35.5-45.6) L 03/05/19 05:08 MCV 103 fl (84-94) H 03/05/19 05:08 MCH 36 pg (28-32) H 03/05/19 05:08 MCHC 35 % (32-34) H 03/05/19 05:08 RDW 16.0 % (13.2-15.2) H 03/05/19 05:08 Plt Count 149 K/mm3 (140-440) 03/05/19 05:08 Lymph % (Auto) 6.6 % (13.4-35.0) L 03/05/19 05:08 [place] % (Auto) 10.5 % (0.0-7.3) H 03/05/19 05:08 Eos % (Auto) 1.4 % (0.0-4.3) 03/05/19 05:08 Baso % (Auto) 1.2 % (0.0-1.8) 03/05/19 05:08 Lymph # 0.8 K/mm3 (1.2-5.4) L 03/05/19 05:08 [place] # 1.3 K/mm3 (0.0-0.8) H 03/05/19 05:08 Eos # 0.2 K/mm3 (0.0-0.4) 03/05/19 05:08 Baso # 0.1 K/mm3 (0.0-0.1) 03/05/19 05:08 Seg Neutrophils % 80.3 % (40.0-70.0) H 03/05/19 05:08 Seg Neutrophils # 9.6 K/mm3 (1.8-7.7) H 03/05/19 05:08 PT 13.8 Sec. (12.2-14.9) 03/04/19 04:11 INR 1.09 (0.87-1.13) 03/04/19 04:11 Sodium 124 mmol/L (137-145) L 03/05/19 05:08 Sodium 125 mmol/L (137-145) L 03/05/19 05:08 Potassium 4.3 mmol/L (3.6-5.0) 03/05/19 05:08 Potassium 4.3 mmol/L (3.6-5.0) 03/05/19 05:08 Chloride 86.5 mmol/L (98-107) L 03/05/19 05:08 Chloride 87.7 mmol/L (98-107) L 03/05/19 05:08 Carbon Dioxide 29 mmol/L (22-30) 03/05/19 05:08 Carbon Dioxide 30 mmol/L (22-30) 03/05/19 05:08 12 mmol/L 03/05/19 05:08 13 mmol/L 03/05/19 05:08 BUN 12 mg/dL (9-20) 03/05/19 05:08 BUN 12 mg/dL (9-20) 03/05/19 05:08 0.5 mg/dL (0.8-1.5) L 03/05/19 05:08 0.5 mg/dL (0.8-1.5) L 03/05/19 05:08 Estimated GFR > 60 ml/min 03/05/19 05:08 Estimated GFR > 60 ml/min 03/05/19 05:08 24 % 03/05/19 05:08 24 % 03/05/19 05:08 Glucose 111 mg/dL (75-100) H 03/05/19 05:08 Glucose 111 mg/dL (75-100) H 03/05/19 05:08 POC Glucose 125 (70-105) H 02/18/19 20:42 245 Mosm/kg 02/18/19 13:26 Calcium 7.8 mg/dL (8.4-10.2) L 03/05/19 05:08 Calcium 7.9 mg/dL (8.4-10.2) L 03/05/19 05:08 3.20 mg/dL (0.1-1.2) H 03/05/19 05:08 2.4 mg/dL (0-0.2) H 03/04/19 04:11 0.9 mg/dL 03/04/19 04:11 AST 119 units/L (5-40) H 03/05/19 05:08 ALT 47 units/L (7-56) 03/05/19 05:08 424 units/L (35-129) H 03/05/19 05:08 82.0 umol/L (25-60) H 03/04/19 14:37 5.6 g/dL (6.3-8.2) L 03/05/19 05:08 1.6 g/dL (3.9-5) L 03/05/19 05:08 0.4 % 03/05/19 05:08 31 units/L (13-60) 02/17/19 19:40 Tumor Marker AFP See scanned result 02/22/19 05:27 Carcinoembryonic Ag 2331.7 ng/mL (0.0-2.4) H 02/19/19 05:20 1015 U/mL (<34) H 02/22/19 05:27 Melina (Yellow) 02/17/19 22:00 Clear (Clear) 02/17/19 22:00 6.0 (5.0-7.0) 02/17/19 22:00 Ur Specific [place] 1.012 (1.003-1.030) 02/17/19 22:00 <15 mg/dl mg/dL (Negative) 02/17/19 22:00 Neg mg/dL (Negative) 02/17/19 22:00 Tr mg/dL (Negative) 02/17/19 22:00 Sm (Negative) 02/17/19 22:00 Neg (Negative) 02/17/19 22:00 Sm (Negative) 02/17/19 22:00 Positive (Negative) 02/17/19 22:00 4.0 mg/dL (<2.0) 02/17/19 22:00 Ur Leukocyte Esterase Neg (Negative) 02/17/19 22:00 5.0 /HPF (0.0-6.0) 02/17/19 22:00 9.0 /HPF (0.0-6.0) 02/17/19 22:00 U Epithel Cells (Auto) < 1.0 /HPF (0-13.0) 02/17/19 22:00 Amorphous Crystals Few 02/17/19 22:00 428 Mosm/kg 02/18/19 Unknown 96.0 mg/dL (0.1-20.0) H 02/18/19 Unknown 10 mmol/L 02/18/19 Unknown Fluid Type Ascitic 02/22/19 15:15 Fluid Color Yellow 02/22/19 15:15 Fluid Appearance Clear 02/22/19 15:15 Fluid WBC 24 /mm3 02/22/19 15:15 Fluid RBC 11 /mm3 02/22/19 15:15 Fluid Seg Neutrophils 5.0 % 02/22/19 15:15 Fluid Lymphocytes 84.0 % 02/22/19 15:15 Fluid Reactive Lymphs 0 % 02/22/19 15:15 Fluid Monocytes 10.0 % 02/22/19 15:15 Fluid Eosinophils 1.0 % 02/22/19 15:15 Fluid Basophils 0 % 02/22/19 15:15 Fluid Glucose 83 mg/dL (40-70) H 02/22/19 15:15 Fluid Albumin 0.4 g/dL 02/22/19 15:15 Fluid LDH 27 02/22/19 15:15 Fluid Amylase 12 02/22/19 15:15 Hepatitis A IgM Ab Non-reactive (NonReactive) 03/03/19 04:08 Hep Bs Antigen Non-reactive (Negative) 03/03/19 04:08 Hep B Core IgM Ab Reactive (NonReactive) A 03/03/19 04:08 Reactive (NonReactive) A 03/03/19 04:08 Active Medications - Current Medications Current Medications: Generic Name Dose Route Start Last Admin Trade Name Freq PRN Reason Stop Dose Admin Acetaminophen 650 mg 02/18/19 00:16 03/04/19 19:22 Tylenol PO 650 mg Q4H PRN Administration Pain MILD(1-3)/Fever >100.5/POLANCO Enoxaparin Sodium 40 mg 02/18/19 10:00 03/04/19 09:17 Lovenox SUB-Q 40 mg QDAY@1000 [place] Administration Furosemide 20 mg 02/22/19 18:00 03/05/19 05:13 Lasix PO 20 mg 0600,1800 [place] Administration Lactulose 20 gm 03/04/19 10:43 03/05/19 05:13 Cephulac PO 20 gm QDAY PRN Administration Constipation Naphazoline HCl/Pheniramine Maleate 2 drops 02/23/19 23:28 Visine-A OU Q6H PRN Dry Eye(s) Nicotine 21 mg 02/20/19 14:00 03/04/19 09:17 Habitrol TD 21 mg QDAY [place] Administration Ondansetron HCl 4 mg 02/18/19 00:16 02/28/19 20:32 Zofran IV 4 mg Q8H PRN Administration Nausea And Vomiting Sodium Chloride 10 ml 02/18/19 10:00 03/04/19 21:11 Sodium Chloride Flush Syringe 10 Ml IV 10 ml BID [place] Administration Sodium Chloride 10 ml 02/18/19 00:16 02/21/19 07:56 Sodium Chloride Flush Syringe 10 Ml IV 10 ml PRN PRN Administration LINE FLUSH Zolpidem Tartrate 5 mg 02/25/19 12:56 03/04/19 21:10 Ambien PO 5 mg QHS PRN Administration Sleep Nutrition/Malnutrition Assess - Dietary Evaluation Nutrition/Malnutrition Findings: Nutrition Notes Start: 02/18/19 15:10 Freq: Status: Active Protocol: Document 03/03/19 14:56 RM (Rec: 03/03/19 15:07 RM [id number]) Nutrition Notes Initial or Follow up Reassessment Other Pertinent Diagnosis Sacral PU, Depression, SIRS, metastatic colon CA, Ascites Current Diet Cardiac w/chopped Labs/Tests Reviewed Pertinent Medications Reviewed Height 5 ft 7 in Weight 69.6 kg [place] Body Weight (kg) 67.27 BMI 24.0 Weight change and time frame Wt increase noted. Likely d/t ascites. Subjective/Other Information NPO for paracentesis in place earlier today. Cardiac diet ordered later today. Pt stated that prior to NPO he ate 1/3 of his meals and drank the Ensure Enlive. Pt requested to increased Ensure Enlive to TID. Percent of energy/protein needs met: 40%/37% Burn Absent Trauma Absent #1 Nutrition Diagnosis Malnutrition Diagnosis Progress(for reassessment Continues documentation) Is patient on ventilator? No Is Patient Ambulatory and/or Out of Bed No REE-([place] [facility]-confined to bed) 1225.860 Calculation Used for Recommendations [place] Additional Notes Protein Needs: 74-93g (1.2-1. 5g/kg) Fluid Needs: 1.5 L Nutrition Intervention Change Diet Order: Continue curreent Add Supplement/Snack (indicate name/kcal Resume Ensure Enlive Chocolate /protein ) TID Provides kCal: 1,050 Provides Protein (gm) 60 Goal #1 Meet at least 75% of calorie and protein needs via PO and ONS intakes Anticipated Discharge Needs: Cardiac diet Follow-Up By: 03/08/19 Additional Comments Follow for PO and ONS intakes
--- NOTE | 2019-03-05 08:38 | Event Note ---
Date: 03/05/19 Pathology from liver biopsy returned adenocarcinoma, favored colorectal primary but gastric on ddx. will plan for EGD today. if Negative, will need repeat colonoscopy (last procedure with poor prep and multiple polyps but would need to be repeated given poor prep and if EGD negative).
[2019-03-05] MEDS ORDERED: GOLYTELY PO NR (09:20)
[2019-03-05] MEDS ORDERED: DULCOLAX PO NR ×2 (10:30→14:30)
[2019-03-05] MEDS: LOVENOX SUB-Q SCH (10:40)
[2019-03-05] MEDS: SODIUM CHLORIDE FLUSH SYRINGE 10 ML IV SCH ×2 (10:40→23:10)
[2019-03-05] MEDS: HABITROL TD SCH (10:40)
[2019-03-06 05:11] LABS: Basophils # (Auto) 0.1 K/mm3 (0.0-0.1); Basophils % (Auto) 0.8 % (0.0-1.8); Eosinophils # (Auto) 0.1 K/mm3 (0.0-0.4); Eosinophils % (Auto) 0.8 % (0.0-4.3); Hematocrit 28.8 % (35.5-45.6); Hemoglobin 10.2 gm/dl (11.8-15.2); Lymphocytes # (Auto) 0.9 K/mm3 (1.2-5.4); Lymphocytes % (Auto) 7.4 % (13.4-35.0); Mean Corpuscular HGB Conc 35 % (32-34); Mean Corpuscular Volume 103 fl (84-94); Monocytes # (Auto) 1.2 K/mm3 (0.0-0.8); Platelet Count 159 K/mm3 (140-440); Red Cell Distribution Width 16.8 % (13.2-15.2)
[2019-03-06] MEDS: LASIX PO SCH ×2 (06:09→19:18)
--- NOTE | 2019-03-06 09:06 | Progress Note ---
Assessment and Plan Assessment and plan: 63-year-old male patient with significant past medical history of colon cancer many years ago was admitted through emergency room with generalized weakness and yellowish discoloration of sclerae, CT abdomen and pelvis, CT chest findings consistent with metastatic lesions in the liver and lung with ascites, Patient underwent abdominal paracentesis, fluid analysis negative for SBP, evaluated by hematology oncology. CT guided biopsy Could not be done due to sorrunding ascitic fluid around the Liver. Evaluated by GI, had colonoscopy s/p ppolyp biopsy Pt also has hyponatremia secondary to SIADH, sodium level slightly improved, nephrology following. * Patient underwent CT-guided abdominal paracentesis and removal of 4.5 L. Peritoneal fluid sent for analysis, as well as CT-guided needle biopsy Patient tolerated. * Pathology report shows Metastatic Adenocarcinoma with likely Colorectal primary but with gastric on ddx. * CEA ELEVATE * Metastatic lesions lungs/liver; * Ascites * Bacteremia * Severe Protein Calorie malnutrition * Depression * Hyponatremia secondary to SIADH * Hepatic failure * Hypotension * Hepatitis B,C PLAN -Continue supportive care -plan for EGD todAY and possible Colonscopy if EGD is negative considering poor prep and multiple polyps noted -ID evaluated and reports contamination. Sepsis ruled out -blood cultures positive for coag negative staph and diphtheroids -Continue [place] support. Patient with significant weight loss secondary to chronic condition -Continue to monitor sodium -Poor prognosis -Depending on GI findings, will consider surgery vs Hospice. -Oncology input noted. -DVT/GI prophy History Interval history: Patient seen and examined, remains lethargic but reports some improvement. Did not complete Hospitalist Physical - Physical exam Narrative exam: General appearance: Present: mild distress, cachectic, disheveled, Weak APPEARING - EENT Eyes: Present: PERRL, EOM intact - Neck Neck: Present: supple, normal ROM - Respiratory Respiratory effort: normal Respiratory: bilateral: diminished, negative: rales, rhonchi, wheezing - Cardiovascular Rhythm: regular Heart Sounds: Present: S1 & S2 - Extremities Extremities: no ischemia, No edema - Abdominal General gastrointestinal: soft, non-tender, distended with positive fluid shift, normal bowel sounds - Integumentary Integumentary: Present: clear, warm - Psychiatric Psychiatric: appropriate mood/affect, cooperative - Neurologic Neurologic: moves all extremities - Constitutional Vitals: Temp Pulse Resp BP Pulse Ox 98 F 95 H 20 91/59 99 03/06/19 08:00 03/06/19 07:37 03/06/19 03:00 03/06/19 08:00 03/06/19 07:37 General appearance: Present: no acute distress, cachectic, disheveled Results - Labs CBC & Chem 7: 03/07/19 04:43 03/07/19 04:43 Labs: Laboratory Last Values WBC 12.4 K/mm3 (4.5-11.0) H 03/06/19 04:22 RBC 2.80 M/mm3 (3.65-5.03) L 03/06/19 04:22 Hgb 10.2 gm/dl (11.8-15.2) L 03/06/19 04:22 Hct 28.8 % (35.5-45.6) L 03/06/19 04:22 MCV 103 fl (84-94) H 03/06/19 04:22 MCH 36 pg (28-32) H 03/06/19 04:22 MCHC 35 % (32-34) H 03/06/19 04:22 RDW 16.8 % (13.2-15.2) H 03/06/19 04:22 Plt Count 159 K/mm3 (140-440) 03/06/19 04:22 Lymph % (Auto) 7.4 % (13.4-35.0) L 03/06/19 04:22 [place] % (Auto) 10.0 % (0.0-7.3) H 03/06/19 04:22 Eos % (Auto) 0.8 % (0.0-4.3) 03/06/19 04:22 Baso % (Auto) 0.8 % (0.0-1.8) 03/06/19 04:22 Lymph # 0.9 K/mm3 (1.2-5.4) L 03/06/19 04:22 [place] # 1.2 K/mm3 (0.0-0.8) H 03/06/19 04:22 Eos # 0.1 K/mm3 (0.0-0.4) 03/06/19 04:22 Baso # 0.1 K/mm3 (0.0-0.1) 03/06/19 04:22 Seg Neutrophils % 81.0 % (40.0-70.0) H 03/06/19 04:22 Seg Neutrophils # 10.0 K/mm3 (1.8-7.7) H 03/06/19 04:22 PT 13.8 Sec. (12.2-14.9) 03/04/19 04:11 INR 1.09 (0.87-1.13) 03/04/19 04:11 Sodium 124 mmol/L (137-145) L 03/05/19 05:08 Sodium 125 mmol/L (137-145) L 03/05/19 05:08 Potassium 4.3 mmol/L (3.6-5.0) 03/05/19 05:08 Potassium 4.3 mmol/L (3.6-5.0) 03/05/19 05:08 Chloride 86.5 mmol/L (98-107) L 03/05/19 05:08 Chloride 87.7 mmol/L (98-107) L 03/05/19 05:08 Carbon Dioxide 29 mmol/L (22-30) 03/05/19 05:08 Carbon Dioxide 30 mmol/L (22-30) 03/05/19 05:08 12 mmol/L 03/05/19 05:08 13 mmol/L 03/05/19 05:08 BUN 12 mg/dL (9-20) 03/05/19 05:08 BUN 12 mg/dL (9-20) 03/05/19 05:08 0.5 mg/dL (0.8-1.5) L 03/05/19 05:08 0.5 mg/dL (0.8-1.5) L 03/05/19 05:08 Estimated GFR > 60 ml/min 03/05/19 05:08 Estimated GFR > 60 ml/min 03/05/19 05:08 24 % 03/05/19 05:08 24 % 03/05/19 05:08 Glucose 111 mg/dL (75-100) H 03/05/19 05:08 Glucose 111 mg/dL (75-100) H 03/05/19 05:08 POC Glucose 125 (70-105) H 02/18/19 20:42 245 Mosm/kg 02/18/19 13:26 Calcium 7.8 mg/dL (8.4-10.2) L 03/05/19 05:08 Calcium 7.9 mg/dL (8.4-10.2) L 03/05/19 05:08 3.20 mg/dL (0.1-1.2) H 03/05/19 05:08 2.4 mg/dL (0-0.2) H 03/04/19 04:11 0.9 mg/dL 03/04/19 04:11 AST 119 units/L (5-40) H 03/05/19 05:08 ALT 47 units/L (7-56) 03/05/19 05:08 424 units/L (35-129) H 03/05/19 05:08 82.0 umol/L (25-60) H 03/04/19 14:37 5.6 g/dL (6.3-8.2) L 03/05/19 05:08 1.6 g/dL (3.9-5) L 03/05/19 05:08 0.4 % 03/05/19 05:08 31 units/L (13-60) 02/17/19 19:40 Tumor Marker AFP See scanned result 02/22/19 05:27 Carcinoembryonic Ag 2331.7 ng/mL (0.0-2.4) H 02/19/19 05:20 1015 U/mL (<34) H 02/22/19 05:27 Melina (Yellow) 02/17/19 22:00 Clear (Clear) 02/17/19 22:00 6.0 (5.0-7.0) 02/17/19 22:00 Ur Specific [place] 1.012 (1.003-1.030) 02/17/19 22:00 <15 mg/dl mg/dL (Negative) 02/17/19 22:00 Neg mg/dL (Negative) 02/17/19 22:00 Tr mg/dL (Negative) 02/17/19 22:00 Sm (Negative) 02/17/19 22:00 Neg (Negative) 02/17/19 22:00 Sm (Negative) 02/17/19 22:00 Positive (Negative) 02/17/19 22:00 4.0 mg/dL (<2.0) 02/17/19 22:00 Ur Leukocyte Esterase Neg (Negative) 02/17/19 22:00 5.0 /HPF (0.0-6.0) 02/17/19 22:00 9.0 /HPF (0.0-6.0) 02/17/19 22:00 U Epithel Cells (Auto) < 1.0 /HPF (0-13.0) 02/17/19 22:00 Amorphous Crystals Few 02/17/19 22:00 428 Mosm/kg 02/18/19 Unknown 96.0 mg/dL (0.1-20.0) H 02/18/19 Unknown 10 mmol/L 02/18/19 Unknown Fluid Type Ascitic 02/22/19 15:15 Fluid Color Yellow 02/22/19 15:15 Fluid Appearance Clear 02/22/19 15:15 Fluid WBC 24 /mm3 02/22/19 15:15 Fluid RBC 11 /mm3 02/22/19 15:15 Fluid Seg Neutrophils 5.0 % 02/22/19 15:15 Fluid Lymphocytes 84.0 % 02/22/19 15:15 Fluid Reactive Lymphs 0 % 02/22/19 15:15 Fluid Monocytes 10.0 % 02/22/19 15:15 Fluid Eosinophils 1.0 % 02/22/19 15:15 Fluid Basophils 0 % 02/22/19 15:15 Fluid Glucose 83 mg/dL (40-70) H 02/22/19 15:15 Fluid Albumin 0.4 g/dL 02/22/19 15:15 Fluid LDH 27 02/22/19 15:15 Fluid Amylase 12 02/22/19 15:15 Hepatitis A IgM Ab Non-reactive (NonReactive) 03/03/19 04:08 Hep Bs Antigen Non-reactive (Negative) 03/03/19 04:08 Hep B Core IgM Ab Reactive (NonReactive) A 03/03/19 04:08 Reactive (NonReactive) A 03/03/19 04:08 Active Medications - Current Medications Current Medications: Generic Name Dose Route Start Last Admin Trade Name Freq PRN Reason Stop Dose Admin Acetaminophen 650 mg 02/18/19 00:16 03/04/19 19:22 Tylenol PO 650 mg Q4H PRN Administration Pain MILD(1-3)/Fever >100.5/[place] Diphenhydramine HCl 25 mg 03/05/19 21:15 Benadryl PO Q6H PRN Itching Enoxaparin Sodium 40 mg 02/18/19 10:00 03/05/19 10:40 Lovenox SUB-Q 40 mg QDAY@1000 [place] Administration Furosemide 20 mg 02/22/19 18:00 03/06/19 06:09 Lasix PO Not Given 0600,1800 [place] Lactulose 20 gm 03/04/19 10:43 03/05/19 05:13 Cephulac PO 20 gm QDAY PRN Administration Constipation Naphazoline HCl/Pheniramine Maleate 2 drops 02/23/19 23:28 Visine-A OU Q6H PRN Dry Eye(s) Nicotine 21 mg 02/20/19 14:00 03/05/19 10:40 Habitrol TD 21 mg QDAY [place] Administration Ondansetron HCl 4 mg 02/18/19 00:16 02/28/19 20:32 Zofran IV 4 mg Q8H PRN Administration Nausea And Vomiting Sodium Chloride 10 ml 02/18/19 10:00 03/05/19 23:10 Sodium Chloride Flush Syringe 10 Ml IV Not Given BID [place] Sodium Chloride 10 ml 02/18/19 00:16 02/21/19 07:56 Sodium Chloride Flush Syringe 10 Ml IV 10 ml PRN PRN Administration LINE FLUSH Zolpidem Tartrate 5 mg 02/25/19 12:56 03/04/19 21:10 Ambien PO 5 mg QHS PRN Administration Sleep Nutrition/Malnutrition Assess - Dietary Evaluation Nutrition/Malnutrition Findings: Nutrition Notes Start: 02/18/19 15:10 Freq: Status: Active Protocol: Document 03/03/19 14:56 RM (Rec: 03/03/19 15:07 RM [id number]) Nutrition Notes Initial or Follow up Reassessment Other Pertinent Diagnosis Sacral PU, Depression, SIRS, metastatic colon CA, Ascites Current Diet Cardiac w/chopped Labs/Tests Reviewed Pertinent Medications Reviewed Height 5 ft 7 in Weight 69.6 kg [place] Body Weight (kg) 67.27 BMI 24.0 Weight change and time frame Wt increase noted. Likely d/t ascites. Subjective/Other Information NPO for paracentesis in place earlier today. Cardiac diet ordered later today. Pt stated that prior to NPO he ate 1/3 of his meals and drank the Ensure Enlive. Pt requested to increased Ensure Enlive to TID. Percent of energy/protein needs met: 40%/37% Burn Absent Trauma Absent #1 Nutrition Diagnosis Malnutrition Diagnosis Progress(for reassessment Continues documentation) Is patient on ventilator? No Is Patient Ambulatory and/or Out of Bed No REE-([facility]-confined to bed) [phone] Calculation Used for Recommendations [facility] Additional Notes Protein Needs: 74-93g (1.2-1. 5g/kg) Fluid Needs: 1.5 L Nutrition Intervention Change Diet Order: Continue curreent Add Supplement/Snack (indicate name/kcal Resume Ensure Enlive Chocolate /protein ) TID Provides kCal: 1,050 Provides Protein (gm) 60 Goal #1 Meet at least 75% of calorie and protein needs via PO and ONS intakes Anticipated Discharge Needs: Cardiac diet Follow-Up By: 03/08/19 Additional Comments Follow for PO and ONS intakes
[2019-03-06] MEDS ORDERED: DIPRIVAN 10 MG/ML IV ONE ×2 (09:47)
[2019-03-06] MEDS ORDERED: XYLOCAINE 2% INFILTRATI ONE (09:47)
[2019-03-06] MEDS ORDERED: NACL 0.9% 1000 ML 1,000 ML ONE (09:58)
--- NOTE | 2019-03-06 10:11 | Anesthesia Consultation ---
Anesthesia Consult and Med Hx Date of service: 03/06/19 - Airway Anesthetic Teeth Evaluation: Edentulous ROM Head & Neck: Adequate Mental/Hyoid Distance: Adequate Mallampati Class: Class II Intubation Access Assessment: Probably Good - Pulmonary Exam CTA: Yes - Cardiac Exam Cardiac Exam: RRR - Pre-Operative Health Status ASA Pre-Surgery Classification: ASA3, Emergency Proposed Anesthetic Plan: MAC - Pulmonary Hx Smoking: Yes (nicotine patch on L arm; no cigarettes in 6 months per patient ) Hx Asthma: Yes Hx Respiratory Symptoms: No SOB: No COPD: Yes (No home O2) Hx Pneumonia: No Hx Sleep Apnea: No - Cardiovascular System Hx Hypertension: Yes Hx Heart Attack/AMI: No Hx Angina: No Hx Cardia Arrhythmia: No Hx Pacemaker: No Hx Internal Defibrillator: No Hx Valvular Heart Disease: No Hx Heart Murmur: No - Central Nervous System Hx Neuromuscular Disorder: No - Gastrointestinal Hx Ulcer: No Hx Gastroesophageal Reflux Disease: No - Endocrine Hx End Stage Renal Disease: No Hx Liver Disease: Yes Hx Insulin Dependent Diabetes: No Hx Non-Insulin Dependent Diabetes: No Hx Thyroid Disease: No - Hematic Hx Anemia: Yes - Other Systems Hx Alcohol Use: Yes Hx Substance Use: No Hx Cancer: Yes Hx Obesity: No - Additional Comments Anesthesia Medical History Comments: No GAC, No FHAC
--- NOTE | 2019-03-06 10:12 | Anesthesia Day of Surgery ---
Anesthesia Day of Surgery - Day of Surgery Patient Examined: Yes Patient H&P Reviewed: Yes Patient is NPO: Yes Beta Blockers: No Cardiac Clearance: No (n/a) Pulmonary Clearance: No
[2019-03-06] MEDS ORDERED: NEO SYNEPHRINE/NS Syringe(OR USE) IV ONE (10:15)
--- NOTE | 2019-03-06 10:33 | Post Operative Note ---
Pre-op diagnosis: anemia, weight loss Post-op diagnosis: same Findings: EGD: hiatal hernia - possible Arellano's with small healing ulcer g-e junction (bx's) - diffuse mild gastritis (bx's) - small ulcer 2nd portion duodenum (nx's) - negative other Procedure: EGD w/ cold bx's Anesthesia: MAC Surgeon: MARC GUERIN Estimated blood loss: none Pathology: list Specimen disposition: to lab Condition: stable Disposition: floor
[2019-03-06] MEDS: HABITROL TD SCH (11:14)
[2019-03-06] MEDS: LOVENOX SUB-Q SCH (11:14)
[2019-03-06] MEDS: SODIUM CHLORIDE FLUSH SYRINGE 10 ML IV SCH ×2 (11:15→21:32)
--- NOTE | 2019-03-06 13:00 | Post Anesthesia Evaluation ---
- Post Anesthesia Evaluation Patient Participated: Yes Airway Patent: Yes Stable Respiratory Function: Yes Nausea/Vomiting: No Temp > 96.8F: Yes Pain Manageable: Yes Adequeate Hydration: No (Probably dehydrated some) Anesthesia Complications: No
--- NOTE | 2019-03-06 13:10 | Operative Report ---
PROCEDURE PERFORMED: EGD with cold biopsy. INDICATIONS: 1. Weight loss. 2. Anemia. 3. Metastatic cancer. MEDICATIONS: Propofol per DIRECTOR OF TECHNOLOGY. COMPLICATIONS: None. DESCRIPTION OF PROCEDURE: The patient brought to the procedure suite. The patient had the procedure discussed with him at length. All risks, complications, and benefits discussed after which the patient signed for the procedure to be performed. The patient was placed in left lateral decubitus position. Mouth block was placed in the patient's oral cavity. After adequate sedation medication as above, endoscope placed in the mouth and brought to level of the second portion of duodenum. Retroflexion view was performed. The patient's vital signs remained stable throughout the procedure. FINDINGS: There was noted to be a nonobstructing ring noted at the very distal esophagus and GE junction. GE junction was noted to be 40 cm from the gums. There was irregular mucosa, raising possibility of Arellano's esophagus noted at GE junction. There was a small 4-mm healing ulcer also noted GE junction. Biopsies were taken at GE junction and sent to pathology. Medium hiatal hernia at GE junction. The esophagus otherwise appeared to be normal. There was a lace-like diffuse pattern with mild irritation noted throughout the stomach. Biopsies were taken and sent to pathology. The remaining stomach otherwise appeared to be normal. There was 5-6 small 3-5 mm superficial white-based ulcers noted in the first portion of duodenum. Biopsies were taken and sent to pathology. The remaining duodenum otherwise appeared to be normal. Retroflexion view performed in the stomach showed no other pathology other than noted above. The patient tolerated the procedure well. No complications during the procedure. IMPRESSION: 1. Hiatal hernia. 2. Nonobstructing distal esophageal rings. 3. Possible Arellano's and healing small ulcer at gastroesophageal junction, status post biopsies. 4. Otherwise, normal esophagus. 5. Lace-like appearance to the stomach with mild irritation, biopsies taken. 6. Small benign appearing ulcers in the first portion of duodenum, biopsies taken. 7. Otherwise, normal esophagogastroduodenoscopy. RECOMMENDATIONS: 1. Followup biopsy results. 2. If H. pylori positive, we will treat. 3. PPI daily. 4. Avoid NSAIDs and aspirin. 5. We will discuss the option of repeat colonoscopy. The patient with further recommendation based on progress and results of the above. JOB# [id number] ASHLEY/SUYAPA
[2019-03-06] MEDS: AMBIEN PO PRN (22:22)
[2019-03-06] MEDS: TYLENOL PO PRN (22:22)
[2019-03-06] MEDS: BENADRYL PO PRN (22:22)
[2019-03-07 05:16] LABS: Basophils # (Auto) 0.1 K/mm3 (0.0-0.1); Basophils % (Auto) 0.6 % (0.0-1.8); Eosinophils # (Auto) 0.2 K/mm3 (0.0-0.4); Eosinophils % (Auto) 1.9 % (0.0-4.3); Hematocrit 29.8 % (35.5-45.6); Hemoglobin 10.7 gm/dl (11.8-15.2); Lymphocytes # (Auto) 1.1 K/mm3 (1.2-5.4); Lymphocytes % (Auto) 11.6 % (13.4-35.0); Mean Corpuscular HGB Conc 36 % (32-34); Mean Corpuscular Volume 104 fl (84-94); Monocytes # (Auto) 1.2 K/mm3 (0.0-0.8); Monocytes % (Auto) 12.5 % (0.0-7.3); Platelet Count 193 K/mm3 (140-440); Red Blood Count 2.88 M/mm3 (3.65-5.03); Red Cell Distribution Width 16.1 % (13.2-15.2)
[2019-03-07] MEDS: LASIX PO SCH (05:24)
[2019-03-07 05:27] LABS: Alanine Aminotransferase 31 units/L (7-56); Albumin 1.7 g/dL (3.9-5); BUN/Creatinine Ratio 28; Blood Urea Nitrogen 14 mg/dL (9-20); Calcium 7.6 mg/dL (8.4-10.2); Hemolysis Index 2
--- NOTE | 2019-03-07 07:38 | Progress Note ---
Assessment and Plan Assessment and plan: 63-year-old male patient with significant past medical history of colon cancer many years ago was admitted through emergency room with generalized weakness and yellowish discoloration of sclerae, CT abdomen and pelvis, CT chest findings consistent with metastatic lesions in the liver and lung with ascites, Patient underwent abdominal paracentesis, fluid analysis negative for SBP, evaluated by hematology oncology. CT guided biopsy Could not be done due to sorrunding ascitic fluid around the Liver. Evaluated by GI, had colonoscopy s/p ppolyp biopsy Pt also has hyponatremia secondary to SIADH, sodium level slightly improved, nephrology following. * Patient underwent CT-guided abdominal paracentesis and removal of 4.5 L. Peritoneal fluid sent for analysis, as well as CT-guided needle biopsy Patient tolerated. * Pathology report shows Metastatic Adenocarcinoma with likely Colorectal primary but with gastric on ddx. * CEA ELEVATE EGD: hiatal hernia - possible Arellano's with small healing ulcer g-e junction (bx's) - diffuse mild gastritis (bx's) - small ulcer 2nd portion duodenum (nx's) * Metastatic lesions lungs/liver; * Ascites * Hypotension * Barretts with small healing ulcer G-E junction * Bacteremia * Severe Protein Calorie malnutrition * Depression * Hyponatremia secondary to SIADH * Hepatic failure * Hypotension * Hepatitis B,C PLAN -Continue supportive care -Patient refused Prep and colonoscopy was not done. Will plan for tomorrow Needs aggressive PT/OT Discussed diagnosis in detail with the patient, he verbalized understanding Trial of Tap water enema today following prep. -Plan for patient to follow with GI and have repeat colonoscopy outpatient and also oncology. He understands need to have proper tx -Possible Colonoscopy if EGD is negative considering poor prep and multiple polyps noted -ID evaluated and reports contamination. 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 Patient with significant weight loss secondary to chronic condition -Continue to monitor sodium -Poor prognosis -Depending on GI findings, will consider surgery vs Hospice. -Oncology input noted. -DVT/GI prophy History Interval history: Patient seen and examined, remains lethargic but reports some improvement. Now wants to do the colonosocpy and plan to drink prep, states he has not ambulated. Hospitalist Physical - Physical exam Narrative exam: General appearance: Present: mild distress, cachectic, disheveled, Weak APPEARING - EENT Eyes: Present: PERRL, EOM intact - Neck Neck: Present: supple, normal ROM - Respiratory Respiratory effort: normal Respiratory: bilateral: diminished, negative: rales, rhonchi, wheezing - Cardiovascular Rhythm: regular Heart Sounds: Present: S1 & S2 - Extremities Extremities: no ischemia, No edema - Abdominal General gastrointestinal: soft, non-tender, distended with positive fluid shift, normal bowel sounds - Integumentary Integumentary: Present: clear, warm - Psychiatric Psychiatric: appropriate mood/affect, cooperative - Neurologic Neurologic: moves all extremities - Constitutional Vitals: Temp Pulse Resp BP Pulse Ox 98.3 F 98 H 18 87/59 92 03/07/19 02:52 03/07/19 02:52 03/07/19 02:52 03/07/19 02:52 03/07/19 02:52 General appearance: Present: no acute distress, cachectic, disheveled Results - Labs CBC & Chem 7: 03/07/19 04:43 03/07/19 04:43 Labs: Laboratory Last Values WBC 9.8 K/mm3 (4.5-11.0) 03/07/19 04:43 RBC 2.88 M/mm3 (3.65-5.03) L 03/07/19 04:43 Hgb 10.7 gm/dl (11.8-15.2) L 03/07/19 04:43 Hct 29.8 % (35.5-45.6) L 03/07/19 04:43 MCV 104 fl (84-94) H 03/07/19 04:43 MCH 37 pg (28-32) H 03/07/19 04:43 MCHC 36 % (32-34) H 03/07/19 04:43 RDW 16.1 % (13.2-15.2) H 03/07/19 04:43 Plt Count 193 K/mm3 (140-440) 03/07/19 04:43 Lymph % (Auto) 11.6 % (13.4-35.0) L 03/07/19 04:43 [place] % (Auto) 12.5 % (0.0-7.3) H 03/07/19 04:43 Eos % (Auto) 1.9 % (0.0-4.3) 03/07/19 04:43 Baso % (Auto) 0.6 % (0.0-1.8) 03/07/19 04:43 Lymph # 1.1 K/mm3 (1.2-5.4) L 03/07/19 04:43 [place] # 1.2 K/mm3 (0.0-0.8) H 03/07/19 04:43 Eos # 0.2 K/mm3 (0.0-0.4) 03/07/19 04:43 Baso # 0.1 K/mm3 (0.0-0.1) 03/07/19 04:43 Seg Neutrophils % 73.4 % (40.0-70.0) H 03/07/19 04:43 Seg Neutrophils # 7.2 K/mm3 (1.8-7.7) 03/07/19 04:43 PT 13.8 Sec. (12.2-14.9) 03/04/19 04:11 INR 1.09 (0.87-1.13) 03/04/19 04:11 Sodium 126 mmol/L (137-145) L 03/07/19 04:43 Potassium 4.3 mmol/L (3.6-5.0) 03/07/19 04:43 Chloride 88.9 mmol/L (98-107) L 03/07/19 04:43 Carbon Dioxide 29 mmol/L (22-30) 03/07/19 04:43 12 mmol/L 03/07/19 04:43 BUN 14 mg/dL (9-20) 03/07/19 04:43 0.5 mg/dL (0.8-1.5) L 03/07/19 04:43 Estimated GFR > 60 ml/min 03/07/19 04:43 28 % 03/07/19 04:43 Glucose 95 mg/dL (75-100) 03/07/19 04:43 POC Glucose 125 (70-105) H 02/18/19 20:42 245 Mosm/kg 02/18/19 13:26 Calcium 7.6 mg/dL (8.4-10.2) L 03/07/19 04:43 3.80 mg/dL (0.1-1.2) H 03/07/19 04:43 2.4 mg/dL (0-0.2) H 03/04/19 04:11 0.9 mg/dL 03/04/19 04:11 AST 75 units/L (5-40) H 03/07/19 04:43 ALT 31 units/L (7-56) 03/07/19 04:43 413 units/L (35-129) H 03/07/19 04:43 82.0 umol/L (25-60) H 03/04/19 14:37 5.1 g/dL (6.3-8.2) L 03/07/19 04:43 1.7 g/dL (3.9-5) L 03/07/19 04:43 0.5 % 03/07/19 04:43 31 units/L (13-60) 02/17/19 19:40 Tumor Marker AFP See scanned result 02/22/19 05:27 Carcinoembryonic Ag 2331.7 ng/mL (0.0-2.4) H 02/19/19 05:20 1015 U/mL (<34) H 02/22/19 05:27 Melina (Yellow) 02/17/19 22:00 Clear (Clear) 02/17/19 22:00 6.0 (5.0-7.0) 02/17/19 22:00 Ur Specific [place] 1.012 (1.003-1.030) 02/17/19 22:00 <15 mg/dl mg/dL (Negative) 02/17/19 22:00 Neg mg/dL (Negative) 02/17/19 22:00 Tr mg/dL (Negative) 02/17/19 22:00 Sm (Negative) 02/17/19 22:00 Neg (Negative) 02/17/19 22:00 Sm (Negative) 02/17/19 22:00 Positive (Negative) 02/17/19 22:00 4.0 mg/dL (<2.0) 02/17/19 22:00 Ur Leukocyte Esterase Neg (Negative) 02/17/19 22:00 5.0 /HPF (0.0-6.0) 02/17/19 22:00 9.0 /HPF (0.0-6.0) 02/17/19 22:00 U Epithel Cells (Auto) < 1.0 /HPF (0-13.0) 02/17/19 22:00 Amorphous Crystals Few 02/17/19 22:00 428 Mosm/kg 02/18/19 Unknown 96.0 mg/dL (0.1-20.0) H 02/18/19 Unknown 10 mmol/L 02/18/19 Unknown Fluid Type Ascitic 02/22/19 15:15 Fluid Color Yellow 02/22/19 15:15 Fluid Appearance Clear 02/22/19 15:15 Fluid WBC 24 /mm3 02/22/19 15:15 Fluid RBC 11 /mm3 02/22/19 15:15 Fluid Seg Neutrophils 5.0 % 02/22/19 15:15 Fluid Lymphocytes 84.0 % 02/22/19 15:15 Fluid Reactive Lymphs 0 % 02/22/19 15:15 Fluid Monocytes 10.0 % 02/22/19 15:15 Fluid Eosinophils 1.0 % 02/22/19 15:15 Fluid Basophils 0 % 02/22/19 15:15 Fluid Glucose 83 mg/dL (40-70) H 02/22/19 15:15 Fluid Albumin 0.4 g/dL 02/22/19 15:15 Fluid LDH 27 02/22/19 15:15 Fluid Amylase 12 02/22/19 15:15 Hepatitis A IgM Ab Non-reactive (NonReactive) 03/03/19 04:08 Hep Bs Antigen Non-reactive (Negative) 03/03/19 04:08 Hep B Core IgM Ab Reactive (NonReactive) A 03/03/19 04:08 Reactive (NonReactive) A 03/03/19 04:08 Active Medications - Current Medications Current Medications: Generic Name Dose Route Start Last Admin Trade Name Ronanq PRN Reason Stop Dose Admin Acetaminophen 650 mg 02/18/19 00:16 03/06/19 22:22 Tylenol PO 650 mg Q4H PRN Administration Pain MILD(1-3)/Fever >100.5/POLANCO Diphenhydramine HCl 25 mg 03/05/19 21:15 03/06/19 22:22 Benadryl PO 25 mg Q6H PRN Administration Itching Enoxaparin Sodium 40 mg 02/18/19 10:00 03/06/19 11:14 Lovenox SUB-Q 40 mg QDAY@1000 [place] Administration Furosemide 20 mg 02/22/19 18:00 03/07/19 05:24 Lasix PO Not Given 0600,1800 [place] Lactulose 20 gm 03/04/19 10:43 03/05/19 05:13 Cephulac PO 20 gm QDAY PRN Administration Constipation Naphazoline HCl/Pheniramine Maleate 2 drops 02/23/19 23:28 Visine-A OU Q6H PRN Dry Eye(s) Nicotine 21 mg 02/20/19 14:00 03/06/19 11:14 Habitrol TD 21 mg QDAY [place] Administration Ondansetron HCl 4 mg 02/18/19 00:16 02/28/19 20:32 Zofran IV 4 mg Q8H PRN Administration Nausea And Vomiting Sodium Chloride 10 ml 02/18/19 10:00 03/06/19 21:32 Sodium Chloride Flush Syringe 10 Ml IV 10 ml BID [place] Administration Sodium Chloride 10 ml 02/18/19 00:16 02/21/19 07:56 Sodium Chloride Flush Syringe 10 Ml IV 10 ml PRN PRN Administration LINE FLUSH Zolpidem Tartrate 5 mg 02/25/19 12:56 03/06/19 22:22 Ambien PO 5 mg QHS PRN Administration Sleep Nutrition/Malnutrition Assess - Dietary Evaluation Nutrition/Malnutrition Findings: Nutrition Notes Start: 02/18/19 15:10 Freq: Status: Active Protocol: Document 03/03/19 14:56 RM (Rec: 03/03/19 15:07 RM [id number]) Nutrition Notes Initial or Follow up Reassessment Other Pertinent Diagnosis Sacral PU, Depression, SIRS, metastatic colon CA, Ascites Current Diet Cardiac w/chopped Labs/Tests Reviewed Pertinent Medications Reviewed Height 5 ft 7 in Weight 69.6 kg [place] Body Weight (kg) 67.27 BMI 24.0 Weight change and time frame Wt increase noted. Likely d/t ascites. Subjective/Other Information NPO for paracentesis in place earlier today. Cardiac diet ordered later today. Pt stated that prior to NPO he ate 1/3 of his meals and drank the Ensure Enlive. Pt requested to increased Ensure Enlive to TID. Percent of energy/protein needs met: 40%/37% Burn Absent Trauma Absent #1 Nutrition Diagnosis Malnutrition Diagnosis Progress(for reassessment Continues documentation) Is patient on ventilator? No Is Patient Ambulatory and/or Out of Bed No REE-([facility]-confined to bed) [phone] Calculation Used for Recommendations Volodymyr Lanmervin Additional Notes Protein Needs: 74-93g (1.2-1. 5g/kg) Fluid Needs: 1.5 L Nutrition Intervention Change Diet Order: Continue curreent Add Supplement/Snack (indicate name/kcal Resume Ensure Enlive Chocolate /protein ) TID Provides kCal: 1,050 Provides Protein (gm) 60 Goal #1 Meet at least 75% of calorie and protein needs via PO and ONS intakes Anticipated Discharge Needs: Cardiac diet Follow-Up By: 03/08/19 Additional Comments Follow for PO and ONS intakes
[2019-03-07] MEDS ORDERED: LASIX PO SCH (10:00)
[2019-03-07] MEDS: HABITROL TD SCH (10:09)
[2019-03-07] MEDS: LOVENOX SUB-Q SCH (10:10)
[2019-03-07] MEDS: SODIUM CHLORIDE FLUSH SYRINGE 10 ML IV SCH ×2 (10:10→23:55)
[2019-03-07] MEDS ORDERED: GOLYTELY PO ONE ×2 (12:23→17:30)
--- NOTE | 2019-03-07 13:28 | Gastroenterology Progress Note ---
Assessment and Plan GI: h/o previous colon cancer now with noted malignancy unclear primary - EGD benign - colonoscopy in am - will follow Subjective Date of service: 03/07/19 Principal diagnosis: colon ca? Interval history: - no complaints overnight Objective - Constitutional Vitals: Temp Pulse Resp BP Pulse Ox 97.7 F 103 H 18 98/59 93 03/07/19 07:44 03/07/19 12:03 03/07/19 07:44 03/07/19 12:03 03/07/19 12:03 General appearance: no acute distress - EENT Eyes: PERRL - Respiratory Respiratory: bilateral: CTA - Cardiovascular Rhythm: regular Heart Sounds: Present: S1 & S2 - Gastrointestinal General gastrointestinal: Present: soft, non-tender, non-distended - Labs CBC & Chem 7: 03/07/19 04:43 03/07/19 04:43 Labs: Laboratory Results - last 24 hr 03/07/19 03/07/19 04:43 04:43 WBC 9.8 RBC 2.88 L Hgb 10.7 L Hct 29.8 L MCV 104 H MCH 37 H MCHC 36 H RDW 16.1 H Plt Count 193 Lymph % (Auto) 11.6 L [place] % (Auto) 12.5 H Eos % (Auto) 1.9 Baso % (Auto) 0.6 Lymph # 1.1 L [place] # 1.2 H Eos # 0.2 Baso # 0.1 Seg Neutrophils % 73.4 H Seg Neutrophils # 7.2 Sodium 126 L Potassium 4.3 Chloride 88.9 L Carbon Dioxide 29 Anion Gap 12 BUN 14 Creatinine 0.5 L Estimated GFR > 60 BUN/Creatinine Ratio 28 Glucose 95 Calcium 7.6 L Total Bilirubin 3.80 H AST 75 H ALT 31 Alkaline Phosphatase 413 H Total Protein 5.1 L Albumin 1.7 L Albumin/Globulin Ratio 0.5
[2019-03-07] MEDS: TYLENOL PO PRN (16:45)
[2019-03-08] MEDS: AMBIEN PO PRN
[2019-03-08] MEDS: TYLENOL PO PRN
[2019-03-08] MEDS: BENADRYL PO PRN (00:04)
[2019-03-08 05:12] LABS: Basophils # (Auto) 0.1 K/mm3 (0.0-0.1); Basophils % (Auto) 0.9 % (0.0-1.8); Eosinophils # (Auto) 0.2 K/mm3 (0.0-0.4); Eosinophils % (Auto) 2.4 % (0.0-4.3); Hematocrit 28.3 % (35.5-45.6); Hemoglobin 9.9 gm/dl (11.8-15.2); Mean Corpuscular HGB Conc 35 % (32-34); Mean Corpuscular Volume 104 fl (84-94); Monocytes # (Auto) 1.1 K/mm3 (0.0-0.8); Monocytes % (Auto) 11.7 % (0.0-7.3); Platelet Count 213 K/mm3 (140-440); Red Blood Count 2.72 M/mm3 (3.65-5.03); Red Cell Distribution Width 16.3 % (13.2-15.2)
--- NOTE | 2019-03-08 15:53 | Anesthesia Day of Surgery ---
Anesthesia Day of Surgery - Day of Surgery Patient Examined: Yes Patient H&P Reviewed: Yes Patient is NPO: Yes
--- NOTE | 2019-03-08 15:54 | Anesthesia Consultation ---
Anesthesia Consult and Med Hx Date of service: 03/08/19 - Airway Anesthetic Teeth Evaluation: Edentulous ROM Head & Neck: Adequate Mental/Hyoid Distance: Adequate Mallampati Class: Class II Intubation Access Assessment: Probably Good - Pre-Operative Health Status ASA Pre-Surgery Classification: ASA3 Proposed Anesthetic Plan: MAC - Pulmonary Hx Smoking: Yes (nicotine patch on L arm; no cigarettes in 6 months per patient ) Hx Asthma: Yes Hx Respiratory Symptoms: No SOB: No COPD: Yes (No home O2) Hx Pneumonia: No Hx Sleep Apnea: No - Cardiovascular System Hx Hypertension: Yes Hx Heart Attack/AMI: No Hx Angina: No Hx Cardia Arrhythmia: No Hx Pacemaker: No Hx Internal Defibrillator: No Hx Valvular Heart Disease: No Hx Heart Murmur: No - Central Nervous System Hx Neuromuscular Disorder: No - Gastrointestinal Hx Ulcer: No Hx Gastroesophageal Reflux Disease: No - Endocrine Hx End Stage Renal Disease: No Hx Liver Disease: Yes Hx Insulin Dependent Diabetes: No Hx Non-Insulin Dependent Diabetes: No Hx Thyroid Disease: No - Hematic Hx Anemia: Yes - Other Systems Hx Alcohol Use: Yes Hx Substance Use: No Hx Cancer: Yes (colon) Hx Obesity: No - Additional Comments Anesthesia Medical History Comments: No GAC, No FHAC
[2019-03-08] MEDS ORDERED: VERSED ONE (15:57)
[2019-03-08] MEDS ORDERED: XYLOCAINE 1% 20 mL ONE (15:57)
[2019-03-08] MEDS ORDERED: DIPRIVAN 10 MG/ML IV ONE ×2 (15:58)
[2019-03-08] MEDS ORDERED: NACL 0.9% 1000 ML 1,000 ML IV SCH (16:00)
--- NOTE | 2019-03-08 16:27 | Discharge Summary ---
Providers - Providers Date of Admission: 02/17/19 23:12 Attending physician: RAJINDER TORRES MD 02/18/19 02:45 Consult to Wound/ET Nurse [CONS] Routine Reason For Exam: wound eval 02/18/19 03:23 Consult to Physician [CONS] Routine Comment: Consulting Provider: JOAN COHEN Physician Instructions: Reason For Exam: met colon ca 02/18/19 15:29 Occupational Therapy Evaluate and Treat [CONS] Routine Comment: Reason For Exam: recent fall at home; weakness Physical Therapy Evaluation and Treat [CONS] Routine Comment: Reason For Exam: recent fall at home; weakness 02/19/19 08:06 Consult to Physician [CONS] Routine Comment: Consulting Provider: TK NAIK Physician Instructions: Reason For Exam: liver bx? 02/21/19 15:12 Consult to Interventional Radiology [CONS] Routine Consulting Provider: TK NAIK Reason For Exam: ascites - for diagnostic paracentesis Place consult to:: Dr. Naik Notified:: Smita BHATT Was contact made?: Yes If yes, spoke with:: Dr. Jacinto-in person Time called:: 15:29 02/24/19 11:56 Consult to Physician [CONS] Routine Comment: Consulting Provider: AFSHIN DE JESUS Physician Instructions: Reason For Exam: positive blood cult/sepsis 02/27/19 09:19 Consult to Physician [CONS] Routine Comment: Consulting Provider: HARINI COLIN Physician Instructions: Reason For Exam: colon ca - ? cea high Primary care physician: RUPERTO GAONA Hospitalization Reason for admission: ascites Condition: Stable Hospital course: 63-year-old male patient with significant past medical history of colon cancer many years ago was admitted through emergency room with generalized weakness and yellowish discoloration of sclerae, CT abdomen and pelvis, CT chest findings consistent with metastatic lesions in the liver and lung with ascites, Patient underwent abdominal paracentesis, fluid analysis negative for SBP, evaluated by hematology oncology. CT guided biopsy Could not be done due to surrounding ascitic fluid around the Liver initially. Evaluated by GI, had colonoscopy s/p polyp biopsy Pt also has hyponatremia secondary to SIADH, sodium level slightly improved, nephrology on admission. Hospital course * Patient underwent CT-guided abdominal paracentesis and removal of 4.5 L. Peritoneal fluid sent for analysis, as well as CT-guided needle biopsy Patient tolerated. * Pathology report shows Metastatic Adenocarcinoma with likely Colorectal primary but with gastric on ddx. * CEA Elevated * Patient underwent EGD which showed * Hiatal hernia * Possible Arellano's with small healing ulcer g-e junction (bx's) * Diffuse mild gastritis (bx's) * Small ulcer 2nd portion duodenum (nx's) * Patient underwent Colonoscopy, as noted below. Patient to follow with GI for pathology * Colonoscopy: polyp x 4 (8-20 mm) noted caecum/ascending colon, not grossly malignant appearing, hot forceps polypectomy applied * surgical site 12 cm from rectum intact * internal hemorrhoids * The findings were discussed with the patient in detail and options of treatment was also discussed, Patient while considering treatment wants to also discuss with hospice. * Medications were adjusted and shows blood pressure remained on the low side. Diagnosis of hepatitis was also discussed with the patient and patient was discharged with home health. * Is no evidence of sepsis as cultures noted were secondary to contaminant. * Metastatic Adenocarcinoma * Metastatic lesions to the lungs and liver * Ascites * Hypotension * Barretts with small healing ulcer G-E junction * Bacteremia * Severe Protein Calorie malnutrition * Depression * Hyponatremia secondary to SIADH * Hepatic failure * Hypotension * Hepatitis B,C Disposition: [id number] HOME UNDER HOME [facility] Time spent for discharge: 35 mins Core Measure Documentation - Palliative Care Palliative Care/ Comfort Measures: Not Applicable - Core Measures Any of the following diagnoses?: none Exam - Physical Exam Narrative exam: General appearance: Present: mild distress, cachectic, disheveled, - EENT Eyes: Present: PERRL, EOM intact - Neck Neck: Present: supple, normal ROM - Respiratory Respiratory effort: normal Respiratory: bilateral: diminished, negative: rales, rhonchi, wheezing - Cardiovascular Rhythm: regular Heart Sounds: Present: S1 & S2 - Extremities Extremities: no ischemia, No edema - Abdominal General gastrointestinal: soft, non-tender, distended with positive fluid shift, normal bowel sounds - Integumentary Integumentary: Present: clear, warm - Psychiatric Psychiatric: appropriate mood/affect, cooperative - Neurologic Neurologic: moves all extremities - Constitutional Vitals: Temp Pulse Resp BP Pulse Ox 98.1 F 96 H 16 96/68 93 03/08/19 15:52 03/08/19 15:52 03/08/19 15:52 03/08/19 15:52 03/08/19 15:52 Plan Activity: advance as tolerated, fall precautions Diet: low fat Special Instructions: record daily weights, record daily BP diary Follow up with: RUPERTO GAONA MD [Primary Care Provider] - 3-5 Days BRENDA HENDRICKSON MD [Staff Physician] - 7 Days KEVIN BOWEN MD [Staff Physician] - 7 Days JOAN COHEN MD [Staff Physician] - 7 Days Prescriptions: diphenhydrAMINE [Benadryl CAP] 25 mg PO Q8HR PRN #30 capsule PRN Reason: Itching Lactulose [Cephulac] 20 gm PO QDAY PRN 30 Days oral.liqd PRN Reason: Constipation Furosemide [Lasix TAB] 20 mg PO QDAY #30 tablet Naphazoline/Phenira 0.025/0.3% [Visine-A] 2 drops OU Q6H PRN #1 bottle PRN Reason: Dry Eye(S)
--- NOTE | 2019-03-08 16:34 | Post Operative Note ---
Pre-op diagnosis: anemia Post-op diagnosis: same Findings: Colonoscopy: polyp x 4 (8-20 mm) noted caecum/ascending colon, not grossly malignant appearing, hot forceps polypectomy applied - surgical site 12 cm from rectum intact - internal hemorrhoids Procedure: Colonoscopy w/ hot snare polypectomy Anesthesia: MAC Surgeon: MARC GUERIN Estimated blood loss: none Pathology: list Specimen disposition: to lab Condition: stable Disposition: floor
[2019-03-08 17:27] VITALS: BP 101/67
--- NOTE | 2019-03-08 20:15 | Operative Report ---
PROCEDURE PERFORMED: Colonoscopy with hot snare polypectomy. INDICATIONS: 1. Weight loss. 2. Metastatic cancer for colonoscopy. 3. Anemia. MEDICATIONS: Propofol per FARM MANAGEMENT AGENT. COMPLICATIONS: None. DESCRIPTION OF PROCEDURE: The patient was brought to procedure suite. The patient had the procedure discussed with him at length. All risks, complications, and benefits were discussed after which the patient signed for the procedure performed. The patient was placed in left lateral decubitus position. Rectal exam performed prior to insertion of the scope. After adequate sedation medication as above, scope was inserted into the rectum and brought to level of cecum. Ileocecal valve and appendiceal orifice, cecal strap were adequately visualized. Colonoscope was then removed and mucosa of colon visualized. Prep quality was fair. The patient's vital signs remained stable throughout the procedure. FINDINGS: There was noted to be approximately 85 cm remaining colon. There was an end to end and colon to colon anastomosis site noted approximately 12 cm from the anal verge. There were 4 polyps ranging in size from 8 mm to approximately 20 mm noted along the ascending colon. Two small ones were removed in one piece. Two larger ones were removed with piecemeal polypectomy. Post-procedure, the patient was satisfactory. All polyps were removed with hot snare. There were no other mass lesions or polyps were noted. No diverticula were noted. Retroflexion showed medium internal hemorrhoids. The patient tolerated the procedure well. No complications during the procedure. IMPRESSION: 1. Approximately 5 cm remaining colon with anastomosis site noted 12 cm from the anal verge. 2. Polyp x 4, status post hot snare polypectomy. It should be noted none of these polyps were obviously malignant in appearance. 3. Internal hemorrhoids. RECOMMENDATIONS: 1. Follow up biopsy results. 2. Avoid NSAIDs and aspirin for 7 days. 3. Repeat colonoscopy in 3 years. 4. Okay to discharge from GI standpoint. We will follow up as an outpatient. JOB# [id number] CAB/NTS
[2019-03-09] MEDS ORDERED: NACL 0.9% 1000 ML 1,000 ML ONE (07:05)
== END 2019-03-08 19:00 | disposition home health service (06) | DRG 441 ==
LOC: ED 18:29 → 4A 23:12 → 2B-ACE 02-21 16:02
PROVIDERS: ADMIT Internal Medicine; ATTEND Internal Medicine
PROC: 0W9G3ZZ Drainage of Peritoneal Cavity, Percutaneous Approach (ICD-10-PCS; principal; 2019-02-22)
PROC: 0DBH8ZX Excision of Cecum, Via Natural or Artificial Opening Endoscopic, Diagnostic (ICD-10-PCS; 2019-03-01)
PROC: 0DBL8ZX Excision of Transverse Colon, Via Natural or Artificial Opening Endoscopic, Diagnostic (ICD-10-PCS; 2019-03-01)
PROC: 0W9G30Z Drainage of Peritoneal Cavity with Drainage Device, Percutaneous Approach (ICD-10-PCS; 2019-03-03)
PROC: 0FB13ZX Excision of Right Lobe Liver, Percutaneous Approach, Diagnostic (ICD-10-PCS; 2019-03-03)
PROC: 0DB98ZX Excision of Duodenum, Via Natural or Artificial Opening Endoscopic, Diagnostic (ICD-10-PCS; 2019-03-06)
PROC: 0DB68ZX Excision of Stomach, Via Natural or Artificial Opening Endoscopic, Diagnostic (ICD-10-PCS; 2019-03-06)
PROC: 0DB48ZX Excision of Esophagogastric Junction, Via Natural or Artificial Opening Endoscopic, Diagnostic (ICD-10-PCS; 2019-03-06)
PROC: 0DBK8ZZ Excision of Ascending Colon, Via Natural or Artificial Opening Endoscopic (ICD-10-PCS; 2019-03-08)
DX: K72.90 Hepatic failure, unspecified without coma (principal); E43 Unspecified severe protein-calorie malnutrition; C78.7 Secondary malignant neoplasm of liver and intrahepatic bile duct; C78.00 Secondary malignant neoplasm of unspecified lung; E22.2 Syndrome of inappropriate secretion of antidiuretic hormone; R18.8 Other ascites; K22.10 Ulcer of esophagus without bleeding; R65.10 Systemic inflammatory response syndrome (SIRS) of non-infectious origin without acute organ dysfunction; K76.9 Liver disease, unspecified; I95.9 Hypotension, unspecified; K74.60 Unspecified cirrhosis of liver; F10.10 Alcohol abuse, uncomplicated; R91.1 Solitary pulmonary nodule; F32.9 Major depressive disorder, single episode, unspecified; K44.9 Diaphragmatic hernia without obstruction or gangrene; K29.70 Gastritis, unspecified, without bleeding; K26.9 Duodenal ulcer, unspecified as acute or chronic, without hemorrhage or perforation; K64.8 Other hemorrhoids; K25.9 Gastric ulcer, unspecified as acute or chronic, without hemorrhage or perforation; B19.20 Unspecified viral hepatitis C without hepatic coma; F17.200 Nicotine dependence, unspecified, uncomplicated; I10 Essential (primary) hypertension; D72.829 Elevated white blood cell count, unspecified; J44.9 Chronic obstructive pulmonary disease, unspecified; K63.5 Polyp of colon; Z68.23 Body mass index [BMI] 23.0-23.9, adult; Z82.49 Family history of ischemic heart disease and other diseases of the circulatory system; Z88.2 Allergy status to sulfonamides; Z79.899 Other long term (current) drug therapy; Z85.038 Personal history of other malignant neoplasm of large intestine
CPT/HCPCS: 36415; 47000; 49083; 70450; 71046; 71260; 74176; 74177; 74183; 76700; 77012; 80048; 80053; 80074; 80076; 81001; 82040; 82106; 82140; 82150; 82378; 82570; 82947; 82962; 83605; 83690; 83930; 83935; 84295; 84300; 85025; 85610; 86301; 86707; 87040; 87116; 87350; 87517; 87902; 88112; 88172; 88173; 88305; 88307; 88312; 88333; 88341; 88342; 89051; 94760; 96374; 99285; 99406; G0378; A4649; A9577; J0692; J0696; J1650; J1940; J2250; J2370; J2405; J2704; J3010; J7030; J7050; Q9967